=== PATIENT | male | born 1960 | race Caucasian/White ===

== ENCOUNTER 2020-12-16 13:11 | Inpatient (IN) | payer OTHER, SELFPAY ==
[2020-12-16] VITALS (10 sets, daily range): BP systolic 138–161; BP diastolic 87–128; PULSE 56–113; RESP 11–20; TEMP 36.6–36.8; O2SAT 95–100; BMI 17.9
--- NOTE | 2020-12-16 13:29 | ECG_ITS ---
APPROVED REPORT Exam: Resting ECG HR:95 bpm ECG Measurements Heart Rate 95 AXES QRSd 76 QRS 48 QT 448 T 37 QTc 562 Conclusion Undetermined rhythm Voltage criteria for left ventricular hypertrophy Nonspecific T wave abnormality Prolonged QT Abnormal ECG Electronically signed by : Oc Crockett MD 12/17/2020 21:21:32
--- NOTE | 2020-12-16 13:34 | XR_ITS ---
PROCEDURE INFORMATION: Exam: XR Chest Exam date and time: 12/16/2020 1:34 PM Age: 60 years old Clinical indication: Cough TECHNIQUE: Imaging protocol: XR of the chest. Views: 1 view. COMPARISON: No relevant prior studies available. FINDINGS: Lungs: Unremarkable. No consolidation. Pleural spaces: Unremarkable. No pleural effusion. No pneumothorax. Heart/Mediastinum: Unremarkable. No cardiomegaly. Bones/joints: Unremarkable. IMPRESSION: No acute findings.
--- NOTE | 2020-12-16 13:44 | HMH.EDGENADL ---
ED Disposition Clinical Impression: Peripheral edema, Paroxysmal A-fib Congestive heart failure Qualifiers: Heart failure type: systolic Heart failure chronicity: acute Qualified Code(s): I50.21 - Acute systolic (congestive) heart failure Disposition: Admitted as Observation Condition on Discharge: Fair Referrals: Jose Ramon Anaya [Primary Care Provider] - - Critical Care Critical Care Time: No Attestation: On 12/16/20, the high probability of a clinically significant, sudden or life threatening deterioration of the following system(s) required my full and direct attention, intervention and personal management. The time I documented below is in addition to time spent performing reported procedures but includes the following listed in this critical care notation. Medical Decision Making - Medical Records Medical records reviewed: Yes: I reviewed the patient's medical records. - Art Inquiry Pt receiving controlled substance: No Vital Signs: 12/16/20 13:34 12/16/20 13:42 12/16/20 14:41 Temperature 98.3 F Temperature Source Oral Pulse Rate 113 H 82 Pulse Rate [Left Radial] 113 H Respiratory Rate 20 20 16 Blood Pressure 161/106 H 161/106 H Blood Pressure [Right Arm] 160/87 H Blood Pressure Mean 117 Blood Pressure Mean [Right Arm] 111 Blood Pressure Source [Right Arm] Automatic Cuff Blood Pressure Position [Right Arm] Sitting 02 Sat by Pulse Oximetry 99 99 99 Oxygen Delivery Method Room Air Room Air - Lab Data Lab Results 12/16/20 13:56: WBC 6.3, RBC 4.03 L, Hgb 10.9 L, Hct 36.1 L, MCV 89.7, MCH 27.0, MCHC 30.2 L, RDW 17.2, Plt Count 361, MPV 8.8, Neut % (Auto) 54.4, Lymph % (Auto) 34.3, [place] % (Auto) 5.4, Eos % (Auto) 4.8, Baso % (Auto) 1.1, Neut # (Auto) 3.4, Lymph # (Auto) 2.2, [place] # (Auto) 0.3, Eos # (Auto) 0.3, Baso # (Auto) 0.1 12/16/20 13:56: Sodium 139, Potassium 3.6, Chloride 104, Carbon Dioxide 27, Anion Gap 11.6, BUN 6 L, Creatinine 0.50 L, Estimated Creat Clear 153, Estimated GFR 171, Est GFR ( Amer) 207, Glucose 145 H, Calcium 8.4, Total Bilirubin < 0.1 L, AST 57, ALT 55, Alkaline Phosphatase 164 H, Troponin I < 0.01, NT-Pro-B Natriuret Pep 3770 H, Total Protein 6.0 L, Albumin 3.4 L, Globulin 2.6, Albumin/Globulin Ratio 1.3, TSH 2.67 12/16/20 14:05: SARS-CoV-2 (PCR) Not detected, Influenza A Untype (PCR) Not detected, Influenza Type B (PCR) Not detected Result diagrams: 12/16/20 13:56 12/16/20 13:56 Orders (Tests/Meds): ED MEDICATIONS Generic Name Dose Route Start Last Admin Trade Name Freq PRN Reason Stop Dose Admin Metoprolol Succinate 25 mg 12/17/20 09:00 Metoprolol Succinate Xl 25mg Tablet PO 01/16/21 08:59 DAILY MU Discontinued Medications Generic Name Dose Route Start Last Admin Trade Name Freq PRN Reason Stop Dose Admin Furosemide 40 mg 12/16/20 16:36 Furosemide 40mg/4ml Vial IV 12/16/20 16:37 ONCE ONE Iopamidol 70 ml 12/16/20 15:31 12/16/20 15:32 Iopamidol-370 (76%);100ml Bottle IV 12/16/20 15:32 70 ml ONCE ONE Administration Sodium Chloride 50 ml 12/16/20 15:31 12/16/20 15:32 0.9 % Sodium Chloride 50 Ml Vial IV 12/16/20 15:32 50 ml ONCE ONE Administration Sodium Chloride 10 ml 12/16/20 15:31 12/16/20 15:32 Sodium Chloride 0.9% 10ml Syr (Rad Only) IV 12/16/20 15:32 10 ml ONCE ONE Administration ORDERS Category Date Time Status Troponin I Q3H Lab 12/16/20 16:45 Ordered Troponin I Q3H Lab 12/16/20 19:45 Ordered - ECG Data Tracing #1 I reviewed this ECG and interpreted as documented below: Normal ventricular rate of 95 bpm, prolonged QT. Occasional PVCs with left ventricular hypertrophy. ECG initial impression date: 12/16/20 ECG initial impression time: 13:29 - Reevaluation(s) Time: 16:38 Reevaluation #1: Patient has been kept on continuous telemetry monitoring appears to be having some dysrhythmia. Initially he was just having random PVCs, however the bozena
[2020-12-16 14:12] LABS: Coronavirus 19, PCR Not Detected (NotDetected); Influenza A, PCR Not Detected (NotDetected); Influenza B, PCR Not Detected (NotDetected)
[2020-12-16 14:22] LABS: Basophils # 0.1 K/mm3 (0-0.2); Basophils % 1.1 % (0.1-2.0); Eosinophils # 0.3 K/mm3 (0.0-0.4); Eosinophils % 4.8 % (0.1-12.0); Hematocrit 36.1 % (42.0-52.0); Hemoglobin 10.9 g/dL (14.1-18.0); Lymphocytes # 2.2 K/mm3 (0.7-4.5); Lymphocytes % 34.3 % (10-50); Mean Corpuscular HGB Conc 30.2 g/dL (31.8-35.4); Mean Corpuscular Volume 89.7 fl (80-94); Mean Platelet Volume 8.8 fl (7.4-10.4); Monocytes # 0.3 K/mm3 (0.1-1.0); Monocytes % 5.4 % (1.7-9.3); Neutrophils # 3.4 K/mm3 (1.8-7.8); Neutrophils % 54.4 % (37.0-80.0); Platelet Count 361 K/mm3 (142-424); Red Blood Count 4.03 M/mm3 (4.60-6.20); Red Cell Distribution Width 17.2 % (11.5-17.5); White Blood Count 6.3 K/mm3 (4.8-10.8)
[2020-12-16 14:24] LABS: Chloride 104 mmol/L (98-107)
[2020-12-16 14:25] LABS: Potassium 3.6 mmoL/L (3.5-5.1); Sodium 139 mmol/L (136-145)
[2020-12-16 14:27] LABS: Alanine Aminotransferase 55 U/L (12-78); Alkaline Phosphatase 164 U/L (38-126); Aspartate Amino Transferase 57 U/L (17-59); Blood Urea Nitrogen 6 mg/dl (9-20); Creatinine Clearance Estimated 153 mL/min (50-200); Estimated Glomerular Filt Rate 171 ml/min (>60); GFR (African American) 207 ML/MIN (>60)
[2020-12-16 14:28] LABS: Albumin Level 3.4 g/dl (3.5-5.0); Albumin/Globulin Ratio 1.3 (1.1-1.8); Anion Gap 11.6 mEq/L (5-15); Calcium 8.4 mg/dl (8.4-10.2); Carbon Dioxide 27 mmol/L (22.0-30.0); Globulin 2.6 g/dL (1.3-3.2); Glucose 145 mg/dl (74-100)
[2020-12-16 14:32] LABS: Bilirubin,Total < 0.1 mg/dl (0.2-1.3)
[2020-12-16 14:37] LABS: NT Pro Brain Natriuretic Pep. 3770 pg/mL (0-125)
[2020-12-16 14:42] LABS: Troponin I < 0.01 ng/ml (0.00-0.034)
--- NOTE | 2020-12-16 14:52 | CT_ITS ---
PROCEDURE INFORMATION: Exam: CTA Chest With Contrast Exam date and time: 12/16/2020 2:52 PM Age: 60 years old Clinical indication: Patient HX: Dyspnea, leg swelling; Additional info: Dyspnea, swelling TECHNIQUE: Imaging protocol: Computed tomographic angiography of the chest with contrast. 3D rendering (Not supervised by radiologist): MIP and/or 3D reconstructed images were created by the technologist. Radiation optimization: All CT scans at this facility use at least one of these dose optimization techniques: automated exposure control; mA and/or kV adjustment per patient size (includes targeted exams where dose is matched to clinical indication); or iterative reconstruction. Contrast material: ISO 370; Contrast volume: 70 ml; Contrast route: INTRAVENOUS (IV); COMPARISON: CR XR CHEST PORTABLE 12/16/2020 1:48 PM FINDINGS: Pulmonary arteries: Normal. No pulmonary emboli. Aorta: Calcification of the aorta. Lungs: Severe emphysema both centrilobular and paraseptal. No focal consolidation. Nodular density right upper lobe of approximately 6 mm. Pleural spaces: Unremarkable. No pneumothorax. No pleural effusion. Heart: Unremarkable. No cardiomegaly. No pericardial effusion. Lymph nodes: Calcified lymph nodes right hilum Stomach and bowel: Particulate filled stomach Bones/joints: Unremarkable. No acute fracture. Soft tissues: Unremarkable. Other findings: No dissection. No visualized embolism as characterized to the segmental level. IMPRESSION: 1. No dissection. No visualized embolism as characterized to the segmental level. 2. Severe emphysema both centrilobular and paraseptal. No focal consolidation. Apical fibrosis right greater than left. 3. Nodular density right upper lobe of approximately 6 mm.
[2020-12-16 14:59] LABS: Thyroid Stimulating Hormone 2.67 uIU/mL (0.465-4.68)
--- NOTE | 2020-12-16 17:00 | PC.NURSE ---
PT UP TO BATHROOM AMBULATORY
[2020-12-16 17:42] LABS: Troponin I 0.01 ng/ml (0.00-0.034)
--- NOTE | 2020-12-16 18:00 | PC.NURSE ---
REPORT CALLED TO FLOOR
--- NOTE | 2020-12-16 18:50 | PC.NURSE ---
PT ARRIVED TO THE FLOOR AT THIS TIME
[2020-12-16 20:55] LABS: Troponin I 0.01 ng/ml (0.00-0.034)
--- NOTE | 2020-12-16 23:24 | PC.NURSE ---
Pt was tachycardic on exertion heart rate went to 168 and quickly recovered. This nurse went in and pt reported that he had just went to the restroom. He is on Telemetry and was placed on continuous 02 monitor. Gave pt a urinal and instructed to use. Call dyer within reach will continue to monitor.
[2020-12-17] VITALS (23 sets, daily range): BP systolic 126–160; BP diastolic 67–107; PULSE 55–162; RESP 16–24; TEMP 36.4–36.9; O2SAT 91–100; BMI 17.0
--- NOTE | 2020-12-17 | CA_ITS ---
APPROVED REPORT EXAM: Comprehensive 2D, Doppler, and color-flow Echocardiogram Astronomy Instructor: Mackenzie Layne CRT Ht: 6 ft 0 in Wt: 132lbs BSA: 1.79 BP: 161/106 mmHg Indications: COPD, Atrial Fibrillation, Peripheral Edema, smoker 2D Dimensions LVOT 2.13 cm (M/F) 1.5-2.5 LA Volume 56.00 mL LA Volume Index 31.30 mL/m2 (M/F) 16-34 M-Mode Dimensions RVDd 2.13 cm (0.9-2.6) LA Diam 2.94 cm (1.9-4.0) LVDd 5.42 cm (3.5-5.7) Ao Diam 3.55 cm (2.0-3.7) LVDs 4.57 cm (3.5-5.7) IVSd 1.96 cm (0.6-1.1) PWd 0.99 cm (0.6-1.1) EF (Teich) 32.70% FS 15.70% EDV (Teich) 142.50 mL ESV (Teich) 95.90 mL LV Diastology E Decel Time 197.00 (160-240 msec) E/A Ratio 3.73 Aortic Valve AI PHT 482.00 ms AO Peak GR. 8.00 mmHg Mitral Valve MV E Max Pete. 96.00 (40-130 cm/s) MV A Velocity 26.00 (40-130 cm/s) E/A Ratio 3.73 MV Decel. Time 197.00 (160-240 ms) MV PHT 58.00 ms Pulmonary Valve PV Peak Velocity 82.00 (50-150 cm/s) Tricuspid Valve TR P. Velocity 212.00 cm/s RAP Estimate 10.00 mmHg RVSP 28.10 mmHg Left Ventricle Left atrium is mildly enlarged, left ventricle is mildly dilated, there is severe reduced left ventricular systolic function, visually estimated ejection fraction 30%, left ventricle is globally hypokinetic, diastolic parameters are inconclusive, possibility of left ventricular thrombus cannot be excluded, repeat study with Definity contrast is recommended. Right Ventricle Right atrium and right ventricle are normal size and contractility. Aortic Valve Aortic valve is minimally thickened and fibrosed, there is no aortic stenosis, there is trace aortic insufficiency. Mitral Valve Mitral valve grossly normal, there is mild mitral regurgitation. Tricuspid Valve Tricuspid valve grossly normal, there is mild tricuspid regurgitation, tricuspid regurgitation jet velocity is inadequate for calculation of the right ventricular systolic pressure. Pulmonic Valve Pulmonic valve is poorly visualized. Great Vessels Aortic root is normal size. Pericardium No significant pericardial effusion noted. Conclusion 1. Mildly enlarged left atrium, mildly dilated left ventricle, severe reduced left ventricular systolic function, visually estimated ejection fraction approximately 30%, left ventricle is globally hypokinetic, possibility of the left ventricular thrombus cannot be excluded, a repeat study with Definity contrast is recommended. 2. Trace aortic, mild mitral and tricuspid regurgitation. 3. No significant pericardial effusion noted. 4. Inferior vena cava is mildly dilated without significant inspiratory collapse. Electronically signed by : Wesley Hurt MD 12/17/2020 11:02:39
--- NOTE | 2020-12-17 | IR_ITS ---
APPROVED REPORT Patient Location: Inpatient [facility]: YUE Rodrigez RT (R) PROCEDURES Selective coronary angiogram Drug-eluting stent deployment the proximal ID Drug-eluting stent deployment in the first diagonal artery INDICATION Ischemic cardiomyopathy, Coronary artery disease, Thrombus in the left ventricle Informed consent was obtained prior to the procedure. COMPLICATIONS NONE Estimated Blood Loss: LESS THAN 10 ML TECHNIQUE One percent lidocaine used to anesthetize the right anterior aspect of the wrist. The right radial artery was accessed via the Seldinger technique. A 6 Serbian sheath was placed in the right radial artery. 2.5 mg of verapamil, 800 mcg of nitroglycerin, 1mg Lidocaine and 5000 U Heparin were given through the arterial sheath. A Poppa catheter was used to perform selective coronary angiogram. At the end the diagnostic angiogram additional therapeutic heparin was administered giving a therapeutic ACT and the Poppa catheter was placed in the left main artery. 2 wires were placed one in the first diagonal artery the other 1 in the LAD. A 2.5 x 12 mm resolute [place] stent was initially deployed at 18 latisha reducing the ostial stenosis to 10 to 20%. A 3.5 x 18 mm resolute [place] stent was then placed in the proximal to mid LAD overlapping the first diagonal artery. This was deployed at 20 latisha. An additional 2.75 x 8 mm balloon was then deployed at 22 latisha in the ostium of the diagonal artery. This further postdilated the ostial diagonal struts. Following this a 3.75 x 8 mm noncompliant balloon was deployed at 20 latisha adjacent to the diagonal artery in the LAD and then pulled back to the ostial portion of the stent deployed at 20 latisha. MARCO-3 flow was present before and after the procedure. At the end of the procedure the apparatus was removed the sheath was removed good hemostasis was achieved using TR banding patient was transferred to the postop already in stable condition ANGIOGRAPHIC RESULTS The left main artery Normal The left anterior descending artery Has a proximal eccentric 30% stenosis with mild 10% mid vessel luminal irregularities. A large first diagonal artery has a 90% ostial stenosis The circumflex artery Is nondominant and has proximal and mid vessel 10 to 20% stenoses The right coronary artery Is a dominant vessel and has proximal 30% stenosis with mid vessel distal 40% stenoses The TAPIA ventriculogram reveals Not performed due to the presence of an echocardiogram diagnosed LV thrombus The left ventricular end-diastolic pressure Not measured IMPRESSION Severe disease in the LAD diagonal artery system as described above Successful bifurcating stenting of a complex and severely diseased LAD diagonal artery system 1 stent in the LAD 1 stent in a large diagonal artery in a bifurcating manner Moderate disease in the right coronary artery PLAN 1. Brilinta 90 twice daily plus aspirin 81 mg daily 2. LDL less than 55 3. Cardiac rehabilitation 4. Avoidance of tobacco products 5. Risk factor modification 6. If the official echocardiogram does indicate the ejection fraction is between 30 and 35% patient should be discharged home with a LifeVest 7. In 6 weeks and recommend stress testing to determine if the right coronary artery lesion has hemodynamic significance Electronically signed by : Missael Perez MD 12/17/2020 13:03:25
--- NOTE | 2020-12-17 01:16 | PC.NURSE ---
Addendum entered by Katty Jean Baptiste RN 12/17/20 05:39: Dr Valencia notified and changed order to Verapamil 80mg PO q6h. Pt continues to be tachycardic with c/o of SOA 02 Sats remained above 95% on RA. At 0500 pt rang out and told this RN that he was having pain in his calf and down his left side. Upon assessment pt was diaphoretic and tachycardic at 162bpm, 02 at 98%. EKG performed and taken to Dr. Carrasco to be read, he reports no acute changes at this time. Call light in reach and will continue to monitor. Original Note: Pt continues to be tachycardic Dr Valencia was paged at 0020. Was ordered to give 60mg PO of verapamil Now and Q6H per Dr Valencia. Pt c/o pain in lower calf. Was given PRN medication per MAY. Will continue to monitor.
--- NOTE | 2020-12-17 05:09 | ECG_ITS ---
APPROVED REPORT Exam: Resting ECG HR:94 bpm ECG Measurements Heart Rate 94 AXES OH 148 P 79 QRSd 92 QRS 66 QT 374 T 72 QTc 467 Conclusion Sinus tachycardia with blocked premature atrial complexes Left ventricular hypertrophy with repolarization abnormality Abnormal ECG Electronically signed by : Oc Crockett MD 12/17/2020 21:20:09
[2020-12-17 06:14] LABS: Basophils # 0.1 K/mm3 (0-0.2); Basophils % 1.1 % (0.1-2.0); Eosinophils # 0.3 K/mm3 (0.0-0.4); Eosinophils % 2.3 % (0.1-12.0); Hematocrit 42.8 % (42.0-52.0); Lymphocytes # 2.4 K/mm3 (0.7-4.5); Mean Corpuscular HGB Conc 30.4 g/dL (31.8-35.4); Mean Corpuscular Hemoglobin 27.1 pg (27.0-31.2); Mean Corpuscular Volume 89.3 fl (80-94); Monocytes # 0.9 K/mm3 (0.1-1.0); Monocytes % 8.2 % (1.7-9.3); Neutrophils # 7.4 K/mm3 (1.8-7.8); Neutrophils % 66.5 % (37.0-80.0); Platelet Count 381 K/mm3 (142-424); Red Blood Count 4.79 M/mm3 (4.60-6.20); Red Cell Distribution Width 17.1 % (11.5-17.5); White Blood Count 11.1 K/mm3 (4.8-10.8)
--- NOTE | 2020-12-17 07:01 | HMH.PHAVTE ---
[facility] Pharmacy VTE Monitoring - Patient Demographics Admission date: 12/16/20 Report Date: 12/17/20 Time: 07:01 Allergies/Adverse Reactions: Patient Allergies No Known Allergies Allergy (Verified 12/16/20 13:42) Height: 1.83 m Weight: 57.153 kg Patient Problems: Current Active Problems Congestive heart failure (Acute) Peripheral edema (Acute) Paroxysmal A-fib (Acute) - VTE Risk Labs: VTE Related Lab Results Hgb 10.9 g/dL (14.1-18.0) L 12/16/20 13:56 Hct 42.8 % (42.0-52.0) 12/17/20 05:36 Plt Count 381 K/mm3 (142-424) 12/17/20 05:36 BUN 6 mg/dl (9-20) L 12/16/20 13:56 Creatinine 0.50 mg/dl (0.66-1.25) L 12/16/20 13:56 Estimated Creat Clear 153 mL/min (50-200) 12/16/20 13:56 VTE Score: 3 VTE Risk Level: Low Risk - Prophylaxis VTE Prophylaxis Ordered?: Yes Types of VTE Prophylaxis: TEDS Knee High, Pharmacological Location of Applied Device: Bilateral Lower Extremeties Pharmacologic Type: Enoxaparin
[2020-12-17 07:09] LABS: Bilirubin,Total 0.3 mg/dl (0.2-1.3); Glucose 121 mg/dl (74-100)
--- NOTE | 2020-12-17 07:21 | HMH.HP ---
*Admission Date: 12/16/20 *Chief complaint: Shortness of breath/leg swelling *History of present illness: 60-year-old male presented to the emergency department yesterday with a 2-week history of dyspnea, worse with exertion, and bilateral lower extremity swelling. Patient also reports sensation of racing heart. Coworkers had told him he was having a heart problem. He has a family history of congestive heart failure in his father. Patient has hypertension but does not take medication. He is a 1-1/2 pack/day smoker. He finally decided to seek treatment when symptoms were not improving. In the emergency department patient had an elevated BNP, significant bilateral lower extremity swelling, and telemetry revealed episodes of atrial fibrillation. Patient was admitted for further monitoring. Since admission patient has remained in atrial fibrillation with rate from the low 110s to 170. Overnight he was given oral verapamil. Early this morning patient notes improvement in his dyspnea and swelling but admits to still not feeling well. Preliminary echocardiogram reading suggests left ventricular systolic dysfunction. [facility] History I have reviewed the patient's past medical history: Yes Medical History: Reports:: Hypertension Denies:: Cancer, Diabetes Mellitus Type 1, Diabetes Mellitus Type 2, Internal Pacemaker, MRSA *Have you ever received a pneumonia vaccine?: No *Have you received a flu vaccine this season?: No Other Surgeries: No: Pacemaker Amputation: No Fractures: No - *Social History Last grade of school completed: High school graduate Smoking Status: Current every day smoker Tobacco Type: cigarettes # Packs/Day (cigarettes): 1 Alcohol Intake: never *Occupational Status:: employed *Travel in the last 8 weeks: None Family Hx:: Other Review of Systems - Constitutional Reports lack of energy - Eyes Denies blurry vision - ENT Denies abnormal hearing - *Cardiovascular Reports shortness of breath with activity, Reports generalized swelling, Reports irregular heart rhythm, Denies chest pain - *Respiratory Reports cough, Reports shortness of breath, Denies change in phlegm color, Denies chest congestion - *Gastrointestinal Denies heartburn - *Genitourinary Denies difficulty urinating - *Musculoskeletal Denies joint pain - Integumentary/Breasts Denies hair loss - *Neurologic Denies headache(s) Meds Home Medications Medication Instructions Recorded Confirmed Type No Known Home Medications 12/16/20 12/16/20 History Allergies Allergy/AdvReac Type Severity Reaction Status Date / Time No Known Allergies Allergy Verified 12/16/20 13:42 Exam Vital signs and Labs for Last 24 Hours: Temp Pulse Resp BP Pulse Ox 98.2 F 162 H 20 160/90 H 98 12/17/20 04:46 12/17/20 05:54 12/17/20 05:54 12/17/20 04:46 12/17/20 05:54 Laboratory Results - last 24 hr 12/16/20 13:56: WBC 6.3, RBC 4.03 L, Hgb 10.9 L, Hct 36.1 L, MCV 89.7, MCH 27.0, MCHC 30.2 L, RDW 17.2, Plt Count 361, MPV 8.8, Neut % (Auto) 54.4, Lymph % (Auto) 34.3, [place] % (Auto) 5.4, Eos % (Auto) 4.8, Baso % (Auto) 1.1, Neut # (Auto) 3.4, Lymph # (Auto) 2.2, [place] # (Auto) 0.3, Eos # (Auto) 0.3, Baso # (Auto) 0.1 12/16/20 13:56: Sodium 139, Potassium 3.6, Chloride 104, Carbon Dioxide 27, Anion Gap 11.6, BUN 6 L, Creatinine 0.50 L, Estimated Creat Clear 153, Estimated GFR 171, Est GFR ( Amer) 207, Glucose 145 H, Calcium 8.4, Total Bilirubin < 0.1 L, AST 57, ALT 55, Alkaline Phosphatase 164 H, Troponin I < 0.01, NT-Pro-B Natriuret Pep 3770 H, Total Protein 6.0 L, Albumin 3.4 L, Globulin 2.6, Albumin/Globulin Ratio 1.3, TSH 2.67 12/16/20 14:05: SARS-CoV-2 (PCR) Not detected, Influenza A Untype (PCR) Not detected, Influenza Type B (PCR) Not detected 12/16/20 16:50: Troponin I 0.01 12/16/20 20:10: Troponin I 0.01 12/17/20 05:36: WBC 11.1 H D, RBC 4.79, Hct 42.8, MCV 89.3, MCH 27.1, MCHC 30.4 L, RDW 17.1, Plt Count 381, MPV 9.0, Neut % (Auto)
[2020-12-17 07:46] LABS: Alanine Aminotransferase 54 U/L (12-78); Albumin Level 3.7 g/dl (3.5-5.0); Albumin/Globulin Ratio 1.2 (1.1-1.8); Alkaline Phosphatase 220 U/L (38-126); Anion Gap 13.6 mEq/L (5-15); Aspartate Amino Transferase 49 U/L (17-59); Calcium 8.8 mg/dl (8.4-10.2); Carbon Dioxide 26 mmol/L (22.0-30.0); Chloride 102 mmol/L (98-107); Creatinine Clearance Estimated 130 mL/min (50-200); Globulin 3.1 g/dL (1.3-3.2); Potassium 3.6 mmoL/L (3.5-5.1); Sodium 138 mmol/L (136-145); Total Protein,Serum 6.8 g/dl (6.3-8.2)
--- NOTE | 2020-12-17 09:15 | HMH.CNCARD ---
History of Present Illness Consult date: 12/17/20 Requesting physician: Oc Valencia Consult reason: chest pain, atrial fibrillation, shortness of breath Chief complaint: SOA, chest pain History of present illness: This is a 60-year-old white gentleman who was admitted to the hospital with shortness of breath and bilateral lower extremity edema. The patient states approximately 2 weeks ago he had new onset shortness of breath. He states that this is worse with exertion and improves with rest. He states that he was also getting the shortness of breath at rest. He states that this progressively worsened over the last 2 weeks. Within the last few days he started having bilateral lower extremity edema that also significantly worsened. The patient states that he has been having chest pressure. This is in the epigastric region of his chest. He states that it radiates to the bilateral arms and to his head and causes numbness. The patient states that it is associated with shortness of breath. He states that this is with exertion and improves with rest. He was unable to rate the pain. The patient states that his symptoms have improved since being in the hospital but he is still pretty short of breath even at rest. He states that he is just not felt well. He has been extremely fatigued and tired. The patient's preliminary echocardiogram shows new onset cardiomyopathy with an ejection fraction of 30 to 35%. He is a current every day smoker and has hypertension. The patient also reports using Suboxone intermittently and also using methamphetamine approximately last week per his report. He denies any recent viral illness and he denies any alcohol consumption. He denies any fever, chills, nausea, vomiting, diarrhea. He states his shortness of breath is associated with orthopnea. On admission the patient was found to be in atrial fibrillation. He has remained in atrial fibrillation since that time. This morning the patient is going back and forth between sinus rhythm and atrial fibrillation. The patient has had palpitations/racing of the heart intermittently as well. [facility] History I have reviewed the patient's past medical history: Yes Medical History: Reports:: Hypertension Denies:: Cancer, Diabetes Mellitus Type 1, Diabetes Mellitus Type 2, Internal Pacemaker, MRSA *Have you ever received a pneumonia vaccine?: No *Have you received a flu vaccine this season?: No Other Surgeries: No: Pacemaker Amputation: No Fractures: No - *Social History Last grade of school completed: High school graduate Smoking Status: Current every day smoker Tobacco Type: cigarettes # Packs/Day (cigarettes): 1 Alcohol Intake: never Substance Use Type: marijuana, opiates, methamphetamine *Occupational Status:: employed *Travel in the last 8 weeks: None Family Hx:: Other Meds Home Medications Medication Instructions Recorded Confirmed Type No Known Home Medications 12/16/20 12/16/20 History Allergies Allergy/AdvReac Type Severity Reaction Status Date / Time No Known Allergies Allergy Verified 12/16/20 13:42 Exam Vital signs and Labs for Last 24 Hours: Temp Pulse Resp BP Pulse Ox 97.6 F 55 L 16 128/67 99 12/17/20 08:00 12/17/20 08:00 12/17/20 08:00 12/17/20 08:00 12/17/20 08:00 Laboratory Results - last 24 hr 12/16/20 13:56: WBC 6.3, RBC 4.03 L, Hgb 10.9 L, Hct 36.1 L, MCV 89.7, MCH 27.0, MCHC 30.2 L, RDW 17.2, Plt Count 361, MPV 8.8, Neut % (Auto) 54.4, Lymph % (Auto) 34.3, [place] % (Auto) 5.4, Eos % (Auto) 4.8, Baso % (Auto) 1.1, Neut # (Auto) 3.4, Lymph # (Auto) 2.2, [place] # (Auto) 0.3, Eos # (Auto) 0.3, Baso # (Auto) 0.1 12/16/20 13:56: Sodium 139, Potassium 3.6, Chloride 104, Carbon Dioxide 27, Anion Gap 11.6, BUN 6 L, Creatinine 0.50 L, Estimated Creat Clear 153, Estimated GFR 171, Est GFR ( Amer) 207, Glucose 145 H, Calcium 8.4, Total Bilirubin < 0.1 L, AST 57, ALT 55, Alkaline Phosphatase 164 H, Troponin I < 0.01, NT-Pro-
--- NOTE | 2020-12-17 11:07 | CA_ITS ---
APPROVED REPORT EXAM: Comprehensive 2D, Doppler, and color-flow Echocardiogram Cleat Layer: Lola Izaguirre RDCS Ht: 6 ft 0 in Wt: 132lbs BSA: 1.79 BP: 160/80 mmHg Indications: DEFINITY TO R/O THROMBUS Conclusion 1. Limited study with Definity contrast was performed. 2. The left ventricle is mildly dilated, severely reduced left ventricular systolic function, visually estimated ejection fraction 25%, left ventricle is globally hypokinetic, there is no left ventricular thrombus seen. Electronically signed by : Wesley Hurt MD 12/17/2020 21:36:23
[2020-12-17 11:41] LABS: Blood Urea Nitrogen 4 mg/dl (9-20)
[2020-12-17 14:29] LABS: CATHL Activated Clotting Time 223 SEC (74-125)
--- NOTE | 2020-12-17 18:23 | PC.NURSE ---
PT IS RESTING IN BED. ALERT AND ORIENTED X4. PT HAS BEEN VERY RESTLESS/ANXIOUS SINCE ARRIVING BACK TO THE FLOOR FROM [facility]. PT STATES HIS BREATHING IS NOT ANY BETTER. O2 SATURATION HAS MAINTAINED 98-100% ON ROOM AIR. PT DID ADMIT TO EVERY OTHER DAY SUBOXONE USE HOWEVER FAMILY AT BEDSIDE STATED PT USED SUBOXONE EVERYDAY. PT WAS REALLY AGGRAVATED ABOUT BEING CONNECTED TO THE HEART MONITOR/BLOOD PRESSURE CUFF/CONTINUOUS PULSE OX AND WAS VERY QUICK TO TELL FAMILY HE DID NOT WANT THE TABLE OVER HIM DURING MEAL TIME. PT AND FAMILY DID NOT KNOW THE DOSAGE HE TAKES OF SUBOXONE. PT ALSO ADMITTED TO USING METH 1 WEEK AGO. TALKED TO FACE TO FACE AND HE ORDERED FOR PT TO HAVE LORAZEPAM 1 MG PO. PT HAS BEEN SLEEPING OFF AND ON SINCE DOSE OF LORAZEPAM BUT HAS AWAKEN A FEW TIMES IN A PANIC STATING I CANNOT CATCH MY BREATH O2 SATURATION 99%. RESPIRATIONS 24. PT HAS BEEN NSR ON THE MONITOR SINCE ARRIVING BACK TO THE FLOOR FROM CATH. LUNG SOUNDS DIMINISHED. ABDOMEN SOFT/NON TENDER WITH ACTIVE BOWEL SOUNDS. WILL CONTINUE TO MONITOR.
[2020-12-17 22:44] LABS: Estimated Glomerular Filt Rate 171 ml/min (>60); GFR (African American) 207 ML/MIN (>60)
[2020-12-18] VITALS (7 sets, daily range): BP systolic 109–138; BP diastolic 58–91; PULSE 50–100; RESP 17–24; TEMP 36.4–37.4; O2SAT 94–100; BMI 16.9
[2020-12-18 06:25] LABS: Basophils # 0.1 K/mm3 (0-0.2); Eosinophils # 0.2 K/mm3 (0.0-0.4); Eosinophils % 1.6 % (0.1-12.0); Hematocrit 42.8 % (42.0-52.0); Hemoglobin 13.2 g/dL (14.1-18.0); Lymphocytes # 3.8 K/mm3 (0.7-4.5); Lymphocytes % 29.6 % (10-50); Mean Corpuscular HGB Conc 30.8 g/dL (31.8-35.4); Mean Corpuscular Hemoglobin 26.8 pg (27.0-31.2); Mean Corpuscular Volume 87.3 fl (80-94); Mean Platelet Volume 9.4 fl (7.4-10.4); Monocytes % 7.8 % (1.7-9.3); Neutrophils # 7.8 K/mm3 (1.8-7.8); Platelet Count 435 K/mm3 (142-424); Red Cell Distribution Width 17.3 % (11.5-17.5); White Blood Count 12.9 K/mm3 (4.8-10.8)
[2020-12-18 06:29] LABS: Alanine Aminotransferase 40 U/L (12-78); Albumin Level 3.4 g/dl (3.5-5.0); Alkaline Phosphatase 183 U/L (38-126); Anion Gap 11.3 mEq/L (5-15); Aspartate Amino Transferase 43 U/L (17-59); Bilirubin,Direct 0.3 mg/dl (0.0-0.4); Bilirubin,Total 0.3 mg/dl (0.2-1.3); Blood Urea Nitrogen 9 mg/dl (9-20); Calcium 8.9 mg/dl (8.4-10.2); Carbon Dioxide 19 mmol/L (22.0-30.0); Chloride 104 mmol/L (98-107); Cholesterol 175 mg/dl (140-200); Creatinine Clearance Estimated 130 mL/min (50-200); Estimated Glomerular Filt Rate 171 ml/min (>60); GFR (African American) 207 ML/MIN (>60); Glucose 105 mg/dl (74-100); HDL Cholesterol 25 mg/dl (40-60); Potassium 4.3 mmoL/L (3.5-5.1); Sodium 130 mmol/L (136-145); Total Protein,Serum 6.4 g/dl (6.3-8.2); Triglycerides 150 mg/dl (30-150); VLDL Cholesterol 30 mg/dL (0-40)
[2020-12-18 06:40] LABS: Direct LDL Cholesterol 121.79 mg/dL (100-129)
--- NOTE | 2020-12-18 07:13 | XR_ITS ---
PROCEDURE: XR CHEST 2V CLINICAL HISTORY: dyspnea COMPARISON: CT CT ANGIO CHEST PE PROTOCOL from 12/16/2020 CR XR CHEST PORTABLE from 12/16/2020 FINDINGS: The cardiomediastinal silhouette and pulmonary vascularity are within normal limits. Coronary artery calcification and/or stents noted COPD changes. Lungs are clear of acute infiltrate. There is hyperinflation. No acute bony findings. IMPRESSION: COPD, no acute finding Dictated by: Wyatt Mijares MD 12/18/2020 17:00 Wyatt Mijares MD in [place] 12/18/2020 17:00
--- NOTE | 2020-12-18 07:22 | HMH.ACPN2 ---
Internal Medicine - PN: Subj *Date: 12/18/20 *Time: 07:22 Interval history: Patient developed some anxiety yesterday evening along with complaint of shortness of breath. He did reveal that he uses Suboxone that he buys off the street. He is also occasionally use methamphetamine. Last Suboxone use was the day before admission. Last methamphetamine use was a week ago. Exam Vital signs and Labs for Last 24 Hours: Temp Pulse Resp BP Pulse Ox 99.4 F 82 24 114/58 L 94 L 12/18/20 04:00 12/18/20 05:53 12/18/20 04:00 12/18/20 04:00 12/18/20 04:00 Laboratory Results - last 24 hr 12/17/20 05:36: Hgb 13.0 L D 12/17/20 05:36: Sodium 138, Potassium 3.6, Chloride 102, Carbon Dioxide 26, Anion Gap 13.6, BUN 4 L D, Creatinine 0.50 L, Estimated Creat Clear 130, Estimated GFR 171, Est GFR ( Amer) 207, Glucose 121 H, Calcium 8.8, Total Bilirubin 0.3, AST 49, ALT 54, Alkaline Phosphatase 220 H, Total Protein 6.8, Albumin 3.7, Globulin 3.1, Albumin/Globulin Ratio 1.2 12/17/20 12:51: Activated Clotting Time 223 H* 12/18/20 05:54: WBC 12.9 H, RBC 4.90, Hgb 13.2 L, Hct 42.8, MCV 87.3, MCH 26.8 L, MCHC 30.8 L, RDW 17.3, Plt Count 435 H, MPV 9.4, Neut % (Auto) 60.0, Lymph % (Auto) 29.6, [place] % (Auto) 7.8, Eos % (Auto) 1.6, Baso % (Auto) 1.0, Neut # (Auto) 7.8, Lymph # (Auto) 3.8, [place] # (Auto) 1.0, Eos # (Auto) 0.2, Baso # (Auto) 0.1 12/18/20 05:54: Sodium 130 L, Potassium 4.3, Chloride 104, Carbon Dioxide 19 L, Anion Gap 11.3, BUN 9 D, Creatinine 0.50 L, Estimated Creat Clear 130, Estimated GFR 171, Est GFR ( Amer) 207, Glucose 105 H, Calcium 8.9, Total Bilirubin 0.3, Direct Bilirubin 0.3, Conjugated Bilirubin 0.0, Indirect Bilirubin 0.0, Unconjugated Bilirubin 0.0, AST 43, ALT 40 D, Alkaline Phosphatase 183 H, Total Protein 6.4, Albumin 3.4 L, Triglycerides 150, Cholesterol 175, LDL Cholesterol Direct 121.79, VLDL Cholesterol 30, HDL Cholesterol 25 L, Cholesterol/HDL Ratio 7.0 H I & O for Last 24 hours: Intake & Output 12/15/20 12/16/20 12/17/20 12/18/20 11:59 11:59 11:59 11:59 Intake Total 840 / 840 960 / 960 Output Total 550 / 550 900 / 900 Balance 290 / 290 60 / 60 Weight 126 lb 125 lb 8 oz Narrative: Patient is awake and alert. And he answers questions appropriately. He does not appear short of breath and when I entered the room is laying with his head at the foot of the bed. Lungs are clear although distant breath sounds at the right base. Heart rate is irregular. Rhythm strips overnight show sinus tachycardia and sinus arrhythmia Assessment and Plan (1) Angina pectoris Status: Acute Category: Medical Code(s): I20.9 - Angina pectoris, unspecified (2) Shortness of breath Status: Acute Category: Medical Code(s): R06.02 - Shortness of breath (3) Cardiomyopathy Status: Acute Category: Medical Code(s): I42.9 - Cardiomyopathy, unspecified (4) Acute systolic (congestive) heart failure Status: Acute Category: Medical Code(s): I50.21 - Acute systolic (congestive) heart failure (5) Atrial fibrillation with rapid ventricular response Status: Acute Category: Medical Code(s): I48.91 - Unspecified atrial fibrillation (6) Essential hypertension Status: Chronic Category: Medical Code(s): I10 - Essential (primary) hypertension (7) Cigarette smoker Status: Chronic Category: Social Hx Code(s): F17.210 - Nicotine dependence, cigarettes, uncomplicated (8) Family history of congestive heart failure Status: Chronic Category: Medical Code(s): Z82.49 - Family history of ischemic heart disease and other diseases of the circulatory system (9) Habitual drug user Status: Chronic Category: Medical Code(s): F19.20 - Other psychoactive substance dependence, uncomplicated (10) Left ventricular systolic dysfunction Status: Acute Category: Medical Code(s): I51.9 - Heart disease, unspecified - Assessment and plan all Dx Assessment and Plan for all
--- NOTE | 2020-12-18 09:46 | HMH.PNCARD ---
Subjective Date: 12/18/20 Time: 09:35 Principal diagnosis: systolic chf, ischemic CM, CAD Interval history: This is a 60-year-old white gentleman who was admitted to the hospital with shortness of breath and bilateral lower extremity edema. The patient was treated with IV Lasix and his shortness of breath and lower extremity edema improved. He had an echocardiogram that showed an ejection fraction of 30 to 35% and he was also having angina. The patient underwent left cardiac catheterization yesterday which showed severe disease in the LAD diagonal system. The patient underwent successful bifurcating stenting of a complex and severely diseased LAD and diagonal system with 1 stent in the LAD and 1 stent in the large diagonal artery. The patient had moderate persistent disease to the right coronary artery. He is on Brilinta and aspirin for dual antiplatelet therapy. The patient was also in atrial fibrillation on admission. He has converted to sinus rhythm. This morning he denies any chest pain or pressure. He states that he is still having shortness of breath. He states that this worsened this morning. He states that this is with rest and exertion. It does improve with rest. He denies any fever, chills, nausea, vomiting, diarrhea, PND or orthopnea. He is lying flat when I walk in the room. Exam Vital signs and Labs for Last 24 Hours: Temp Pulse Resp BP Pulse Ox 98.2 F 76 18 125/91 H 96 12/18/20 07:34 12/18/20 07:34 12/18/20 07:34 12/18/20 07:34 12/18/20 07:34 Laboratory Results - last 24 hr 12/17/20 05:36: Hgb 13.0 L D 12/17/20 05:36: BUN 4 L D, Creatinine 0.50 L, Estimated GFR 171, Est GFR ( Amer) 207 12/17/20 12:51: Activated Clotting Time 223 H* 12/18/20 05:54: WBC 12.9 H, RBC 4.90, Hgb 13.2 L, Hct 42.8, MCV 87.3, MCH 26.8 L, MCHC 30.8 L, RDW 17.3, Plt Count 435 H, MPV 9.4, Neut % (Auto) 60.0, Lymph % (Auto) 29.6, [place] % (Auto) 7.8, Eos % (Auto) 1.6, Baso % (Auto) 1.0, Neut # (Auto) 7.8, Lymph # (Auto) 3.8, [place] # (Auto) 1.0, Eos # (Auto) 0.2, Baso # (Auto) 0.1 12/18/20 05:54: Sodium 130 L, Potassium 4.3, Chloride 104, Carbon Dioxide 19 L, Anion Gap 11.3, BUN 9 D, Creatinine 0.50 L, Estimated Creat Clear 130, Estimated GFR 171, Est GFR ( Amer) 207, Glucose 105 H, Calcium 8.9, Total Bilirubin 0.3, Direct Bilirubin 0.3, Conjugated Bilirubin 0.0, Indirect Bilirubin 0.0, Unconjugated Bilirubin 0.0, AST 43, ALT 40 D, Alkaline Phosphatase 183 H, Total Protein 6.4, Albumin 3.4 L, Triglycerides 150, Cholesterol 175, LDL Cholesterol Direct 121.79, VLDL Cholesterol 30, HDL Cholesterol 25 L, Cholesterol/HDL Ratio 7.0 H I & O for Last 24 hours: Intake & Output 12/15/20 12/16/20 12/17/20 12/18/20 23:59 23:59 23:59 23:59 Intake Total 240 / 240 1320 / 1560 240 / 240 Output Total 1150 / 1450 300 / 300 Balance 240 / -10 170 / 110 -60 / -60 Weight 132 lb 9 oz 125 lb 10.616 oz 125 lb 8 oz Narrative: [facility] shows: The left main artery Normal The left anterior descending artery Has a proximal eccentric 30% stenosis with mild 10% mid vessel luminal irregularities. A large first diagonal artery has a 90% ostial stenosis The circumflex artery Is nondominant and has proximal and mid vessel 10 to 20% stenoses The right coronary artery Is a dominant vessel and has proximal 30% stenosis with mid vessel distal 40% stenoses The TAPIA ventriculogram reveals Not performed due to the presence of an echocardiogram diagnosed LV thrombus The left ventricular end-diastolic pressure Not measured IMPRESSION Severe disease in the LAD diagonal artery system as described above Successful bifurcating stenting of a complex and severely diseased LAD diagonal artery system 1 stent in the LAD 1 stent in a large diagonal artery in a bifurcating manner Moderate disease in the right coronary artery PLAN 1. Brilinta 90 twice daily plus aspirin 81 mg daily 2. LDL less than 55 3. Cardiac rehabilitation 4. Avoidance of tobacco products
--- NOTE | 2020-12-18 19:10 | PC.NURSE ---
Patient continues to exhibit signs of withdraws, ATIVAN PRN given once throughout shift and only when RN could not redirect patient. Patient complained of one instance of vomiting that was unwitnessed, PRN zofran administered. Patient continues to remain on room air and ambulate within room. Life vest paperwork given and discussed with family.
[2020-12-19] VITALS: PULSE 70
[2020-12-19 04:00] VITALS: BP 113/71; PULSE 70; PULSE 88; RESP 19; TEMP 36.7; O2SAT 95
[2020-12-19 05:00] VITALS: BMI 16.9
--- NOTE | 2020-12-19 06:42 | PC.NURSE ---
No acute changes t/o night. Pt remained on room air with no c/o of SOA. He verbalized no c/o pain or N/V/D. Dressing removed from right radial site no bleeding noted. Call dyer within reach will continue to monitor.
--- NOTE | 2020-12-19 07:42 | HMH.ACPN2 ---
Internal Medicine - PN: Subj *Date: 12/19/20 *Time: 07:42 Interval history: Patient reports continued sensation of shortness of breath. Chest x-ray yesterday showed changes consistent with COPD. Patient is in process of obtaining a LifeVest Exam Vital signs and Labs for Last 24 Hours: Temp Pulse Resp BP Pulse Ox 98.1 F 88 19 113/71 95 12/19/20 04:00 12/19/20 04:00 12/19/20 04:00 12/19/20 04:00 12/19/20 04:00 I & O for Last 24 hours: Intake & Output 12/16/20 12/17/20 12/18/20 12/19/20 11:59 11:59 11:59 11:59 Intake Total 840 / 840 1200 / 1200 720 / 720 Output Total 550 / 550 900 / 900 400 / 400 Balance 290 / 290 300 / 300 320 / 320 Weight 126 lb 125 lb 8 oz 125 lb 9 oz - Constitutional no acute distress - *Routine Respiratory Exam Present: CTA bilaterally - *Routine Cardiovascular Exam Present: RRR Assessment and Plan (1) Angina pectoris Status: Resolved Category: Medical Code(s): I20.9 - Angina pectoris, unspecified (2) Cardiomyopathy Status: Acute Category: Medical Code(s): I42.9 - Cardiomyopathy, unspecified (3) Acute systolic (congestive) heart failure Status: Acute Category: Medical Code(s): I50.21 - Acute systolic (congestive) heart failure (4) Atrial fibrillation with rapid ventricular response Status: Acute Category: Medical Code(s): I48.91 - Unspecified atrial fibrillation (5) Essential hypertension Status: Chronic Category: Medical Code(s): I10 - Essential (primary) hypertension (6) Cigarette smoker Status: Chronic Category: Social Hx Code(s): F17.210 - Nicotine dependence, cigarettes, uncomplicated (7) Family history of congestive heart failure Status: Chronic Category: Medical Code(s): Z82.49 - Family history of ischemic heart disease and other diseases of the circulatory system (8) Habitual drug user Status: Chronic Category: Medical Code(s): F19.20 - Other psychoactive substance dependence, uncomplicated (9) Left ventricular systolic dysfunction Status: Acute Category: Medical Code(s): I51.9 - Heart disease, unspecified (10) CAD (coronary artery disease) Status: Chronic Category: Medical Code(s): I25.10 - Atherosclerotic heart disease of [place] coronary artery without angina pectoris (11) Paroxysmal A-fib Status: Chronic Category: Medical Code(s): I48.0 - Paroxysmal atrial fibrillation (12) Shortness of breath Status: Acute Category: Medical Code(s): R06.02 - Shortness of breath - Assessment and plan all Dx Assessment and Plan for all problems:: 1. Patient is stable and can be discharged today. We will try to straighten out the patient's need for LifeVest. Patient entered the hospital without insurance and is in process of applying and receiving approval for the LifeVest.
[2020-12-19 08:00] VITALS: BP 108/70; PULSE 52; PULSE 60; RESP 12; TEMP 36.4; O2SAT 100
--- NOTE | 2020-12-19 08:57 | HMH.PNCARD ---
Subjective Date: 12/19/20 Time: 09:53 Principal diagnosis: systolic chf, ischemic CM, CAD Interval history: This is a 60-year-old white gentleman who was admitted to the hospital with an acute CHF exacerbation. The patient was found to have a new cardiomyopathy with an ejection fraction of 30 to 35% and having angina. He underwent left cardiac catheterization and was found to have severe LAD and diagonal disease. The patient underwent successful bifurcating stenting of a complex and severely diseased LAD and diagonal system with 1 stent to the LAD and 1 stent in the large diagonal artery. The patient did have moderate right coronary artery disease. He has been on Brilinta and aspirin for dual antiplatelet therapy. But he is having worsening shortness of breath since starting this medication. The patient did also go into atrial fibrillation on admission. He has converted to sinus rhythm. He denies any chest pain or pressure this morning. He states that he is still having shortness of breath and notices it more in the mornings and the evenings. He states that this is worse with exertion and does improve with rest. Overall it is better than when he came into the hospital but it got much better but now is starting to come back after starting the new medications. He denies any fever, chills, nausea, vomiting, diarrhea, PND or orthopnea. Exam Vital signs and Labs for Last 24 Hours: Temp Pulse Resp BP Pulse Ox 97.5 F L 52 L 12 108/70 L 100 12/19/20 08:00 12/19/20 08:00 12/19/20 08:00 12/19/20 08:00 12/19/20 08:00 I & O for Last 24 hours: Intake & Output 12/16/20 12/17/20 12/18/20 12/19/20 23:59 23:59 23:59 23:59 Intake Total 240 / 240 1320 / 1560 1200 / 1200 240 / 240 Output Total 1150 / 1450 700 / 700 Balance 240 / -10 170 / 110 500 / 500 240 / 240 Weight 132 lb 9 oz 125 lb 10.616 oz 125 lb 8 oz 125 lb 9 oz Narrative: Telemetry strip is sinus rhythm with a rate of 67. - Constitutional no acute distress, thin - *Routine HEENT Exam Head: Present: normocephalic, atraumatic Eye: Present: EOMI, PERRL ENT: Present: mucous membranes moist - *Routine Neck Exam Present: supple, full ROM, normal carotid upstroke. Absent: JVD, carotid bruit, lymphadenopathy - *Routine Respiratory Exam Present: CTA bilaterally - *Routine Cardiovascular Exam Present: RRR, Normal S1, Normal S2. Absent: murmur - *Routine Abdominal Exam Present: soft, normoactive bowel sounds. Absent: tenderness, distended - *Routine Extremities Exam Present: full ROM, pulses intact, normal capillary refill. Absent: cyanosis, clubbing, edema - *Routine Skin Exam Present: intact, warm. Absent: erythema, rash - *Routine Neurological Exam Present: alert, oriented X3, CN II-XII intact. Absent: sensory deficit, motor deficit Progress Note: A&P (1) Angina pectoris Status: Resolved (2) Cardiomyopathy Status: Acute (3) Acute systolic (congestive) heart failure Status: Acute (4) Atrial fibrillation with rapid ventricular response Status: Acute (5) Essential hypertension Status: Chronic (6) Cigarette smoker Status: Chronic (7) Family history of congestive heart failure Status: Chronic (8) Habitual drug user Status: Chronic (9) Left ventricular systolic dysfunction Status: Acute (10) CAD (coronary artery disease) Status: Chronic (11) Paroxysmal A-fib Status: Chronic (12) Shortness of breath Status: Acute Assessment and Plan for All Diagnoses:: Plan: 1. The patient was admitted to the hospital with new onset CHF. He was treated with Lasix and did have improvement in his shortness of breath. His ejection fraction was 30 to 35% on his initial echocardiogram with a BNP over 3000. The patient has been diuresed with IV Lasix. And his shortness of breath has improved. 2. The patient had new onset cardiomyopathy with angina. He underwent left cardiac catheterization and had bif
[2020-12-19 10:39] LABS: Anion Gap 13.8 mEq/L (5-15); Blood Urea Nitrogen 30 mg/dl (9-20); Calcium 8.8 mg/dl (8.4-10.2); Carbon Dioxide 24 mmol/L (22.0-30.0); Chloride 101 mmol/L (98-107); Creatinine Clearance Estimated 36 mL/min (50-200); Estimated Glomerular Filt Rate 39 ml/min (>60); GFR (African American) 47 ML/MIN (>60); Glucose 185 mg/dl (74-100); Potassium 4.8 mmoL/L (3.5-5.1); Sodium 134 mmol/L (136-145)
--- NOTE | 2020-12-19 11:11 | DIET.NUTRFU ---
PO intakes 50-75%, pt states he has had decreased appetite since admission but denies low intakes or recent weight changes at home. He states he follows a low sodium diet. Diet edu provided. Weight stable.
[2020-12-19 11:32] VITALS: BP 114/88; PULSE 69; RESP 17; TEMP 35.7; O2SAT 100
--- NOTE | 2020-12-19 15:41 | HMH.PHACLD ---
Shayan Cooley has received discharge medication counseling on the following medications: - Aspirin - Brilinta - Entresto - Atorvastatin - Metoprolol - Xarelto
[2020-12-19 16:00] VITALS: TEMP 36.4
--- NOTE | 2020-12-19 17:28 | PC.NURSE ---
Called and spoke with keon barney'moises, they are going to transfer meds from [facility]. Made keon munoz aware that pt is due to take entresto again this evening. Have updated Giselle.
--- NOTE | 2020-12-22 09:21 | HMH.DCSUM ---
General - General Admission date:: 12/16/20 Discharge date: 12/22/20 HPI HPI: 60-year-old male presented to the emergency department yesterday with a 2-week history of dyspnea, worse with exertion, and bilateral lower extremity swelling. Patient also reports sensation of racing heart. Coworkers had told him he was having a heart problem. He has a family history of congestive heart failure in his father. Patient has hypertension but does not take medication. He is a 1-1/2 pack/day smoker. He finally decided to seek treatment when symptoms were not improving. In the emergency department patient had an elevated BNP, significant bilateral lower extremity swelling, and telemetry revealed episodes of atrial fibrillation. Patient was admitted for further monitoring. Since admission patient has remained in atrial fibrillation with rate from the low 110s to 170. Overnight he was given oral verapamil. Early this morning patient notes improvement in his dyspnea and swelling but admits to still not feeling well. Preliminary echocardiogram reading suggests left ventricular systolic dysfunction. Hospital Course Hospital Course: Patient was admitted with findings of congestive heart failure. Echocardiogram confirmed acute left ventricular systolic dysfunction with EF of 30%. Patient was taken to the [facility] with findings as follows: ANGIOGRAPHIC RESULTS The left main artery Normal The left anterior descending artery Has a proximal eccentric 30% stenosis with mild 10% mid vessel luminal irregularities. A large first diagonal artery has a 90% ostial stenosis The circumflex artery Is nondominant and has proximal and mid vessel 10 to 20% stenoses The right coronary artery Is a dominant vessel and has proximal 30% stenosis with mid vessel distal 40% stenoses The TAPIA ventriculogram reveals Not performed due to the presence of an echocardiogram diagnosed LV thrombus The left ventricular end-diastolic pressure Not measured IMPRESSION Severe disease in the LAD diagonal artery system as described above Successful bifurcating stenting of a complex and severely diseased LAD diagonal artery system 1 stent in the LAD 1 stent in a large diagonal artery in a bifurcating manner Moderate disease in the right coronary artery PLAN 1. Brilinta 90 twice daily plus aspirin 81 mg daily 2. LDL less than 55 3. Cardiac rehabilitation 4. Avoidance of tobacco products 5. Risk factor modification 6. If the official echocardiogram does indicate the ejection fraction is between 30 and 35% patient should be discharged home with a LifeVest 7. In 6 weeks and recommend stress testing to determine if the right coronary artery lesion has hemodynamic significance Patient was fitted with a LifeVest. Prior to discharge patient's Brilinta was changed to Plavix due to persistent complaint of shortness of breath. There is likely an underlying COPD component to his dyspnea as well. Patient did admit to use of both methamphetamine and Suboxone. While patient's claim with these medications is it had been a week since their last use patient developed significant anxiety and concern for withdrawal. Patient was given oral Ativan as needed. Objective Vital signs: Temp Pulse Resp BP Pulse Ox 97.5 F L 69 17 114/88 100 12/19/20 16:00 12/19/20 11:32 12/19/20 11:32 12/19/20 11:32 12/19/20 11:32 DS: Diagnosis - Discharge Diagnosis (1) Cardiomyopathy Status: Acute (2) Angina pectoris Status: Resolved (3) Acute systolic (congestive) heart failure Status: Acute (4) Atrial fibrillation with rapid ventricular response Status: Acute (5) Essential hypertension Status: Chronic (6) Cigarette smoker Status: Chronic (7) Family history of congestive heart failure Status: Chronic (8) Habitual drug user Status: Chronic (9) Left ventricular systolic dysfunction Status: Acute (10) CAD (coronary artery
== END 2020-12-19 17:00 | disposition home or self-care (01) | DRG 246 ==
LOC: ER 16:39 → 2ND 16:59
PROVIDERS: Internal Medicine; Nurse Practitioner Family; Admitting Provider Family Medicine; Emergency Provider Emergency Medicine; PCP Family Medicine; Visit Provider Family Medicine
PROC: 0270356 Dilation of Coronary Artery, One Artery, Bifurcation, with Two Drug-eluting Intraluminal Devices, Percutaneous Approach (ICD-10-PCS; principal; 2020-12-17 11:00)
DX: I11.0 Hypertensive heart disease with heart failure (principal); I50.21 Acute systolic (congestive) heart failure; I21.9 Acute myocardial infarction, unspecified; I25.5 Ischemic cardiomyopathy; F17.210 Nicotine dependence, cigarettes, uncomplicated; Z82.49 Family history of ischemic heart disease and other diseases of the circulatory system; J44.9 Chronic obstructive pulmonary disease, unspecified; I48.0 Paroxysmal atrial fibrillation; I25.119 Atherosclerotic heart disease of native coronary artery with unspecified angina pectoris; R06.02 Shortness of breath; T50.995A Adverse effect of other drugs, medicaments and biological substances, initial encounter
CPT/HCPCS: 36415; 71045; 71046; 71275; 80048; 80053; 80061; 80076; 83880; 84443; 84484; 85025; 85347; 92928; 92929; 93005; 93306; 93308; 93458; 96374; 96375; 96376; 99152; 99153; 99284; C1725; C1769; C1876; C9600; C9601; C9803; J1644; Q9957; Q9967; U0003; U0005

== ENCOUNTER 2020-12-20 07:52 | Observation (INO) | payer OTHER, SELFPAY ==
[2020-12-20] VITALS (20 sets, daily range): BP systolic 92–142; BP diastolic 62–85; PULSE 51–144; RESP 14–20; TEMP 36.5–36.9; O2SAT 94–100; BMI 19.6; BMI 17.5
--- NOTE | 2020-12-20 07:50 | ECG_ITS ---
APPROVED REPORT Exam: Resting ECG HR:72 bpm ECG Measurements Heart Rate 72 AXES WA 152 P QRSd 72 QRS 24 QT 368 T -67 QTc 402 Conclusion Sinus rhythm with premature atrial complexes with aberrant conduction Nonspecific ST and T wave abnormality Abnormal ECG Electronically signed by : Oc Crockett MD 12/22/2020 09:00:37
--- NOTE | 2020-12-20 07:55 | PC.NURSE ---
pt placed on zoll
--- NOTE | 2020-12-20 08:01 | PC.NURSE ---
Called and spoke with Cali and he advised that Marie would be over to see patient.
--- NOTE | 2020-12-20 08:06 | HMH.EDGENADL ---
ED Disposition Clinical Impression: Ischemic cardiomyopathy, PAF (paroxysmal atrial fibrillation) Disposition: Admitted as Observation Condition on Discharge: Fair Referrals: Provider,Referral, [Referring] - - Critical Care Critical Care Time: No Attestation: On 12/20/20, the high probability of a clinically significant, sudden or life threatening deterioration of the following system(s) required my full and direct attention, intervention and personal management. The time I documented below is in addition to time spent performing reported procedures but includes the following listed in this critical care notation. Medical Decision Making - Art Inquiry Pt receiving controlled substance: No Vital Signs: 12/20/20 07:52 12/20/20 08:00 12/20/20 08:04 Temperature 97.8 F Temperature Source Oral Pulse Rate 144 H 135 H Pulse Rate [Radial] 88 Respiratory Rate 20 20 18 Blood Pressure 92/66 L 101/76 L Blood Pressure [Right Arm] 122/72 Blood Pressure Mean 72 80 Blood Pressure Mean [Right Arm] 88 Blood Pressure Position [Right Arm] Sitting 02 Sat by Pulse Oximetry 100 Oxygen Delivery Method Nasal Cannula Oxygen Flow Rate (LPM) 3 12/20/20 08:15 Temperature Temperature Source Pulse Rate 69 Pulse Rate [Radial] Respiratory Rate 18 Blood Pressure Blood Pressure [Right Arm] Blood Pressure Mean Blood Pressure Mean [Right Arm] Blood Pressure Position [Right Arm] 02 Sat by Pulse Oximetry 100 Oxygen Delivery Method Oxygen Flow Rate (LPM) - Lab Data Lab Results 12/20/20 08:06: WBC 10.2, RBC 4.84, Hgb 13.2 L, Hct 43.6, MCV 90.1, MCH 27.3, MCHC 30.3 L, RDW 17.3, Plt Count 424, MPV 8.6, Neut % (Auto) 58.1, Lymph % (Auto) 29.8, [place] % (Auto) 8.0, Eos % (Auto) 3.1, Baso % (Auto) 1.0, Neut # (Auto) 5.9, Lymph # (Auto) 3.0, [place] # (Auto) 0.8, Eos # (Auto) 0.3, Baso # (Auto) 0.1 12/20/20 08:06: Sodium 135 L, Potassium 4.0, Chloride 103, Carbon Dioxide 23, Anion Gap 13.0, BUN 29 H, Creatinine 1.10 D, Estimated Creat Clear 68, Estimated GFR 69, Est GFR ( Amer) 83 D, Glucose 107 H D, Calcium 8.4, Troponin I 0.08 H Result diagrams: 12/20/20 08:06 12/20/20 08:06 Orders (Tests/Meds): ED MEDICATIONS Generic Name Dose Route Start Last Admin Trade Name Freq PRN Reason Stop Dose Admin Amiodarone HCl 900 mg/ 518 mls @ 33.3 mls/hr 12/20/20 09:45 12/20/20 10:18 Dextrose IV 01/19/21 09:44 33.3 mls/hr .[id number] MU Administration Discontinued Medications Generic Name Dose Route Start Last Admin Trade Name Freq PRN Reason Stop Dose Admin Amiodarone HCl 400 mg 12/20/20 08:26 12/20/20 08:39 Amiodarone 200mg Tablet PO 12/20/20 08:27 400 mg ONCE ONE Administration Aspirin 81 mg 12/20/20 08:27 12/20/20 08:33 Aspirin 81mg Chewable Tablet PO 12/20/20 08:28 81 mg ONCE ONE Administration Clopidogrel Bisulfate 75 mg 12/20/20 08:28 12/20/20 08:33 Clopidogrel 75mg Tab PO 12/20/20 08:29 75 mg ONCE ONE Administration Amiodarone HCl 150 mg/ 103 mls @ 600 mls/hr 12/20/20 09:45 12/20/20 10:07 Dextrose IV 12/20/20 09:55 600 mls/hr ONCE ONE Administration ORDERS Category Date Time Status Drug Screen,Urine Stat Lab 12/20/20 08:31 Ordered Rapid PCR Covid and Flu A/B Stat Lab 12/20/20 10:15 Received Troponin I Q3H Lab 12/20/20 11:15 Ordered Troponin I Q3H Lab 12/20/20 14:15 Ordered - Radiology Data #1 Image(s): Chest Image Reviewed: Yes I have reviewed radiologist's interpretation PROCEDURE: XR CHEST PORTABLE CLINICAL HISTORY: weakness COMPARISON: CT CT ANGIO CHEST PE PROTOCOL from 12/16/2020 CR XR CHEST PORTABLE from 12/16/2020 CR XR CHEST 2V from 12/18/2020 FINDINGS: The cardiomediastinal silhouette and pulmonary vascularity are within normal limits. Artifact is present from overlying monitor in defibrillator device. The lungs are clear. No evidence of pneumothorax No acute bony abnormal
--- NOTE | 2020-12-20 08:09 | PC.NURSE ---
Marie Smith in with
--- NOTE | 2020-12-20 08:11 | XR_ITS ---
PROCEDURE: XR CHEST PORTABLE CLINICAL HISTORY: weakness COMPARISON: CT CT ANGIO CHEST PE PROTOCOL from 12/16/2020 CR XR CHEST PORTABLE from 12/16/2020 CR XR CHEST 2V from 12/18/2020 FINDINGS: The cardiomediastinal silhouette and pulmonary vascularity are within normal limits. Artifact is present from overlying monitor in defibrillator device. The lungs are clear. No evidence of pneumothorax No acute bony abnormalities. IMPRESSION: No acute findings. Dictated by: Wyatt Mijares MD 12/20/2020 08:34 Wyatt Mijares MD in [place] 12/20/2020 08:34
[2020-12-20 08:14] LABS: Basophils # 0.1 K/mm3 (0-0.2); Eosinophils # 0.3 K/mm3 (0.0-0.4); Eosinophils % 3.1 % (0.1-12.0); Hematocrit 43.6 % (42.0-52.0); Hemoglobin 13.2 g/dL (14.1-18.0); Lymphocytes % 29.8 % (10-50); Mean Corpuscular HGB Conc 30.3 g/dL (31.8-35.4); Mean Corpuscular Hemoglobin 27.3 pg (27.0-31.2); Mean Corpuscular Volume 90.1 fl (80-94); Mean Platelet Volume 8.6 fl (7.4-10.4); Monocytes # 0.8 K/mm3 (0.1-1.0); Neutrophils # 5.9 K/mm3 (1.8-7.8); Neutrophils % 58.1 % (37.0-80.0); Platelet Count 424 K/mm3 (142-424); Red Blood Count 4.84 M/mm3 (4.60-6.20); Red Cell Distribution Width 17.3 % (11.5-17.5); White Blood Count 10.2 K/mm3 (4.8-10.8)
[2020-12-20 08:19] LABS: Chloride 103 mmol/L (98-107); Sodium 135 mmol/L (136-145)
[2020-12-20 08:22] LABS: Blood Urea Nitrogen 29 mg/dl (9-20); Carbon Dioxide 23 mmol/L (22.0-30.0); Creatinine Clearance Estimated 68 mL/min (50-200); Estimated Glomerular Filt Rate 69 ml/min (>60); GFR (African American) 83 ML/MIN (>60)
[2020-12-20 08:23] LABS: Calcium 8.4 mg/dl (8.4-10.2); Glucose 107 mg/dl (74-100)
[2020-12-20 08:35] LABS: Troponin I 0.08 ng/ml (0.00-0.034)
[2020-12-20 10:21] LABS: Coronavirus 19, PCR Not Detected (NotDetected); Influenza A, PCR Not Detected (NotDetected); Influenza B, PCR Not Detected (NotDetected)
--- NOTE | 2020-12-20 10:23 | HMH.CNCARD ---
History of Present Illness Consult date: 12/20/20 Requesting physician: Shahriar Ryan Consult reason: shortness of breath Chief complaint: arm numbness, SOB History of present illness: This is a 60-year-old white gentleman who was just discharged from the hospital yesterday with a LifeVest in place for ischemic cardiomyopathy, paroxysmal atrial fibrillation and coronary artery disease. The patient states that he did well overnight and then woke up around 430 this morning. He states he did not feel well and then just prior to coming into the hospital he started to feel really bad. He states that he was having bilateral arm numbness and shortness of breath. He states that he occasionally had some palpitations and racing of the heart. He states that his arms were numb and tingling and he just did not feel right. He denied any chest pain or pressure. He denied any lower extremity edema. He denied any fever, chills, nausea, vomiting, diarrhea, PND or orthopnea. The patient states that his LifeVest started alarming and told him that he needed a new belt. He states that when he started getting this alarming and the funny sensations he decided to come into the emergency department. The patient denies any syncope or losing consciousness. Upon arrival to the emergency department the patient was in a narrow complex tachycardia with a heart rate in the 130-150s initially. The patient then went into sinus rhythm with a heart rate in the 70s. The LifeVest was removed from the patient and gel had been released from the vest which was concerning for a shock. When we came back to interrogate the patient's hotspot that goes with his LifeVest he had sudden onset of arm numbness and shortness of breath again. The patient was in a narrow complex tachycardia with a rate of 167 which appeared to possibly be a one-to-one atrial flutter. The patient then spontaneously converted back to sinus rhythm with a heart rate in the sixties and multiple PACs. Interrogation of the hotspot/LifeVest showed that the patient did have a narrow complex tachycardia this morning that the LifeVest attempted to shock but this shock was terminated by the patient. He terminated the Yanira just seconds prior to the shock being delivered so gel was released from the vest but no shock was delivered. This was a narrow complex tachycardia. This was not a shockable rhythm but the heart rate was in the V. tach zone and that is why the like this attempted to shock the patient for an inappropriate rhythm. [facility] History I have reviewed the patient's past medical history: Yes Medical History: Reports:: Atherosclerotic Heart Disease, Atrial Fibrillation, Congestive Heart Failure, Coronary Artery Disease, Hyperlipidemia, Hypertension, Palpitations Denies:: Cancer, Diabetes Mellitus Type 1, Diabetes Mellitus Type 2, Internal Pacemaker, MRSA *Have you ever received a pneumonia vaccine?: No *Have you received a flu vaccine this season?: No Other Surgeries: Yes: Cardiac Catheterization, Coronary Stent. No: Pacemaker Amputation: No Fractures: No - *Social History Smoking Status: Current every day smoker Tobacco Type: cigarettes # Packs/Day (cigarettes): 1 Alcohol Intake: never Substance Use Type: marijuana, opiates, methamphetamine *Occupational Status:: employed *Travel in the last 8 weeks: None Family Hx:: Other Meds Home Medications Medication Instructions Recorded Confirmed Type Aspirin [Aspirin 81mg EC Tab] 81 mg PO DAILY 12/20/20 12/20/20 History Atorvastatin Calcium [Lipitor 40mg 40 mg PO HS 12/20/20 12/20/20 History Tablet*] Clopidogrel Bisulfate [Plavix 75mg 75 mg PO DAILY 12/20/20 12/20/20 History Tab] Metoprolol Succinate [Toprol XL 100 mg PO DAILY 12/20/20 12/20/20 History 100mg tablet] Rivaroxaban [Xarelto 20mg Tablet*] 20 mg PO DAILY 12/20/20 12/20/20 History Sacubitril/Valsartan [Entresto 1 each PO BID 12/20/20 12/20/20 History 24/26mg Tablet] Allergies Allergy/AdvR
--- NOTE | 2020-12-20 10:32 | PC.NURSE ---
1030 bed assignment requested, room 217SD, all staff notified
--- NOTE | 2020-12-20 10:49 | HMH.PHAINT ---
MEDICATION RECONCILIATION COMPLETE USING SURESCRIPTS AND LIST FROM DISCHARGE 12/19
--- NOTE | 2020-12-20 10:54 | PC.NURSE ---
report called to floor
--- NOTE | 2020-12-20 11:38 | HMH.PHAVTE ---
[facility] [place] Pharmacy VTE Monitoring - Patient Demographics Admission date: 12/20/20 Report Date: 12/20/20 Time: 11:38 Allergies/Adverse Reactions: Patient Allergies No Known Allergies Allergy (Verified 12/16/20 13:42) Height: 1.83 m Weight: 65.771 kg Patient Problems: Current Active Problems Congestive heart failure (Acute) Paroxysmal A-fib (Chronic) Essential hypertension (Chronic) Shortness of breath (Acute) Cardiomyopathy (Acute) Habitual drug user (Chronic) Left ventricular systolic dysfunction (Acute) CAD (coronary artery disease) (Chronic) Ischemic cardiomyopathy (Acute) Narrow complex tachycardia (Acute) Atrial flutter (Acute) Arm numbness (Acute) - VTE Risk Labs: VTE Related Lab Results Hgb 13.2 g/dL (14.1-18.0) L 12/20/20 08:06 Hct 43.6 % (42.0-52.0) 12/20/20 08:06 Plt Count 424 K/mm3 (142-424) 12/20/20 08:06 BUN 29 mg/dl (9-20) H 12/20/20 08:06 Creatinine 1.10 mg/dl (0.66-1.25) D 12/20/20 08:06 Estimated Creat Clear 68 mL/min (50-200) 12/20/20 08:06 - Prophylaxis VTE Prophylaxis Ordered?: Yes Types of VTE Prophylaxis: TEDS Knee High, Pharmacological Location of Applied Device: Bilateral Lower Extremeties Pharmacologic Type: Other (XARELTO ORDERED)
[2020-12-20 13:29] LABS: Troponin I 0.06 ng/ml (0.00-0.034)
[2020-12-20 15:05] LABS: Troponin I 0.06 ng/ml (0.00-0.034)
[2020-12-20 15:34] LABS: Barbiturates Screen,Urine Negative ng/ml (<200); Benzodiazepines Screen,Urine Positive ng/ml (<200)
[2020-12-20 15:35] LABS: Opiate Screen,Urine Negative ng/ml (<300)
[2020-12-20 15:36] LABS: Phencyclidine Screen,Urine Negative ng/ml (<25)
[2020-12-20 15:37] LABS: Cannabinoid Screen,Urine Positive ng/ml (<50); Cocaine Screen,Urine Negative ng/ml (<300)
[2020-12-20 15:38] LABS: Methadone Screen,Urine Negative ng/ml (<300)
--- NOTE | 2020-12-20 16:50 | PC.NURSE ---
Amio gtt decreased to 16.7 mls/hr @ 1620 per protocol
[2020-12-21] VITALS (8 sets, daily range): BP systolic 125–162; BP diastolic 68–83; PULSE 56–80; RESP 10–20; TEMP 36.7–37; O2SAT 100
--- NOTE | 2020-12-21 05:11 | PC.NURSE ---
pt rested well overnight, no palpitations or numbness reported, pt's VSS, no acute events noted, will continue to monitor
--- NOTE | 2020-12-21 07:40 | HMH.HP ---
*Admission Date: 12/20/20 *Chief complaint: Tingling in arms *History of present illness: This is a 60-year-old white gentleman who was just discharged from the hospital yesterday with a LifeVest in place for ischemic cardiomyopathy, paroxysmal atrial fibrillation and coronary artery disease. The patient states that he did well overnight and then woke up around 430 this morning. He states he did not feel well and then just prior to coming into the hospital he started to feel really bad. He states that he was having bilateral arm numbness and shortness of breath. He states that he occasionally had some palpitations and racing of the heart. He states that his arms were numb and tingling and he just did not feel right. He denied any chest pain or pressure. He denied any lower extremity edema. He denied any fever, chills, nausea, vomiting, diarrhea, PND or orthopnea. The patient states that his LifeVest started alarming and told him that he needed a new belt. He states that when he started getting this alarming and the funny sensations he decided to come into the emergency department. The patient denies any syncope or losing consciousness. Upon arrival to the emergency department the patient was in a narrow complex tachycardia with a heart rate in the 130-150s initially. The patient then went into sinus rhythm with a heart rate in the 70s. The LifeVest was removed from the patient and gel had been released from the vest which was concerning for a shock. When we came back to interrogate the patient's hotspot that goes with his LifeVest he had sudden onset of arm numbness and shortness of breath again. The patient was in a narrow complex tachycardia with a rate of 167 which appeared to possibly be a one-to-one atrial flutter. The patient then spontaneously converted back to sinus rhythm with a heart rate in the sixties and multiple PACs. Interrogation of the hotspot/LifeVest showed that the patient did have a narrow complex tachycardia this morning that the LifeVest attempted to shock but this shock was terminated by the patient. He terminated the Yanira just seconds prior to the shock being delivered so gel was released from the vest but no shock was delivered. This was a narrow complex tachycardia. This was not a shockable rhythm but the heart rate was in the V. tach zone and that is why the like this attempted to shock the patient for an inappropriate rhythm. [facility] History I have reviewed the patient's past medical history: Yes Medical History: Reports:: Atherosclerotic Heart Disease, Atrial Fibrillation, Cardiomyopathy, Congestive Heart Failure, Coronary Artery Disease, Hyperlipidemia, Hypertension, Palpitations Denies:: Cancer, Diabetes Mellitus Type 1, Diabetes Mellitus Type 2, Internal Pacemaker, MRSA *Have you ever received a pneumonia vaccine?: No *Have you received a flu vaccine this season?: No Laterality Cases: Bilateral: Arthroscopy Knee Other Surgeries: Yes: Cardiac Catheterization, Coronary Stent. No: Pacemaker Amputation: No Fractures: Yes - *Social History Last grade of school completed: High school graduate Smoking Status: Current every day smoker Tobacco Type: cigarettes # Packs/Day (cigarettes): 1 Alcohol Intake: never Substance Use Type: methamphetamine *Occupational Status:: employed *Travel in the last 8 weeks: None Family Hx:: Other Review of Systems - Review of Systems Review of systems:: pertinent systems reviewed and negative unless documented below - *Neurologic Reports numbness (Bilateral arms) Meds Home Medications Medication Instructions Recorded Confirmed Type Aspirin [Aspirin 81mg EC Tab] 81 mg PO DAILY 12/20/20 12/20/20 History Atorvastatin Calcium [Lipitor 40mg 40 mg PO HS 12/20/20 12/20/20 History Tablet*] Clopidogrel Bisulfate [Plavix 75mg 75 mg PO DAILY 12/20/20 12/20/20 History Tab] Metoprolol Succinate [Toprol XL 100 mg PO DAILY 12/20/20 12/20/20 History 100mg tablet] Rivaroxaban [Xare
--- NOTE | 2020-12-21 09:06 | HMH.PNCARD ---
Subjective Date: 12/21/20 Time: 08:45 Principal diagnosis: narrow complex tachycardia Interval history: This is a 60-year-old white gentleman who was readmitted to the hospital with a narrow complex tachycardia. Dr. Perez felt like this was 1-1 atrial flutter with a rate over 160. The patient did have a LifeVest in place and it attempted to shock him because of the ventricular rate being so high although this was not a shockable rhythm. The patient does have ischemic cardiomyopathy, paroxysmal atrial fibrillation and coronary artery disease with stenting this week. The patient had his LifeVest on when this episode occurred and it did release gel but the patient stopped the shock prior to it being delivered. The patient was started on amiodarone drip yesterday and has had no recurrence of the tachycardia. He denies any chest pain or pressure this morning. He denies any shortness of breath or edema. He denies any fever, chills, nausea, vomiting, diarrhea, PND or orthopnea. The patient does complain of right foot pain from a previous fracture. Exam Vital signs and Labs for Last 24 Hours: Temp Pulse Resp BP Pulse Ox 98.4 F 68 17 125/68 100 12/21/20 04:00 12/21/20 06:44 12/21/20 06:00 12/21/20 06:44 12/21/20 06:44 Laboratory Results - last 24 hr 12/20/20 10:15: SARS-CoV-2 (PCR) Not detected, Influenza A Untype (PCR) Not detected, Influenza Type B (PCR) Not detected 12/20/20 12:03: Troponin I 0.06 H 12/20/20 14:30: Troponin I 0.06 H 12/20/20 15:00: Urine Opiates Screen Negative, Urine Methadone Screen Negative, Ur Barbituates Screen Negative, Ur Phencyclidine Scrn Negative, Ur Amphetamines Screen Day Care Director, U Benzodiazepines Scrn Positive H, Urine Cocaine Screen Negative, U Marijuana (THC) Screen Positive H I & O for Last 24 hours: Intake & Output 12/18/20 12/19/20 12/20/20 12/21/20 23:59 23:59 23:59 23:59 Intake Total 1280 / 1280 120 / 120 Output Total 500 / 500 550 / 550 Balance 780 / 780 -430 / -430 Weight 129 lb 7 oz Narrative: Telemetry strip shows sinus rhythm with a rate of 77. - Constitutional no acute distress, thin - *Routine HEENT Exam Head: Present: normocephalic, atraumatic Eye: Present: EOMI, PERRL ENT: Present: mucous membranes moist - *Routine Neck Exam Present: supple, full ROM, normal carotid upstroke. Absent: JVD, carotid bruit, lymphadenopathy - *Routine Respiratory Exam Present: CTA bilaterally - *Routine Cardiovascular Exam Present: RRR, Normal S1, Normal S2. Absent: murmur - *Routine Abdominal Exam Present: soft, normoactive bowel sounds. Absent: tenderness, distended - *Routine Extremities Exam Present: full ROM, pulses intact, normal capillary refill. Absent: cyanosis, clubbing, edema - *Routine Skin Exam Present: intact, warm. Absent: erythema, rash - *Routine Neurological Exam Present: alert, oriented X3, CN II-XII intact. Absent: sensory deficit, motor deficit - Routine Psychiatric Exam Present: normal affect, normal thought process Progress Note: A&P (1) Narrow complex tachycardia Status: Acute (2) Atrial flutter Status: Acute (3) Congestive heart failure Status: Acute (4) Paroxysmal A-fib Status: Chronic (5) Essential hypertension Status: Chronic (6) Cardiomyopathy Status: Acute (7) Habitual drug user Status: Chronic (8) Left ventricular systolic dysfunction Status: Acute (9) CAD (coronary artery disease) Status: Chronic (10) Ischemic cardiomyopathy Status: Acute (11) Arm numbness Status: Resolved Assessment and Plan for All Diagnoses:: Plan: 1. The patient was admitted to the hospital for narrow complex tachycardia. He did have his LifeVest in place and it attempted to deliver shock because he was at a shockable rate but this was not a shockable rhythm as it was narrow complex. The shock was terminated by the patient. Some of the strips of the narrow complex tachycardia appear
--- NOTE | 2020-12-21 11:57 | XR_ITS ---
PROCEDURE: XR FOOT RT MIN 3V CLINICAL INDICATION: foot pain, previous surgery COMPARISON: No exams were available for comparison FINDINGS: No fracture or dislocation. No lytic or blastic change. There is normal mineralization. The joint spaces are well-preserved. No significant degenerative/arthritic changes. No erosive changes evident. Other findings:Prior ORIF of a 4th metatarsal fracture with dorsal bone plate with good alignment and sclerosis at the fracture site IMPRESSION: Postsurgical change otherwise negative Dictated by: Wyatt Mijares MD 12/21/2020 12:27 Wyatt Mijares MD in [place] 12/21/2020 12:27
[2020-12-26 04:37] LABS: Amphetamine Positive (.); Amphetamine (GC/MS) >3000 ng/mL (Cutoff=500); Amphetamines Positive (.); Methamphetamine Positive (.); Methamphetamine (GC/MS) >3000 ng/mL (Cutoff=500)
== END 2020-12-21 12:55 | disposition home or self-care (01) ==
LOC: ER 09:57 → 2ND 10:38
PROVIDERS: Nurse Practitioner Family; Admitting Provider Family Medicine; Emergency Provider Emergency Medicine; PCP Family Medicine; Visit Provider Family Medicine
DX: I48.0 Paroxysmal atrial fibrillation; Z79.01 Long term (current) use of anticoagulants; Z20.822 Contact with and (suspected) exposure to COVID-19; I47.1 Supraventricular tachycardia; I50.21 Acute systolic (congestive) heart failure; I11.0 Hypertensive heart disease with heart failure; I25.5 Ischemic cardiomyopathy; Z95.5 Presence of coronary angioplasty implant and graft; F19.20 Other psychoactive substance dependence, uncomplicated; I25.10 Atherosclerotic heart disease of native coronary artery without angina pectoris
CPT/HCPCS: 36415; 71045; 73630; 80048; 80305; 80324; 84484; 85025; 93005; 96365; 96367; 96375; 99285; C9803; G0378; J0282; J7060; U0003; U0005

== ENCOUNTER → 2021-01-21 12:47 | Outpatient (CLI) | payer OTHER, SELFPAY ==
[2021-01-21 15:03] LABS: Anion Gap 8.6 mEq/L (5-15); Blood Urea Nitrogen 6 mg/dl (9-20); Calcium 8.3 mg/dl (8.4-10.2); Carbon Dioxide 34 mmol/L (22.0-30.0); Chloride 101 mmol/L (98-107); Estimated Glomerular Filt Rate 138 ml/min (>60); GFR (African American) 167 ML/MIN (>60); Glucose 88 mg/dl (74-100); Potassium 3.6 mmoL/L (3.5-5.1); Sodium 140 mmol/L (136-145)
== END ==
PROVIDERS: Visit Provider Nurse Practitioner Family
DX: I25.10 Atherosclerotic heart disease of native coronary artery without angina pectoris (principal); I25.5 Ischemic cardiomyopathy; I47.1 Supraventricular tachycardia; I48.0 Paroxysmal atrial fibrillation; I50.9 Heart failure, unspecified; E78.5 Hyperlipidemia, unspecified; F19.20 Other psychoactive substance dependence, uncomplicated
CPT/HCPCS: 36415; 80048

== ENCOUNTER → 2021-01-23 07:49 | Outpatient (CLI) | payer OTHER, SELFPAY ==
--- NOTE | 2021-01-23 | CA_ITS ---
APPROVED REPORT Exam: Pharmacologic Technologist: Xiomara Ramsey, Ht: 6 ft 0 in Wt: 158 lbs BSA: 1.93 m2 HR: 56 bpm BP: 146/69 mmHg Rhythm: APC's Medical History Medical History: HTN, Hyperlipidemia Medications: Amiodarone,,,,, Aspirin,,,,, Metoprolol,,,,, Atorvastatin,,,,, Lasix,,,,, CloPIdogrel,,,,, Valsartan,,,,, Aldactone,,,,, RIvaROXABAN,,,,, Sacubitril,,,,, Allergies: No known drug allergies Cardiac Risk Factors: HTN, Hyperlipidemia, Smoking, FHX of CAD Stress Test Details Test: LEXISCAN HR Resting HR: 55 bpm Max Heart Rate (APMHR): 162.788520 bpm Max HR Achieved: 79 bpm Target HR (85% APMHR): 137.660368 bpm % of APMHR: 48.77 Recovery HR: 62 bpm BP Resting BP: 146/69 mmHg Max BP: 169/71 mmHg Recovery BP: 164.0/67.0 mmHg ECG Resting ECG: SINUS MAYRA, LVH Clinical Exercise duration: 04:05 min Highest Stage Achieved: Stress ECG Conclusion PT HAD SOA, MILD LIGHT HEADED, NO CP. RARE PVC. RARE PAC. NST WAVE CHANGES. MOST NOTABLE IN ANTERIOR LEADS. NON DIAGNOSITC LEXISCAN STRESS. MYOVIEW IMAGES REPORTED SEPERATELY. Electronically signed by : Wesley Hurt MD 01/24/2021 04:50:31
--- NOTE | 2021-01-23 07:49 | NM_ITS ---
APPROVED REPORT Exam: Nuclear Stress Test Indication: Chest pain, SOB, CAD, HTN, Tobacco use, Family history Patient Location: Outpatient Stress Tech: Xiomara Ramsey [place] Tech:Osiris Brown, ARRT, RT (R)(N) Ht: 6 ft 0 in Wt: 148 lbs HR: 56 bpm BP: 146/69 mmHg BSA: 1.87 m2 History: Chest pain, SOB, CAD, HTN, Tobacco use, Family history Procedure: Patient received a 0.4 mg of intravenous Lexiscan, resting heart rate 56 bpm, resting blood pressure 146/69 mmHg, with Lexiscan maximum heart rate achived was 72 bpm which is Less than 85 % of the maximum predicted heart rate and blood pressure was 150/69 mmHg. With Lexiscan, patient denied any complaint of chest pain. Electrocardiogram Resting electrocardiogram shows sinus rhythm, with Lexiscan there is less than 1.[address] segment depression noted from the baseline EKG. The EKG portion of the Lexiscan is nondiagnostic. Cardiac Stress and Resting SPECT Images: Cardiac Stress and Resting SPECT images were obtained using technetium 99m Myoview 31.0 mCi stress and 10.66 mCi at rest. Gated SPECT for analysis of segmental wall motion and calculation of the ejection fraction also done. Prone images were also obtained. Cardiac stress and rest SPECT images show uniform myocardial activity without segmental perfusion abnormality, computer derived ejection fraction is 46% with no regional wall motion abnormality, right ventricle is normal size and contractility. Conclusion: 1. The EKG portion of the Lexiscan is nondiagnostic. 2. No scintigraphic evidence of reversible ischemia seen, computer derived ejection fraction is 46% with no regional wall motion abnormality, right ventricle is normal size and contractility. 3. Normal Lexiscan Myoview study. Electronically signed by : Wesley Hurt MD 01/24/2021 05:20:19
--- NOTE | 2021-01-23 09:39 | HMH.ITSHM ---
Current Home Medications as stated by this patient Shayan Cooley or phone representative. []SPIRONOLACTONE FUROSEMIDE AMIODARONE ENTRESTO RIVAROXABAN METOPROLOL CLOPIDOGREL ATORVASTATIN
== END ==
PROVIDERS: PCP Family Medicine; Visit Provider Nurse Practitioner Family
DX: R06.02 Shortness of breath (principal); I25.5 Ischemic cardiomyopathy; I50.21 Acute systolic (congestive) heart failure; I25.10 Atherosclerotic heart disease of native coronary artery without angina pectoris; I10 Essential (primary) hypertension; I42.9 Cardiomyopathy, unspecified; I48.0 Paroxysmal atrial fibrillation; E78.5 Hyperlipidemia, unspecified; F17.210 Nicotine dependence, cigarettes, uncomplicated
CPT/HCPCS: 78452; 93017; A9502; J2785

== ENCOUNTER → 2021-02-04 12:58 | Outpatient (CLI) | payer OTHER, SELFPAY ==
[2021-02-04 13:18] LABS: Chloride 98 mmol/L (98-107)
[2021-02-04 13:19] LABS: Potassium 3.8 mmoL/L (3.5-5.1); Sodium 137 mmol/L (136-145)
[2021-02-04 13:22] LABS: Anion Gap 12.8 mEq/L (5-15); Blood Urea Nitrogen 13 mg/dl (9-20); Calcium 9.4 mg/dl (8.4-10.2); Carbon Dioxide 30 mmol/L (22.0-30.0); Estimated Glomerular Filt Rate 116 ml/min (>60); GFR (African American) 140 ML/MIN (>60); Glucose 140 mg/dl (74-100)
--- NOTE | 2021-02-04 14:12 | CA_ITS ---
APPROVED REPORT Right Lower Extremity Venous Study for DVT. Electrical Research Engineer: PO Indications Lower Extremity Pain: Right Current Smoker Right leg pain. Patient denies trauma. States he was in the hospital 3-4 weeks ago and upon discharge developed edema in bilateral legs with right greater than left. Risk Factors Current Smoker HTN, HLD Medications Plavix Plavix and Lipitor daily. Vein Imaging CFV (R): compressive, spontaneous, phasic, augmentation FEM (R): compressive, spontaneous, phasic, augmentation POP (R): compressive, spontaneous, phasic, augmentation PTV (R): Compressible GSV (R): Compressible Peroneals (R):Compressible GAS (R): Compressible Findings No evidence of DVT or superficial thrombophlebitis in the veins scanned of the right lower extremity. B-Mode imaging of the right groin suggests prominent lymph nodes measuring approximately 4.00 cm x 0.86 cm. Interstitial edema noted in RLE. Conclusion No evidence of DVT or superficial thrombophlebitis in the veins scanned of the right lower extremity. B-Mode imaging of the right groin suggests prominent lymph nodes measuring approximately 4.00 cm x 0.86 cm. Interstitial edema noted in RLE. Electronically signed by : Wyatt Mijares MD 02/04/2021 16:21:25
== END ==
PROVIDERS: Visit Provider Nurse Practitioner Family
DX: R06.02 Shortness of breath (principal); I42.9 Cardiomyopathy, unspecified; I25.118 Atherosclerotic heart disease of native coronary artery with other forms of angina pectoris; I25.5 Ischemic cardiomyopathy; I47.1 Supraventricular tachycardia; I48.0 Paroxysmal atrial fibrillation; I50.21 Acute systolic (congestive) heart failure; I50.22 Chronic systolic (congestive) heart failure; I51.9 Heart disease, unspecified; M79.606 Pain in leg, unspecified
CPT/HCPCS: 36415; 80048; 93971

== ENCOUNTER → 2021-02-07 13:01 | Outpatient (CLI) | payer OTHER, SELFPAY ==
--- NOTE | 2021-02-07 13:03 | CA_ITS ---
APPROVED REPORT EXAM: Limited 2D Echocardiogram Cigar Packer And Shader: Indira Hall RVT Ht: 6 ft 0 in Wt: 150lbs BSA: 1.88 BP: 148/67 mmHg Indications: CM,A-FIB,PT IN LOFEVEST, 30% EF ON 12/17/20,EDEMA Echo Enhancing Agent Indication: Endocardial border delineation Agent(s) / Amount(s) Used: Definity 2 cc 2D Dimensions LVOT 2.27 cm (M/F) 1.5-2.5 M-Mode Dimensions RVDd 3.08 cm (0.9-2.6) LA Diam 3.30 cm (1.9-4.0) LVDd 4.76 cm (3.5-5.7) Ao Diam 3.91 cm (2.0-3.7) LVDs 3.47 cm (3.5-5.7) IVSd 1.36 cm (0.6-1.1) PWd 0.82 cm (0.6-1.1) EF (Teich) 52.80% FS 27.10% EDV (Teich) 105.40 mL ESV (Teich) 49.80 mL Conclusion 1. Limited echocardiogram with Definity contrast was performed. Left ventricle is normal size, visually estimated ejection fraction 50% with no obvious regional wall motion abnormality, there is no left ventricular thrombus seen. 2. No significant pericardial effusion noted. Electronically signed by : Wesley Hurt MD 02/08/2021 16:17:58
== END ==
PROVIDERS: PCP Family Medicine; Visit Provider Nurse Practitioner Family
DX: I25.118 Atherosclerotic heart disease of native coronary artery with other forms of angina pectoris (principal); I25.5 Ischemic cardiomyopathy; I47.1 Supraventricular tachycardia; I48.0 Paroxysmal atrial fibrillation; I50.21 Acute systolic (congestive) heart failure; I50.22 Chronic systolic (congestive) heart failure; I51.9 Heart disease, unspecified; M79.606 Pain in leg, unspecified
CPT/HCPCS: 93308; Q9957

== ENCOUNTER 2021-05-30 15:06 | Inpatient (IN) | payer OTHER, SELFPAY ==
[2021-05-30] VITALS (11 sets, daily range): BP systolic 142–167; BP diastolic 70–93; PULSE 55–130; RESP 9–24; TEMP 36.6–36.9; O2SAT 96–100; BMI 19.6; BMI 18.2
--- NOTE | 2021-05-30 15:07 | ECG_ITS ---
APPROVED REPORT Exam: Resting ECG HR:115 bpm ECG Measurements Heart Rate 115 AXES QRSd 89 QRS 57 QT 368 T 89 QTc 436 Conclusion Atrial bigeminy with period of ATRIAL FIBRILLATION WITH RAPID VENTRICULAR RESPONSE WITH ABERRANT CONDUCTION OR VENTRICULAR PREMATURE COMPLEXES VOLTAGE CRITERIA FOR LVH [MEETS CRITERIA IN ONE OF: R(aVL), S(V1), R(V5), R(V5/V6)+S(V1)] NONSPECIFIC ST & T-WAVE ABNORMALITY ABNORMAL ECG UNCONFIRMED REPORT Electronically signed by : Oc Crockett MD 05/31/2021 19:40:34
--- NOTE | 2021-05-30 15:15 | XR_ITS ---
FINAL REPORT CLINICAL HISTORY: CHEST PAIN COMPARISON: December 20, 2020 FINDINGS: The heart size is normal. The mediastinum is normal. There is coarse linear density in both lungs that may be due to pulmonary scarring. There are no pleural effusions. There is no pneumothorax. There is no osseous abnormality. IMPRESSION: No acute cardiopulmonary process Reviewed, Interpreted and Dictated by Fredrick Cuello MD Transcribed by Matteo Colvin Authenticated by Fredrick Cuello MD on 05/30/2021 03:58:35 PM [facility]
--- NOTE | 2021-05-30 15:30 | HMH.EDGENADL ---
ED Disposition Clinical Impression: Atrial fibrillation with rapid ventricular response Anemia Qualifiers: Anemia type: unspecified type Qualified Code(s): D64.9 - Anemia, unspecified Disposition: Admitted As Inpatient Condition on Discharge: Good Referrals: Provider,Referral, [Referring] - - Critical Care Critical Care Time: Yes Attestation: On 05/30/21, the high probability of a clinically significant, sudden or life threatening deterioration of the following system(s) required my full and direct attention, intervention and personal management. The time I documented below is in addition to time spent performing reported procedures but includes the following listed in this critical care notation. Vital system(s) involved:: Circulatory Failure My critical care processes included: Assessment & monitoring of V/S, Initial and Re-exams, Data Review/Interpretation, Coordinating Care, Medication Orders and management, Documentation Medical Decision Making - Medical Records Medical records reviewed: Yes: I reviewed the patient's medical records. - Art Inquiry Pt receiving controlled substance: No Vital Signs: 05/30/21 15:06 05/30/21 15:31 05/30/21 15:41 Temperature 98 F Temperature Source Oral Pulse Rate 56 L 113 H Pulse Rate [Radial] 130 H Respiratory Rate 24 15 Blood Pressure 163/90 H 163/90 H Blood Pressure [Right Arm] 153/86 H Blood Pressure Mean [Right Arm] 108 Blood Pressure Position [Right Arm] Sitting 02 Sat by Pulse Oximetry 98 96 Oxygen Delivery Method Room Air 05/30/21 16:01 05/30/21 16:31 05/30/21 17:01 Temperature Temperature Source Pulse Rate 58 L 63 57 L Pulse Rate [Radial] Respiratory Rate 9 L 11 L 10 L Blood Pressure 160/93 H 142/79 H 142/70 H Blood Pressure [Right Arm] Blood Pressure Mean [Right Arm] Blood Pressure Position [Right Arm] 02 Sat by Pulse Oximetry 99 97 100 Oxygen Delivery Method 05/30/21 17:31 Temperature Temperature Source Pulse Rate 55 L Pulse Rate [Radial] Respiratory Rate 12 Blood Pressure 157/86 H Blood Pressure [Right Arm] Blood Pressure Mean [Right Arm] Blood Pressure Position [Right Arm] 02 Sat by Pulse Oximetry 100 Oxygen Delivery Method - Lab Data Lab Results 05/30/21 15:11: WBC 7.6, RBC 4.00 L, Hgb 8.0 L, Hct 28.4 L, MCV 71.0 L, MCH 20.1 L, MCHC 28.3 L, RDW 19.7 H, Plt Count 380, MPV 9.4, Neut % (Auto) 61.4, Lymph % (Auto) 25.4, [place] % (Auto) 8.3, Eos % (Auto) 3.2, Baso % (Auto) 1.7, Neut # (Auto) 4.7, Lymph # (Auto) 1.9, [place] # (Auto) 0.6, Eos # (Auto) 0.3, Baso # (Auto) 0.1 05/30/21 15:11: Sodium 138, Potassium 3.0 L, Chloride 106, Carbon Dioxide 26, Anion Gap 9.0, BUN 6 L, Creatinine 0.40 L, Estimated Creat Clear 187, Estimated GFR 221, Est GFR ( Amer) 267, Glucose 83, Calcium 7.1 L, Troponin I < 0.01 05/30/21 15:11: NT-Pro-B Natriuret Pep 7080 H 05/30/21 16:30: SARS-CoV-2 (PCR) Not detected, Influenza A Untype (PCR) Not detected, Influenza Type B (PCR) Not detected 05/30/21 16:30: Hgb 7.3 L, Hct 27.0 L 05/30/21 16:30: Potassium 3.3 L 05/30/21 16:30: Blood Type O Positive, Antibody Screen Negative Result diagrams: 05/30/21 16:30 05/30/21 16:30 Orders (Tests/Meds): ED MEDICATIONS Generic Name Dose Route Start Last Admin Trade Name Freq PRN Reason Stop Dose Admin Metoprolol Tartrate 5 mg 05/30/21 15:21 05/30/21 15:42 Metoprolol Tartrate 5mg/5ml Vial IV 5 mg Q5MINP PRN Administration Tachyarrhythmias Discontinued Medications Generic Name Dose Route Start Last Admin Trade Name Freq PRN Reason Stop Dose Admin Nitroglycerin 1 gm 05/30/21 15:22 05/30/21 15:23 Nitroglycerin 1 Gm Ointment TD 05/30/21 15:23 1 gm ONCE ONE Administration Potassium Chloride 40 meq 05/30/21 16:23 05/30/21 18:01 Potassium Chloride 20meq Tab PO 05/30/21 16:24 40 meq ONCE ONE Administration ORDERS Category Date Time Status Troponin I Q3H Lab 05/30/21 1
[2021-05-30 15:31] LABS: Basophils # 0.1 K/mm3 (0-0.2); Basophils % 1.7 % (0.1-2.0); Eosinophils # 0.3 K/mm3 (0.0-0.4); Eosinophils % 3.2 % (0.1-12.0); Hematocrit 28.4 % (42.0-52.0); Lymphocytes # 1.9 K/mm3 (0.7-4.5); Lymphocytes % 25.4 % (10-50); Mean Corpuscular HGB Conc 28.3 g/dL (31.8-35.4); Mean Corpuscular Hemoglobin 20.1 pg (27.0-31.2); Mean Platelet Volume 9.4 fl (7.4-10.4); Monocytes # 0.6 K/mm3 (0.1-1.0); Monocytes % 8.3 % (1.7-9.3); Neutrophils # 4.7 K/mm3 (1.8-7.8); Neutrophils % 61.4 % (37.0-80.0); Platelet Count 380 K/mm3 (142-424); Red Cell Distribution Width 19.7 % (11.5-17.5); White Blood Count 7.6 K/mm3 (4.8-10.8)
[2021-05-30 15:33] LABS: Chloride 106 mmol/L (98-107); Sodium 138 mmol/L (136-145)
[2021-05-30 15:36] LABS: Blood Urea Nitrogen 6 mg/dl (9-20); Calcium 7.1 mg/dl (8.4-10.2); Carbon Dioxide 26 mmol/L (22.0-30.0); Creatinine Clearance Estimated 187 mL/min (50-200); Estimated Glomerular Filt Rate 221 ml/min (>60); GFR (African American) 267 ML/MIN (>60); Glucose 83 mg/dl (74-100)
[2021-05-30 15:49] LABS: Troponin I < 0.01 ng/ml (0.00-0.034)
--- NOTE | 2021-05-30 16:00 | PC.NURSE ---
SUSAN LANG speaking with stefanie somers
--- NOTE | 2021-05-30 16:01 | PC.NURSE ---
JEANNIE LANG on phone with YANG Webber
--- NOTE | 2021-05-30 16:05 | ECG_ITS ---
APPROVED REPORT Exam: Resting ECG HR:80 bpm ECG Measurements Heart Rate 80 AXES QRSd 94 QRS 67 QT 445 T 82 QTc 481 Conclusion ATRIAL FIBRILLATION WITH ABERRANT CONDUCTION OR VENTRICULAR PREMATURE COMPLEXES POSSIBLE LEFT VENTRICULAR HYPERTROPHY [VOLTAGE CRITERIA PLUS LAE OR QRS WIDENING] MODERATE ST DEPRESSION [0.05+ mV ST DEPRESSION] PROLONGED QT INTERVAL ABNORMAL ECG UNCONFIRMED REPORT Electronically signed by : Oc Crockett MD 05/31/2021 19:39:33
--- NOTE | 2021-05-30 16:37 | PC.NURSE ---
significant other called and left her number for updates [phone]
[2021-05-30 16:38] LABS: Coronavirus 19, PCR Not Detected (NotDetected); Influenza A, PCR Not Detected (NotDetected); Influenza B, PCR Not Detected (NotDetected)
[2021-05-30 16:45] LABS: Hemoglobin 7.3 g/dL (14.1-18.0)
[2021-05-30 17:02] LABS: Potassium 3.3 mmoL/L (3.5-5.1)
[2021-05-30 17:02] LABS: NT Pro Brain Natriuretic Pep. 7080 pg/mL (0-125)
--- NOTE | 2021-05-30 17:48 | PC.NURSE ---
Dr. Hudson grissom for ED MD
--- NOTE | 2021-05-30 17:49 | PC.NURSE ---
JEANNIE LANG on phone with Dr. Treviño
--- NOTE | 2021-05-30 17:55 | PC.NURSE ---
Shelley RN with [facility] has been made aware of admission
--- NOTE | 2021-05-30 18:04 | PC.NURSE ---
PT REPORTS HE HAS NOT TAKEN ANY OF HIS HOME MEDS SINCE FEB 2021
--- NOTE | 2021-05-30 18:28 | PC.NURSE ---
PT AND FAMILY UPDATED ON PLAN OF CARE
--- NOTE | 2021-05-30 19:14 | PC.NURSE ---
REPORT CALLED TO FLOOR
--- NOTE | 2021-05-30 19:15 | PC.NURSE ---
Report received from [facility] at this time. Awaiting admission orders until pt is transferred to Med/Surg.
--- NOTE | 2021-05-30 19:46 | PC.NURSE ---
Pt up to bathroom. Back in bed. Warm blanket given.
--- NOTE | 2021-05-30 20:15 | PC.NURSE ---
patient up to floor via stretcher @ this time.
--- NOTE | 2021-05-30 20:54 | HMH.HP ---
*Admission Date: 05/30/21 *Chief complaint: afib with rvr *History of present illness: Patient is a 60-year-old white male, followed by the cardiology service, history of atrial fibrillation and coronary disease. Earlier today he noted some chest pain, shortness of breath, heart rate. In the emergency room he was in A. fib with an RVR, initially in the 130s 140s. Patient was noted to be anemic, hemoglobin of 7.5 a most previous measurement of 13. Patient initially relayed no overt GI source of bleeding, but relayed to me that he has episodic but with bowel movements. Patient had previously been on a regimen which included metoprolol and Xarelto for his atrial fibrillation. Due to insurance issues the patient has been off of these medications. She gives history of normal colonoscopy several years ago. Patient is a 2 pack/day smoker since the age of 17. Initial troponin was negative. He did receive nitro while in route with EMS services. Is not having active chest pain at the time of my examination. [facility] History Medical History: Reports:: Atherosclerotic Heart Disease, Atrial Fibrillation, Cardiomyopathy, Congestive Heart Failure, Coronary Artery Disease, Hyperlipidemia, Hypertension, Myocardial Infarction, Palpitations Denies:: Cancer, Diabetes Mellitus Type 1, Diabetes Mellitus Type 2, Internal Pacemaker, MRSA *Have you ever received a pneumonia vaccine?: No *Have you received a flu vaccine this season?: No Laterality Cases: Bilateral: Arthroscopy Knee Other Surgeries: Yes: Cardiac Catheterization, Coronary Stent. No: Pacemaker Amputation: No Fractures: Yes - *Social History Last grade of school completed: High school graduate Smoking Status: Current every day smoker Tobacco Type: cigarettes # Packs/Day (cigarettes): 1 Alcohol Intake: never Substance Use Type: former substance user *Occupational Status:: employed Housing: house Household Members: significant other *Travel in the last 8 weeks: None Family Hx:: Cancer, Heart Attack Review of Systems - Constitutional Reports weakness - Eyes Denies change in vision - ENT Denies abnormal hearing - *Cardiovascular Reports chest pain, Reports chest pain with activity, Reports leg pain with activity, Reports shortness of breath with activity, Reports rapid, pounding, or irregular heartbeat, Denies fainting - *Respiratory Reports shortness of breath, Denies wheezing - *Gastrointestinal Denies abdominal pain, Denies vomiting blood - *Genitourinary Denies difficulty urinating - *Musculoskeletal Reports muscle weakness - Integumentary/Breasts Denies yellowing of the skin - *Neurologic Denies abnormal speech, Denies confusion, Denies seizure-like activity - Psychiatric Denies behavioral changes - Endocrine Reports rapid, pounding, or irregular heartbeat - Hematologic/Lymphatic Reports easy bleeding - Allergic/Immunologic Denies hives Meds Home Medications Medication Instructions Recorded Confirmed Type Atorvastatin Calcium [Lipitor 40mg 40 mg PO HS 12/20/20 05/30/21 History Tablet*] Clopidogrel Bisulfate [Plavix 75mg 75 mg PO DAILY 12/20/20 05/30/21 History Tab] Metoprolol Succinate [Toprol XL 100 mg PO DAILY 12/20/20 05/30/21 History 100mg tablet] Rivaroxaban [Xarelto 20mg Tablet*] 20 mg PO DAILY 12/20/20 05/30/21 History Sacubitril/Valsartan [Entresto 1 each PO BID 12/20/20 05/30/21 History 24/26mg Tablet] amiodarone 200 mg tablet 200 mg PO DAILY tab 01/14/21 05/30/21 History Furosemide [Furosemide 40MG tAB*] 40 mg PO BID 05/30/21 05/30/21 History Spironolactone [Spironolactone 25 mg PO BID 05/30/21 05/30/21 History 25mg Tablet] Allergies Allergy/AdvReac Type Severity Reaction Status Date / Time No Known Allergies Allergy Verified 02/04/21 13:34 Exam Vital signs and Labs for Last 24 Hours: Temp Pulse Resp BP Pulse Ox 98 F 55 L 12 157/86 H 100 05/30/21 15:06 05/30/21 17:31
[2021-05-30 21:05] LABS: Troponin I < 0.01 ng/ml (0.00-0.034)
[2021-05-31] VITALS (31 sets, daily range): BP systolic 114–181; BP diastolic 75–97; PULSE 52–140; RESP 14–18; TEMP 36.4–37; O2SAT 91–100; BMI 18.2
[2021-05-31 06:53] LABS: Basophils # 0.1 K/mm3 (0-0.2); Mean Corpuscular HGB Conc 29.7 g/dL (31.8-35.4); Mean Corpuscular Hemoglobin 21.6 pg (27.0-31.2); Monocytes # 0.6 K/mm3 (0.1-1.0); Neutrophils # 4.7 K/mm3 (1.8-7.8)
[2021-05-31 07:00] LABS: Basophils % 1.5 % (0.1-2.0); Eosinophils # 0.2 K/mm3 (0.0-0.4); Eosinophils % 3.1 % (0.1-12.0); Hematocrit 35.7 % (42.0-52.0); Lymphocytes # 1.8 K/mm3 (0.7-4.5); Lymphocytes % 24.1 % (10-50); Mean Corpuscular Volume 72.8 fl (80-94); Mean Platelet Volume 9.1 fl (7.4-10.4); Monocytes % 7.5 % (1.7-9.3); Neutrophils % 63.8 % (37.0-80.0); Platelet Count 345 K/mm3 (142-424); Red Cell Distribution Width 20.4 % (11.5-17.5); White Blood Count 7.4 K/mm3 (4.8-10.8)
[2021-05-31 07:01] LABS: Hemoglobin 10.6 g/dL (14.1-18.0)
--- NOTE | 2021-05-31 07:06 | P.CONPHA_ITS ---
[facility] Pharmacy VTE Monitoring - Patient Demographics Admission date: 05/31/21 Report Date: 05/31/21 Time: 07:07 Allergies/Adverse Reactions: Patient Allergies No Known Allergies Allergy (Verified 02/04/21 13:34) Height: 1.83 m Weight: 61.19 kg Patient Problems: Current Active Problems Anemia (Acute) Congestive heart failure (Acute) Atrial fibrillation with rapid ventricular response (Acute) Essential hypertension (Chronic) Cigarette smoker (Chronic) Family history of congestive heart failure (Chronic) Shortness of breath (Acute) Cardiomyopathy (Acute) Left ventricular systolic dysfunction (Acute) CAD (coronary artery disease) (Chronic) Ischemic cardiomyopathy (Acute) - VTE Risk Labs: VTE Related Lab Results Hgb 10.6 g/dL (14.1-18.0) L D 05/31/21 06:40 Hct 35.7 % (42.0-52.0) L 05/31/21 06:40 Plt Count 345 K/mm3 (142-424) 05/31/21 06:40 BUN 6 mg/dl (9-20) L 05/30/21 15:11 Creatinine 0.40 mg/dl (0.66-1.25) L 05/30/21 15:11 Estimated Creat Clear 187 mL/min (50-200) 05/30/21 15:11 Was VTE Risk Assessment Performed: Yes VTE Score: 4 VTE Risk Level: Low Risk Clinical Trial Participant: No - Prophylaxis VTE Prophylaxis Ordered?: Yes Types of VTE Prophylaxis: TEDS Knee High
--- NOTE | 2021-05-31 07:11 | HMH.PHAINT ---
clarified home medication list using lists from outpatient pharmacy and cardiology office
[2021-05-31 07:23] LABS: Anion Gap 8.1 mEq/L (5-15); Blood Urea Nitrogen 6 mg/dl (9-20); Calcium 8.3 mg/dl (8.4-10.2); Carbon Dioxide 29 mmol/L (22.0-30.0); Chloride 103 mmol/L (98-107); Creatinine Clearance Estimated 174 mL/min (50-200); Estimated Glomerular Filt Rate 221 ml/min (>60); GFR (African American) 267 ML/MIN (>60); Glucose 96 mg/dl (74-100); Potassium 4.1 mmoL/L (3.5-5.1); Sodium 136 mmol/L (136-145)
--- NOTE | 2021-05-31 08:11 | HMH.CNCARD ---
History of Present Illness Consult date: 05/31/21 Requesting physician: Bam Treviño Consult reason: chest pain, atrial fibrillation, shortness of breath Chief complaint: SOA, CP, dark BM's Additional Medical History:: 1. Ischemic cardiomyopathy A. [facility], 12/2020, ANGIOGRAPHIC RESULTS The left main artery Normal The left anterior descending artery Has a proximal eccentric 30% stenosis with mild 10% mid vessel luminal irregularities. A large first diagonal artery has a 90% ostial stenosis The circumflex artery Is nondominant and has proximal and mid vessel 10 to 20% stenoses The right coronary artery Is a dominant vessel and has proximal 30% stenosis with mid vessel distal 40% stenoses The TAPIA ventriculogram reveals Not performed due to the presence of an echocardiogram diagnosed LV thrombus The left ventricular end-diastolic pressure Not measured IMPRESSION Severe disease in the LAD diagonal artery system as described above Successful bifurcating stenting of a complex and severely diseased LAD diagonal artery system 1 stent in the LAD 1 stent in a large diagonal artery in a bifurcating manner Moderate disease in the right coronary artery PLAN 1. Brilinta 90 twice daily plus aspirin 81 mg daily 2. LDL less than 55 3. Cardiac rehabilitation 4. Avoidance of tobacco products 5. Risk factor modification 6. If the official echocardiogram does indicate the ejection fraction is between 30 and 35% patient should be discharged home with a LifeVest 7. In 6 weeks and recommend stress testing to determine if the right coronary artery lesion has hemodynamic significance Electronically signed by : Missael Perez MD 12/17/2020 13:03:25 B. Transient LifeVest used with improvement in ejection fraction on medical therapy C. Lexiscan Myoview 01/2021, no ischemia, EF 46% D. Limited echo, 02/2021, EF 50% with no wall motion abnormalities. 2. Systolic congestive heart failure 3. History of drug use 4. Tobacco use, continued A. Chest CTA, 12/16/2020, 1. No dissection. No visualized embolism as characterized to the segmental level. 2. Severe emphysema both centrilobular and paraseptal. No focal consolidation. Apical fibrosis right greater than left. 3. Nodular density right upper lobe of approximately 6 mm. 5. Medication noncompliance due to financial situation 6. History of heart disease in his father and grandfather 7. History of cancer in his mother (presumed GI due to abdominal surgery) 8. History of SVT and paroxysmal atrial fibrillation with prior amiodarone and anticoagulation use, discontinued due to financial issues 9. History of hypertension 10. Hyperlipidemia History of present illness: 60-year-old male with past medical history of atrial fibrillation on Xarelto, COPD who is resenting to the ED with shortness of breath, chest pain. Patient states that he has been out of his medications over the past 3 months due to insurance problems. States that his symptoms are worse with exertion. He denies any recent fevers, no infectious symptoms, no worsening cough. No history of DVT or PE. He was previously on Xarelto for his atrial fibrillation, is not currently taking this or any rate controlling medications. Upon arrival to the ED he is in A. fib with RVR. He was given nitroglycerin prior to arrival with EMS and states that his chest pain had improved. He does have a prior history of CAD with stent placement. He has no other concerns, vital signs are stable. 60-year-old male with past medical history of atrial fibrillation, CAD, COPD who is presenting to the ED with chest pain, shortness of air. Differential diagnoses include A. fib with RVR, ACS, COPD exacerbation, CHF, pneumonia, pulmonary medicine. Given this work-up will include chest x-ray, EKG, troponins, BNP, CBC, CMP. Patient was given 5 mg IV metoprolol, nitroglycerin paste. After receiving 5 mg IV metoprolol patient is now rate controlled. His
[2021-05-31 08:39] LABS: Hematocrit 36.3 % (42.0-52.0); Hemoglobin 10.6 g/dL (14.1-18.0)
--- NOTE | 2021-05-31 09:08 | HMH.ACPN2 ---
Internal Medicine - PN: Subj *Date: 05/31/21 *Time: 08:40 Interval history: pt laying in bed Exam Vital signs and Labs for Last 24 Hours: Temp Pulse Resp BP Pulse Ox 98.5 F 62 18 167/82 H 95 05/31/21 07:41 05/31/21 07:41 05/31/21 07:41 05/31/21 07:41 05/31/21 07:41 Laboratory Results - last 24 hr 05/30/21 15:11: WBC 7.6, RBC 4.00 L, Hgb 8.0 L, Hct 28.4 L, MCV 71.0 L, MCH 20.1 L, MCHC 28.3 L, RDW 19.7 H, Plt Count 380, MPV 9.4, Neut % (Auto) 61.4, Lymph % (Auto) 25.4, [place] % (Auto) 8.3, Eos % (Auto) 3.2, Baso % (Auto) 1.7, Neut # (Auto) 4.7, Lymph # (Auto) 1.9, [place] # (Auto) 0.6, Eos # (Auto) 0.3, Baso # (Auto) 0.1 05/30/21 15:11: Sodium 138, Potassium 3.0 L, Chloride 106, Carbon Dioxide 26, Anion Gap 9.0, BUN 6 L, Creatinine 0.40 L, Estimated Creat Clear 187, Estimated GFR 221, Est GFR ( Amer) 267, Glucose 83, Calcium 7.1 L, Troponin I < 0.01 05/30/21 15:11: NT-Pro-B Natriuret Pep 7080 H 05/30/21 16:30: SARS-CoV-2 (PCR) Not detected, Influenza A Untype (PCR) Not detected, Influenza Type B (PCR) Not detected 05/30/21 16:30: Hgb 7.3 L, Hct 27.0 L 05/30/21 16:30: Potassium 3.3 L 05/30/21 16:30: Blood Type O Positive, Antibody Screen Negative, Crossmatch (AHG) See Detail 05/30/21 18:26: Troponin I < 0.01 05/30/21 22:29: Blood Type Confirm O Positive 05/31/21 06:40: WBC 7.4, RBC 4.90, Hgb 10.6 L D, Hct 35.7 L, MCV 72.8 L, MCH 21.6 L, MCHC 29.7 L, RDW 20.4 H, Plt Count 345, MPV 9.1, Neut % (Auto) 63.8, Lymph % (Auto) 24.1, [place] % (Auto) 7.5, Eos % (Auto) 3.1, Baso % (Auto) 1.5, Neut # (Auto) 4.7, Lymph # (Auto) 1.8, [place] # (Auto) 0.6, Eos # (Auto) 0.2, Baso # (Auto) 0.1 05/31/21 06:40: Sodium 136, Potassium 4.1 D, Chloride 103, Carbon Dioxide 29, Anion Gap 8.1, BUN 6 L, Creatinine 0.40 L, Estimated Creat Clear 174, Estimated GFR 221, Est GFR ( Amer) 267, Glucose 96, Calcium 8.3 L 05/31/21 08:25: Hgb 10.6 L, Hct 36.3 L I & O for Last 24 hours: Intake & Output 05/28/21 05/29/21 05/30/21 05/31/21 11:59 11:59 11:59 11:59 Intake Total 680 / 680 Output Total 1575 / 1575 Balance -895 / -895 Weight 134 lb 14.4 oz - Constitutional no acute distress, thin, chronically ill appearing - *Routine HEENT Exam Head: Present: normocephalic Eye: Present: PERRL ENT: Present: mucous membranes moist - *Routine Neck Exam Present: supple. Absent: lymphadenopathy - *Routine Respiratory Exam Present: CTA bilaterally - *Routine Cardiovascular Exam Present: irregular rhythm - *Routine Abdominal Exam Present: soft, normoactive bowel sounds. Absent: tenderness - *Routine Extremities Exam Absent: cyanosis, clubbing, edema - *Routine Skin Exam Present: warm. Absent: rash - *Routine Neurological Exam Present: alert, oriented X3 Assessment and Plan (1) Anemia Status: Acute Qualifiers: Anemia type: unspecified type Qualified Code(s): D64.9 - Anemia, unspecified Category: Medical Code(s): D64.9 - Anemia, unspecified (2) Atrial fibrillation with rapid ventricular response Status: Acute Category: Medical Code(s): I48.91 - Unspecified atrial fibrillation (3) Cardiomyopathy Status: Acute Qualifiers: Cardiomyopathy type: ischemic Qualified Code(s): I25.5 - Ischemic cardiomyopathy Category: Medical Code(s): I42.9 - Cardiomyopathy, unspecified (4) Congestive heart failure Status: Acute Qualifiers: Heart failure type: systolic Heart failure chronicity: chronic Qualified Code(s): I50.22 - Chronic systolic (congestive) heart failure Category: Medical Code(s): I50.9 - Heart failure, unspecified (5) Ischemic cardiomyopathy Status: Acute Category: Medical Code(s): I25.5 - Ischemic cardiomyopathy (6) Left ventricular systolic dysfunction Status: Acute Category: Medical Code(s): I51.9 - Heart disease, unspecified (7) Shortness of breath Status: Acute Category: Medical Code(s): R06.02 - Shortness of breath (8) CAD
--- NOTE | 2021-05-31 09:26 | PC.NURSE ---
Notified Darell Miller of consult on pt.
--- NOTE | 2021-05-31 11:07 | HMH.GSCON ---
*Admission Date: 05/31/21 *Reason for consult:: Anemia/blood per rectum *History of present illness: This is a 60-year-old gentleman seen in consultation from his primary service for evaluation regarding possible gastrointestinal hemorrhage. He presented to emergency department yesterday with increasing chest pain/shortness of air. He was found to be anemic with a hemoglobin of 8.0. Follow-up hemoglobin 7.3. He did receive 2 units of packed red blood cells. Hemoglobin currently 10.6. He reports vague abdominal pain. He does complain of acid stomach and reflux sometimes . No definitive history of melena; however, he occasionally experiences some red blood with bowel movements . This reportedly comes and goes . His most recent bowel movement was yesterday. He describes it as kind of runny and brown . No hematemesis. Forwarded from emergency department evaluation: General Adult HPI - General Chief complaint: Chest Pain Stated complaint: CP Time Seen by Provider: 05/30/21 15:30 Mode of Arrival: EMS Source of Information: Patient Limitations: No Limitations Description of Symptoms (Recalled from ER Triage Doc. by RN): TO ED PER SQUAD WITH C/O CHEST PAIN, SOB STARTING TODAY. PT STATES HE HAS NOT BEEN TAKING HIS HOME MEDICATIONS DUE TO FINANCIAL REASONS. PT WAS GIVEN NITRO ENROUTE WHICH RELIEVED CHEST PAIN, GIVEN ASA 324MG CAN RECONDITIONER. - History of Present Illness HPI narrative: 60-year-old male with past medical history of atrial fibrillation on Xarelto, COPD who is resenting to the ED with shortness of breath, chest pain. Patient states that he has been out of his medications over the past 3 months due to insurance problems. States that his symptoms are worse with exertion. He denies any recent fevers, no infectious symptoms, no worsening cough. No history of DVT or PE. He was previously on Xarelto for his atrial fibrillation, is not currently taking this or any rate controlling medications. Upon arrival to the ED he is in A. fib with RVR. He was given nitroglycerin prior to arrival with EMS and states that his chest pain had improved. He does have a prior history of CAD with stent placement. He has no other concerns, vital signs are stable. Forwarded from history and physical: *History of present illness: Patient is a 60-year-old white male, followed by the cardiology service, history of atrial fibrillation and coronary disease. Earlier today he noted some chest pain, shortness of breath, heart rate. In the emergency room he was in A. fib with an RVR, initially in the 130s 140s. Patient was noted to be anemic, hemoglobin of 7.5 a most previous measurement of 13. Patient initially relayed no overt GI source of bleeding, but relayed to me that he has episodic but with bowel movements. Patient had previously been on a regimen which included metoprolol and Xarelto for his atrial fibrillation. Due to insurance issues the patient has been off of these medications. She gives history of normal colonoscopy several years ago. Patient is a 2 pack/day smoker since the age of 17. Initial troponin was negative. He did receive nitro while in route with EMS services. Is not having active chest pain at the time of my examination. Review of Systems - Constitutional Reports body ache(s) - ENT Denies bleeding gums - *Cardiovascular Denies fast heart rate - *Respiratory Denies cough - *Gastrointestinal Reports heartburn, Reports bright, red blood in stools, Reports loose stools, Denies coffee ground vomit, Denies black, tarry stools, Denies nausea, Denies vomiting
--- NOTE | 2021-05-31 12:52 | ECG_ITS ---
APPROVED REPORT Exam: Resting ECG HR:122 bpm ECG Measurements Heart Rate 122 AXES QRSd 83 QRS 21 QT 348 T 77 QTc 420 Conclusion Wandering atrial pacemaker with ABERRANT CONDUCTION OR VENTRICULAR PREMATURE COMPLEXES VOLTAGE CRITERIA FOR LVH [MEETS CRITERIA IN ONE OF: R(aVL), S(V1), R(V5), R(V5/V6)+S(V1)] NONSPECIFIC ST & T-WAVE ABNORMALITY ABNORMAL ECG UNCONFIRMED REPORT Electronically signed by : Oc Crockett MD 05/31/2021 19:34:33
--- NOTE | 2021-05-31 12:54 | ECG_ITS ---
APPROVED REPORT Exam: Resting ECG HR:81 bpm ECG Measurements Heart Rate 81 AXES QRSd 86 QRS 26 QT 382 T 54 QTc 419 Conclusion NSR wtih frequent PACs VOLTAGE CRITERIA FOR LVH [MEETS CRITERIA IN ONE OF: R(aVL), S(V1), R(V5), R(V5/V6)+S(V1)] NONSPECIFIC T-WAVE ABNORMALITY ABNORMAL ECG UNCONFIRMED REPORT Electronically signed by : Oc Crockett MD 05/31/2021 19:33:29
--- NOTE | 2021-05-31 12:56 | PC.NURSE ---
noted patient heart rate to be about 15-180. had started to maintain 160s 170s. gave the po dose of metoprolol that was ordered and called samuel watts who stated to give 5mg iv metoprolol once. went ahead and obtained and ekg before and after dose. heart rate came down after to lower 100s. remains in afib. patient was symptomatic complaining of chest pressure and dizziness along with weakness. this has improved some with decrease in heart rate
[2021-05-31 14:22] LABS: Hematocrit 42.9 % (42.0-52.0)
--- NOTE | 2021-05-31 15:52 | PC.NURSE ---
patient heart rate has been elevated. samuel watts and waylon did come and assess patient. he did get an iv dose of digioxin on top of the iv metoprolol and the metoprolol tartrate and succinate po. patient has been agitated in room. thrashing around medicated per may. assisted up to chair to sit. one bm earlier this shift that patient flushed. has been using urinal. bp and heart rate has tolerated well since meds given. egd canceled per md due to heart rate. updated brandon irene. also fed patient since egd was canceled. continues to complain of shortness of breath
[2021-05-31 18:56] LABS: NT Pro Brain Natriuretic Pep. 10600 pg/mL (0-125)
--- NOTE | 2021-05-31 21:11 | CA_ITS ---
APPROVED REPORT EXAM: Comprehensive 2D, Doppler, and color-flow Echocardiogram Physics Technician: Mackenzie Layne CRT Ht: 6 ft 0 in Wt: 134lbs BSA: 1.80 BP: 169/82 mmHg Indications: CM, CHF, CAD, OLD MS, STENT, AFIB, PT STOPPED MEDS 02/26. 2D Dimensions LVOT 2.07 cm (M/F) 1.5-2.5 LA Volume 51.10 mL LA Volume Index 28.40 mL/m2 (M/F) 16-34 M-Mode Dimensions RVDd 3.54 cm (0.9-2.6) LA Diam 2.70 cm (1.9-4.0) LVDd 5.23 cm (3.5-5.7) Ao Diam 4.15 cm (2.0-3.7) LVDs 4.42 cm (3.5-5.7) IVSd 1.19 cm (0.6-1.1) PWd 0.90 cm (0.6-1.1) EF (Teich) 32.50% FS 15.50% EDV (Teich) 131.20 mL TAPSE 2.11 (<1.7) ESV (Teich) 88.60 mL LV Diastology E Decel Time 150.00 (160-240 msec) E/A Ratio 0.47 MED E' 2.50 (< 7 cm/sec) MED A' 5.90 cm/s E'/MED E' Ratio 16.56 (>14) LAT E' 4.10 (<10 cm/sec) LAT A' 8.40 cm/s E/LAT E' Ratio 10.10 (>14) Aortic Valve AI PHT 302.00 ms AO Peak GR. 6.30 mmHg Mitral Valve MV E Max Pete. 41.00 (40-130 cm/s) MV A Velocity 88.00 (40-130 cm/s) E/A Ratio 0.47 MV Decel. Time 150.00 (160-240 ms) MV PHT 44.00 ms Tricuspid Valve TR P. Velocity 306.00 cm/s RAP Estimate 10.00 mmHg RVSP 47.50 mmHg Left Ventricle Left atrium is moderately enlarged, left ventricle is mildly dilated, mild concentric left ventricular hypertrophy, visually estimated ejection fraction 30 to 35%, left ventricle is globally hypokinetic. Grade 1 diastolic dysfunction seen without tissue Doppler evidence of raise left atrial pressure. Right Ventricle Right atrium and right ventricle are normal size and contractility. Aortic Valve Aortic valve is minimally thickened and fibrosed there is no aortic stenosis, there is trace aortic insufficiency. Mitral Valve Mitral valve grossly normal, there is mild mitral regurgitation. Tricuspid Valve Tricuspid grossly normal, there is mild tricuspid regurgitation, tricuspid regurgitation jet velocity is inadequate for calculation of the right ventricular systolic pressure. Pulmonic Valve Pulmonic valve is poorly visualized. Great Vessels Aortic root is normal size. Inferior vena cava is poorly visualized. Pericardium Trivial pericardial effusion noted. Conclusion 1. Moderately enlarged left atrium, mildly dilated left ventricle, mild concentric left ventricular hypertrophy, visually estimated ejection fraction 30 to 35% left ventricle is globally hypokinetic, grade 1 diastolic dysfunction seen without tissue Doppler evidence of raise left atrial pressure. 2. Mild mitral and tricuspid regurgitation and trace aortic insufficiency. 3. Trivial pericardial effusion noted 4. Inferior vena cava is poorly visualized. Electronically signed by : Wesley Hurt MD 05/31/2021 13:03:01
[2021-06-01] VITALS: BP 117/79; PULSE 54; PULSE 90; RESP 17; TEMP 36.6; O2SAT 99
--- NOTE | 2021-06-01 02:25 | ECG_ITS ---
APPROVED REPORT Exam: Resting ECG HR:106 bpm ECG Measurements Heart Rate 106 AXES QRSd 81 QRS 38 QT 389 T 59 QTc 451 Conclusion Multifocal atrial tachycardia MINIMAL VOLTAGE CRITERIA FOR LVH, CONSIDER NORMAL VARIANT [MEETS CRITERIA IN ONE OF: R(aVL), S(V1), R(V5), R(V5/V6)+S(V1)] NONSPECIFIC ST & T-WAVE ABNORMALITY ABNORMAL RHYTHM ECG UNCONFIRMED REPORT Electronically signed by : Oc Crockett MD 06/03/2021 19:48:12
[2021-06-01 04:00] VITALS: BP 103/82; PULSE 100; PULSE 64; RESP 15; TEMP 36.5; O2SAT 97
--- NOTE | 2021-06-01 05:51 | PC.NURSE ---
EKG performed this shift due to patients heart rate in the 140's. Dr Carrasco read EKG and states no new orders at this time.
[2021-06-01 05:59] VITALS: BMI 17.7
[2021-06-01 08:00] VITALS: BP 144/94; PULSE 114; PULSE 85; RESP 18; TEMP 36.4; O2SAT 100; O2SAT 96
[2021-06-01 08:32] LABS: Basophils # 0.2 K/mm3 (0-0.2); Basophils % 1.2 % (0.1-2.0); Eosinophils # 0.2 K/mm3 (0.0-0.4); Eosinophils % 1.3 % (0.1-12.0); Hematocrit 43.8 % (42.0-52.0); Hemoglobin 12.6 g/dL (14.1-18.0); Lymphocytes # 2.7 K/mm3 (0.7-4.5); Lymphocytes % 21.7 % (10-50); Mean Corpuscular HGB Conc 28.8 g/dL (31.8-35.4); Mean Corpuscular Volume 72.9 fl (80-94); Mean Platelet Volume 8.2 fl (7.4-10.4); Monocytes # 1.1 K/mm3 (0.1-1.0); Monocytes % 8.6 % (1.7-9.3); Neutrophils # 8.4 K/mm3 (1.8-7.8); Neutrophils % 67.3 % (37.0-80.0); Platelet Count 377 K/mm3 (142-424); Red Cell Distribution Width 20.3 % (11.5-17.5); White Blood Count 12.4 K/mm3 (4.8-10.8)
--- NOTE | 2021-06-01 08:33 | HMH.DCSUM ---
General - General Admission date:: 05/30/21 Discharge date: 06/01/21 [facility] HPI: Patient is a 60-year-old white male, followed by the cardiology service, history of atrial fibrillation and coronary disease. Earlier today he noted some chest pain, shortness of breath, heart rate. In the emergency room he was in A. fib with an RVR, initially in the 130s 140s. Patient was noted to be anemic, hemoglobin of 7.5 a most previous measurement of 13. Patient initially relayed no overt GI source of bleeding, but relayed to me that he has episodic but with bowel movements. Patient had previously been on a regimen which included metoprolol and Xarelto for his atrial fibrillation. Due to insurance issues the patient has been off of these medications. She gives history of normal colonoscopy several years ago. Patient is a 2 pack/day smoker since the age of 17. Initial troponin was negative. He did receive nitro while in route with EMS services. Is not having active chest pain at the time of my examination. Hospital Course Hospital Course: The patient was admitted through the urgency room with features related in the HPI. Patient was transfused 2 units of packed red cells and followed in consultation with general surgery and cardiology. EGD was postponed due to evaded heart rate. Patient remained in A. fib with RVR, had episodic heart rate into the 140s but generally confined to the 90s to low 100s. Patient's troponin was negative. Patient's echo showed EF in the 25 to 30% range. She had previously been noncompliant with his medication regimen for financial reasons. Compliance at follow-up strongly encouraged. Patient was vague about denies symptoms. Mostly relayed that he had not noticed any being per rectum. He had no notes of GI bleed while in house. A decline in hemoglobin was noted, especially in sequential comparison with previous labs. Occult loss through the GI tract is a possible mechanism. Patient has a history of substance use, relays use of Suboxone and THC. He did become anxious at least 1 occasion, lorazepam was used as needed. He also had subjective complaints of restless legs, was given Requip. Per cardiology recommendations we will focus on rate control, hold anticoagulation for now. Will move in the direction of outpatient EGD with short interval follow-up cardiology and his primary care physician. Objective Vital signs: Temp Pulse Resp BP Pulse Ox 97.6 F 114 H 18 144/94 H 100 06/01/21 08:00 06/01/21 08:00 06/01/21 08:00 06/01/21 08:00 06/01/21 08:00 no acute distress, cooperative - *Routine HEENT Exam Head: Present: normocephalic Eye: Present: EOMI, PERRL ENT: Present: mucous membranes moist - *Routine Neck Exam Present: supple - *Routine Respiratory Exam Present: CTA bilaterally - *Routine Cardiovascular Exam Present: irregular rhythm - *Routine Abdominal Exam Present: soft, normoactive bowel sounds. Absent: tenderness - *Routine Extremities Exam Absent: cyanosis, clubbing, edema - *Routine Skin Exam Present: warm. Absent: rash Results Labs on day of discharge: Labs from last 24 hours 05/31/21 05/31/21 05/31/21 17:11 14:04 08:25 Hgb 13.0 L D 10.6 L Hct 42.9 36.3 L NT-Pro-B Natriuret Pep 28183 H DS: Diagnosis - Discharge Diagnosis (1) Anemia Status: Acute (2) Atrial fibrillation with rapid ventricular response Status: Acute (3) Cardiomyopathy Status: Acute (4) Congestive heart failure Status: Acute (5) Ischemic cardiomyopathy Status: Acute (6) Left ventricular systolic dysfunction Status: Acute (7) Shortness of breath Status: Acute (8) CAD (coronary artery disease) Status: Chronic (9) Cigarette smoker Status: Chronic (10) Essential hypertension Status: Chronic (11) Family history of congestive heart failure Status: Chronic Discharge Plan - Patient Dis
[2021-06-01 08:39] VITALS: PULSE 114
[2021-06-01 08:41] LABS: Anion Gap 10.8 mEq/L (5-15); Blood Urea Nitrogen 21 mg/dl (9-20); Calcium 8.5 mg/dl (8.4-10.2); Carbon Dioxide 26 mmol/L (22.0-30.0); Chloride 101 mmol/L (98-107); Creatinine Clearance Estimated 113 mL/min (50-200); Estimated Glomerular Filt Rate 138 ml/min (>60); GFR (African American) 167 ML/MIN (>60); Glucose 107 mg/dl (74-100); Potassium 3.8 mmoL/L (3.5-5.1); Sodium 134 mmol/L (136-145)
--- NOTE | 2021-06-01 09:48 | HMH.GSPN ---
Subjective Narrative: The patient states that he feels okay . No definitive sign of ongoing GI blood loss noted per patient or nursing. Progress Note: A&P (1) Anemia Status: Acute (2) Atrial fibrillation with rapid ventricular response Status: Acute (3) Cardiomyopathy Status: Acute (4) Congestive heart failure Status: Acute (5) Ischemic cardiomyopathy Status: Acute (6) Left ventricular systolic dysfunction Status: Acute (7) Shortness of breath Status: Acute (8) CAD (coronary artery disease) Status: Chronic (9) Cigarette smoker Status: Chronic (10) Essential hypertension Status: Chronic (11) Family history of congestive heart failure Status: Chronic Assessment and Plan for All Diagnoses:: The patient has a possible gastrointestinal source for his anemia. Esophagogastroduodenoscopy planned for yesterday was postponed secondary to atrial fibrillation with rapid ventricular response and associated symptomatology. He has profound chronic comorbid conditions that would increase the risk of sedation. However, he is seemingly back to baseline and is in the process of being discharged. Close outpatient follow-up has been ordered. He has no sign of definitive/ongoing/significant gastrointestinal hemorrhage; however, if and when he is cleared to undergo endoscopic evaluation both an EGD and colonoscopy are warranted. Unless needed emergently for therapeutic intervention, this can be performed as an outpatient. In the interim, treatment for possible peptic ulcer disease (proton pump inhibition with the possible addition of Carafate) is recommended. Exam Vital signs and Labs for Last 24 Hours: Temp Pulse Resp BP Pulse Ox 97.6 F 114 H 18 144/94 H 96 06/01/21 08:00 06/01/21 08:39 06/01/21 08:00 06/01/21 08:00 06/01/21 08:00 Laboratory Results - last 24 hr 05/31/21 14:04: Hgb 13.0 L D, Hct 42.9 05/31/21 17:11: NT-Pro-B Natriuret Pep 29832 H 06/01/21 07:55: WBC 12.4 H D, RBC 6.00, Hgb 12.6 L, Hct 43.8, MCV 72.9 L, MCH 21.0 L, MCHC 28.8 L, RDW 20.3 H, Plt Count 377, MPV 8.2, Neut % (Auto) 67.3, Lymph % (Auto) 21.7, [place] % (Auto) 8.6, Eos % (Auto) 1.3, Baso % (Auto) 1.2, Neut # (Auto) 8.4 H, Lymph # (Auto) 2.7, [place] # (Auto) 1.1 H, Eos # (Auto) 0.2, Baso # (Auto) 0.2 06/01/21 07:55: Sodium 134 L, Potassium 3.8, Chloride 101, Carbon Dioxide 26, Anion Gap 10.8, BUN 21 H D, Creatinine 0.60 L D, Estimated Creat Clear 113, Estimated GFR 138, Est GFR ( Amer) 167 D, Glucose 107 H, Calcium 8.5 I & O for Last 24 hours: Intake & Output 05/29/21 05/30/21 05/31/21 06/01/21 11:59 11:59 11:59 11:59 Intake Total 680 / 680 600 / 600 Output Total 2325 / 2325 950 / 950 Balance -1645 / -1645 -350 / -350 Weight 134 lb 14.4 oz 131 lb 2 oz - Constitutional thin - *Routine Respiratory Exam Absent: respiratory distress - *Routine Abdominal Exam Absent: tenderness
--- NOTE | 2021-06-01 09:58 | HMH.PHAINT ---
DISCHARGE COUNSELING COMPLETED ON PATIENT. NEW PRESCRIPTIONS WERE SENT TO [facility] IN [place] WHICH IS CLOSED TODAY. ASKED PATIENT WHICH PHARMACY HE WOULD PREFER PRESCRIPTIONS SENT TO AND HE STATED [facility] IN [place]. PRESCRIPTIONS WERE SENT THERE. ANSWERED ALL QUESTIONS PATIENT HAD AND PATIENT VERBALIZED UNDERSTANDING. -GIO ARANA, KEVIND
[2021-06-01 11:40] VITALS: BP 117/65; PULSE 60; RESP 17; TEMP 36.8; O2SAT 98
== END 2021-06-01 12:08 | disposition home or self-care (01) | DRG 308 ==
LOC: ER 18:03 → 2ND 19:22
PROVIDERS: Nurse Practitioner Family; Surgery; Admitting Provider Family Medicine; Emergency Provider Emergency Medicine; PCP Family Medicine; Visit Provider Family Medicine
PROC: 0DJ08ZZ Inspection of Upper Intestinal Tract, Via Natural or Artificial Opening Endoscopic (ICD-10-PCS; CPT 43235; principal; 2021-05-31 15:00)
DX: I48.0 Paroxysmal atrial fibrillation (principal); I50.23 Acute on chronic systolic (congestive) heart failure; K62.5 Hemorrhage of anus and rectum; I11.0 Hypertensive heart disease with heart failure; I25.10 Atherosclerotic heart disease of native coronary artery without angina pectoris; F17.210 Nicotine dependence, cigarettes, uncomplicated; Z79.01 Long term (current) use of anticoagulants; Z79.02 Long term (current) use of antithrombotics/antiplatelets; I25.5 Ischemic cardiomyopathy; D64.9 Anemia, unspecified; Z82.49 Family history of ischemic heart disease and other diseases of the circulatory system; Z20.822 Contact with and (suspected) exposure to COVID-19; Z95.5 Presence of coronary angioplasty implant and graft; I25.2 Old myocardial infarction; Z91.14 Patient's other noncompliance with medication regimen; G25.81 Restless legs syndrome; R12 Heartburn; J43.2 Centrilobular emphysema; E78.5 Hyperlipidemia, unspecified
CPT/HCPCS: 36415; 71045; 80048; 83880; 84132; 84484; 85014; 85018; 85025; 86850; 93005; 93306; 94761; 96375; 99285; C9803; P9016; U0003; U0005

== ENCOUNTER 2021-09-21 21:37 | Inpatient (IN) | payer OTHER, SELFPAY ==
--- NOTE | 2021-09-21 | ECG_ITS ---
APPROVED REPORT Exam: Resting ECG HR:133 bpm ECG Measurements Heart Rate 133 AXES QRSd 99 QRS 16 QT 324 T 134 QTc 402 Conclusion ATRIAL FIBRILLATION WITH RAPID VENTRICULAR RESPONSE ST DEVIATION AND MODERATE T-WAVE ABNORMALITY, CONSIDER LATERAL ISCHEMIA [-0.1+ mV T-WAVE IN I/aVL/V5/V6] ABNORMAL ECG UNCONFIRMED REPORT Electronically signed by : Oc Crockett MD 09/22/2021 16:24:08
[2021-09-21 21:37] VITALS: BP 137/103; PULSE 135; RESP 16; TEMP 36.9; O2SAT 99; BMI 19.6
--- NOTE | 2021-09-21 21:44 | XR_ITS ---
PROCEDURE INFORMATION: Exam: XR Chest Exam date and time: 09/21/2021 10:13 PM Age: 60 years old Clinical indication: Chest pressure; Patient HX: Chest pain; Additional info: Cp TECHNIQUE: Imaging protocol: Radiologic exam of the chest. Views: 2 views. Total images: 3 COMPARISON: CR XR CHEST PORTABLE 05/30/2021 3:17 PM FINDINGS: Lungs: Increased bilateral mid and lower lung patchy airspace densities, favoring pneumonia, possibly atypical pneumonia. Centrilobular emphysematous lung disease is present. Pleural spaces: Unremarkable. No pleural effusion. No pneumothorax. Heart/Mediastinum: Unremarkable. No cardiomegaly. Bones/joints: Unremarkable. IMPRESSION: 1. Increased bilateral mid and lower lung patchy airspace densities, favoring pneumonia, possibly atypical pneumonia. Radiographic surveillance is recommended to document resolution. 2. Centrilobular emphysematous lung disease is present.
[2021-09-21 21:56] LABS: Basophils # 0.1 K/mm3 (0-0.2); Basophils % 1.2 % (0.1-2.0); Eosinophils # 0.2 K/mm3 (0.0-0.4); Eosinophils % 2.9 % (0.1-12.0); Hematocrit 27.9 % (42.0-52.0); Hemoglobin 8.2 g/dL (14.1-18.0); Lymphocytes # 2.1 K/mm3 (0.7-4.5); Lymphocytes % 29.7 % (10-50); Mean Corpuscular HGB Conc 29.4 g/dL (31.8-35.4); Mean Corpuscular Hemoglobin 24.1 pg (27.0-31.2); Mean Corpuscular Volume 82.1 fl (80-94); Mean Platelet Volume 10.9 fl (7.4-10.4); Monocytes # 0.5 K/mm3 (0.1-1.0); Monocytes % 7.5 % (1.7-9.3); Neutrophils # 4.1 K/mm3 (1.8-7.8); Neutrophils % 58.7 % (37.0-80.0); Platelet Count 300 K/mm3 (142-424); Red Cell Distribution Width 18.6 % (11.5-17.5)
[2021-09-21 22:01] VITALS: BP 125/82; PULSE 102; RESP 13; O2SAT 96
[2021-09-21 22:08] LABS: Anion Gap 9.1 mEq/L (5-15); Blood Urea Nitrogen 10 mg/dl (9-20); Calcium 7.9 mg/dl (8.4-10.2); Carbon Dioxide 30 mmol/L (22.0-30.0); Chloride 98 mmol/L (98-107); Creatinine Clearance Estimated 125 mL/min (50-200); Estimated Glomerular Filt Rate 138 ml/min (>60); GFR (African American) 167 ML/MIN (>60); Glucose 90 mg/dl (74-100); Potassium 3.1 mmoL/L (3.5-5.1); Sodium 134 mmol/L (136-145)
[2021-09-21 22:13] LABS: C-Reactive Protein 14.9 mg/L (0-4)
[2021-09-21 22:22] LABS: Troponin I 0.02 ng/ml (0.00-0.034)
[2021-09-21 22:26] LABS: Procalcitonin 0.049 ng/mL (0.0-2.0)
[2021-09-21 22:30] LABS: Erythrocyte Sedimentation Rate 21 mm/hr (0-20)
[2021-09-21 22:31] VITALS: BP 118/78; PULSE 101; RESP 11; O2SAT 97
[2021-09-21 23:01] VITALS: BP 132/78; PULSE 95; RESP 12; O2SAT 97
[2021-09-21 23:10] LABS: NT Pro Brain Natriuretic Pep. 4730 pg/mL (0-125)
[2021-09-21 23:16] LABS: Coronavirus 19, PCR Not Detected (NotDetected); Influenza A, PCR Not Detected (NotDetected); Influenza B, PCR Not Detected (NotDetected)
[2021-09-21 23:30] VITALS: BP 124/90; PULSE 101; RESP 14; O2SAT 98
--- NOTE | 2021-09-21 23:59 | PC.NURSE ---
at updating pt on POC
[2021-09-22] VITALS (37 sets, daily range): BP systolic 119–183; BP diastolic 73–127; PULSE 57–124; RESP 1–21; TEMP 36.5–36.7; O2SAT 90–99; BMI 19.8
--- NOTE | 2021-09-22 00:02 | HMH.EDCP ---
ED Disposition Clinical Impression: Unstable angina pectoris, Cigarette smoker, Atrial fibrillation with rapid ventricular response Anemia Qualifiers: Anemia type: unspecified type Qualified Code(s): D64.9 - Anemia, unspecified CAD (coronary artery disease) Qualifiers: Coronary Disease-Associated Artery/Lesion type: council artery [place] vs. transplanted heart: council heart Associated angina: with unstable angina Qualified Code(s): I25.110 - Atherosclerotic heart disease of council coronary artery with unstable angina pectoris COPD (chronic obstructive pulmonary disease) Qualifiers: COPD type: unspecified COPD Qualified Code(s): J44.9 - Chronic obstructive pulmonary disease, unspecified Disposition: Admitted As Inpatient Condition on Discharge: Fair Referrals: Jose Ramon Anaya [Primary Care Provider] - - Critical Care Critical Care Time: No Attestation: On 09/21/21, the high probability of a clinically significant, sudden or life threatening deterioration of the following system(s) required my full and direct attention, intervention and personal management. The time I documented below is in addition to time spent performing reported procedures but includes the following listed in this critical care notation. Medical Decision Making - Medical Records Medical records reviewed: Yes: I reviewed the patient's medical records. - Art Inquiry Pt receiving controlled substance: No Vital Signs: 09/21/21 21:37 09/21/21 22:01 09/21/21 22:31 Temperature 98.4 F Temperature Source Oral Pulse Rate 102 H 101 H Pulse Rate [Right] 135 H Respiratory Rate 16 13 11 L Blood Pressure 125/82 118/78 Blood Pressure [Right Arm] 137/103 H Blood Pressure Mean Blood Pressure Mean [Right Arm] 114 02 Sat by Pulse Oximetry 99 96 97 Oxygen Delivery Method Room Air Room Air 09/21/21 23:01 09/21/21 23:30 09/22/21 00:02 Temperature Temperature Source Pulse Rate 95 H 101 H 112 H Pulse Rate [Right] Respiratory Rate 12 14 14 Blood Pressure 132/78 124/90 149/122 H Blood Pressure [Right Arm] Blood Pressure Mean 84 97 130 Blood Pressure Mean [Right Arm] 02 Sat by Pulse Oximetry 97 98 98 Oxygen Delivery Method 09/22/21 00:08 09/22/21 00:30 09/22/21 01:53 Temperature Temperature Source Pulse Rate 97 H 124 H 89 Pulse Rate [Right] Respiratory Rate 1 L 14 21 Blood Pressure 143/95 H 135/89 128/87 Blood Pressure [Right Arm] Blood Pressure Mean 102 104 Blood Pressure Mean [Right Arm] 02 Sat by Pulse Oximetry 94 L 96 97 Oxygen Delivery Method Room Air 09/22/21 02:00 09/22/21 03:00 09/22/21 04:02 Temperature Temperature Source Pulse Rate 112 H 88 95 H Pulse Rate [Right] Respiratory Rate 17 12 15 Blood Pressure 119/80 141/94 H 154/93 H Blood Pressure [Right Arm] Blood Pressure Mean 91 108 Blood Pressure Mean [Right Arm] 02 Sat by Pulse Oximetry 99 94 L 98 Oxygen Delivery Method Room Air Room Air 09/22/21 04:30 Temperature Temperature Source Pulse Rate 86 Pulse Rate [Right] Respiratory Rate 14 Blood Pressure Blood Pressure [Right Arm] Blood Pressure Mean Blood Pressure Mean [Right Arm] 02 Sat by Pulse Oximetry 98 Oxygen Delivery Method Room Air - Lab Data Lab results reviewed: Yes: I reviewed the patient's lab results. Lab Results 09/21/21 21:45: WBC 7.0, RBC 3.40 L, Hgb 8.2 L, Hct 27.9 L, MCV 82.1, MCH 24.1 L, MCHC 29.4 L, RDW 18.6 H, Plt Count 300, MPV 10.9 H, Neut % (Auto) 58.7, Lymph % (Auto) 29.7, [place] % (Auto) 7.5, Eos % (Auto) 2.9, Baso % (Auto) 1.2, Neut # (Auto) 4.1, Lymph # (Auto) 2.1, [place] # (Auto) 0.5, Eos # (Auto) 0.2, Baso # (Auto) 0.1, ESR 21 H 09/21/21 21:45: Sodium 134 L, Potassium 3.1 L, Chloride 98, Carbon Dioxide 30, Anion Gap 9.1, BUN 10, Creatinine 0.60 L, Estimated Creat Clear 125, Estimated GFR 138, Est GFR ( Amer) 167, Glucose 90, Calcium 7.9 L, Troponin I 0.02, C-Reactive Protein 14.9 H, Procalcitonin 0.049 0
--- NOTE | 2021-09-22 00:43 | PC.NURSE ---
pt currently boarding in ER. pt moved to hospital bed. call light within reach. pt voiced no c/o
--- NOTE | 2021-09-22 01:05 | PC.NURSE ---
Pt resting well at this time.
[2021-09-22 01:12] LABS: T4 (Thyroxine) 8.4 ug/dl (5.53-11.0)
[2021-09-22 01:14] LABS: Troponin I 0.01 ng/ml (0.00-0.034)
[2021-09-22 01:25] LABS: Thyroid Stimulating Hormone 2.74 uIU/mL (0.465-4.68)
--- NOTE | 2021-09-22 02:05 | PC.NURSE ---
Pt continues to sleep well at this time. Call light within reach.
--- NOTE | 2021-09-22 03:37 | PC.NURSE ---
Warm blanket given. No complaints.
[2021-09-22 03:41] LABS: Troponin I < 0.01 ng/ml (0.00-0.034)
--- NOTE | 2021-09-22 05:03 | PC.NURSE ---
Pt given ice cream to eat per request. No other needs. Call light within reach.
--- NOTE | 2021-09-22 05:42 | PC.NURSE ---
pt's ex- calling for an update. pt has given permission for update on POC. Educated on pt boarding in ER at this time d/t step-down status. She requested to s/w pt. Transferred to call to cordless ER phone for their conversation and then collected phone back to ER dock at nurse's station.
[2021-09-22 06:00] LABS: Basophils # 0.1 K/mm3 (0-0.2); Basophils % 0.9 % (0.1-2.0); Eosinophils # 0.2 K/mm3 (0.0-0.4); Eosinophils % 3.3 % (0.1-12.0); Hemoglobin 8.1 g/dL (14.1-18.0); Lymphocytes # 1.4 K/mm3 (0.7-4.5); Lymphocytes % 24.8 % (10-50); Mean Corpuscular Hemoglobin 23.9 pg (27.0-31.2); Mean Corpuscular Volume 82.3 fl (80-94); Mean Platelet Volume 9.8 fl (7.4-10.4); Monocytes # 0.5 K/mm3 (0.1-1.0); Monocytes % 8.1 % (1.7-9.3); Neutrophils # 3.6 K/mm3 (1.8-7.8); Neutrophils % 62.9 % (37.0-80.0); Platelet Count 293 K/mm3 (142-424); Red Blood Count 3.39 M/mm3 (4.60-6.20); Red Cell Distribution Width 18.8 % (11.5-17.5); White Blood Count 5.7 K/mm3 (4.8-10.8)
[2021-09-22 06:01] LABS: Hematocrit 27.9 % (42.0-52.0)
[2021-09-22 06:09] LABS: Anion Gap 8.8 mEq/L (5-15); Blood Urea Nitrogen 8 mg/dl (9-20); Calcium 7.8 mg/dl (8.4-10.2); Carbon Dioxide 28 mmol/L (22.0-30.0); Chloride 103 mmol/L (98-107); Chol/HDL Ratio 5.8 (1-3.5); Cholesterol 98 mg/dl (140-200); Creatinine Clearance Estimated 150 mL/min (50-200); Estimated Glomerular Filt Rate 171 ml/min (>60); GFR (African American) 207 ML/MIN (>60); Glucose 110 mg/dl (74-100); HDL Cholesterol 17 mg/dl (40-60); Magnesium 1.8 mg/dl (1.6-2.3); Sodium 137 mmol/L (136-145); Triglycerides 74 mg/dl (30-150); VLDL Cholesterol 15 mg/dL (0-40)
--- NOTE | 2021-09-22 06:13 | PC.NURSE ---
RT at BS to administer breathing treatment
[2021-09-22 06:14] LABS: Potassium 2.8 mmoL/L (3.5-5.1)
[2021-09-22 06:20] LABS: Direct LDL Cholesterol 67.82 mg/dL (100-129)
--- NOTE | 2021-09-22 06:22 | PC.NURSE ---
Dr. Carrasco notified of critical potassium. NO for Potassium 40meq PO 1x.
--- NOTE | 2021-09-22 06:23 | PC.NURSE ---
MD AWARE OF ABNORMAL LABS.
--- NOTE | 2021-09-22 06:25 | PC.NURSE ---
Pt given cardiac diet breakfast tray
--- NOTE | 2021-09-22 07:57 | PC.NURSE ---
pt sleeping resp even and easy
--- NOTE | 2021-09-22 08:08 | HMH.HP ---
*Admission Date: 09/21/21 *Chief complaint: chest pain *History of present illness: this patient presented to the [facility] ed with progressive chest pain over the last week both with activity and at rest - pt with known hx of a fib in past and has known cad with stent in 2020 and known anemia - pt has been noncompliant with meds - pt was admitted for eval and treatment [facility] History I have reviewed the patient's past medical history: Yes Medical History: Reports:: Atherosclerotic Heart Disease, Atrial Fibrillation, Cardiomyopathy, Congestive Heart Failure, Coronary Artery Disease, Hyperlipidemia, Hypertension, Myocardial Infarction, Palpitations Denies:: Cancer, Diabetes Mellitus Type 1, Diabetes Mellitus Type 2, Internal Pacemaker, MRSA *Have you ever received a pneumonia vaccine?: No *Have you received a flu vaccine this season?: No Laterality Cases: Bilateral: Arthroscopy Knee Other Surgeries: Yes: Cardiac Catheterization, Coronary Stent. No: Pacemaker Amputation: No Fractures: Yes - *Social History Smoking Status: Current every day smoker Tobacco Type: cigarettes # Packs/Day (cigarettes): 1 Alcohol Intake: never Substance Use Type: former substance user *Occupational Status:: employed Housing: house Household Members: significant other *Travel in the last 8 weeks: None Family Hx:: Cancer, Heart Attack Review of Systems - Review of Systems Review of systems:: pertinent systems reviewed and negative unless documented below - Constitutional Denies fever(s) - Eyes Denies change in vision - ENT Denies sore throat - *Cardiovascular Reports chest pain at rest, Reports shortness of breath, Reports fast heart rate - *Respiratory Denies cough - *Gastrointestinal Denies abdominal pain - *Genitourinary Denies blood in urine - *Musculoskeletal Denies joint pain - Integumentary/Breasts Denies rash - *Neurologic Reports weakness, Denies headache(s), Denies seizure-like activity - Psychiatric Denies anxiety Meds Home Medications Medication Instructions Recorded Confirmed Type Amiodarone HCl 400 mg PO BID 09/22/21 09/22/21 History Atorvastatin Calcium [Lipitor 40mg 40 mg PO HS 09/22/21 09/22/21 History Tab] Clopidogrel Bisulfate [Clopidogrel 75 mg PO DAILY 09/22/21 09/22/21 History 75mg Tab] Furosemide [Furosemide 40MG tAB*] 40 mg PO DAILY 09/22/21 09/22/21 History Metoprolol Succinate [Metoprolol 100 mg PO DAILY 09/22/21 09/22/21 History Succinate 100mg Tablet*] Rivaroxaban [Xarelto 20mg Tablet*] 20 mg PO QPMWITHMEAL 09/22/21 09/22/21 History Sacubitril/Valsartan [Entresto 1 tab PO BID 09/22/21 09/22/21 History 24/26mg Tablet] Spironolactone [Aldactone 25mg 25 mg PO DAILY 09/22/21 09/22/21 History Tab] Allergies Allergy/AdvReac Type Severity Reaction Status Date / Time No Known Allergies Allergy Verified 02/04/21 13:34 Exam Vital signs and Labs for Last 24 Hours: Temp Pulse Resp BP Pulse Ox 98.4 F 89 13 161/104 H 98 09/21/21 21:37 09/22/21 06:19 09/22/21 05:00 09/22/21 05:00 09/22/21 05:00 Laboratory Results - last 24 hr 09/21/21 21:45: WBC 7.0, RBC 3.40 L, Hgb 8.2 L, Hct 27.9 L, MCV 82.1, MCH 24.1 L, MCHC 29.4 L, RDW 18.6 H, Plt Count 300, MPV 10.9 H, Neut % (Auto) 58.7, Lymph % (Auto) 29.7, [place] % (Auto) 7.5, Eos % (Auto) 2.9, Baso % (Auto) 1.2, Neut # (Auto) 4.1, Lymph # (Auto) 2.1, [place] # (Auto) 0.5, Eos # (Auto) 0.2, Baso # (Auto) 0.1, ESR 21 H 09/21/21 21:45: Sodium 134 L, Potassium 3.1 L, Chloride 98, Carbon Dioxide 30, Anion Gap 9.1, BUN 10, Creatinine 0.60 L, Estimated Creat Clear 125, Estimated GFR 138, Est GFR ( Amer) 167, Glucose 90, Calcium 7.9 L, Troponin I 0.02, C-Reactive Protein 14.9 H, Procalcitonin 0.049 09/21/21 21:45: NT-Pro-B Natriuret Pep 4730 H 09/21/21 23:08: SARS-CoV-2 (PCR) Not detected, Influenza A Untype (PCR) Not detected, Influenza Type B (PCR) Not detected 09/22/21 00:20: Troponin I 0.01 09/22/21 00:20: TSH 2
--- NOTE | 2021-09-22 10:05 | PC.NURSE ---
MYKEL CHECKED ON BED STATUS STILL NOT READY
--- NOTE | 2021-09-22 10:15 | PC.WOUNDNOTE ---
called med-surg floor regarding pt's room, states room is still unavailable family is still at bedside, home has not been called to [facility]at [facility]
--- NOTE | 2021-09-22 11:24 | PC.NURSE ---
report called to floor
--- NOTE | 2021-09-22 11:33 | PC.NURSE ---
pt given lunch tray
--- NOTE | 2021-09-22 11:43 | PC.NURSE ---
THEY ARE HERE TO TRANSPORT PT FOR IN-PATIENT
--- NOTE | 2021-09-22 11:48 | PC.NURSE ---
Pt arrived to the floor at this time
[2021-09-22 12:02] LABS: Microscopic, Urine URINE MICROSCOPIC (MICROSCOPIC)
--- NOTE | 2021-09-22 12:02 | PC.NURSE ---
pt arrived to room 219 @ 1150 via bed. 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 He refuses to change into a hospital gown. Also refuses to let staff lock up his wallet and keys. He reports that his belongings were thrown away his last admission and he doesn't want that to happen again. I did not see his wallet and keys, as they are in his pants pocket. He is having multiple PVCs on tele, at times is in bigeminy. Afib is controlled with rate 90s. HTN with most recent BP 152/111. Does not wear O2 at home. Is a smoker. Admits to smoking weed daily and takes a Suboxone tab every now and then that he buys off the street. Last Suboxone tab taken yesterday.
[2021-09-22 12:03] LABS: Appearance,Urine CLEAR (Clear); Bilirubin,Urine Negative (Negative); Blood, Urine TRACE-L (Negative); Color,Urine YELLOW (Yellow); Glucose,Urine (UA) Negative (Negative); Ketones,Urine Negative (Negative); Leukocyte Esterase,Urine Negative (Negative); Nitrate,Urine Negative (Negative); Protein,Urine Negative (Negative); Urobilinogen,Urine 0.2 EU/dl (0.2)
[2021-09-22 12:15] LABS: Bacteria,Urine Trace /lpf; RBC,Urine Occasional #/hpf (0-3); Squamous Epithelial Cell,Urine Occasional #/hpf (0-5)
--- NOTE | 2021-09-22 12:46 | HMH.PHAVTE ---
[facility] Pharmacy VTE Monitoring - Patient Demographics Admission date: 09/22/21 Report Date: 09/22/21 Time: 12:46 Allergies/Adverse Reactions: Patient Allergies No Known Allergies Allergy (Verified 02/04/21 13:34) Height: 1.83 m Weight: 66.366 kg Patient Problems: Current Active Problems Unstable angina pectoris (Acute) COPD (chronic obstructive pulmonary disease) (Acute) Anemia (Acute) Paroxysmal A-fib (Chronic) Atrial fibrillation with rapid ventricular response (Acute) Cigarette smoker (Chronic) CAD (coronary artery disease) (Chronic) - VTE Risk Labs: VTE Related Lab Results Hgb 8.1 g/dL (14.1-18.0) L 09/22/21 05:53 Hct 27.9 % (42.0-52.0) L 09/22/21 05:53 Plt Count 293 K/mm3 (142-424) 09/22/21 05:53 BUN 8 mg/dl (9-20) L 09/22/21 05:53 Creatinine 0.50 mg/dl (0.66-1.25) L 09/22/21 05:53 Estimated Creat Clear 150 mL/min (50-200) 09/22/21 05:53 Was VTE Risk Assessment Performed: Yes VTE Score: 4 VTE Risk Level: Low Risk Clinical Trial Participant: No - Prophylaxis VTE Prophylaxis Ordered?: Yes Types of VTE Prophylaxis: TEDS Knee High
[2021-09-22 12:53] LABS: Amphetamine/Metha Screen,Urine Negative ng/ml (<1000)
[2021-09-22 12:54] LABS: Barbiturates Screen,Urine Negative ng/ml (<200); Benzodiazepines Screen,Urine Negative ng/ml (<200)
[2021-09-22 12:55] LABS: Cannabinoid Screen,Urine Positive ng/ml (<50)
[2021-09-22 12:56] LABS: Cocaine Screen,Urine Negative ng/ml (<300); Methadone Screen,Urine Negative ng/ml (<300)
[2021-09-22 12:57] LABS: Opiate Screen,Urine Negative ng/ml (<300)
[2021-09-22 12:58] LABS: Phencyclidine Screen,Urine Negative ng/ml (<25)
--- NOTE | 2021-09-22 13:45 | PC.NURSE ---
Rounded on pt, pt new admit asleep in bed.
--- NOTE | 2021-09-22 14:29 | PC.NURSE ---
contacted Dr. Crockett regarding HTN.
--- NOTE | 2021-09-22 14:32 | PC.NURSE ---
Dr. Crockett ordered to increase Diltiazem gtt to 10mg/hr and to give Losartan 100mg po x 1 dose. Order for Losartan faxed to pharmacy
--- NOTE | 2021-09-22 17:35 | PC.NURSE ---
shift summary: GCS 15. Afib uncontrolled with multiple PVCs on tele. HTN requring Losartan and Labetalol. BP 138/73 @ 1730. Dyspnea requiring Xopenex neb x 1. O2 sat high 90s on RA. NS infusing @ 50mL/hr and Diltiazem gtt infusing @ 10mg/hr. Pt ambulated to bathroom without assistance or difficulty. BM x 1. Tolerates a cardiac diet. Will get echo tomorrow AM.
[2021-09-23] VITALS (16 sets, daily range): BP systolic 119–150; BP diastolic 69–93; PULSE 61–99; RESP 13–21; TEMP 36.6–37.1; O2SAT 90–100; BMI 18.3; BMI 17.6
[2021-09-23 06:50] LABS: Chol/HDL Ratio 6.9 (1-3.5); Cholesterol 118 mg/dl (140-200); HDL Cholesterol 17 mg/dl (40-60); Triglycerides 88 mg/dl (30-150); VLDL Cholesterol 18 mg/dL (0-40)
[2021-09-23 07:00] LABS: Direct LDL Cholesterol 83.18 mg/dL (100-129)
--- NOTE | 2021-09-23 08:00 | CA_ITS ---
APPROVED REPORT EXAM: Comprehensive 2D, Doppler, and color-flow Echocardiogram Hand Splitter: Mackenzie Layne CRT Ht: 6 ft 0 in Wt: 145lbs BSA: 1.86 BP: 154/93 mmHg Indications: Congestive Heart Failure, COPD, Atrial Fibrillation, CAD, smoker, non-compliant with meds, cm ef 30-35% on echio 05/30/21 2D Dimensions LVOT 2.06 cm (M/F) 1.5-2.5 LA Volume 95.90 mL LA Volume Index 51.60 mL/m2 (M/F) 16-34 M-Mode Dimensions RVDd 3.32 cm (0.9-2.6) LA Diam 3.62 cm (1.9-4.0) LVDd 5.85 cm (3.5-5.7) Ao Diam 4.30 cm (2.0-3.7) LVDs 4.57 cm (3.5-5.7) IVSd 1.52 cm (0.6-1.1) PWd 0.96 cm (0.6-1.1) EF (Teich) 43.60% FS 21.90% EDV (Teich) 169.90 mL ESV (Teich) 95.90 mL LV Diastology E Decel Time 197.00 (160-240 msec) E/A Ratio 1.08 Aortic Valve AI PHT 542.00 ms AO Peak GR. 12.00 mmHg Mitral Valve MV E Max Pete. 62.00 (40-130 cm/s) MV A Velocity 57.00 (40-130 cm/s) E/A Ratio 1.08 MV Decel. Time 197.00 (160-240 ms) MV PHT 58.00 ms Pulmonary Valve PV Peak Velocity 147.00 (50-150 cm/s) Tricuspid Valve TR P. Velocity 311.00 cm/s RAP Estimate 10.00 mmHg RVSP 48.70 mmHg Left Ventricle Left atrium is moderately enlarged, left ventricle is mildly dilated, mild concentric left ventricular hypertrophy, estimated ejection fraction 30% left ventricle is globally hypokinetic, diastolic parameters are inconclusive. Right Ventricle Right atrium and right ventricle are mildly enlarged with normal contractility. Aortic Valve Aortic valve is thickened and calcified without aortic stenosis, there is mild aortic insufficiency. Mitral Valve Mitral valve grossly normal, there is mild mitral regurgitation. Tricuspid Valve Tricuspid valve grossly normal, there is mild tricuspid regurgitation, calculated right ventricular systolic pressure 32 mmHg. Pulmonic Valve Pulmonic valve is poorly visualized. Great Vessels Aortic root is normal size. Inferior vena cava is mildly dilated without significant inspiratory collapse. Pericardium No significant pericardial effusion noted. Conclusion 1. Biatrial enlargement, normal left ventricular size, mild concentric left ventricular hypertrophy, estimated ejection fraction 30%, left ventricle is globally hypokinetic, diastolic parameters are inconclusive. 2. Mild aortic, mitral and tricuspid regurgitation. Calculated right ventricular systolic pressure 32 mmHg. 3. No significant pericardial effusion noted. 4. Inferior vena cava is mildly dilated without significant inspiratory collapse. Electronically signed by : Wesley Hurt MD 09/23/2021 13:53:25
--- NOTE | 2021-09-23 12:41 | PC.NURSE ---
spoke with Sharona in cardiology. pt is currently in afib, refuses keron boyd but does not have any anticoagulants noted. new orders 1227 start xarelto 20mg daily
--- NOTE | 2021-09-23 12:48 | HMH.CNCARD ---
History of Present Illness Consult date: 09/23/21 Requesting physician: Toribio Carrasco Consult reason: chest pain, atrial fibrillation Chief complaint: chest pain Additional Medical History:: Past Medical Hx: CAD PAF Ischemic cardiomyopathy with recovered EF HTN Chronic anemia Cath 12/2020 ANGIOGRAPHIC RESULTS The left main artery Normal The left anterior descending artery Has a proximal eccentric 30% stenosis with mild 10% mid vessel luminal irregularities. A large first diagonal artery has a 90% ostial stenosis The circumflex artery Is nondominant and has proximal and mid vessel 10 to 20% stenoses The right coronary artery Is a dominant vessel and has proximal 30% stenosis with mid vessel distal 40% stenoses The TAPIA ventriculogram reveals Not performed due to the presence of an echocardiogram diagnosed LV thrombus The left ventricular end-diastolic pressure Not measured IMPRESSION Severe disease in the LAD diagonal artery system as described above Successful bifurcating stenting of a complex and severely diseased LAD diagonal artery system 1 stent in the LAD 1 stent in a large diagonal artery in a bifurcating manner Moderate disease in the right coronary artery PLAN 1. Brilinta 90 twice daily plus aspirin 81 mg daily 2. LDL less than 55 3. Cardiac rehabilitation 4. Avoidance of tobacco products 5. Risk factor modification 6. If the official echocardiogram does indicate the ejection fraction is between 30 and 35% patient should be discharged home with a LifeVest 7. In 6 weeks and recommend stress testing to determine if the right coronary artery lesion has hemodynamic significance Echo 02/2021 Conclusion 1. Limited echocardiogram with Definity contrast was performed. Left ventricle is normal size, visually estimated ejection fraction 50% with no obvious regional wall motion abnormality, there is no left ventricular thrombus seen. 2. No significant pericardial effusion noted. Echo 05/2021- EF reduced again to 30-35 History of present illness: 60 year old male with past medical hx as above presented to ED with complaint of midsternal chest pain tachycardia. patient reports has been non compliant with all meds due to no insurance, unclear as to how long has been off meds. [facility] with stenting noted in december 2020, see above cath report. Upon presentation patient was started on cardizem drip. Trops negative. denies chest pain currently. [facility] History Medical History: Reports:: Arrhythmia, Atherosclerotic Heart Disease, Atrial Fibrillation, Cardiomyopathy, Congestive Heart Failure, Coronary Artery Disease, Hyperlipidemia, Hypertension, Myocardial Infarction, Palpitations Denies:: Cancer, Diabetes Mellitus Type 1, Diabetes Mellitus Type 2, Internal Pacemaker, MRSA *Have you ever received a pneumonia vaccine?: No *Have you received a flu vaccine this season?: No Other Medical History: Reports: Anemia Laterality Cases: Bilateral: Arthroscopy Knee Other Surgeries: Yes: Cardiac Catheterization, Coronary Stent. No: Pacemaker Amputation: No Fractures: Yes - *Social History Smoking Status: Current every day smoker Tobacco Type: cigarettes # Packs/Day (cigarettes): 1 Alcohol Intake: never Substance Use Type: marijuana, other Last Used Substance: days (ago) *Occupational Status:: employed Housing: house Household Members: significant other *Travel in the last 8 weeks: None Family Hx:: Cancer, Heart Attack Meds Home Medications Medication Instructions Recorded Confirmed Type Amiodarone HCl 400 mg PO BID 09/22/21 09/22/21 History Atorvastatin Calcium [Lipitor 40mg 40 mg PO HS 09/22/21 09/22/21 History Tab] Clopidogrel Bisulfate [Clopidogrel 75 mg PO DAILY 09/22/21 09/22/21 History 75mg Tab] Furosemide [Furosemide 40MG tAB*] 40 mg PO DAILY 09/22/21 09/22/21 History Metoprolol Succinate [Metoprolol 100 mg PO DAILY 09/22/21 09/22/21 History Succinate 100mg Tablet*] Rivaroxaban [Xarelto
--- NOTE | 2021-09-23 13:06 | HMH.ACPN2 ---
Internal Medicine - PN: Subj *Date: 09/24/21 *Time: 06:27 Interval history: pt reports not feeling well - card consult pending Exam Vital signs and Labs for Last 24 Hours: Temp Pulse Resp BP Pulse Ox 97.9 F 99 H 20 119/82 96 09/23/21 08:00 09/23/21 12:00 09/23/21 12:00 09/23/21 12:00 09/23/21 12:00 Laboratory Results - last 24 hr 09/23/21 05:45: Triglycerides 88, Cholesterol 118 L, LDL Cholesterol Direct 83.18 L, VLDL Cholesterol 18, HDL Cholesterol 17 L, Cholesterol/HDL Ratio 6.9 H I & O for Last 24 hours: Intake & Output 09/21/21 09/22/21 09/23/21 09/24/21 11:59 11:59 11:59 11:59 Intake Total 907 / 907 Output Total 400 / 400 3500 / 3500 Balance -400 / -400 -2593 / -2593 Weight 145 lb 135 lb 6 oz 135 lb 7.585 oz - Constitutional no acute distress - *Routine HEENT Exam Head: Present: normocephalic Eye: Present: EOMI, PERRL ENT: Present: mucous membranes dry - *Routine Neck Exam Absent: JVD - *Routine Respiratory Exam Present: decreased breath sounds - *Routine Cardiovascular Exam Present: RRR, murmur - *Routine Abdominal Exam Present: soft - *Routine Extremities Exam Absent: calf tenderness - *Routine Skin Exam Present: intact - *Routine Neurological Exam Present: alert, CN II-XII intact - Routine Psychiatric Exam Present: normal affect Assessment and Plan (1) Atrial fibrillation with rapid ventricular response Status: Acute Category: Medical Code(s): I48.91 - Unspecified atrial fibrillation (2) COPD (chronic obstructive pulmonary disease) Status: Acute Qualifiers: COPD type: unspecified COPD Qualified Code(s): J44.9 - Chronic obstructive pulmonary disease, unspecified Category: Medical Code(s): J44.9 - Chronic obstructive pulmonary disease, unspecified (3) Unstable angina pectoris Status: Acute Category: Medical Code(s): I20.0 - Unstable angina (4) CAD (coronary artery disease) Status: Chronic Qualifiers: Coronary Disease-Associated Artery/Lesion type: [place] artery [place] vs. transplanted heart: [place] heart Associated angina: with unstable angina Qualified Code(s): I25.110 - Atherosclerotic heart disease of [place] coronary artery with unstable angina pectoris Category: Medical Code(s): I25.10 - Atherosclerotic heart disease of [place] coronary artery without angina pectoris (5) Cigarette smoker Status: Chronic Category: Social Hx Code(s): F17.210 - Nicotine dependence, cigarettes, uncomplicated (6) Acute systolic (congestive) heart failure Status: Acute Category: Medical Code(s): I50.21 - Acute systolic (congestive) heart failure (7) Hypokalemia Status: Acute Category: Medical Code(s): E87.6 - Hypokalemia
--- NOTE | 2021-09-23 19:50 | PC.NURSE ---
diltiazem drip off at 1420 per Sharona r/t poor EF. home meds reordered.
--- NOTE | 2021-09-23 20:05 | PC.NURSE ---
pt got up to bathroom and cleaned up independently, SRNA walked pt to chair, pt sat up about 45 minutes and then wanted to get back in bed, RN got pt back to bed from chair
[2021-09-24] VITALS (15 sets, daily range): BP systolic 88–125; BP diastolic 54–99; PULSE 65–143; RESP 14–22; TEMP 36.6–37.8; O2SAT 93–100; BMI 17.5
--- NOTE | 2021-09-24 04:56 | PC.NURSE ---
pt has not rested this shift, pt states hope I get to go home today and sleep in my own bed, I just can't sleep here , HR was overall less than 100 until about 0200 then started going up into 120-130's frequently (especially if pt is moving or using urinal), rest VSS, pt's HR irregular in afib with intermittent pvc's throughout shift, pt has no pain or chest pain, pt has ambulated to the bathroom and had 2 bm's this shift, pt using urinal frequently with more than adequate UOP, MIVF running at 50mL/hr
[2021-09-24 07:36] LABS: Basophils # 0.1 K/mm3 (0-0.2); Basophils % 0.7 % (0.1-2.0); Eosinophils # 0.2 K/mm3 (0.0-0.4); Eosinophils % 1.8 % (0.1-12.0); Hematocrit 37.4 % (42.0-52.0); Lymphocytes # 2.1 K/mm3 (0.7-4.5); Lymphocytes % 23.2 % (10-50); Mean Corpuscular HGB Conc 29.4 g/dL (31.8-35.4); Mean Corpuscular Hemoglobin 23.7 pg (27.0-31.2); Mean Corpuscular Volume 80.4 fl (80-94); Mean Platelet Volume 8.1 fl (7.4-10.4); Monocytes # 0.7 K/mm3 (0.1-1.0); Monocytes % 8.2 % (1.7-9.3); Neutrophils # 5.9 K/mm3 (1.8-7.8); Neutrophils % 65.9 % (37.0-80.0); Platelet Count 354 K/mm3 (142-424); Red Blood Count 4.65 M/mm3 (4.60-6.20); Red Cell Distribution Width 17.4 % (11.5-17.5)
[2021-09-24 07:46] LABS: Anion Gap 5.6 mEq/L (5-15); Blood Urea Nitrogen 7 mg/dl (9-20); Calcium 8.2 mg/dl (8.4-10.2); Carbon Dioxide 30 mmol/L (22.0-30.0); Chloride 100 mmol/L (98-107); Creatinine Clearance Estimated 137 mL/min (50-200); Estimated Glomerular Filt Rate 170 ml/min (>60); GFR (African American) 206 ML/MIN (>60); Glucose 113 mg/dl (74-100); Potassium 3.6 mmoL/L (3.5-5.1); Sodium 132 mmol/L (136-145)
--- NOTE | 2021-09-24 11:06 | HMH.PNCARD ---
Subjective Date: 09/24/21 Time: 08:00 Principal diagnosis: afib rvr, anemia Interval history: Patient appears anxious, remains tachy with rhythm going between afib and NSR with pac/pvc/bigeminy and trigeminy. Patient denies cp or soa. Drug screen positive for marijuana. states does purchase and use suboxone off the street, last use was Thursday. Denies ETOH use. Rate improved drastically with Ativan 1mg IV. Hgb improving from 8.1 to 11 Potassium improved to 3.6 Creatinine 0.5 Exam Vital signs and Labs for Last 24 Hours: Temp Pulse Resp BP Pulse Ox 97.9 F 75 15 118/78 100 09/24/21 04:00 09/24/21 08:00 09/24/21 08:00 09/24/21 08:00 09/24/21 08:00 Laboratory Results - last 24 hr 09/24/21 07:20: WBC 9.0 D, RBC 4.65 D, Hgb 11.0 L, Hct 37.4 L, MCV 80.4, MCH 23.7 L, MCHC 29.4 L, RDW 17.4, Plt Count 354, MPV 8.1, Neut % (Auto) 65.9, Lymph % (Auto) 23.2, [place] % (Auto) 8.2, Eos % (Auto) 1.8, Baso % (Auto) 0.7, Neut # (Auto) 5.9, Lymph # (Auto) 2.1, [place] # (Auto) 0.7, Eos # (Auto) 0.2, Baso # (Auto) 0.1 09/24/21 07:20: Sodium 132 L, Potassium 3.6 D, Chloride 100, Carbon Dioxide 30, Anion Gap 5.6, BUN 7 L, Creatinine 0.50 L, Estimated Creat Clear 137, Estimated GFR 170, Est GFR ( Amer) 206, Glucose 113 H, Calcium 8.2 L I & O for Last 24 hours: Intake & Output 09/21/21 09/22/21 09/23/21 09/24/21 23:59 23:59 23:59 23:59 Intake Total 907 / 907 420 / 420 2411 / 2411 Output Total 1100 / 2300 4700 / 4700 2275 / 2275 Balance -193 / -1393 -4280 / -4280 136 / 136 Weight 145 lb 146 lb 5 oz 135 lb 7.585 oz 133 lb 14.4 oz - *Routine Respiratory Exam Present: CTA bilaterally - *Routine Cardiovascular Exam Present: RRR, tachycardia, irregular rhythm, irregularly irregular - *Routine Extremities Exam Absent: cyanosis, clubbing, edema - *Routine Neurological Exam Present: alert, oriented X3 Progress Note: A&P (1) Atrial fibrillation with rapid ventricular response Status: Acute (2) COPD (chronic obstructive pulmonary disease) Status: Acute (3) Unstable angina pectoris Status: Acute (4) CAD (coronary artery disease) Status: Chronic (5) Cigarette smoker Status: Chronic (6) Acute systolic (congestive) heart failure Status: Acute (7) Hypokalemia Status: Acute Assessment and Plan for All Diagnoses:: Afib rvr Chadsvasc score 3 -Afib rvr and NSR with frequent PAC/PVC, Bigeminy, trigeminy. - Continue amio and metoprolol -Ativan helped with symptoms. Concerned symptoms might be worsened due to acute withdrawal from suboxone as symptoms improved with ativan 1mg IV. Discussed with Dr. Perez, advised to give one time dose of percocet 10mg and evaluate for improvement. -Will add dig to try to achieve heart rate control. CAD ccs 2-3 -stenting December 2020 -Has been non compliant with meds. -Trops negative -Restart Plavix, aspirin, statin, and BB, rate control for afib. Monitor. If heart rate doesnt improve will consider LHC tomorrow. Ischemic cardiomyopathy -Echo 02/2021 EF 50. Echo 05/2021 EF reduced to 30. Echo today EF 30. -Restart home meds of entresto, metoprolol, aldactone. -Will be fitted for lifevest today prior to dc home. CV summary: Rate control remains difficult at this time, possibly further complicated by withdrawal. Recommend continue monitoring. Will add dig today. if remains high will consider LHC tomorrow.
--- NOTE | 2021-09-24 12:28 | P.PN_ITS ---
Internal Medicine - PN: Subj *Date: 09/25/21 *Time: 04:26 Interval history: still with inc hr and feeling sob possible withdrawl - last use opiate a few days ago Exam Vital signs and Labs for Last 24 Hours: Temp Pulse Resp BP Pulse Ox 98.5 F 135 H 19 124/81 98 09/24/21 11:55 09/24/21 11:55 09/24/21 11:55 09/24/21 11:55 09/24/21 11:55 Laboratory Results - last 24 hr 09/24/21 07:20: WBC 9.0 D, RBC 4.65 D, Hgb 11.0 L, Hct 37.4 L, MCV 80.4, MCH 23.7 L, MCHC 29.4 L, RDW 17.4, Plt Count 354, MPV 8.1, Neut % (Auto) 65.9, Lymph % (Auto) 23.2, [place] % (Auto) 8.2, Eos % (Auto) 1.8, Baso % (Auto) 0.7, Neut # (Auto) 5.9, Lymph # (Auto) 2.1, [place] # (Auto) 0.7, Eos # (Auto) 0.2, Baso # (Auto) 0.1 09/24/21 07:20: Sodium 132 L, Potassium 3.6 D, Chloride 100, Carbon Dioxide 30, Anion Gap 5.6, BUN 7 L, Creatinine 0.50 L, Estimated Creat Clear 137, Estimated GFR 170, Est GFR ( Amer) 206, Glucose 113 H, Calcium 8.2 L I & O for Last 24 hours: Intake & Output 09/22/21 09/23/21 09/24/21 09/25/21 11:59 11:59 11:59 11:59 Intake Total 907 / 907 2831 / 2831 Output Total 400 / 400 3500 / 3500 4175 / 4175 Balance -400 / -400 -2593 / -2593 -1344 / -1344 Weight 145 lb 135 lb 6 oz 133 lb 14.4 oz - Constitutional no acute distress, thin, agitated - *Routine HEENT Exam Head: Present: normocephalic Eye: Present: EOMI, PERRL ENT: Present: mucous membranes dry - *Routine Neck Exam Absent: JVD - *Routine Respiratory Exam Present: CTA bilaterally - *Routine Cardiovascular Exam Present: irregular rhythm - *Routine Abdominal Exam Present: soft - *Routine Extremities Exam Absent: edema - *Routine Skin Exam Present: intact - *Routine Neurological Exam Present: alert, CN II-XII intact - Routine Psychiatric Exam Present: normal affect Assessment and Plan (1) Atrial fibrillation with rapid ventricular response Status: Acute Category: Medical Code(s): I48.91 - Unspecified atrial fibrillation (2) COPD (chronic obstructive pulmonary disease) Status: Acute Qualifiers: COPD type: unspecified COPD Qualified Code(s): J44.9 - Chronic obstructive pulmonary disease, unspecified Category: Medical Code(s): J44.9 - Chronic obstructive pulmonary disease, unspecified (3) Unstable angina pectoris Status: Acute Category: Medical Code(s): I20.0 - Unstable angina (4) CAD (coronary artery disease) Status: Chronic Qualifiers: Coronary Disease-Associated Artery/Lesion type: [place] artery [place] vs. transplanted heart: [place] heart Associated angina: with unstable angina Qualified Code(s): I25.110 - Atherosclerotic heart disease of [place] coronary artery with unstable angina pectoris Category: Medical Code(s): I25.10 - Atherosclerotic heart disease of [place] coronary artery without angina pectoris (5) Cigarette smoker Status: Chronic Category: Social Hx Code(s): F17.210 - Nicotine dependence, cigarettes, uncomplicated (6) Acute systolic (congestive) heart failure Status: Acute Category: Medical Code(s): I50.21 - Acute systolic (congestive) heart failure (7) Hypokalemia Status: Acute Category: Medical Code(s): E87.6 - Hypokalemia
--- NOTE | 2021-09-24 12:42 | PC.NURSE ---
Addendum entered by Marianna Ro RN 09/24/21 13:25: pt now sitting in chair with chair alarm on. Also has call light within reach. Original Note: While primary RN was with another pt, this pt was found sitting on the floor in the [place] outside his room. EVS staff ([place]) and Paco Roberts RN report that he sat on the floor hard but did not fall. He urinated himself. Paco Roberts and Lisa Chapa assisted pt back to his bed. He denies pain and is able to ambulate. Reports that he is at [facility] and knows that today is his birthday. He is unable to explain why he got OOB without assistance.
[2021-09-24 13:27] LABS: Digoxin < 0.40 ng/ml (0.2-2.00)
[2021-09-25] VITALS: PULSE 120
[2021-09-25 04:00] VITALS: BP 123/65; PULSE 72; RESP 18; TEMP 37.1; O2SAT 100
[2021-09-25 05:00] VITALS: BMI 16.2
--- NOTE | 2021-09-25 05:58 | PC.NURSE ---
pt rested well this shift, pt VSS, pt's HR stayed below 100 this shift pt usually 60-70's overall, pt did not complain of any pain this shift, pt emv 15 and perrla at 2mm, pt flipping from nsr to afib throughout shift, lung sounds are clear to diminished, pt using urinal with adequate uop, pt getting up to shower with standby assist at this time
[2021-09-25 06:18] VITALS: PULSE 60
[2021-09-25 06:34] LABS: Basophils # 0.1 K/mm3 (0-0.2); Basophils % 0.9 % (0.1-2.0); Eosinophils # 0.1 K/mm3 (0.0-0.4); Eosinophils % 0.8 % (0.1-12.0); Hematocrit 38.2 % (42.0-52.0); Hemoglobin 11.1 g/dL (14.1-18.0); Lymphocytes # 2.3 K/mm3 (0.7-4.5); Lymphocytes % 21.3 % (10-50); Mean Corpuscular Hemoglobin 23.2 pg (27.0-31.2); Mean Corpuscular Volume 79.8 fl (80-94); Mean Platelet Volume 9.7 fl (7.4-10.4); Monocytes % 9.4 % (1.7-9.3); Neutrophils # 7.4 K/mm3 (1.8-7.8); Neutrophils % 67.6 % (37.0-80.0); Platelet Count 367 K/mm3 (142-424); Red Blood Count 4.78 M/mm3 (4.60-6.20); Red Cell Distribution Width 17.3 % (11.5-17.5); White Blood Count 10.9 K/mm3 (4.8-10.8)
[2021-09-25 06:41] LABS: Blood Urea Nitrogen 19 mg/dl (9-20); Carbon Dioxide 28 mmol/L (22.0-30.0); Chloride 99 mmol/L (98-107); Creatinine Clearance Estimated 90 mL/min (50-200); Estimated Glomerular Filt Rate 115 ml/min (>60); GFR (African American) 140 ML/MIN (>60); Glucose 99 mg/dl (74-100); Sodium 131 mmol/L (136-145)
[2021-09-25 07:45] VITALS: PULSE 52; O2SAT 99
[2021-09-25 08:00] VITALS: BP 140/77; PULSE 60; PULSE 67; RESP 16; TEMP 36.8; O2SAT 100
[2021-09-25 08:36] VITALS: PULSE 51
--- NOTE | 2021-09-25 08:50 | HMH.DCSUM ---
General - General Admission date:: 09/22/21 Discharge date: 09/25/21 HPI HPI: this patient presented to the [facility] with progressive chest pain over the last week both with activity and at rest - pt with known hx of a fib in past and has known cad with stent in 2020 and known anemia - pt has been noncompliant with meds - pt was admitted for eval and treatment Hospital Course Hospital Course: this patient presented to the [facility] with progressive chest pain over the last week both with activity and at rest - pt with known hx of a fib in past and has known cad with stent in 2020 and known anemia - pt has been noncompliant with meds - pt was admitted for eval and treatment 09/23/2021 ECHO: Conclusion 1. Biatrial enlargement, normal left ventricular size, mild concentric left ventricular hypertrophy, estimated ejection fraction 30%, left ventricle is globally hypokinetic, diastolic parameters are inconclusive. 2. Mild aortic, mitral and tricuspid regurgitation. Calculated right ventricular systolic pressure 32 mmHg. 3. No significant pericardial effusion noted. 4. Inferior vena cava is mildly dilated without significant inspiratory collapse. Electronically signed by : Wesley Hurt MD Cardiology has seen and recommends: Assessment and Plan for All Diagnoses:: Afib rvr Chadsvasc score 3 -rate control achieved. Still goes between afib and nsr. - Continue amio, metoprolol, and dig- PATIENT WILL NEED AMIO DOSE DECREASED in office. CAD ccs 2-3 -stenting December 2020 -Has been non compliant with meds. -Trops negative -Continue Plavix, aspirin, statin, and BB, -outpatient stress test. Ischemic cardiomyopathy -Echo 02/2021 EF 50. Echo 05/2021 EF reduced to 30. Echo today EF 30. -Continue meds- entresto, metoprolol, aldactone. -Will be fitted for lifevest today prior to dc home. Medical non compliance -Educated patient on importance of medication adherence and office follow ups. CV stable for dc home. Will need lifevest prior to dc. One week office follow up. Continue home meds. Needs to be maxed out on heart failure meds as can tolerate. Re-asses EF with limited echo outpatient, consider ICD if no improvement. DC meds as follow Amio 400mg BID-will be lowered at office follow ups Metoprolol 100mg QD Digoxin 0.125 QD Plavix 75mg QD Aspirin 81mg QD Crestor 40mg QD Entresto 24/ BID Aldactone 25mg QD. 61-year-old patient admitted for atrial fibrillation and unstable angina. Cardizem drip was started and was DC'd per cardiology for contraindications, amiodarone was started. Digoxin was also ordered to his medical regimen. Patient's heart rate did decrease and rhythm was between normal sinus and A. fib. During his stay there was some concern with Suboxone withdrawal and patient did admit to buying Suboxone off the street. It was noticed after Ativan 1 mg IV was administered and patient rate improved. One-time dose of Percocet 10 mg was ordered and heart rate did improve after administration. patient will be discharged after fitting for LifeVest Lengthy discussion with patient regarding lifestyle adjustments, attending all follow-up appointments, taking all medication per instruction, and names/numbers for his local Suboxone clinics were given to patient. Also discussed importance of smoking cessation, he reports he will discuss this during his next PCP appointment PLAN: 1. We will discharge home today 2. Follow-up with cardiology in 1 week 3. Follow-up with PCP in 1 week 4. Medications optimized with cardiology 5. Fitted for LifeVest Objective Vital signs: Temp Pulse Resp BP Pulse Ox 98.7 F 51 L 18 123/65 100 09/25/21 04:00 09/25/21 08:36 09/25/21 04:00 09/25/21 04:00 09/25/21 04:00 no acute distress - *Routine HEENT Exam Head: Present: normocephalic Eye: Present: EOMI ENT: Present: mucous membranes moist - *Routine Neck Exam Pr
--- NOTE | 2021-09-25 09:09 | HMH.PNCARD ---
Subjective Date: 09/25/21 Time: 09:00 Principal diagnosis: afib rvr, anemia Interval history: doing better today, good rate control, still goes between afib and nsr. Will be fitted for life vest today. Exam Vital signs and Labs for Last 24 Hours: Temp Pulse Resp BP Pulse Ox 98.7 F 51 L 18 123/65 100 09/25/21 04:00 09/25/21 08:36 09/25/21 04:00 09/25/21 04:00 09/25/21 04:00 Laboratory Results - last 24 hr 09/24/21 07:28: Digoxin < 0.40 09/25/21 05:57: WBC 10.9 H, RBC 4.78, Hgb 11.1 L, Hct 38.2 L, MCV 79.8 L, MCH 23.2 L, MCHC 29.0 L, RDW 17.3, Plt Count 367, MPV 9.7, Neut % (Auto) 67.6, Lymph % (Auto) 21.3, [place] % (Auto) 9.4 H, Eos % (Auto) 0.8, Baso % (Auto) 0.9, Neut # (Auto) 7.4, Lymph # (Auto) 2.3, [place] # (Auto) 1.0, Eos # (Auto) 0.1, Baso # (Auto) 0.1 09/25/21 05:57: Sodium 131 L, Potassium 4.0, Chloride 99, Carbon Dioxide 28, Anion Gap 8.0, BUN 19 D, Creatinine 0.70 D, Estimated Creat Clear 90, Estimated GFR 115, Est GFR ( Amer) 140 D, Glucose 99, Calcium 8.0 L I & O for Last 24 hours: Intake & Output 09/22/21 09/23/21 09/24/21 09/25/21 23:59 23:59 23:59 23:59 Intake Total 907 / 907 420 / 420 2651 / 2891 480 / 480 Output Total 1100 / 2300 4700 / 4700 2625 / 3075 1050 / 1050 Balance -193 / -1393 -4280 / -4280 26 / -184 -570 / -570 Weight 146 lb 5 oz 135 lb 7.585 oz 133 lb 14.4 oz 124 lb 1.6 oz - Constitutional no acute distress - *Routine Respiratory Exam Present: CTA bilaterally - *Routine Cardiovascular Exam Present: irregular rhythm - *Routine Extremities Exam Absent: cyanosis, clubbing, edema Progress Note: A&P (1) Atrial fibrillation with rapid ventricular response Status: Acute (2) COPD (chronic obstructive pulmonary disease) Status: Acute (3) Unstable angina pectoris Status: Acute (4) CAD (coronary artery disease) Status: Chronic (5) Cigarette smoker Status: Chronic (6) Acute systolic (congestive) heart failure Status: Acute (7) Hypokalemia Status: Acute Assessment and Plan for All Diagnoses:: Afib rvr Chadsvasc score 3 -rate control achieved. Still goes between afib and nsr. - Continue amio, metoprolol, and dig- PATIENT WILL NEED AMIO DOSE DECREASED in office. CAD ccs 2-3 -stenting December 2020 -Has been non compliant with meds. -Trops negative -Continue Plavix, aspirin, statin, and BB, -outpatient stress test. Ischemic cardiomyopathy -Echo 02/2021 EF 50. Echo 05/2021 EF reduced to 30. Echo today EF 30. -Continue meds- entresto, metoprolol, aldactone. -Will be fitted for lifevest today prior to dc home. Medical non compliance -Educated patient on importance of medication adherence and office follow ups. CV stable for dc home. Will need lifevest prior to dc. One week office follow up. Continue home meds. Needs to be maxed out on heart failure meds as can tolerate. Re-asses EF with limited echo outpatient, consider ICD if no improvement. DC meds as follow Amio 400mg BID-will be lowered at office follow ups Metoprolol 100mg QD Digoxin 0.125 QD Plavix 75mg QD Aspirin 81mg QD Crestor 40mg QD Entresto 24/ BID Aldactone 25mg QD.
--- NOTE | 2021-09-25 12:34 | PC.NURSE ---
Discharge delayed r/t pt needing to be fit for LifeVest and then waiting for pt ride.
--- NOTE | 2021-09-26 14:06 | CARE MANAGER ---
Spoke with patient related to hospital discharge. Patient states he picked up all his medications and is aware of his follow up appointments. Denies any questions or concerns at this time. AMY Mcdonough
== END 2021-09-25 13:05 | disposition home or self-care (01) | DRG 308 ==
LOC: ER 09-22 06:24 → 2ND 09-23 00:50
PROVIDERS: Nurse Practitioner; Nurse Practitioner Family; Admitting Provider Emergency Medicine; Emergency Provider Emergency Medicine; PCP Family Medicine; Visit Provider Family Medicine
DX: I48.91 Unspecified atrial fibrillation (principal); I50.21 Acute systolic (congestive) heart failure; I25.110 Atherosclerotic heart disease of native coronary artery with unstable angina pectoris; I11.0 Hypertensive heart disease with heart failure; I42.9 Cardiomyopathy, unspecified; E78.5 Hyperlipidemia, unspecified; I25.2 Old myocardial infarction; F17.210 Nicotine dependence, cigarettes, uncomplicated; I25.5 Ischemic cardiomyopathy; D64.89 Other specified anemias; Z95.5 Presence of coronary angioplasty implant and graft; E87.6 Hypokalemia; Z91.19 Patient's noncompliance with other medical treatment and regimen
CPT/HCPCS: 36415; 71046; 80048; 80061; 80162; 80305; 81001; 83735; 83880; 84145; 84436; 84443; 84484; 85025; 85651; 86140; 93005; 93306; 94640; 99285; C9803; U0003; U0005

== ENCOUNTER 2021-10-31 11:24 | Inpatient (IN) | payer OTHER, SELFPAY ==
[2021-10-31] VITALS (29 sets, daily range): BP systolic 86–150; BP diastolic 46–86; PULSE 38–81; RESP 12–21; TEMP 36.6–36.9; O2SAT 92–100; BMI 17.3; BMI 15.3
--- NOTE | 2021-10-31 11:28 | ECG_ITS ---
APPROVED REPORT Exam: Resting ECG HR:38 bpm ECG Measurements Heart Rate 38 AXES AL 152 P 19 QRSd 96 QRS 56 QT 557 T 44 QTc 480 Conclusion SINUS BRADYCARDIA LEFT VENTRICULAR HYPERTROPHY AND ST-T CHANGE [VOLTAGE CRITERIA PLUS ST/T ABNORMALITY] PROLONGED QT INTERVAL CRITICAL TEST RESULT UNCONFIRMED REPORT Electronically signed by : Oc Crockett MD 11/02/2021 08:07:50
--- NOTE | 2021-10-31 11:31 | XR_ITS ---
FINAL REPORT CLINICAL HISTORY: SOA FINDINGS: A portable view of the chest was obtained. Comparison is made to a prior exam dated 09/22/2021. Cardiac and mediastinal silhouettes are within normal limits. Increased interstitial markings are stable. Previously seen at, patchy bibasilar predominant opacities have improved. There is no pleural effusion or pneumothorax. IMPRESSION: Improved, patchy basilar predominant opacities. Reviewed, Interpreted and Dictated by April Sheikh MD Transcribed by Arabella Montez Authenticated and [facility]
--- NOTE | 2021-10-31 11:40 | HMH.EDGENADL ---
Discharge Plan Disposition Patient Disposition: Admitted As Inpatient Condition: Good Chief Complaint: Weakness Clinical Impressions Clinical Impression: Symptomatic sinus bradycardia, Prolonged Q-T interval on ECG, Transaminitis Congestive heart failure Qualifiers: Heart failure type: unspecified Heart failure chronicity: acute on chronic Qualified Code(s): I50.9 - Heart failure, unspecified Discharge ED Provider: Elena Weiss General Adult HPI General Chief complaint: Weakness Stated complaint: SOA Time Seen by Provider: 10/31/21 11:30 History of Present Illness HPI narrative: This patient is a 61-year-old male with a history of heart failure reduced ejection fraction with LifeVest, paroxysmal atrial fibrillation, COPD, CAD, and hyperlipidemia presented to the emergency department for evaluation as a referral from outpatient clinic with concern for fatigue, bradycardia, and hypoxia. Patient states that he has been feeling bad for 1 week. He states that his biggest concern is bilateral foot pain and bilateral upper extremity pain. Nothing makes his symptoms better or worse. He states that he has had chills, cough, shortness of breath, and fatigue. He also states that he has felt lightheaded. He denies any fevers or chills. He denies any abdominal pain, nausea, vomiting, changes in bowel movements, rashes, or swelling. He reports that he has been compliant with his medications. Related Data Home Medications Medication Instructions Recorded Confirmed rosuvastatin 40 mg tablet 40 mg PO DAILY Cholesterol 10/31/21 10/31/21 torsemide 20 mg tablet 20 mg PO DAILY Fluid 10/31/21 10/31/21 Previous Rx's Medication Instructions Recorded amiodarone 200 mg tablet 200 mg PO BID #60 tabs 10/02/21 clopidogrel 75 mg tablet 75 mg PO DAILY platelet inhibitor 10/02/21 #30 tabs digoxin 125 mcg (0.125 mg) tablet 125 mcg PO DAILY #30 tabs 10/02/21 metoprolol succinate 100 mg 100 mg PO DAILY Hypertension #30 10/02/21 tablet,extended release 24 hr tabs sacubitril 24 mg-valsartan 26 mg 1 tab PO BID Heart failure #60 tabs 10/02/21 tablet spironolactone 25 mg tablet 25 mg PO DAILY diuretic #30 tabs 10/02/21 Allergies Allergy/AdvReac Type Severity Reaction Status Date / Time No Known Allergies Allergy Verified 10/31/21 11:13 [facility] Medical History COPD (chronic obstructive pulmonary disease) History of back pain Hyperlipidemia Hypertension Hypertension Family History (Updated 10/31/21 @ 16:59 by Bri Mccord RN) Other Family history of cancer Family history of hyperlipidemia Family history of hypertension Family history of myocardial infarction Social History (Updated 10/31/21 @ 16:59 by Bri Mccord RN) Smoking Status: Current every day smoker tobacco type: cigarettes packs per day: 1 second hand exposure: Yes alcohol intake: never substance use type: marijuana and other current occupational status: employed Travel in the last 8 weeks: None household members: significant other housing: house current occupation: [employer] caffeine: Yes ROS Obtained: Yes All systems reviewed & no additional complaints except as documented 14 point review of systems negative except mentioned in HPI Physical Exam General General appearance: alert, in no apparent distress and cachectic Comment: tired-appearing Head Head exam: atraumatic and normocephalic Eye Eye exam: Present normal appearance, PERRL and EOMI ENT ENT exam: Present normal exam and normal oropharynx Neck Neck exam: Present normal inspection and full ROM Chest Chest inspection: Present normal inspection and symmetric chest wall rise Respiratory Respiratory exam: Present normal lung sounds bilaterally; Absent respiratory distress or wheezes Cardiovascular Cardiovascular exam: Present normal rhythm and bradycardia Abdominal Exam Abdominal exam: Present soft; Abse
[2021-10-31 11:54] LABS: Basophils # 0.1 K/mm3 (0-0.2); Basophils % 1.2 % (0.1-2.0); Eosinophils # 0.2 K/mm3 (0.0-0.4); Eosinophils % 2.3 % (0.1-12.0); Hematocrit 35.2 % (42.0-52.0); Lymphocytes # 2.5 K/mm3 (0.7-4.5); Lymphocytes % 26.1 % (10-50); Mean Corpuscular HGB Conc 28.5 g/dL (31.8-35.4); Mean Corpuscular Hemoglobin 23.3 pg (27.0-31.2); Mean Corpuscular Volume 81.9 fl (80-94); Mean Platelet Volume 9.6 fl (7.4-10.4); Monocytes # 0.8 K/mm3 (0.1-1.0); Monocytes % 8.3 % (1.7-9.3); Neutrophils % 62.1 % (37.0-80.0); Platelet Count 288 K/mm3 (142-424); White Blood Count 9.7 K/mm3 (4.8-10.8)
[2021-10-31 11:59] LABS: Alanine Aminotransferase 353 U/L (12-78); Albumin Level 3.9 g/dl (3.5-5.0); Alkaline Phosphatase 296 U/L (38-126); Anion Gap 8.7 mEq/L (5-15); Aspartate Amino Transferase 261 U/L (17-59); Bilirubin,Direct 0.1 mg/dl (0.0-0.4); Blood Urea Nitrogen 13 mg/dl (9-20); Calcium 8.7 mg/dl (8.4-10.2); Carbon Dioxide 37 mmol/L (22.0-30.0); Chloride 94 mmol/L (98-107); Creatinine Clearance Estimated 82 mL/min (50-200); Estimated Glomerular Filt Rate 99 ml/min (>60); GFR (African American) 120 ML/MIN (>60); Glucose 101 mg/dl (74-100); Potassium 3.7 mmoL/L (3.5-5.1); Sodium 136 mmol/L (136-145); Total Protein,Serum 6.8 g/dl (6.3-8.2)
[2021-10-31 12:00] LABS: Bilirubin,Total 0.1 mg/dl (0.2-1.3)
[2021-10-31 12:01] LABS: VBG Base Excess 6.6 mmol/L (-2.4-2.3); VBG HCO3 31.9 mmol/L (23-30); VBG Oxygen Saturation 67.9 % (50-70); VBG PCO2 56.6 mmol/L (35-51); VBG PH 7.37 mmol/L (7.31-7.41); VBG PO2 33.6 mmol/L (28-40); VBG Total CO2 33.6 mmol/L (23-27)
--- NOTE | 2021-10-31 12:04 | US_ITS ---
FINAL REPORT CLINICAL HISTORY: pain, transaminitis FINDINGS: Sonographic images of the right upper quadrant were obtained in the longitudinal and transverse planes. PANCREAS: Obscured. LIVER: Homogeneous. No focal hepatic lesion. No intrahepatic biliary ductal dilatation. GALLBLADDER: No gallstones. No gallbladder wall thickening or pericholecystic fluid. COMMON DUCT: 2 mm. Normal for age. RIGHT KIDNEY: The right kidney measures 10.9 cm. There is no hydronephrosis, mass, or stone. FREE FLUID: None. IMPRESSION: Pancreas is obscured, otherwise unremarkable exam. Reviewed, Interpreted and Dictated by April Sheikh MD Transcribed by Sonal Mendez Authenticated and . [facility]
[2021-10-31 12:10] LABS: Troponin I 0.02 ng/ml (0.00-0.034)
[2021-10-31 12:11] LABS: Magnesium 1.7 mg/dl (1.6-2.3)
[2021-10-31 12:21] LABS: Acetaminophen < 10 ug/ml (10-30)
--- NOTE | 2021-10-31 12:25 | PC.NURSE ---
US tech at BS
--- NOTE | 2021-10-31 12:26 | PC.NURSE ---
siva from ultrasound at BS for exam, reports she can not get to pt abd enough with his life vest on, states she will need pt to remove it for exam. ER MD aware and okay with this.
--- NOTE | 2021-10-31 12:28 | PC.NURSE ---
attempted to call vascular for echo order
--- NOTE | 2021-10-31 12:43 | PC.NURSE ---
pt resting in bed. echo at bs
--- NOTE | 2021-10-31 14:01 | PC.NURSE ---
contacting Dr Treviño at this time for patient admission
--- NOTE | 2021-10-31 14:04 | PC.NURSE ---
Dr. Treviño is speaking with SUSAN LANG at this time
[2021-10-31 14:06] LABS: Coronavirus 19, PCR Not Detected (NotDetected); Influenza A, PCR Not Detected (NotDetected); Influenza B, PCR Not Detected (NotDetected)
--- NOTE | 2021-10-31 14:20 | PC.NURSE ---
rounded on pt at this time. no needs voiced.
--- NOTE | 2021-10-31 14:25 | PC.NURSE ---
Still awaiting a call back from Cardiology, called and spoke with professor of environmental engineering Rosi Perez, and she reports Marie will be calling back here shortly, she was speaking with Dr. Perez regarding this patient.
--- NOTE | 2021-10-31 14:36 | PC.NURSE ---
SUSAN LANG speaking with maria victoria mcnair from cardiology
--- NOTE | 2021-10-31 14:36 | PC.NURSE ---
rounded on pt, no needs at this time. Family at bs
--- NOTE | 2021-10-31 14:36 | PC.NURSE ---
speaking to YANG shannon
--- NOTE | 2021-10-31 14:38 | PC.NURSE ---
Spoke to Emily in care management regarding patient admission.
--- NOTE | 2021-10-31 14:54 | PC.NURSE ---
Flor RN aware of patients bed assignment
--- NOTE | 2021-10-31 14:55 | PC.NURSE ---
ER at to update patient on POC/results
[2021-10-31 15:22] LABS: Troponin I < 0.01 ng/ml (0.00-0.034)
--- NOTE | 2021-10-31 16:17 | PC.NURSE ---
called report to AMY agarwal on the floor
--- NOTE | 2021-10-31 16:41 | PC.NURSE ---
pt arrived to the floor at this time
[2021-10-31 18:26] LABS: Troponin I < 0.01 ng/ml (0.00-0.034)
[2021-11-01] VITALS (14 sets, daily range): BP systolic 130–149; BP diastolic 66–81; PULSE 39–52; RESP 12–20; TEMP 36.7–37; O2SAT 93–100; BMI 15.7; BMI 15.6
[2021-11-01 06:22] LABS: Chloride 98 mmol/L (98-107)
[2021-11-01 06:23] LABS: Basophils # 0.1 K/mm3 (0-0.2); Eosinophils # 0.1 K/mm3 (0.0-0.4); Hematocrit 31.6 % (42.0-52.0); Hemoglobin 9.2 g/dL (14.1-18.0); Lymphocytes # 1.6 K/mm3 (0.7-4.5); Mean Corpuscular HGB Conc 29.2 g/dL (31.8-35.4); Mean Corpuscular Hemoglobin 23.8 pg (27.0-31.2); Mean Corpuscular Volume 81.5 fl (80-94); Mean Platelet Volume 10.3 fl (7.4-10.4); Monocytes # 0.5 K/mm3 (0.1-1.0); Monocytes % 8.5 % (1.7-9.3); Neutrophils # 3.7 K/mm3 (1.8-7.8); Neutrophils % 61.5 % (37.0-80.0); Platelet Count 216 K/mm3 (142-424); Potassium 3.6 mmoL/L (3.5-5.1); Red Blood Count 3.88 M/mm3 (4.60-6.20); Red Cell Distribution Width 18.5 % (11.5-17.5); Sodium 137 mmol/L (136-145)
[2021-11-01 06:25] LABS: Alanine Aminotransferase 259 U/L (12-78); Aspartate Amino Transferase 263 U/L (17-59)
[2021-11-01 06:26] LABS: Albumin Level 2.9 g/dl (3.5-5.0); Albumin/Globulin Ratio 1.1 (1.1-1.8); Alkaline Phosphatase 278 U/L (38-126); Anion Gap 8.6 mEq/L (5-15); Carbon Dioxide 34 mmol/L (22.0-30.0); Globulin 2.7 g/dL (1.3-3.2); Total Protein,Serum 5.6 g/dl (6.3-8.2)
[2021-11-01 06:31] LABS: Calcium 7.5 mg/dl (8.4-10.2)
[2021-11-01 06:38] LABS: Bilirubin,Total < 0.1 mg/dl (0.2-1.3)
[2021-11-01 07:19] LABS: Blood Urea Nitrogen 16 mg/dl (9-20); Creatinine Clearance Estimated 92 mL/min (50-200); Estimated Glomerular Filt Rate 115 ml/min (>60); GFR (African American) 140 ML/MIN (>60); Glucose 124 mg/dl (74-100)
--- NOTE | 2021-11-01 07:39 | P.CONPHA_ITS ---
[facility] Pharmacy VTE Monitoring Patient Demographics Admission date: 10/31/21 Report Date: 11/01/21 Time: 07:39 Patient Allergies No Known Allergies Allergy (Verified 10/31/21 11:13) Height: 1.91 m Weight: 57.209 kg Current Active Problems (Updated 10/31/21 @ 17:00 by Bri Mccord RN) Congestive heart failure (Acute) Symptomatic sinus bradycardia (Acute) Prolonged Q-T interval on ECG (Acute) Transaminitis (Acute) VTE Risk Labs: VTE Related Lab Results Hgb 9.2 g/dL (14.1-18.0) L 11/01/21 05:30 Hct 31.6 % (42.0-52.0) L 11/01/21 05:30 Plt Count 216 K/mm3 (142-424) 11/01/21 05:30 BUN 16 mg/dl (9-20) 11/01/21 05:30 Creatinine 0.70 mg/dl (0.66-1.25) 11/01/21 05:30 Estimated Creat Clear 92 mL/min (50-200) 11/01/21 05:30 VTE Score: 3 VTE Risk Level: Low Risk Prophylaxis VTE Prophylaxis Ordered?: Yes Types of VTE Prophylaxis: TEDS Knee High and Pharmacological Location of Applied Device: Bilateral Lower Extremeties and Not Applicable Pharmacologic Type: Heparin
--- NOTE | 2021-11-01 10:57 | EXP.CARD.CON ---
History of Present Illness History of Present Illness Consult date: 11/01/21 Requesting physician: Bam Treviño Chief complaint: fatigue, dizziness History of present illness: This is a 61-year-old gentleman who was evaluated by his primary care provider and cardiology yesterday and then sent to the emergency department for bradycardia, low oxygen saturation and fatigue and dizziness. The patient the patient denies any chest pain or pressure. He has been having weakness and fatigue. Just no energy to really do anything. He has been dizzy with activity as well. The patient was evaluated yesterday and told he was bradycardic. He also had low oxygen saturations and was instructed to come to the emergency department. He denies any shortness of breath or edema. He denies any fever, chills, nausea, vomiting, diarrhea, PND or orthopnea. The patient does have a history of drug abuse. He states that he is buying Suboxone off of the street right now and taking at least 1 pill a day. He denies any other drug or alcohol use. Review of Systems Review of Systems Review of systems:: pertinent systems reviewed and negative unless documented below Constitutional Constitutional: Reports system reviewed and no additional complaints, except as documented, Reports fatigue, Reports lethargy and Reports weakness Eyes Eyes: Reports system reviewed and no additional complaints, except as documented ENT Ears, Nose, Mouth, and Throat: Reports system reviewed and no additional complaints, except as documented and Reports dizziness *Cardiovascular Cardiovascular: Reports system reviewed and no additional complaints, except as documented *Respiratory Respiratory: Reports system reviewed and no additional complaints, except as documented *Gastrointestinal Gastrointestinal: Reports system reviewed and no additional complaints, except as documented *Genitourinary Genitourinary: Reports system reviewed and no additional complaints, except as documented *Musculoskeletal Musculoskeletal: Reports system reviewed and no additional complaints, except as documented Integumentary/Breasts Skin/Breast: Reports system reviewed and no additional complaints, except as documented *Neurologic Neurologic: Reports system reviewed and no additional complaints, except as documented, Reports dizziness and Reports weakness Psychiatric Psychiatric: Reports system reviewed and no additional complaints, except as documented Endocrine Endocrine: Reports system reviewed and no additional complaints, except as documented and Reports fatigue Hematologic/Lymphatic Hematologic/Lymphatic: Reports system reviewed and no additional complaints, except as documented Allergic/Immunologic Allergic/Immunologic: Reports system reviewed and no additional complaints, except as documented Exam Data for Last 24 hours Vital signs and Labs for Last 24 Hours: Temp Pulse Resp BP Pulse Ox 98.0 F 39 L 16 134/75 100 11/01/21 04:00 11/01/21 07:45 11/01/21 06:00 11/01/21 06:00 11/01/21 07:45 Laboratory Results - last 24 hr 10/31/21 11:32: VBG pH 7.37, VBG pCO2 56.6 H, VBG pO2 33.6, VBG HCO3 31.9 H, VBG Total CO2 33.6 H, VBG O2 Saturation 67.9, VBG Base Excess 6.6 H 10/31/21 11:36: WBC 9.7, RBC 4.30 L, Hgb 10.0 L, Hct 35.2 L, MCV 81.9, MCH 23.3 L, MCHC 28.5 L, RDW 18.0 H, Plt Count 288, MPV 9.6, Neut % (Auto) 62.1, Lymph % (Auto) 26.1, [place] % (Auto) 8.3, Eos % (Auto) 2.3, Baso % (Auto) 1.2, Neut # (Auto) 6.0, Lymph # (Auto) 2.5, [place] # (Auto) 0.8, Eos # (Auto) 0.2, Baso # (Auto) 0.1 10/31/21 11:36: Sodium 136, Potassium 3.7, Chloride 94 L, Carbon Dioxide 37 H, Anion Gap 8.7, BUN 13, Creatinine 0.80, Estimated Creat Clear 82, Estimated GFR 99, Est GFR ( Amer) 120, Glucose 101 H, Calcium 8.7, Troponin I 0.02 10/31/21 11:36: Total Bilirubin 0.1 L, Direct Bilirubin 0.1, Conjugated Bilirubin 0.0, Indirect Bilirubin 0.0, Unconjugated Bilirubin 0.0, AST 261 H, ALT 353 H*, Alkaline Phosphatase 296 H, Total Protein 6.8,
--- NOTE | 2021-11-01 11:26 | HMH.PHAINT1 ---
Pharmacy Intervention Comments: MEDICATION RECONCILIATION COMPLETED ON PATIENT USING EXTERNAL FILL HISTORY FROM PHARMACY. -GIO ARANA, KEVIND
--- NOTE | 2021-11-01 11:30 | PC.NURSE ---
message left with cardiology office in regards to pt diet being ordered r/t pt not going for pacemaker at this time. new orders, pt may have diet. order entered at this time.
--- NOTE | 2021-11-01 15:10 | PC.NURSE ---
rounded on patient. relayed plan of care, possibility to remain in hospital until thursday. patient slightly anxious about staying all weekend. he did state he might want to go outside. did educate on stepdown status, and the inability to monitor status if not on floor. encouraged him to let us know when he wants to walk around and we could assist him with ambulation. educated on nonsmoking facility, and offered to get a nicotine patch which he refused. encouraged him to ring out with any needs or concerns.
--- NOTE | 2021-11-01 16:31 | PC.NURSE ---
pt has slept off and on this afternoon. he expressed displeasure to the charge nurse that he would not be able to go outside. pt hr is being monitored while waiting for medication to leave pt system. lungs are clear, bowel sounds are active in all quads. pt is a/o x 4.
--- NOTE | 2021-11-01 17:23 | EXP.HP ---
History of Present Illness *Admission Date: 10/31/21 *History of present illness: This is a 61-year-old gentleman who was evaluated by his primary care provider and cardiology yesterday and then sent to the emergency department for bradycardia, low oxygen saturation and fatigue and dizziness.? The patient the patient denies any chest pain or pressure.? He has been having weakness and fatigue.? Just no energy to really do anything.? He has been dizzy with activity as well.? The patient was evaluated yesterday and told he was bradycardic.? He also had low oxygen saturations and was instructed to come to the emergency department.? He denies any shortness of breath or edema.? He denies any fever, chills, nausea, vomiting, diarrhea, PND or orthopnea.? (above per oim consultant) [facility] Medical History (Updated 11/01/21 @ 11:05 by Marie Smith APRN) COPD (chronic obstructive pulmonary disease) History of back pain Hyperlipidemia Hypertension Hypertension Family History (Updated 10/31/21 @ 16:59 by Bri Mccord RN) Other Family history of cancer Family history of hyperlipidemia Family history of hypertension Family history of myocardial infarction Social History (Updated 10/31/21 @ 16:59 by Bri Mccord RN) Smoking Status: Current every day smoker tobacco type: cigarettes packs per day: 1 second hand exposure: Yes alcohol intake: never substance use type: marijuana and other current occupational status: employed Travel in the last 8 weeks: None household members: significant other housing: house current occupation: [employer] caffeine: Yes Review of Systems Constitutional Constitutional: Reports weakness Eyes Eyes: Reports system reviewed and no additional complaints, except as documented ENT Ears, Nose, Mouth, and Throat: Reports system reviewed and no additional complaints, except as documented and Reports dizziness *Cardiovascular Cardiovascular: Reports lightheadedness and Reports slow heart rate *Respiratory Respiratory: Reports system reviewed and no additional complaints, except as documented *Gastrointestinal Gastrointestinal: Reports system reviewed and no additional complaints, except as documented *Genitourinary Genitourinary: Reports system reviewed and no additional complaints, except as documented *Musculoskeletal Musculoskeletal: Reports system reviewed and no additional complaints, except as documented Integumentary/Breasts Skin/Breast: Reports system reviewed and no additional complaints, except as documented *Neurologic Neurologic: Reports system reviewed and no additional complaints, except as documented, Denies behavioral changes, Reports dizziness and Reports weakness Psychiatric Psychiatric: Denies behavioral changes Endocrine Endocrine: Reports system reviewed and no additional complaints, except as documented Hematologic/Lymphatic Hematologic/Lymphatic: Reports system reviewed and no additional complaints, except as documented Allergic/Immunologic Allergic/Immunologic: Reports system reviewed and no additional complaints, except as documented Meds Home Medications and Allergies Home Medications Medication Instructions Recorded Confirmed Type amiodarone 200 mg tablet 200 mg PO BID #60 tabs 10/02/21 10/31/21 Rx clopidogrel 75 mg tablet 75 mg PO DAILY platelet inhibitor 10/02/21 10/31/21 Rx #30 tabs digoxin 125 mcg (0.125 mg) tablet 125 mcg PO DAILY #30 tabs 10/02/21 10/31/21 Rx metoprolol succinate 100 mg 100 mg PO DAILY Hypertension #30 10/02/21 10/31/21 Rx tablet,extended release 24 hr tabs sacubitril 24 mg-valsartan 26 mg 1 tab PO BID Heart failure #60 tabs 10/02/21 10/31/21 Rx tablet spironolactone 25 mg tablet 25 mg PO DAILY diuretic #30 tabs 10/02/21 10/31/21 Rx rosuvastatin 40 mg tablet 40 mg PO DAILY Cholesterol 10/31/21 10/31/21 History torsemide 20 mg tablet 20 mg PO DAILY Fluid 10/31/21 10/31/21 History New Prescriptions to Start Prescriptions
[2021-11-02] VITALS (14 sets, daily range): BP systolic 110–150; BP diastolic 59–89; PULSE 42–72; RESP 13–35; TEMP 36.6–36.9; O2SAT 95–100; BMI 15.7
[2021-11-02 08:33] LABS: Amphetamine/Metha Screen,Urine Negative ng/ml (<1000); Barbiturates Screen,Urine Negative ng/ml (<200)
[2021-11-02 08:34] LABS: Benzodiazepines Screen,Urine Negative ng/ml (<200); Cannabinoid Screen,Urine Positive ng/ml (<50)
[2021-11-02 08:35] LABS: Cocaine Screen,Urine Negative ng/ml (<300)
[2021-11-02 08:36] LABS: Methadone Screen,Urine Negative ng/ml (<300); Opiate Screen,Urine Negative ng/ml (<300)
[2021-11-02 08:37] LABS: Phencyclidine Screen,Urine Negative ng/ml (<25)
--- NOTE | 2021-11-02 10:14 | P.PN_ITS ---
Subjective *Date: 11/04/21 *Time: 14:14 Interval history: pt doing ok - feels weak but no chest pain Medical Exam Vital signs and Labs for Last 24 Hours: Temp Pulse Resp BP Pulse Ox 97.9 F 48 L 23 141/73 H 97 11/02/21 08:00 11/02/21 08:00 11/02/21 08:00 11/02/21 08:00 11/02/21 08:00 Laboratory Results - last 24 hr 11/02/21 08:00: Urine Opiates Screen Negative, Urine Methadone Screen Negative, Ur Barbituates Screen Negative, Ur Phencyclidine Scrn Negative, Ur Amphetamines Screen Negative, U Benzodiazepines Scrn Negative, Urine Cocaine Screen Negative, U Marijuana (THC) Screen Positive H I & O for Labs for Last 24 Hours: Intake & Output 10/30/21 10/31/21 11/01/21 11/02/21 11:59 11:59 11:59 11:59 Intake Total 240 / 240 1200 / 1200 Output Total 900 / 950 1250 / 1250 Balance -660 / -710 -50 / -50 Weight 128 lb 126 lb 2 oz 126 lb 4 oz Eyes: as per HPI ENT: normal exam Neck: trachea midline Respiratory: decreased breath sounds Cardiac: Reg Rate and Rhythm and Systolic Murmur GI: soft Extremities: edema Skin: intact Assessment and Plan Assessment and plan all Dx Plan of Treatment: Plan: 1. This is a 61-year-old gentleman who presented to the emergency department with complaints of weakness and dizziness. The patient was bradycardic in his primary care provider's office yesterday and in cardiology clinic yesterday and was referred to go to the emergency department. The patient is historically very noncompliant. He states that he is currently taking his medicine. His amiodarone, digoxin and metoprolol have all been stopped which could be con tributing to his significant bradycardia. 2. The patient has a history of ischemic cardiomyopathy. He does have a LifeVest currently. Limited echocardiogram yesterday shows an ejection fraction now to be 60 to 65%. He can stop wearing the LifeVest. 3. He does have a history of coronary artery disease. He denies any chest pain or pressure. He ruled out for an OR. No plans for invasive left cardiac catheterization at this time. 4. His blood pressure is well controlled. 5. His LDL goal is less than 55. He is on a statin. 6. Will obtain a UDS given his history of drug abuse. 7. Will restart his Entresto, spironolactone and torsemide for history of ischemic cardiomyopathy. 8. Dr. Perez does not want to proceed with permanent pacemaker placement at this time. He wants the patient to have more time to get the amiodarone, digoxin and metoprolol out of his system over the weekend and see if his heart rate improves before deciding whether or not to proceed with a pacemaker. 9. The patient does have a history of paroxysmal atrial fibrillation. If his heart rate does not start to improve then we will need to start adding back his beta-erin and amiodarone slowly to prevent recurrence of his atrial fibrillation with RVR. The patient was on long-term anticoagulation with Xarelto, however, we are it is unclear whether or not the patient is still currently taking this medication. We will have to get him started back on anticoagulation prior to discharge home. 10. Further recommendations will be made pending the patient's response to treatment. Thank you for the opportunity to help participate in the care of this patient. All recommendations and orders are per Dr. Perez.
[2021-11-02 10:44] LABS: Basophils # 0.1 K/mm3 (0-0.2); Eosinophils # 0.1 K/mm3 (0.0-0.4); Eosinophils % 1.8 % (0.1-12.0); Hematocrit 31.3 % (42.0-52.0); Hemoglobin 9.3 g/dL (14.1-18.0); Lymphocytes # 1.4 K/mm3 (0.7-4.5); Lymphocytes % 25.9 % (10-50); Mean Corpuscular HGB Conc 29.6 g/dL (31.8-35.4); Mean Corpuscular Volume 81.1 fl (80-94); Mean Platelet Volume 10.1 fl (7.4-10.4); Monocytes # 0.4 K/mm3 (0.1-1.0); Monocytes % 6.9 % (1.7-9.3); Neutrophils # 3.4 K/mm3 (1.8-7.8); Neutrophils % 64.3 % (37.0-80.0); Platelet Count 232 K/mm3 (142-424); Red Blood Count 3.86 M/mm3 (4.60-6.20); Red Cell Distribution Width 18.4 % (11.5-17.5); White Blood Count 5.2 K/mm3 (4.8-10.8)
[2021-11-02 10:56] LABS: Alanine Aminotransferase 236 U/L (12-78); Albumin Level 2.9 g/dl (3.5-5.0); Albumin/Globulin Ratio 1.1 (1.1-1.8); Alkaline Phosphatase 243 U/L (38-126); Anion Gap 7.3 mEq/L (5-15); Aspartate Amino Transferase 169 U/L (17-59); Blood Urea Nitrogen 10 mg/dl (9-20); Calcium 8.3 mg/dl (8.4-10.2); Carbon Dioxide 29 mmol/L (22.0-30.0); Chloride 102 mmol/L (98-107); Creatinine Clearance Estimated 107 mL/min (50-200); Estimated Glomerular Filt Rate 138 ml/min (>60); GFR (African American) 167 ML/MIN (>60); Globulin 2.7 g/dL (1.3-3.2); Glucose 169 mg/dl (74-100); Potassium 4.3 mmoL/L (3.5-5.1); Sodium 134 mmol/L (136-145); Total Protein,Serum 5.6 g/dl (6.3-8.2)
[2021-11-02 11:02] LABS: Bilirubin,Total < 0.1 mg/dl (0.2-1.3)
--- NOTE | 2021-11-02 18:18 | PC.NURSE ---
Patient alert and oriented x4, HR 60's, NSR on radiation monitor, O2 saturation 100% on RA, RR normal. Patient tolerates cardiac diet, but has not had much of an appetite. Patient had two episodes of orthostatic hypotension.
[2021-11-02 21:15] LABS: Hep A Ab, IgM Negative; Hepatitis B Core Antibody IgM Negative; Hepatitis B Surface Antigen Negative; Hepatitis C Antibody <0.1
[2021-11-03] VITALS (15 sets, daily range): BP systolic 110–145; BP diastolic 72–96; PULSE 56–107; RESP 11–24; TEMP 36.8–36.9; O2SAT 98–100; BMI 14.6
[2021-11-03 07:55] LABS: Alanine Aminotransferase 200 U/L (12-78); Albumin Level 3.3 g/dl (3.5-5.0); Albumin/Globulin Ratio 1.2 (1.1-1.8); Alkaline Phosphatase 241 U/L (38-126); Anion Gap 8.2 mEq/L (5-15); Aspartate Amino Transferase 97 U/L (17-59); Basophils # 0.1 K/mm3 (0-0.2); Basophils % 0.9 % (0.1-2.0); Blood Urea Nitrogen 12 mg/dl (9-20); Calcium 8.5 mg/dl (8.4-10.2); Carbon Dioxide 31 mmol/L (22.0-30.0); Chloride 100 mmol/L (98-107); Creatinine Clearance Estimated 121 mL/min (50-200); Eosinophils # 0.2 K/mm3 (0.0-0.4); Eosinophils % 2.3 % (0.1-12.0); Estimated Glomerular Filt Rate 170 ml/min (>60); GFR (African American) 206 ML/MIN (>60); Globulin 2.7 g/dL (1.3-3.2); Glucose 95 mg/dl (74-100); Hematocrit 33.4 % (42.0-52.0); Hemoglobin 9.7 g/dL (14.1-18.0); Lymphocytes # 1.9 K/mm3 (0.7-4.5); Mean Corpuscular HGB Conc 29.1 g/dL (31.8-35.4); Mean Corpuscular Hemoglobin 23.8 pg (27.0-31.2); Mean Corpuscular Volume 81.8 fl (80-94); Mean Platelet Volume 10.2 fl (7.4-10.4); Monocytes # 0.6 K/mm3 (0.1-1.0); Monocytes % 8.4 % (1.7-9.3); Neutrophils # 3.8 K/mm3 (1.8-7.8); Neutrophils % 59.3 % (37.0-80.0); Platelet Count 257 K/mm3 (142-424); Potassium 4.2 mmoL/L (3.5-5.1); Red Blood Count 4.08 M/mm3 (4.60-6.20); Red Cell Distribution Width 18.1 % (11.5-17.5); Sodium 135 mmol/L (136-145); White Blood Count 6.5 K/mm3 (4.8-10.8)
[2021-11-03 08:28] LABS: Bilirubin,Total < 0.1 mg/dl (0.2-1.3)
--- NOTE | 2021-11-03 09:42 | CT_ITS ---
PROCEDURE INFORMATION: Exam: CT Abdomen With Contrast Exam date and time: 11/03/2021 10:09 AM Age: 61 years old Clinical indication: Abdominal pain; Generalized; Additional info: Abd pain, elevated liver enzymes TECHNIQUE: Imaging protocol: Computed tomography of the abdomen with contrast. Radiation optimization: All CT scans at this facility use at least one of these dose optimization techniques: automated exposure control; mA and/or kV adjustment per patient size (includes targeted exams where dose is matched to clinical indication); or iterative reconstruction. Contrast material: ISOVUE; Contrast volume: 75 ml; Contrast route: IV; COMPARISON: US ABDOMEN LIMITED 10/31/2021 12:19 PM FINDINGS: Lungs: Mild panlobular emphysematous changes Liver: Normal. No mass. Gallbladder and bile ducts: Normal. No calcified stones. No ductal dilation. Pancreas: Normal. No ductal dilation. Spleen: Normal. No splenomegaly. Adrenal glands: Normal. No mass. Kidneys and ureters: Nonobstructing right renal calculus. Subcentimeter low attenuation area in the right kidney is too small for characterization. Stomach and bowel: Findings consistent with constipation. A few loops of mildly dilated small bowel between loops of small bowel with bowel wall thickening. This may represent enteritis.. Intraperitoneal space: Suboptimal study due to the lack of intraperitoneal fat and lack of oral contrast. Vasculature: Unremarkable. No abdominal aortic aneurysm. Lymph nodes: Unremarkable. No enlarged lymph nodes. Bones/joints: Unremarkable. No acute fracture. No dislocation. Soft tissues: Unremarkable. IMPRESSION: A few loops of mildly dilated small bowel between loops of small bowel with bowel wall thickening. This may represent enteritis..
--- NOTE | 2021-11-03 09:49 | PC.NURSE ---
Courtesy tech fritz: Pt is sitting up in bed and is comfortable. Pt was asked if he wanted a shower and he said no, I have had a shower two days in a row. If I change my mind I will let you know. No further requests were voiced at this time.
--- NOTE | 2021-11-03 11:58 | EXP.ACUTE.PN ---
Subjective *Date: 11/04/21 *Time: 14:15 Interval history: doing ok but has spikes in hr and has fatigue - has elevated lft - no ivd - uncertain to hep c status Medical Exam Vital signs and Labs for Last 24 Hours: Temp Pulse Resp BP Pulse Ox 98.3 F 77 19 133/88 100 11/03/21 08:00 11/03/21 10:00 11/03/21 10:00 11/03/21 10:00 11/03/21 10:00 Laboratory Results - last 24 hr 10/31/21 13:39: Hepatitis A IgM Ab Negative, Hep Bs Antigen Negative, Hep B Core IgM Ab Negative, Hepatitis C Antibody <0.1 11/03/21 07:23: WBC 6.5, RBC 4.08 L, Hgb 9.7 L, Hct 33.4 L, MCV 81.8, MCH 23.8 L, MCHC 29.1 L, RDW 18.1 H, Plt Count 257, MPV 10.2, Neut % (Auto) 59.3, Lymph % (Auto) 29.0, Hood % (Auto) 8.4, Eos % (Auto) 2.3, Baso % (Auto) 0.9, Neut # (Auto) 3.8, Lymph # (Auto) 1.9, Hood # (Auto) 0.6, Eos # (Auto) 0.2, Baso # (Auto) 0.1 11/03/21 07:23: Sodium 135 L, Potassium 4.2, Chloride 100, Carbon Dioxide 31 H, Anion Gap 8.2, BUN 12, Creatinine 0.50 L, Estimated Creat Clear 121, Estimated GFR 170, Est GFR ( Amer) 206 D, Glucose 95 D, Calcium 8.5, Total Bilirubin < 0.1 L, AST 97 H D, ALT 200 H, Alkaline Phosphatase 241 H, Total Protein 6.0 L, Albumin 3.3 L D, Globulin 2.7, Albumin/Globulin Ratio 1.2 I & O for Labs for Last 24 Hours: Intake & Output 10/31/21 11/01/21 11/02/21 11/03/21 11:59 11:59 11:59 11:59 Intake Total 240 / 240 1200 / 1200 840 / 840 Output Total 900 / 950 1550 / 1550 1000 / 1000 Balance -660 / -710 -350 / -350 -160 / -160 Weight 128 lb 126 lb 2 oz 126 lb 4 oz 118 lb 2 oz Eyes: as per HPI Neck: trachea midline Respiratory: decreased breath sounds Cardiac: Reg Rate and Rhythm GI: soft, tenderness or organomegaly Extremities: edema Skin: intact Assessment and Plan Assessment and plan all Dx Plan of Treatment: Plan: 1. This is a 61-year-old gentleman who presented to the emergency department with complaints of weakness and dizziness. The patient was bradycardic in his primary care provider's office yesterday and in cardiology clinic yesterday and was referred to go to the emergency department. The patient is historically very noncompliant. He states that he is currently taking his medicine. His amiodarone, digoxin and metoprolol have all been stopped which could be contributing to his significant bradycardia. 2. The patient has a history of ischemic cardiomyopathy. He does have a LifeVest currently. Limited echocardiogram yesterday shows an ejection fraction now to be 60 to 65%. He can stop wearing the LifeVest. 3. He does have a history of coronary artery disease. He denies any chest pain or pressure. He ruled out for an MS. No plans for invasive left cardiac catheterization at this time. 4. His blood pressure is well controlled. 5. His LDL goal is less than 55. He is on a statin. 6. Will obtain a UDS given his history of drug abuse. 7. Will restart his Entresto, spironolactone and torsemide for history of ischemic cardiomyopathy. 8. Dr. Perez does not want to proceed with permanent pacemaker placement at this time. He wants the patient to have more time to get the amiodarone, digoxin and metoprolol out of his system over the weekend and see if his heart rate improves before deciding whether or not to proceed with a pacemaker. 9. The patient does have a history of paroxysmal atrial fibrillation. If his heart rate does not start to improve then we will need to start adding back his beta-erin and amiodarone slowly to prevent recurrence of his atrial fibrillation with RVR. The patient was on long-term anticoagulation with Xarelto, however, we are it is unclear whether or not the patient is still currently taking this medication. We will have to get him started back on anticoagulation prior to discharge home. 10. Further recommendations will be made pending the patient's response to treatment. Thank you for the opportunity to help participate in the care of this patient. All recommendations and orde
--- NOTE | 2021-11-03 17:58 | PC.NURSE ---
shift summary: Pt has done well this shift. GCS 15. HR 70-80s on tele. Will become tachycardic with activity. Ambulates to bathroom with stanby assist. BP normotensive. O2 sat 100% on RA. No c/o chest pain or dyspnea. Tolerating a cardiac diet.
[2021-11-04] VITALS (10 sets, daily range): BP systolic 109–126; BP diastolic 54–83; PULSE 73–111; RESP 13–32; TEMP 36.6–36.9; O2SAT 97–100; BMI 14.8
--- NOTE | 2021-11-04 12:22 | EXP.CARD.PN ---
Subjective Subjective Date: 11/04/21 Time: 08:00 Principal diagnosis: bradycardia, systolic heart failure. Interval history: Denies cp, denies soa. Reports dizziness with standing. Not orthostatic but heart rate does up with standing. will add back metoprolol 100mg QD. Exam Data for Last 24 hours Vital signs and Labs for Last 24 Hours: Temp Pulse Resp BP Pulse Ox 97.9 F 94 H 20 112/76 100 11/04/21 08:00 11/04/21 12:00 11/04/21 12:00 11/04/21 12:00 11/04/21 12:00 I & O for Last 24 hours: Intake & Output 11/01/21 11/02/21 11/03/21 11/04/21 23:59 23:59 23:59 23:59 Intake Total 360 / 360 1200 / 1440 1160 / 1400 1418 / 1418 Output Total 350 / 350 2500 / 2500 1500 / 1500 200 / 200 Balance 10 / 10 -1300 / -1060 -340 / -100 1218 / 1218 Weight 125 lb 10.616 oz 126 lb 4 oz 118 lb 2 oz 119 lb Constitutional Constitutional: no acute distress *Routine Respiratory Exam Respiratory: Present CTA bilaterally and symmetric chest movement *Routine Cardiovascular Exam Cardiovascular: Present RRR, Normal S1 and Normal S2 *Routine Abdominal Exam Abdominal: Present soft and normoactive bowel sounds; Absent tenderness *Routine Extremities Exam Extremities: Present full ROM and normal capillary refill; Absent edema *Routine Skin Exam Skin: Present intact, dry and warm Detailed Neck Exam: Thyroids Thyroid: Absent bruit Progress Note: A&P Assessment and plan (1) Dizziness: Status: Acute (2) Weakness: Status: Acute (3) Sinus bradycardia: Status: Acute (4) Congestive heart failure: Status: Acute (5) Paroxysmal A-fib: Status: Chronic (6) Essential hypertension: Status: Chronic (7) Cigarette smoker: Status: Chronic (8) Cardiomyopathy: Status: Acute (9) Habitual drug user: Status: Chronic (10) Left ventricular systolic dysfunction: Status: Acute (11) COPD (chronic obstructive pulmonary disease): Status: Acute (12) Symptomatic sinus bradycardia: Status: Acute (13) Transaminitis: Status: Acute
--- NOTE | 2021-11-04 12:26 | EXP.CARD.CON ---
[facility] PFS Medical History (Updated 11/01/21 @ 11:05 by Marie Smith APRN) COPD (chronic obstructive pulmonary disease) History of back pain Hyperlipidemia Hypertension Hypertension Family History (Updated 10/31/21 @ 16:59 by Bri Mccord RN) Other Family history of cancer Family history of hyperlipidemia Family history of hypertension Family history of myocardial infarction Social History (Updated 10/31/21 @ 16:59 by Bri Mccord RN) Smoking Status: Current every day smoker tobacco type: cigarettes packs per day: 1 second hand exposure: Yes alcohol intake: never substance use type: marijuana and other current occupational status: employed Travel in the last 8 weeks: None household members: significant other housing: house current occupation: [employer] caffeine: Yes Review of Systems Constitutional Constitutional: Reports weakness ENT Ears, Nose, Mouth, and Throat: Reports dizziness *Neurologic Neurologic: Reports system reviewed and no additional complaints, except as documented, Denies behavioral changes, Reports dizziness and Reports weakness Psychiatric Psychiatric: Denies behavioral changes Exam Data for Last 24 hours Vital signs and Labs for Last 24 Hours: Temp Pulse Resp BP Pulse Ox 97.9 F 94 H 20 112/76 100 11/04/21 08:00 11/04/21 12:00 11/04/21 12:00 11/04/21 12:00 11/04/21 12:00 I & O for Last 24 hours: Intake & Output 11/01/21 11/02/21 11/03/21 11/04/21 23:59 23:59 23:59 23:59 Intake Total 360 / 360 1200 / 1440 1160 / 1400 1418 / 1418 Output Total 350 / 350 2500 / 2500 1500 / 1500 200 / 200 Balance 10 -1300 / -1060 -340 / -100 1218 / 1218 Weight 125 lb 10.616 oz 126 lb 4 oz 118 lb 2 oz 119 lb Meds Home Medications and Allergies Home Medications Medication Instructions Recorded Confirmed Type amiodarone 200 mg tablet 200 mg PO BID #60 tabs 10/02/21 10/31/21 Rx clopidogrel 75 mg tablet 75 mg PO DAILY platelet inhibitor 10/02/21 10/31/21 Rx #30 tabs digoxin 125 mcg (0.125 mg) tablet 125 mcg PO DAILY #30 tabs 10/02/21 10/31/21 Rx metoprolol succinate 100 mg 100 mg PO DAILY Hypertension #30 10/02/21 10/31/21 Rx tablet,extended release 24 hr tabs sacubitril 24 mg-valsartan 26 mg 1 tab PO BID Heart failure #60 tabs 10/02/21 10/31/21 Rx tablet spironolactone 25 mg tablet 25 mg PO DAILY diuretic #30 tabs 10/02/21 10/31/21 Rx rosuvastatin 40 mg tablet 40 mg PO DAILY Cholesterol 10/31/21 10/31/21 History torsemide 20 mg tablet 20 mg PO DAILY Fluid 10/31/21 10/31/21 History New Prescriptions to Start Prescriptions: Allergies Allergy/AdvReac Type Severity Reaction Status Date / Time No Known Allergies Allergy Verified 10/31/21 11:13 Assessment and Plan *Assessment and plan (1) Dizziness: Status: Acute Category: Medical Code(s): R42 - Dizziness and giddiness (2) Sinus bradycardia: Status: Acute Category: Medical Code(s): R00.1 - Bradycardia, unspecified (3) Acute systolic (congestive) heart failure: Status: Acute Category: Medical Code(s): I50.21 - Acute systolic (congestive) heart failure (4) Atrial fibrillation with rapid ventricular response: Status: Acute Category: Medical Code(s): I48.91 - Unspecified atrial fibrillation Plan Plan of Treatment: Plan: 1.? This is a 61-year-old gentleman who presented to the emergency department with complaints of weakness and dizziness.? The patient was bradycardic in his primary care provider's office yesterday and in cardiology clinic yesterday and was referred to go to the emergency department.? The patient is historically very noncompliant.? He states that he is currently taking his medicine.? His amiodarone, digoxin and metoprolol have all been stopped which could be contributing to his significant bradycardia. 2.? The patient has a history of ischemic cardiomyopathy.? He does have a LifeVest
--- NOTE | 2021-11-04 12:33 | EXP.CARD.PN ---
Subjective Subjective Date: 11/04/21 Time: 08:00 Principal diagnosis: sinsu liz Interval history: Denies cp. denies soa. Heart rate , when stands gets dizzy and rate goes up. will add back BB at lower dose. see plan below. Exam Data for Last 24 hours Vital signs and Labs for Last 24 Hours: Temp Pulse Resp BP Pulse Ox 97.9 F 94 H 20 112/76 100 11/04/21 08:00 11/04/21 12:00 11/04/21 12:00 11/04/21 12:00 11/04/21 12:00 I & O for Last 24 hours: Intake & Output 11/01/21 11/02/21 11/03/21 11/04/21 23:59 23:59 23:59 23:59 Intake Total 360 / 360 1200 / 1440 1160 / 1400 1418 / 1418 Output Total 350 / 350 2500 / 2500 1500 / 1500 200 / 200 Balance 10 / 10 -1300 / -1060 -340 / -100 1218 / 1218 Weight 125 lb 10.616 oz 126 lb 4 oz 118 lb 2 oz 119 lb Constitutional Constitutional: no acute distress *Routine Respiratory Exam Respiratory: Present CTA bilaterally and symmetric chest movement *Routine Cardiovascular Exam Cardiovascular: Present RRR, Normal S1 and Normal S2 *Routine Abdominal Exam Abdominal: Present soft and normoactive bowel sounds; Absent tenderness *Routine Extremities Exam Extremities: Present full ROM and normal capillary refill; Absent edema *Routine Skin Exam Skin: Present intact, dry and warm Detailed Neck Exam: Thyroids Thyroid: Absent bruit Progress Note: A&P Assessment and plan (1) Dizziness: Status: Acute (2) Sinus bradycardia: Status: Acute (3) Acute systolic (congestive) heart failure: Status: Acute (4) Atrial fibrillation with rapid ventricular response: Status: Acute Assessment and Plan Assessment and Plan for All Diagnoses:: Plan of Treatment: Plan: 1.? This is a 61-year-old gentleman who presented to the emergency department with complaints of weakness and dizziness.? The patient was bradycardic in his primary care provider's office yesterday and in cardiology clinic yesterday and was referred to go to the emergency department.? The patient is historically very noncompliant.? He states that he is currently taking his medicine.? His amiodarone, digoxin and metoprolol have all been stopped which could be contributing to his significant bradycardia. 2.? The patient has a history of ischemic cardiomyopathy.? He does have a LifeVest currently.? Limited echocardiogram yesterday shows an ejection fraction now to be 60 to 65%.? He can stop wearing the LifeVest. 3.? He does have a history of coronary artery disease.? He denies any chest pain or pressure.? He ruled out for an LA.? No plans for invasive left cardiac catheterization at this time. 4.? His blood pressure is well controlled. 5.? His LDL goal is less than 55.? He is on a statin. 6.? Will obtain a UDS given his history of drug abuse. 7.? Will restart his Entresto, spironolactone and torsemide for history of ischemic cardiomyopathy. 8.? Dr. Perez does not want to proceed with permanent pacemaker placement at this time.? He wants the patient to have more time to get the amiodarone, digoxin and metoprolol out of his system over the weekend and see if his heart rate improves before deciding whether or not to proceed with a pacemaker. 9.? The patient does have a history of paroxysmal atrial fibrillation.? If his heart rate does not start to improve then we will need to start adding back his beta-erin and amiodarone slowly to prevent recurrence of his atrial fibrillation with RVR.? The patient was on long-term anticoagulation with Xarelto, however, we are it is unclear whether or not the patient is still currently taking this medication.? We will have to get him started back on anticoagulation prior to discharge home. CV summary: Doing well except dizzy and tachycardic when standing. will resume Metoprolol. Patient is stable for dc. Follow up in office in one week. . CV home meds: Entresto 24/ BID Plavix 75mg QD Crestor 40mg QD Torsemide 20mg QD Xarelto 20mg QD Metoprolol XL 50mg QD
--- NOTE | 2021-11-04 12:56 | EXP.DC.SUM ---
General Admission date:: 10/31/21 Discharge date: 11/04/21 HPI HPI HPI: This is a 61-year-old gentleman who was evaluated by his primary care provider and cardiology yesterday and then sent to the emergency department for bradycardia, low oxygen saturation and fatigue and dizziness.? The patient the patient denies any chest pain or pressure.? He has been having weakness and fatigue.? Just no energy to really do anything.? He has been dizzy with activity as well.? The patient was evaluated yesterday and told he was bradycardic.? He also had low oxygen saturations and was instructed to come to the emergency department.? He denies any shortness of breath or edema.? He denies any fever, chills, nausea, vomiting, diarrhea, PND or orthopnea.? (above per search engine optimization consultant) Hospital Course Hospital Course Hospital Course: The patient was admitted to our service after presenting to the emergency room with symptomatic bradycardia. He was seen in consultation with the cardiology service. Medications in his regimen were implicated, amiodarone digoxin and metoprolol. His bradycardia improved once these medications were held. He was subjected to a repeat echo showing an EF of 60 to 65%. Previously recommended LifeVest was no longer felt to be necessary. Patient had elevations of LFTs which can be worked up as an outpatient. Exam Data for Last 24 hours Vital signs and Labs for Last 24 Hours: Temp Pulse Resp BP Pulse Ox 97.9 F 94 H 20 112/76 100 11/04/21 08:00 11/04/21 12:00 11/04/21 12:00 11/04/21 12:00 11/04/21 12:00 I & O for Last 24 hours: Intake & Output 11/01/21 11/02/21 11/03/21 11/04/21 23:59 23:59 23:59 23:59 Intake Total 360 / 360 1200 / 1440 1160 / 1400 1418 / 1418 Output Total 350 / 350 2500 / 2500 1500 / 1500 1100 / 1100 Balance 10 -1300 / -1060 -340 / -100 318 / 318 Weight 125 lb 10.616 oz 126 lb 4 oz 118 lb 2 oz 119 lb Constitutional Constitutional: no acute distress *Routine HEENT Exam Head: Present normocephalic *Routine Neck Exam Neck: Present supple *Routine Respiratory Exam Respiratory: Present CTA bilaterally *Routine Cardiovascular Exam Cardiovascular: Present RRR *Routine Abdominal Exam Abdominal: Present soft *Routine Extremities Exam Extremities: Absent cyanosis or clubbing *Routine Skin Exam Skin: Absent jaundice *Routine Neurological Exam Neurological: Present alert and oriented X3 Routine Psychiatric Exam Psychiatric: Present normal affect DS: Diagnosis Discharge Diagnosis (1) Dizziness: Status: Acute (2) Sinus bradycardia: Status: Acute (3) Acute systolic (congestive) heart failure: Status: Acute (4) Atrial fibrillation with rapid ventricular response: Status: Acute Meds Home Medications and Allergies Home Medications Medication Instructions Recorded Confirmed Type clopidogrel 75 mg tablet 75 mg PO DAILY platelet inhibitor 10/02/21 10/31/21 Rx #30 tabs sacubitril 24 mg-valsartan 26 mg 1 tab PO BID Heart failure #60 tabs 10/02/21 10/31/21 Rx tablet spironolactone 25 mg tablet 25 mg PO DAILY diuretic #30 tabs 10/02/21 10/31/21 Rx rosuvastatin 40 mg tablet 40 mg PO DAILY Cholesterol 10/31/21 10/31/21 History torsemide 20 mg tablet 20 mg PO DAILY Fluid 10/31/21 10/31/21 History rivaroxaban 20 mg tablet (Xarelto) 20 mg PO DAILY #30 tabs 11/04/21 Rx New Prescriptions to Start Prescriptions: rivaroxaban [Xarelto] Bam Treviño Allergies Allergy/AdvReac Type Severity Reaction Status Date / Time No Known Allergies Allergy Verified 10/31/21 11:13 Discharge Plan Disposition Patient Disposition: Home, Self-Care Condition: Good Discharge Order Discharge Orders: Discharge Order (Routine); Ordered 11/04/21 Ordered By: Bam Treviño Follow up Plan Follow up with: Toribio Carrasco MD [Staff Physician] - 11/13/21 9:30 am Bam Treviño MD [Primary Care Provider] - 11/08/21 Prescriptions/Me
--- NOTE | 2021-11-05 14:28 | CARE MANAGER ---
Spoke with patient who states he is doing ok, but that his feet hurt through the night which he thinks it might be his gout. He did get 2 prescriptions yesterday, but thought he needed another and questioned one of his medications. It ended up being Entresto and he didn't recognize it by it's alternate name. He is aware of follow up appointments. Denies any other questions or concerns. AMY Mcdonough
[2021-11-20 09:45] LABS: Hep A Ab, IgM N; Hepatitis B Core Antibody IgM N; Hepatitis B Surface Antigen N
[2021-11-20 09:46] LABS: Hepatitis C Antibody 0.1
== END 2021-11-04 15:16 | disposition home or self-care (01) | DRG 309 ==
LOC: ER 13:48 → 2ND 14:47
PROVIDERS: Emergency Medicine; Nurse Practitioner Family; Admitting Provider Family Medicine; Emergency Provider Emergency Medicine; PCP Family Medicine; Visit Provider Family Medicine
DX: R00.1 Bradycardia, unspecified (principal); F17.210 Nicotine dependence, cigarettes, uncomplicated; F19.20 Other psychoactive substance dependence, uncomplicated; I25.110 Atherosclerotic heart disease of native coronary artery with unstable angina pectoris; I50.22 Chronic systolic (congestive) heart failure; I25.5 Ischemic cardiomyopathy; I11.0 Hypertensive heart disease with heart failure; I48.0 Paroxysmal atrial fibrillation; J44.9 Chronic obstructive pulmonary disease, unspecified; Z79.899 Other long term (current) drug therapy
CPT/HCPCS: 36415; 71045; 74160; 76705; 80048; 80053; 80074; 80076; 80162; 80305; 80329; 82803; 83735; 84484; 85025; 93005; 93308; 99285; C9803; J3475; Q9967; U0003; U0005

== ENCOUNTER → 2022-10-02 06:33 | Outpatient (CLI) | payer OTHER, SELFPAY ==
--- NOTE | 2022-10-02 | CA_ITS ---
APPROVED REPORT Exam: Pharmacologic Technologist: Xiomara Ramsey, Ht: 6 ft 0 in Wt: 143 lbs BSA: 1.85 m2 HR: 58 bpm BP: 124/68 mmHg Rhythm: AFIB, SLOW VENT RATE, CANNOT R/O OLD ANTERIOR KS Indications: CP, SOA Medical History Medical History: HTN, Hyperlipidemia, Smoking Medications: Metoprolol,,,,, XaRELTO,,,,, Plavix,,,,, SpirOnolactone,,,,, TorSEMIDE,,,,, EnTRESTO,,,,, Cardiac Risk Factors: HTN, Hyperlipidemia, Smoking Stress Test Details Test: LEXISCAN HR Resting HR: 55 bpm Max Heart Rate (APMHR): 160 bpm Max HR Achieved: 89 bpm Target HR (85% APMHR): 136 bpm % of APMHR: 56 Recovery HR: 69 bpm BP Resting BP: 124/68 mmHg Max BP: 164/84 mmHg Recovery BP: 138.0/70.0 mmHg ECG Resting ECG: AFIB, SLOW VENT RATE, CANNOT R/O OLD ANTERIOR KS Stress ECG: NO ST CHANGES Arrhythmia: PVCs Clinical Exercise duration: 04:01 min Highest Stage Achieved: Exercise capacity: 1.0 METs Stress ECG Conclusion PT HAD DYSPNEA NO CP SINUS PAUSES UP TO 2 SECONDS LONG IMMEDIATELY WITH LEXISCAN INFUSION OCC PVCS VS ABERRANTLY CONDUCTED BEATS NO SIGNIFICANT ST CHANGES MYOVIEW IMAGES REPORTED SEPARATELY Test Summary REST 03:56 . . 55 . 124/ 68 . . Stage 1 01:00 . . 74 . . . . Stage 2 01:00 . . 77 . . . . Stage 3 01:00 . . 65 . 164/ 84 . . Stage 4 01:00 . . 72 . 140/ 70 . . Stage 4 01:01 . . 74 . 140/ 70 . Stop exercise at 04:01 RECOVERY 01:00 . . 59 . . . . RECOVERY 02:00 . . 54 . 133/ 84 . . RECOVERY 03:00 . . 66 . 138/ 70 . . RECOVERY 03:14 . . 64 . 138/ 70 . . Electronically signed by : Katarina Miguel, 10/02/2022 14:00:30
--- NOTE | 2022-10-02 06:43 | NM_ITS ---
APPROVED REPORT Exam: Nuclear Stress Test Indication: CHEST PAIN..SOA..FATIGUE Patient Location: Outpatient Stress Tech: Xiomara Ramsey HI Tech:Syeda Rosales YUE RT(R)(N) Ht: 6 ft 0 in Wt: 145 lbs HR: 55 bpm BP: 124/68 mmHg BSA: 1.86 m2 Rhythm: NSR TID: 1.19 History: CHEST PAIN..SOA..FATIGUE Procedure: Patient received 0.4 mg of intravenous Lexiscan, resting heart rate 55 bpm, resting blood pressure 124/68 mmHg, with Lexiscan maximum heart rate achieved was 89 bpm which is 85 % of the maximum predicted heart rate and blood pressure was 164/84 mmHg. With Lexiscan, patient denied any complaint of chest pain. The patient was not able to lay on his abdomen for prone images. Cardiac Stress and Resting SPECT Images: Cardiac Stress and Resting SPECT images were obtained using technetium 99m Myoview 30.1 mCi stress and 10.44 mCi at rest. The patient could not lie on his abdomen. Therefore prone stress imaging could not be performed. This may affect the diagnostic interpretation of the study findings. Sitting and stress imaging in supine position demonstrate large sized, severe, fixed perfusion defect in the inferior and inferoseptal LV osman from the base and extending distally towards the inferoapical region. Gated imaging demonstrates mild to moderate reduction in LV systolic function. There is severe hypokinesis in the inferior and inferoseptal LV osman and akinesis in the apical region. LVEF is calculated at 40%. Conclusion: The patient could not lie on his abdomen. Therefore prone stress imaging could not be performed. This may affect the diagnostic interpretation of the study findings. Large sized, severe, fixed perfusion defect in the inferior and inferoseptal LV osman from the base and extending distally towards the inferoapical region. There is no evidence of reversible ischemia. Gated imaging demonstrates mild to moderate reduction in LV systolic function. There is severe hypokinesis in the inferior and inferoseptal LV osman and akinesis in the apical region. LVEF is calculated at 40%. Electronically signed by : Katarina Miguel, 10/02/2022 14:10:52
--- NOTE | 2022-10-02 07:34 | CA_ITS ---
FINAL REPORT TECHNIQUE: Ultrasound images of the deep venous system were obtained from the left or right groin to the calf veins. CLINICAL HISTORY: edema, swollen knees FINDINGS: The deep venous system is normally compressible. Normal flow is identified. IMPRESSION: No evidence of left or right lower extremity DVT. Reviewed, Interpreted and Dictated by Nguyễn Castañeda MD Transcribed by Arabella Montez Authenticated and [facility]
--- NOTE | 2022-10-02 07:34 | CA_ITS ---
APPROVED REPORT EXAM: Comprehensive 2D, Doppler, and color-flow Echocardiogram Medical Education Coordinator: Emerita Cedeno RT(R) Ht: 6 ft 0 in Wt: 143lbs BSA: 1.85 BP: 104/64 mmHg Indications: SOA, COPD, HTN, HLD, smoker, edema, AFIB, hx CM, EF (09/22/21) 30% 2D Dimensions Aortic Root 2.18 cm M: 3.1 - 3.7 LVEF (Boucher's) 48.40 % M: 52 - 72 LV Volume 143.40 mL M: 62 - 150 LV Volume Index 77.51 mL/m2 M: 34 - 74 LA Volume 69.80 mL LA Volume Index 37.73 mL/m2 (M/F) 16-34 M-Mode Dimensions RVDd 2.89 cm (0.9-2.6) LA Diam 4.08 cm (1.9-4.0) LVDd 5.71 cm (3.5-5.7) Ao Diam 3.59 cm (2.0-3.7) LVDs 4.06 cm (3.5-5.7) IVSd 0.76 cm (0.6-1.1) PWd 0.76 cm (0.6-1.1) EF (Teich) 54.90% FS 28.90% EDV (Teich) 160.70 mL TAPSE 2.38 (<1.7) ESV (Teich) 72.50 mL LV Diastology E Decel Time 230.00 (160-240 msec) E/A Ratio 2.0 MED E' 5.90 (< 7 cm/sec) E'/MED E' Ratio 18.86 (>14) LAT E' 8.30 (<10 cm/sec) E/LAT E' Ratio 13.41 (>14) Mitral Valve MV E Max Pete. 111.00 (40-130 cm/s) MV A Velocity 55.00 (40-130 cm/s) E/A Ratio 2.03 MV Decel. Time 230.00 (160-240 ms) MV PHT 67.00 ms Tricuspid Valve TR P. Velocity 291.00 cm/s RAP Estimate 10.00 mmHg RVSP 44.00 mmHg Left Ventricle The left ventricle is normal size. The left ventricular systolic function is normal. The left ventricular ejection fraction is within the normal range. There is increased LV wall thickness There is normal LV segmental wall motion. The left ventricular diastolic function is normal. LVEF is 55%. Right Ventricle The right ventricle is normal size. The right ventricular systolic function is normal. Atria Left atrium is mildly dilated. The right atrium size is normal. The interatrial septum is not well visualized with color Doppler Aortic Valve The aortic valve is mildly thickened. There is no aortic valvular stenosis. Trace aortic regurgitation. Mitral Valve The mitral valve is normal in structure. Mild mitral regurgitation. Tricuspid Valve The tricuspid valve leaflets are thin and pliable. Trace tricuspid regurgitation. RVSP is 20-25 mmHg. Pulmonic Valve The pulmonary valve is normal in structure. Trace pulmonic regurgitation. Great Vessels The aortic root is normal in size. IVC is normal in size and collapses >50% with inspiration. Pericardium There is no pericardial effusion. Other Information Study Quality: Adequate Conclusion Normal biventricular systolic funcion Mild MR Electronically signed by : Katarina Miguel, 10/02/2022 18:03:41
== END ==
PROVIDERS: PCP Nurse Practitioner Family; Visit Provider Nurse Practitioner Family
DX: R07.89 Other chest pain (principal); I25.10 Atherosclerotic heart disease of native coronary artery without angina pectoris; I25.5 Ischemic cardiomyopathy; I48.0 Paroxysmal atrial fibrillation; I10 Essential (primary) hypertension; I50.21 Acute systolic (congestive) heart failure; E78.5 Hyperlipidemia, unspecified; R60.9 Edema, unspecified; J44.9 Chronic obstructive pulmonary disease, unspecified; F17.210 Nicotine dependence, cigarettes, uncomplicated
CPT/HCPCS: 78452; 93017; 93306; 93970; A9502; J2785

== ENCOUNTER → 2023-01-27 14:37 | Outpatient (CLI) | payer OTHER, SELFPAY ==
--- NOTE | 2023-01-27 15:26 | XR_ITS ---
FINAL REPORT TECHNIQUE: Chest PA & Lateral CLINICAL HISTORY: dyspnea, chest pain, smoker FINDINGS: 2 views of the chest were performed. The heart size is normal. The mediastinum is within normal limits. There is no acute cardiopulmonary process. There are no pleural effusions. There is no pneumothorax. The bony thorax appears intact. IMPRESSION: No acute cardiopulmonary process. Reviewed, Interpreted and Dictated by Juan J Camara III, MD Transcribed by Matteo Colvin Authenticated and [facility]
[2023-01-27 16:58] LABS: Alanine Aminotransferase 24 U/L (12-78); Albumin Level 3.3 g/dl (3.5-5.0); Alkaline Phosphatase 112 U/L (38-126); Anion Gap 11.1 mEq/L (5-15); Aspartate Amino Transferase 33 U/L (17-59); Bilirubin,Direct 0.1 mg/dl (0.0-0.4); Bilirubin,Unconjugated 0.1 mg/dL (0.0-1.1); Blood Urea Nitrogen 12 mg/dl (9-20); Calcium 7.6 mg/dl (8.4-10.2); Carbon Dioxide 24 mmol/L (22.0-30.0); Chloride 102 mmol/L (98-107); Chol/HDL Ratio 4.8 (1-3.5); Cholesterol 76 mg/dl (140-200); Estimated Glomerular Filt Rate 115 ml/min (>60); GFR (African American) 139 ML/MIN (>60); Glucose 83 mg/dl (74-100); HDL Cholesterol 16 mg/dl (40-60); Magnesium 1.7 mg/dl (1.6-2.3); Potassium 3.1 mmoL/L (3.5-5.1); Sodium 134 mmol/L (136-145); Total Protein,Serum 5.7 g/dl (6.3-8.2); Triglycerides 62 mg/dl (30-150); VLDL Cholesterol 12 mg/dL (0-40)
[2023-01-27 16:59] LABS: Bilirubin,Total 0.1 mg/dl (0.2-1.3)
[2023-01-27 17:13] LABS: Free T4 (Free Thyroxine) 0.89 ng/dl (0.78-2.19)
[2023-01-27 17:18] LABS: Direct LDL Cholesterol 58.31 mg/dL (100-129); NT Pro Brain Natriuretic Pep. 1190 pg/mL (0-125)
[2023-01-27 17:25] LABS: Thyroid Stimulating Hormone 4.82 uIU/mL (0.465-4.68)
== END ==
LOC: LAB 14:38
PROVIDERS: PCP Nurse Practitioner Family; Visit Provider Physician Assistant
DX: R06.09 Other forms of dyspnea (principal); I48.91 Unspecified atrial fibrillation
CPT/HCPCS: 36415; 71046; 80048; 80061; 80076; 83735; 83880; 84439; 84443; 93225

== ENCOUNTER → 2023-02-03 11:19 | Outpatient (CLI) | payer OTHER, SELFPAY ==
[2023-02-03 11:57] LABS: Chloride 104 mmol/L (98-107); Sodium 135 mmol/L (136-145)
[2023-02-03 11:58] LABS: Potassium 3.6 mmoL/L (3.5-5.1)
[2023-02-03 12:00] LABS: Anion Gap 11.6 mEq/L (5-15); Basophils % 0.6 % (0.1-2.0); Blood Urea Nitrogen 17 mg/dl (9-20); Carbon Dioxide 23 mmol/L (22.0-30.0); Eosinophils # 0.2 K/mm3 (0.0-0.4); Eosinophils % 4.8 % (0.1-12.0); Estimated Glomerular Filt Rate 115 ml/min (>60); GFR (African American) 139 ML/MIN (>60); Iron 15 ug/dL (49-181); Lymphocytes # 1.6 K/mm3 (0.7-4.5); Lymphocytes % 38.5 % (10-50); Mean Corpuscular HGB Conc 27.4 g/dL (31.8-35.4); Mean Corpuscular Hemoglobin 18.7 pg (27.0-31.2); Mean Corpuscular Volume 68.4 fl (80-94); Mean Platelet Volume 8.9 fl (7.4-10.4); Monocytes # 0.3 K/mm3 (0.1-1.0); Monocytes % 6.5 % (1.7-9.3); Neutrophils # 2.1 K/mm3 (1.8-7.8); Neutrophils % 49.7 % (37.0-80.0); Platelet Count 223 K/mm3 (142-424); Red Blood Count 2.56 M/mm3 (4.60-6.20); White Blood Count 4.3 K/mm3 (4.8-10.8)
[2023-02-03 12:01] LABS: Calcium 7.5 mg/dl (8.4-10.2); Glucose 94 mg/dl (74-100)
[2023-02-03 12:06] LABS: Hematocrit 17.5 % (42.0-52.0)
[2023-02-03 12:10] LABS: Total Iron Binding Capacity 434 ug/dL (261-462)
[2023-02-03 12:32] LABS: Hemoglobin 4.8 g/dL (14.1-18.0)
[2023-02-03 12:43] LABS: Ferritin 5.53 ng/ml (17.9-464)
[2023-02-04 18:09] LABS: Transferrin 350 mg/dL (177-329)
== END ==
PROVIDERS: PCP Nurse Practitioner Family; Visit Provider Physician Assistant
DX: E78.5 Hyperlipidemia, unspecified (principal); F17.210 Nicotine dependence, cigarettes, uncomplicated; I10 Essential (primary) hypertension
CPT/HCPCS: 36415; 80048; 82728; 83540; 83550; 84466; 85025

== ENCOUNTER 2023-02-03 12:18 | Inpatient (IN) | payer OTHER, SELFPAY ==
[2023-02-03] VITALS (31 sets, daily range): BP systolic 93–150; BP diastolic 47–83; PULSE 51–97; RESP 13–18; TEMP 36.1–37.3; O2SAT 90–100; BMI 19.6; BMI 17.6
--- NOTE | 2023-02-03 12:20 | HMH.EDGENADL ---
Discharge Plan Disposition Chief Complaint: Recheck/Abnormal Lab/Rx Discharge ED Provider: Reinaldo Berkowitz Adult HPI General Chief complaint: Recheck/Abnormal Lab/Rx Stated complaint: call from ER to come for tests Time Seen by Provider: 02/03/23 12:20 History of Present Illness HPI narrative: The patient presents with a chief complaint of feeling ill for an unspecified duration. They report experiencing dark tarry stools but are unsure whether the blood is bright or dark. The patient is unable to provide information on the frequency and duration of this symptom. They deny vomiting blood and do not report any abdominal pain. The patient has a past medical history of low blood counts, with the most recent episode occurring in December of the previous year. No other medical conditions are mentioned. The patient is unsure about the nature of the appointment and does not report any shortness of breath. They deny experiencing pain upon palpation of the abdominal area and do not mention any blood in their urine. The patient is unsure about their medication use, including blood thinners, and has not had a blood transfusion in the past. Related Data Home Medications Medication Instructions Recorded Confirmed sacubitril 24 mg-valsartan 26 mg 1 tab PO BID 09/11/22 02/03/23 tablet (Entresto) Previous Rx's Medication Instructions Recorded clopidogrel 75 mg tablet 75 mg PO DAILY platelet inhibitor 04/14/22 #90 tabs rivaroxaban 20 mg tablet (Xarelto) 20 mg PO DAILY #90 tabs 04/28/22 metoprolol succinate 50 mg See Rx Instructions .Route 09/11/22 tablet,extended release 24 hr .COMPLEX #90 tabs spironolactone 50 mg tablet 50 mg PO DAILY #90 tabs 09/11/22 (Aldactone) torsemide 20 mg tablet 40 mg PO DAILY Fluid #180 tabs 09/17/22 Allergies Allergy/AdvReac Type Severity Reaction Status Date / Time No Known Allergies Allergy Verified 02/03/23 10:19 [facility] Disclaimer: The information contained in this section may have been updated after the patient was seen, as this information can be updated by other users. Medical History Anemia Angina pectoris Arm numbness Atrial flutter Blood per rectum Congestive heart failure COPD (chronic obstructive pulmonary disease) Heartburn History of back pain Hyperlipidemia Hypertension Hypertension Hypokalemia Lymph node enlargement Narrow complex tachycardia Prolonged Q-T interval on ECG SOB (shortness of breath) on exertion Unstable angina pectoris Family History Other Family history of cancer Family history of hyperlipidemia Family history of hypertension Family history of myocardial infarction Social History Smoking Status: Current every day smoker tobacco type: cigarettes packs per day: 1 second hand exposure: Yes alcohol intake: never substance use type: marijuana and other current occupational status: employed Travel in the last 8 weeks: None household members: significant other housing: house current occupation: [employer] caffeine: Yes ROS Obtained: Yes Systems reviewed as appropriate & no additional complaints except as documented As per HPI Physical Exam General General appearance: alert, in no apparent distress and lethargic Head Head exam: atraumatic and normocephalic Eye Eye exam: Present normal appearance Neck Neck exam: Present normal inspection Chest Chest inspection: Present normal inspection and symmetric chest wall rise Respiratory Respiratory exam: Present normal lung sounds bilaterally; Absent respiratory distress Cardiovascular Cardiovascular exam: Present regular rate and normal rhythm Abdominal Exam Abdominal exam: Present soft; Absent distention or tenderness Neurological Exam Neurological exam: Present alert and oriented X3 Psychiatric Psychiatric exam: Pre
[2023-02-03 13:59] LABS: Chloride 103 mmol/L (98-107); Sodium 135 mmol/L (136-145)
[2023-02-03 14:00] LABS: Potassium 3.2 mmoL/L (3.5-5.1)
[2023-02-03 14:02] LABS: Alanine Aminotransferase 24 U/L (12-78); Albumin Level 3.6 g/dl (3.5-5.0); Albumin/Globulin Ratio 1.3 (1.1-1.8); Alkaline Phosphatase 112 U/L (38-126); Anion Gap 10.2 mEq/L (5-15); Aspartate Amino Transferase 36 U/L (17-59); Bilirubin,Total 0.4 mg/dl (0.2-1.3); Blood Urea Nitrogen 16 mg/dl (9-20); Carbon Dioxide 25 mmol/L (22.0-30.0); Creatinine Clearance Estimated 91 mL/min (50-200); Estimated Glomerular Filt Rate 99 ml/min (>60); GFR (African American) 119 ML/MIN (>60); Globulin 2.7 g/dL (1.3-3.2); Total Protein,Serum 6.3 g/dl (6.3-8.2)
[2023-02-03 14:03] LABS: Calcium 7.7 mg/dl (8.4-10.2); Glucose 114 mg/dl (74-100)
[2023-02-03 14:08] LABS: Fibrinogen 238 mg/dL (229.9-363.5); INR 1.35 (0.9-1.1); Prothrombin Time 14.3 seconds (10.1-12.5)
[2023-02-03 14:10] LABS: Iron 16 ug/dL (49-181)
[2023-02-03 14:20] LABS: Total Iron Binding Capacity 426 ug/dL (261-462)
[2023-02-03 14:22] LABS: Basophils % 0.5 % (0.1-2.0); Eosinophils # 0.2 K/mm3 (0.0-0.4); Eosinophils % 4.1 % (0.1-12.0); Lymphocytes # 1.7 K/mm3 (0.7-4.5); Lymphocytes % 38.2 % (10-50); Mean Corpuscular HGB Conc 27.7 g/dL (31.8-35.4); Mean Corpuscular Hemoglobin 18.8 pg (27.0-31.2); Mean Corpuscular Volume 68.1 fl (80-94); Mean Platelet Volume 9.4 fl (7.4-10.4); Monocytes # 0.3 K/mm3 (0.1-1.0); Monocytes % 5.7 % (1.7-9.3); Neutrophils # 2.3 K/mm3 (1.8-7.8); Neutrophils % 51.5 % (37.0-80.0); Platelet Count 248 K/mm3 (142-424); White Blood Count 4.6 K/mm3 (4.8-10.8)
[2023-02-03 14:38] LABS: Reticulocyte % (Auto) 2.4 % (0.9-3.2)
[2023-02-03 14:39] LABS: Hematocrit 18.4 % (42.0-52.0); Hemoglobin 5.1 g/dL (14.1-18.0)
[2023-02-03 14:48] LABS: Ferritin 5.44 ng/ml (17.9-464)
--- NOTE | 2023-02-03 15:01 | PC.NURSE ---
@ 0519- Lab called to check on status of type and screen that was ordered at 1334. They states someone will be down to get it.
--- NOTE | 2023-02-03 16:03 | PC.NURSE ---
DR JJ SPEAKING WITH HOSPITALIST FOR ADMISSION
--- NOTE | 2023-02-03 16:08 | PC.NURSE ---
Dr Yuan spoke to hospitalist
--- NOTE | 2023-02-03 16:14 | PC.NURSE ---
MANAGER OFFICE NOTIFIED OF ADMISSION
--- NOTE | 2023-02-03 17:02 | PC.NURSE ---
Gave report to Sandie REYES on Med/Surg.
--- NOTE | 2023-02-03 17:23 | PC.NURSE ---
pt admitted to 207 from ED, one unit PRBC going at rate of 150mL/hr, pt cold, added warm blankets to pt, call light within reach
--- NOTE | 2023-02-03 18:08 | EXP.HP ---
History of Present Illness *Admission Date: 02/03/23 *Reason for visit:: Anemia *History of present illness: Patient is a 62-year-old male who presented to hospital with not feeling well patient also mentions he had black-colored stools, he is on blood thinner for his atrial fibrillation. Patient takes Xarelto. Patient otherwise has past medical history of COPD CHF hypertension hyperlipidemia. Patient mentions he has been feeling sick for the past 2 to 3 days, he is not feeling better, blood work was checked in the emergency department which did show hemoglobin of 5.5. Patient otherwise denied chest pain nausea vomiting diarrhea constipation dysuria fevers chills. [facility] Disclaimer: The information contained in this section may have been updated after the patient was seen, as this information can be updated by other users. Medical History Anemia Angina pectoris Arm numbness Atrial flutter Blood per rectum Congestive heart failure COPD (chronic obstructive pulmonary disease) Heartburn History of back pain Hyperlipidemia Hypertension Hypertension Hypokalemia Lymph node enlargement Narrow complex tachycardia Prolonged Q-T interval on ECG SOB (shortness of breath) on exertion Unstable angina pectoris Family History Other Family history of cancer Family history of hyperlipidemia Family history of hypertension Family history of myocardial infarction Social History Smoking Status: Current every day smoker tobacco type: cigarettes packs per day: 1 second hand exposure: Yes alcohol intake: never substance use type: marijuana and other current occupational status: employed Travel in the last 8 weeks: None household members: significant other housing: house current occupation: [employer] caffeine: Yes Review of Systems Review of Systems Review of systems:: pertinent systems reviewed and negative unless documented below Review of systems (narrative): as per [facility] Meds Home Medications and Allergies Home Medications Medication Instructions Recorded Confirmed Type clopidogrel 75 mg tablet 75 mg PO DAILY platelet inhibitor 04/14/22 02/03/23 Rx #90 tabs rivaroxaban 20 mg tablet (Xarelto) 20 mg PO DAILY #90 tabs 04/28/22 02/03/23 Rx sacubitril 24 mg-valsartan 26 mg 1 tab PO BID 09/11/22 02/03/23 History tablet (Entresto) spironolactone 50 mg tablet 50 mg PO DAILY #90 tabs 09/11/22 02/03/23 Rx (Aldactone) torsemide 20 mg tablet 40 mg PO DAILY Fluid #180 tabs 09/17/22 02/03/23 Rx metoprolol succinate 50 mg 50 mg PO DAILY 02/03/23 02/03/23 History tablet,extended release 24 hr New Prescriptions to Start Prescriptions: Allergies Allergy/AdvReac Type Severity Reaction Status Date / Time No Known Allergies Allergy Verified 02/03/23 10:19 Exam Data for Last 24 hours Vital signs and Labs for Last 24 Hours: Temp Pulse Resp BP Pulse Ox O2 Del Method 98.7 F 79 16 119/60 95 Room Air 02/03/23 17:25 02/03/23 17:25 02/03/23 17:25 02/03/23 17:25 02/03/23 17:25 02/03/23 17:20 Laboratory Results - last 24 hr 02/03/23 12:28: WBC 4.6 L, RBC 2.70 L, Hgb 5.1 L*, Hct 18.4 L*, MCV 68.1 L, MCH 18.8 L, MCHC 27.7 L, RDW 19.0 H, Plt Count 248, MPV 9.4, Neut % (Auto) 51.5, Lymph % (Auto) 38.2, Frio % (Auto) 5.7, Eos % (Auto) 4.1, Baso % (Auto) 0.5, Neut # (Auto) 2.3, Lymph # (Auto) 1.7, Frio # (Auto) 0.3, Eos # (Auto) 0.2, Baso # (Auto) 0.0, Retic Count (auto) 2.4, PT 14.3 H, INR 1.35 H, Fibrinogen 238, Sodium 135 L, Potassium 3.2 L, Chloride 103, Carbon Dioxide 25, Anion Gap 10.2, BUN 16, Creatinine 0.80, Estimated Creat Clear 91, Estimated GFR 99, Est GFR ( Amer) 119, Glucose 114 H D, Calcium 7.7 L, Total Bilirubin 0.4, AST 36, ALT 24, Alkaline Phosphatase 112, Total Protein 6.3, Albumin 3.6, Globulin 2.7, Albumin/Ashlyn
--- NOTE | 2023-02-03 18:19 | EXP.PN ---
Subjective *Date: 02/04/23 *Time: 17:54 Interval history: Patient was seen and evaluated at the bedside on the day of discharge. Patient is stable for discharge. Patient wishes to be discharged. All patient questions were answered and patient was given time to ask questions. Patient was discharged in stable condition. Exam Data for Last 24 hours Vital signs and Labs for Last 24 Hours: Temp Pulse Resp BP Pulse Ox O2 Del Method 98.5 F 60 16 125/71 100 Room Air 02/03/23 17:55 02/03/23 17:55 02/03/23 17:55 02/03/23 17:55 02/03/23 17:55 02/03/23 17:20 Laboratory Results - last 24 hr 02/03/23 12:28: WBC 4.6 L, RBC 2.70 L, Hgb 5.1 L*, Hct 18.4 L*, MCV 68.1 L, MCH 18.8 L, MCHC 27.7 L, RDW 19.0 H, Plt Count 248, MPV 9.4, Neut % (Auto) 51.5, Lymph % (Auto) 38.2, [place] % (Auto) 5.7, Eos % (Auto) 4.1, Baso % (Auto) 0.5, Neut # (Auto) 2.3, Lymph # (Auto) 1.7, [place] # (Auto) 0.3, Eos # (Auto) 0.2, Baso # (Auto) 0.0, Retic Count (auto) 2.4, PT 14.3 H, INR 1.35 H, Fibrinogen 238, Sodium 135 L, Potassium 3.2 L, Chloride 103, Carbon Dioxide 25, Anion Gap 10.2, BUN 16, Creatinine 0.80, Estimated Creat Clear 91, Estimated GFR 99, Est GFR ( Amer) 119, Glucose 114 H D, Calcium 7.7 L, Total Bilirubin 0.4, AST 36, ALT 24, Alkaline Phosphatase 112, Total Protein 6.3, Albumin 3.6, Globulin 2.7, Albumin/Globulin Ratio 1.3 02/03/23 13:28: Iron 16 L, TIBC 426, Iron Saturation 3.33633 L, Ferritin 5.44 L 02/03/23 14:58: Blood Type O Positive, Antibody Screen Negative, Crossmatch (AHG) See Detail I & O for Last 24 hours: Intake & Output 01/31/23 02/01/23 02/02/23 02/03/23 23:59 23:59 23:59 23:59 Intake Total 0 / 0 Balance 0 / 0 Weight 59.165 kg Constitutional Constitutional: no acute distress *Routine HEENT Exam Head: Present normocephalic Eye: Present EOMI and PERRL ENT: Present mucous membranes moist *Routine Neck Exam Neck: Present supple; Absent lymphadenopathy *Routine Respiratory Exam Respiratory: Present CTA bilaterally *Routine Cardiovascular Exam Cardiovascular: Present RRR *Routine Abdominal Exam Abdominal: Present soft and normoactive bowel sounds; Absent tenderness *Routine Extremities Exam Extremities: Absent cyanosis, clubbing or edema *Routine Skin Exam Skin: Present warm; Absent rash *Routine Neurological Exam Neurological: Present alert and oriented X3 Assessment and Plan *Assessment and plan (1) GI bleed: Status: Acute Qualifiers: GI bleed type/associated pathology: melena Qualified Code(s): K92.1 - Melena Category: Medical Code(s): K92.2 - Gastrointestinal hemorrhage, unspecified (2) Rectal bleeding: Status: Acute Category: Medical Code(s): K62.5 - Hemorrhage of anus and rectum (3) Atrial fibrillation: Status: Acute Category: Medical Code(s): I48.91 - Unspecified atrial fibrillation (4) CAD (coronary artery disease): Status: Chronic Qualifiers: Coronary Disease-Associated Artery/Lesion type: solomon artery Torres [place] vs. transplanted heart: solomon heart Associated angina: with unstable angina Qualified Code(s): I25.110 - Atherosclerotic heart disease of solomon coronary artery with unstable angina pectoris Category: Medical Code(s): I25.10 - Atherosclerotic heart disease of solomon coronary artery without angina pectoris (5) Paroxysmal A-fib: Status: Chronic Category: Medical Code(s): I48.0 - Paroxysmal atrial fibrillation Plan Patient is a 62-year-old male who presented to hospital with not feeling well patient also mentions he had black-colored stools, he is on blood thinner for his atrial fibrillation. Patient takes Xarelto. Patient otherwise has past medical history of COPD CHF hypertension hyperlipidemia. Patient mentions he has been feeling sick for the past 2 to 3 days, he is not feeling better, blood work was checked in the emergency department which did sh
--- NOTE | 2023-02-03 18:21 | PC.NURSE ---
Pt declined meds to beds due to having to wait for his meds on last admission.
--- NOTE | 2023-02-03 19:02 | PC.NURSE ---
notified MD Sparks that pt asked for something to help pt sleep and with restless legMD to place orders
[2023-02-03 20:38] LABS: Hematocrit 19.4 % (42.0-52.0)
[2023-02-03 20:39] LABS: Hemoglobin 5.6 g/dL (14.1-18.0)
[2023-02-04] VITALS (16 sets, daily range): BP systolic 104–155; BP diastolic 60–78; PULSE 49–80; RESP 14–18; TEMP 36.5–37; O2SAT 93–100; BMI 18.3
[2023-02-04 03:32] LABS: Hematocrit 27.8 % (42.0-52.0)
[2023-02-04 03:38] LABS: Hemoglobin 8.4 g/dL (14.1-18.0)
--- NOTE | 2023-02-04 05:23 | PC.NURSE ---
Patient has been able to rest on and off this shift. Didn't get much sleep due to the fact of getting 3 units of blood. Patient tolerated the units greats. Breath sounds are clear after completions of units. The patient is very steady on his feet when he dose get up. Patient has not had any pain, nausea, or BM tonight. No other issues noted
[2023-02-04 06:21] LABS: Chloride 107 mmol/L (98-107); Potassium 3.3 mmoL/L (3.5-5.1); Sodium 135 mmol/L (136-145)
[2023-02-04 06:24] LABS: Anion Gap 7.3 mEq/L (5-15); Blood Urea Nitrogen 12 mg/dl (9-20); Calcium 7.1 mg/dl (8.4-10.2); Carbon Dioxide 24 mmol/L (22.0-30.0); Creatinine Clearance Estimated 114 mL/min (50-200); Estimated Glomerular Filt Rate 137 ml/min (>60); GFR (African American) 166 ML/MIN (>60); Glucose 88 mg/dl (74-100)
[2023-02-04 06:27] LABS: Basophils % 0.4 % (0.1-2.0); Eosinophils # 0.1 K/mm3 (0.0-0.4); Eosinophils % 2.9 % (0.1-12.0); Hematocrit 26.1 % (42.0-52.0); Lymphocytes # 1.1 K/mm3 (0.7-4.5); Lymphocytes % 30.8 % (10-50); Mean Corpuscular HGB Conc 30.5 g/dL (31.8-35.4); Mean Corpuscular Hemoglobin 22.5 pg (27.0-31.2); Mean Corpuscular Volume 73.7 fl (80-94); Mean Platelet Volume 9.2 fl (7.4-10.4); Monocytes # 0.3 K/mm3 (0.1-1.0); Monocytes % 7.5 % (1.7-9.3); Neutrophils # 2.1 K/mm3 (1.8-7.8); Neutrophils % 58.4 % (37.0-80.0); Platelet Count 181 K/mm3 (142-424); Red Blood Count 3.53 M/mm3 (4.60-6.20); Red Cell Distribution Width 20.6 % (11.5-17.5); White Blood Count 3.6 K/mm3 (4.8-10.8)
--- NOTE | 2023-02-04 08:17 | HMH.PHAINT1 ---
Pharmacy Intervention Comments: Med reconiciliation completed using external fill history and patient interview. Notably, we had entered suboxone 10/08 tabs 1QD, but there was no fill history. Mr Cooley states that he does not get his suboxone from a pharmacy, but he has been buying and taking it for about 5 to 6 years. He states that his last dose was 02/03 around 6 pm.
--- NOTE | 2023-02-04 10:17 | EXP.SURG.CON ---
History of Present Illness *Admission Date: 02/03/23 *Reason for visit:: Gastrointestinal hemorrhage *History of present illness: This is a 62-year-old gentleman seen in consultation from the Hospitalist Service for evaluation regarding anemia/gastrointestinal hemorrhage. Forwarded from admission H&P/emergency department evaluation: Patient is a 62-year-old male who presented to hospital with not feeling well patient also mentions he had black-colored stools, he is on blood thinner for his atrial fibrillation. Patient takes Xarelto. Patient otherwise has past medical history of COPD CHF hypertension hyperlipidemia. Patient mentions he has been feeling sick for the past 2 to 3 days, he is not feeling better, blood work was checked in the emergency department which did show hemoglobin of 5.5. Patient otherwise denied chest pain nausea vomiting diarrhea constipation dysuria fevers chills. Note: Evaluation for similar symptomatology in May 2021 was undertaken. The patient developed acute-onset atrial fibrillation and endoscopic evaluation was postponed. He did not maintain outpatient follow-up appointment. [facility] Disclaimer: The information contained in this section may have been updated after the patient was seen, as this information can be updated by other users. Medical History Anemia Angina pectoris Arm numbness Atrial flutter Blood per rectum Congestive heart failure COPD (chronic obstructive pulmonary disease) Heartburn History of back pain Hyperlipidemia Hypertension Hypertension Hypokalemia Lymph node enlargement Narrow complex tachycardia Prolonged Q-T interval on ECG SOB (shortness of breath) on exertion Unstable angina pectoris Family History Other Family history of cancer Family history of hyperlipidemia Family history of hypertension Family history of myocardial infarction Social History (Updated 02/03/23 @ 18:17 by Charo Carrillo RN) Smoking Status: Current every day smoker tobacco type: cigarettes packs per day: 1 second hand exposure: Yes alcohol intake: never substance use type: marijuana and other current occupational status: employed Travel in the last 8 weeks: None household members: significant other housing: house current occupation: [employer] caffeine: Yes Meds Home Medications and Allergies Home Medications Medication Instructions Recorded Confirmed Type clopidogrel 75 mg tablet 75 mg PO DAILY platelet inhibitor 04/14/22 02/04/23 Rx #90 tabs rivaroxaban 20 mg tablet (Xarelto) 20 mg PO DAILY #90 tabs 04/28/22 02/04/23 Rx sacubitril 24 mg-valsartan 26 mg 1 tab PO BID 09/11/22 02/04/23 History tablet (Entresto) spironolactone 50 mg tablet 50 mg PO DAILY #90 tabs 09/11/22 02/04/23 Rx (Aldactone) torsemide 20 mg tablet 40 mg PO DAILY Fluid #180 tabs 09/17/22 02/04/23 Rx metoprolol succinate 50 mg 50 mg PO DAILY 02/03/23 02/04/23 History tablet,extended release 24 hr New Prescriptions to Start Prescriptions: Allergies Allergy/AdvReac Type Severity Reaction Status Date / Time No Known Allergies Allergy Verified 02/03/23 10:19 Exam (Inpt) Vital signs and Labs for Last 24 Hours: Temp Pulse Resp BP Pulse Ox O2 Del Method 98.1 F 68 17 155/64 H 94 L Room Air 02/04/23 08:00 02/04/23 08:00 02/04/23 08:00 02/04/23 08:00 02/04/23 08:00 02/04/23 09:00 Laboratory Results - last 24 hr 02/03/23 12:28: WBC 4.6 L, RBC 2.70 L, Hgb 5.1 L*, Hct 18.4 L*, MCV 68.1 L, MCH 18.8 L, MCHC 27.7 L, RDW 19.0 H, Plt Count 248, MPV 9.4, Neut % (Auto) 51.5, Lymph % (Auto) 38.2, [place] % (Auto) 5.7, Eos % (Auto) 4.1, Baso % (Auto) 0.5, Neut # (Auto) 2.3, Lymph # (Auto) 1.7, [place] # (Auto) 0.3, Eos # (Auto) 0.2, Baso # (Auto) 0.0, Retic Count (auto) 2.4, PT 14.3 H, INR 1.35 H, Fibrinogen 238, Sodium 135 L, Potassium 3.2 L, Chloride 103,
[2023-02-04 14:36] LABS: Hematocrit 25.8 % (42.0-52.0); Hemoglobin 8.2 g/dL (14.1-18.0)
--- NOTE | 2023-02-04 18:30 | PC.NURSE ---
per albert, order H&H q8 hrs
[2023-02-04 22:20] LABS: Hematocrit 25.7 % (42.0-52.0); Hemoglobin 7.9 g/dL (14.1-18.0)
[2023-02-05] VITALS: BP 110/66; PULSE 68; RESP 16; TEMP 36.6; O2SAT 98
[2023-02-05 04:00] VITALS: BP 133/70; PULSE 48; RESP 16; TEMP 36.6; O2SAT 100; BMI 17.6
--- NOTE | 2023-02-05 05:18 | PC.NURSE ---
Patient has had a good night tonight. Has been able to rest off and on through the night. The patient has been NPO sine midnight for planned EGD today. Patient complained of back pain early in the shift see MAY. Has not companied since giving medication. No other issues noted
[2023-02-05 06:01] LABS: Basophils % 0.6 % (0.1-2.0); Eosinophils # 0.1 K/mm3 (0.0-0.4); Eosinophils % 4.2 % (0.1-12.0); Hemoglobin 8.2 g/dL (14.1-18.0); Lymphocytes # 0.9 K/mm3 (0.7-4.5); Lymphocytes % 27.3 % (10-50); Mean Corpuscular HGB Conc 30.4 g/dL (31.8-35.4); Mean Corpuscular Hemoglobin 22.6 pg (27.0-31.2); Mean Corpuscular Volume 74.2 fl (80-94); Mean Platelet Volume 8.8 fl (7.4-10.4); Monocytes # 0.3 K/mm3 (0.1-1.0); Monocytes % 9.9 % (1.7-9.3); Neutrophils % 58.1 % (37.0-80.0); Platelet Count 159 K/mm3 (142-424); Red Blood Count 3.64 M/mm3 (4.60-6.20); Red Cell Distribution Width 20.9 % (11.5-17.5); White Blood Count 3.4 K/mm3 (4.8-10.8)
[2023-02-05 06:09] LABS: Anion Gap 3.4 mEq/L (5-15); Blood Urea Nitrogen 6 mg/dl (9-20); Calcium 7.2 mg/dl (8.4-10.2); Carbon Dioxide 27 mmol/L (22.0-30.0); Chloride 104 mmol/L (98-107); Creatinine Clearance Estimated 109 mL/min (50-200); Estimated Glomerular Filt Rate 137 ml/min (>60); GFR (African American) 166 ML/MIN (>60); Glucose 85 mg/dl (74-100); Potassium 3.4 mmoL/L (3.5-5.1); Sodium 131 mmol/L (136-145)
--- NOTE | 2023-02-05 06:34 | PC.NURSE ---
Patient left the floor at 0629 for EGD, called to let her know he was taken down, Would like to be called when he gets out.
--- NOTE | 2023-02-05 06:51 | P.PN_ITS ---
Subjective Patient reports: no new complaints Exam Data for Last 24 hours Vital signs and Labs for Last 24 Hours: Temp Pulse Resp BP Pulse Ox O2 Del Method 97.9 F 48 L 16 133/70 100 Room Air 02/05/23 04:00 02/05/23 04:00 02/05/23 04:00 02/05/23 04:00 02/05/23 04:00 02/05/23 05:00 Laboratory Results - last 24 hr 02/03/23 14:58: Crossmatch (AHG) See Detail 02/04/23 14:20: Hgb 8.2 L, Hct 25.8 L 02/04/23 22:00: Hgb 7.9 L, Hct 25.7 L 02/05/23 05:52: WBC 3.4 L, RBC 3.64 L, Hgb 8.2 L, Hct 27.0 L, MCV 74.2 L, MCH 22.6 L, MCHC 30.4 L, RDW 20.9 H, Plt Count 159, MPV 8.8, Neut % (Auto) 58.1, Lymph % (Auto) 27.3, [place] % (Auto) 9.9 H, Eos % (Auto) 4.2, Baso % (Auto) 0.6, Neut # (Auto) 2.0, Lymph # (Auto) 0.9, [place] # (Auto) 0.3, Eos # (Auto) 0.1, Baso # (Auto) 0.0, Sodium 131 L, Potassium 3.4 L, Chloride 104, Carbon Dioxide 27, Anion Gap 3.4 L, BUN 6 L D, Creatinine 0.60 L, Estimated Creat Clear 109, Est imated GFR 137, Est GFR ( Amer) 166, Glucose 85, Calcium 7.2 L I & O for Last 24 hours: Intake & Output 02/02/23 02/03/23 02/04/23 02/05/23 11:59 11:59 11:59 11:59 Intake Total 750 / 750 1310 / 1310 Output Total 150 / 150 950 / 950 Balance 600 / 600 360 / 360 Weight 135 lb 14.4 oz 130 lb Constitutional Constitutional: no acute distress *Routine Respiratory Exam Respiratory: Absent respiratory distress *Routine Cardiovascular Exam Cardiovascular: Present bradycardia Progress Note: A&P Assessment and plan (1) GI bleed: Status: Acute Assessment and plan: EGD this a.mSpencer
[2023-02-05 07:05] VITALS: BP 90/51; PULSE 60; RESP 18; TEMP 36.4; O2SAT 99
--- NOTE | 2023-02-05 07:06 | HMH.SCOPE ---
Procedure: Date: 02/05/23 Patient Date of :: 1960 Procedure Performed:: Esophagogastroduodenoscopy with biopsy Indications:: Anemia Performing Provider:: Kike Lozoya MD Referring Provider:: . Sedation:: Monitored anesthesia care Procedure:: After informed consent was obtained the patient was taken to the endoscopy suite. Sedation ensued after the patient was transferred to the left lateral decubitus position. Pulse, blood pressure, and oxygen saturation were monitored throughout the procedure. The endoscope was advanced beyond the duodenal bulb. Retroflexion within the gastric lumen was accomplished. The gastroscope was carefully removed and the patient was transferred to recovery in stable condition. Please see findings and specimens below for detail. Findings:: Gastroesophageal junction at 41 cm Patchy gastritis No sign of active/recent hemorrhage No obvious ulceration Specimens:: Antral biopsy Recommendations:: Follow-up pathology Colonoscopy in near future Possible UGI/SBFT and capsule endoscopy pending results of colonoscopy Complications:: No immediate Estimated blood obtained (mL): 1 Comment:: Endoscopic evaluation for anemia discussed in May 2021. Evaluation temporarily postponed secondary to new onset atrial fibrillation with rapid ventricular response. The patient did not maintain outpatient appointments for ongoing discussion. Colonoscopy Component Colonoscopy Component Was a colonoscopy performed during today's procedure?: No
[2023-02-05 07:15] VITALS: BP 94/58; PULSE 57; RESP 16; TEMP 36.4; O2SAT 97
[2023-02-05 07:25] VITALS: BP 117/62; PULSE 53; RESP 16; TEMP 36.5; O2SAT 100
--- NOTE | 2023-02-05 07:44 | EXP.ANES.CKL ---
[facility] Disclaimer: The information contained in this section may have been updated after the patient was seen, as this information can be updated by other users. Medical History Anemia Angina pectoris Arm numbness Atrial flutter Blood per rectum Congestive heart failure COPD (chronic obstructive pulmonary disease) Heartburn History of back pain Hyperlipidemia Hypertension Hypertension Hypokalemia Lymph node enlargement Narrow complex tachycardia Prolonged Q-T interval on ECG SOB (shortness of breath) on exertion Unstable angina pectoris Family History Other Family history of cancer Family history of hyperlipidemia Family history of hypertension Family history of myocardial infarction Social History (Updated 02/03/23 @ 18:17 by Charo Carrillo RN) Smoking Status: Current every day smoker tobacco type: cigarettes packs per day: 1 second hand exposure: Yes alcohol intake: never substance use type: marijuana and other current occupational status: employed Travel in the last 8 weeks: None household members: significant other housing: house current occupation: [employer] caffeine: Yes [facility] Anesthesia Checklist Patient Identification Patient Identification: Arm Band Structural Data Admitted From: Inpatient Planned Operative Procedure/s: EGD Consent for Planned Operative Procedure(s) Verified: Yes Verified Documents: Surgical Consent and History and Physical NPO Status Verified Time NPO: 00:00 Additional verifications Anesthesia Reactions: No Airway Assessment Mallampati Score:: Class II C-Spine Mobility Assessed: Yes TMJ Mobility Assessed: Yes Dentition: Edentulous Neurological Assessment Level of Consciousness: Awake and Alert Anesthesia Plan Anesthesia Risk discussed: Yes Anesthesia Plan: Verified ASA Class: III Anesthesia Type: MAC
--- NOTE | 2023-02-05 10:10 | EXP.PN ---
Subjective *Date: 02/04/23 *Time: 10:10 Interval history: patient was seen and evaluated at the bedside. denies chest pain, shortness of breath, nausea, vomiting, abdominal pain. Patient does not have any complaints at this time. feels better overall plan for EGD today Exam Data for Last 24 hours Vital signs and Labs for Last 24 Hours: Temp Pulse Resp BP Pulse Ox O2 Del Method 97.7 F 53 L 16 117/62 100 Room Air 02/05/23 07:25 02/05/23 07:25 02/05/23 07:25 02/05/23 07:25 02/05/23 07:25 02/05/23 08:00 Laboratory Results - last 24 hr 02/03/23 14:58: Crossmatch (AHG) See Detail 02/04/23 14:20: Hgb 8.2 L, Hct 25.8 L 02/04/23 22:00: Hgb 7.9 L, Hct 25.7 L 02/05/23 05:52: WBC 3.4 L, RBC 3.64 L, Hgb 8.2 L, Hct 27.0 L, MCV 74.2 L, MCH 22.6 L, MCHC 30.4 L, RDW 20.9 H, Plt Count 159, MPV 8.8, Neut % (Auto) 58.1, Lymph % (Auto) 27.3, [place] % (Auto) 9.9 H, Eos % (Auto) 4.2, Baso % (Auto) 0.6, Neut # (Auto) 2.0, Lymph # (Auto) 0.9, [place] # (Auto) 0.3, Eos # (Auto) 0.1, Baso # (Auto) 0.0, Sodium 131 L, Potassium 3.4 L, Chloride 104, Carbon Dioxide 27, Anion Gap 3.4 L, BUN 6 L D, Creatinine 0.60 L, Estimated Creat Clear 109, Estimated GFR 137, Est GFR ( Amer) 166, Glucose 85, Calcium 7.2 L Temp Pulse Resp BP Pulse Ox O2 Del Method 97.9 F 48 L 16 133/70 100 Room Air 02/05/23 04:00 02/05/23 04:00 02/05/23 04:00 02/05/23 04:00 02/05/23 04:00 02/05/23 05:00 Laboratory Results - last 24 hr 02/03/23 14:58: Crossmatch (AHG) See Detail 02/04/23 14:20: Hgb 8.2 L, Hct 25.8 L 02/04/23 22:00: Hgb 7.9 L, Hct 25.7 L 02/05/23 05:52: WBC 3.4 L, RBC 3.64 L, Hgb 8.2 L, Hct 27.0 L, MCV 74.2 L, MCH 22.6 L, MCHC 30.4 L, RDW 20.9 H, Plt Count 159, MPV 8.8, Neut % (Auto) 58.1, Lymph % (Auto) 27.3, [place] % (Auto) 9.9 H, Eos % (Auto) 4.2, Baso % (Auto) 0.6, Neut # (Auto) 2.0, Lymph # (Auto) 0.9, [place] # (Auto) 0.3, Eos # (Auto) 0.1, Baso # (Auto) 0.0, Sodium 131 L, Potassium 3.4 L, Chloride 104, Carbon Dioxide 27, Anion Gap 3.4 L, BUN 6 L D, Creatinine 0.60 L, Estimated Creat Clear 109, Estimated GFR 137, Est GFR ( Amer) 166, Glucose 85, Calcium 7.2 L I & O for Last 24 hours: Intake & Output 02/02/23 02/03/23 02/04/23 02/05/23 23:59 23:59 23:59 23:59 Intake Total 500 / 500 960 / 1560 600 / 600 Output Total 150 / 150 350 / 350 600 / 600 Balance 350 / 350 610 / 1210 0 / 0 Weight 59.165 kg 61.643 kg 58.967 kg Intake & Output 02/02/23 02/03/23 02/04/23 02/05/23 11:59 11:59 11:59 11:59 Intake Total 750 / 750 1310 / 1310 Output Total 150 / 150 950 / 950 Balance 600 / 600 360 / 360 Weight 135 lb 14.4 oz 130 lb Constitutional Constitutional: no acute distress *Routine Respiratory Exam Respiratory: Absent respiratory distress *Routine Cardiovascular Exam Cardiovascular: Present bradycardia Assessment and Plan *Assessment and plan (1) GI bleed: Status: Acute Qualifiers: GI bleed type/associated pathology: melena Qualified Code(s): K92.1 - Melena Category: Medical Code(s): K92.2 - Gastrointestinal hemorrhage, unspecified (2) Rectal bleeding: Status: Acute Category: Medical Code(s): K62.5 - Hemorrhage of anus and rectum (3) Atrial fibrillation: Status: Acute Category: Medical Code(s): I48.91 - Unspecified atrial fibrillation (4) CAD (coronary artery disease): Status: Chronic Qualifiers: Coronary Disease-Associated Artery/Lesion type: [place] artery [place] vs. transplanted heart: [place] heart Associated angina: with unstable angina Qualified Code(s): I25.110 - Atherosclerotic heart disease of [place] coronary artery with unstable angina pectoris Category: Medical Code(s): I25.10 - Atherosclerotic heart disease of [place] coronary artery without angina pectoris (5) Paroxysmal A-fib: Status: Chronic Category: Medical Code(s): I48.0 - Paroxysmal atrial fibrillation Plan
--- NOTE | 2023-02-05 10:11 | EXP.DC.SUM ---
General Admission date:: 02/03/23 Discharge date: 02/05/23 HPI HPI HPI: This is a 62-year-old gentleman seen in consultation from the Hospitalist Service for evaluation regarding anemia/gastrointestinal hemorrhage. Forwarded from admission H&P/emergency department evaluation: Patient is a 62-year-old male who presented to hospital with not feeling well patient also mentions he had black-colored stools, he is on blood thinner for his atrial fibrillation. Patient takes Xarelto. Patient otherwise has past medical history of COPD CHF hypertension hyperlipidemia. Patient mentions he has been feeling sick for the past 2 to 3 days, he is not feeling better, blood work was checked in the emergency department which did show hemoglobin of 5.5. Patient otherwise denied chest pain nausea vomiting diarrhea constipation dysuria fevers chills. Note: Evaluation for similar symptomatology in May 2021 was undertaken. The patient developed acute-onset atrial fibrillation and endoscopic evaluation was postponed. He did not maintain outpatient follow-up appointment. Hospital Course Hospital Course Hospital Course: Patient was seen and evaluated at the bedside on the day of discharge. Patient is stable for discharge. Patient wishes to be discharged. All patient questions were answered and patient was given time to ask questions. Patient was discharged in stable condition. Patient is a 62-year-old male who presented to hospital with not feeling well patient also mentions he had black-colored stools, he is on blood thinner for his atrial fibrillation. Patient takes Xarelto. Patient otherwise has past medical history of COPD CHF hypertension hyperlipidemia. Patient mentions he has been feeling sick for the past 2 to 3 days, he is not feeling better, blood work was checked in the emergency department which did show hemoglobin of 5.5. Patient otherwise denied chest pain nausea vomiting diarrhea constipation dysuria fevers chills. Assessment Symptomatic anemia - start on PO iron, f/u with PCP, need colonoscpy Anemia of acute blood loss - stable, s/p EGD no PUD seen, start PPI po, likely cause of blood loss appears lower GI Atrial fibrillation on Xarelto - hold xarelto at DC x 3 more days and f/u with PCP and GS COPD CHF Hypertension Hyperlipidemia Exam Data for Last 24 hours Vital signs and Labs for Last 24 Hours: Temp Pulse Resp BP Pulse Ox O2 Del Method 97.7 F 53 L 16 117/62 100 Room Air 02/05/23 07:25 02/05/23 07:25 02/05/23 07:25 02/05/23 07:25 02/05/23 07:25 02/05/23 08:00 Laboratory Results - last 24 hr 02/03/23 14:58: Crossmatch (AHG) See Detail 02/04/23 14:20: Hgb 8.2 L, Hct 25.8 L 02/04/23 22:00: Hgb 7.9 L, Hct 25.7 L 02/05/23 05:52: WBC 3.4 L, RBC 3.64 L, Hgb 8.2 L, Hct 27.0 L, MCV 74.2 L, MCH 22.6 L, MCHC 30.4 L, RDW 20.9 H, Plt Count 159, MPV 8.8, Neut % (Auto) 58.1, Lymph % (Auto) 27.3, [place] % (Auto) 9.9 H, Eos % (Auto) 4.2, Baso % (Auto) 0.6, Neut # (Auto) 2.0, Lymph # (Auto) 0.9, [place] # (Auto) 0.3, Eos # (Auto) 0.1, Baso # (Auto) 0.0, Sodium 131 L, Potassium 3.4 L, Chloride 104, Carbon Dioxide 27, Anion Gap 3.4 L, BUN 6 L D, Creatinine 0.60 L, Estimated Creat Clear 109, Estimated GFR 137, Est GFR ( Amer) 166, Glucose 85, Calcium 7.2 L I & O for Last 24 hours: Intake & Output 02/02/23 02/03/23 02/04/23 02/05/23 23:59 23:59 23:59 23:59 Intake Total 500 / 500 960 / 1560 600 / 600 Output Total 150 / 150 350 / 350 600 / 600 Balance 350 / 350 610 / 1210 0 / 0 Weight 59.165 kg 61.643 kg 58.967 kg Constitutional Constitutional: no acute distress *Routine HEENT Exam Head: Present normocephalic Eye: Present EOMI and PERRL ENT: Present mucous membranes moist *Routine Neck Exam Neck: Present supple; Absent lymphadenopathy *Routine Respiratory Exam Respiratory: Present CTA bilaterally *Routine Cardiovascular Exam Cardiovascular: Present RRR *Routine Abdominal Exam Abdominal: Present s
--- NOTE | 2023-02-09 11:33 | CARE MANAGER ---
Called and spoke with patient regarding recent discharge. He stated that he is doing well. He was aware of his f/u appts and has made changes to his medications as ordered at discharge. No concerns voiced at time of call.
== END 2023-02-05 11:00 | disposition home or self-care (01) | DRG 378 ==
LOC: ER 12:35 → 2ND 16:28
PROVIDERS: Family Medicine; Surgery; Admitting Provider Internal Medicine; Emergency Provider Emergency Medicine; PCP Nurse Practitioner Family; Visit Provider Internal Medicine
PROC: 0DJ08ZZ Inspection of Upper Intestinal Tract, Via Natural or Artificial Opening Endoscopic (ICD-10-PCS; CPT 43235; principal; 2023-02-05 07:00)
DX: K29.71 Gastritis, unspecified, with bleeding (principal); D62 Acute posthemorrhagic anemia; I25.110 Atherosclerotic heart disease of native coronary artery with unstable angina pectoris; I48.0 Paroxysmal atrial fibrillation; J44.9 Chronic obstructive pulmonary disease, unspecified; I11.0 Hypertensive heart disease with heart failure; I50.9 Heart failure, unspecified; F17.210 Nicotine dependence, cigarettes, uncomplicated; Z79.01 Long term (current) use of anticoagulants
CPT/HCPCS: 43239; 36415; 80048; 80053; 82728; 83540; 83550; 84466; 85014; 85018; 85025; 85044; 85384; 85610; 86850; 88305; 99285; J0574; P9016

== ENCOUNTER → 2023-03-03 09:18 | Outpatient (CLI) | payer OTHER, SELFPAY ==
--- NOTE | 2023-03-03 09:18 | CT_ITS ---
FINAL REPORT CLINICAL HISTORY: rectal bleeding/diarrhea COMPARISON: None FINDINGS: The liver is normal in size and attenuation. The spleen is mildly enlarged measuring 14 cm in craniocaudal dimension. The gallbladder is somewhat contracted. The adrenals are normal. The pancreas is unremarkable. The kidneys enhance appropriately. There are multiple small stones measuring up to 6 mm in size in the right collecting system, nonobstructing. There is a large amount of stool present in the colon. IMPRESSION: Large amount of stool present in the colon. Mild splenomegaly. Multiple small nonobstructing stones measuring up to 6 mm in size in the right collecting system. Reviewed, Interpreted and Dictated by Fredrick Cuello MD Transcribed by Corazon Anderson Authenticated and [facility]
--- NOTE | 2023-03-03 09:18 | CT_ITS ---
FINAL REPORT TECHNIQUE: Before and after the administration of intravenous contrast, axial images through the chest were performed by computed tomography. This study was performed with techniques to keep radiation doses as low as reasonably achievable, (ALARA). Individualized dose reduction techniques using automated exposure control or adjustment of mA and/or kV according to the patient's size were employed. CLINICAL HISTORY: cp/dyspnea/tob use COMPARISON: None FINDINGS: CT CHEST WITH AND WITHOUT: CT examination of the chest was performed with and without intravenous contrast. There are no prior films available for comparison purposes. No hilar or mediastinal adenopathy is identified. No axillary adenopathy is present. No pleural effusions are seen. No pericardial effusion is present. There is mild scarring/fibrosis in the lung gurrola bilaterally, that appears chronic. There are several localized areas in the right upper lobe that appear to represent scarring, best seen on image #35 of series 8. No confluent infiltrates are present. IMPRESSION: Scarring/fibrosis in the lung gurrola bilaterally, appears chronic. No acute pulmonary abnormality is identified. Reviewed, Interpreted and Dictated by Fredrick Cuello MD Transcribed by Corazon Anderson Authenticated and [facility]
== END ==
PROVIDERS: PCP Nurse Practitioner Family; Visit Provider Physician Assistant
DX: I20.9 Angina pectoris, unspecified (principal); R06.00 Dyspnea, unspecified; Z72.0 Tobacco use
CPT/HCPCS: 71270; 74178; Q9967

== ENCOUNTER 2023-03-12 15:54 | Outpatient (CLI) | payer OTHER, SELFPAY ==
[2023-03-12 16:14] LABS: Basophils % 0.5 % (0.1-2.0); Eosinophils # 0.2 K/mm3 (0.0-0.4); Eosinophils % 5.2 % (0.1-12.0); Lymphocytes # 1.2 K/mm3 (0.7-4.5); Lymphocytes % 28.4 % (10-50); Mean Corpuscular HGB Conc 30.6 g/dL (31.8-35.4); Mean Corpuscular Hemoglobin 24.9 pg (27.0-31.2); Mean Corpuscular Volume 81.5 fl (80-94); Mean Platelet Volume 8.9 fl (7.4-10.4); Monocytes # 0.3 K/mm3 (0.1-1.0); Monocytes % 7.3 % (1.7-9.3); Neutrophils # 2.5 K/mm3 (1.8-7.8); Neutrophils % 58.6 % (37.0-80.0); Platelet Count 250 K/mm3 (142-424); Red Blood Count 2.51 M/mm3 (4.60-6.20); Red Cell Distribution Width 22.1 % (11.5-17.5); White Blood Count 4.2 K/mm3 (4.8-10.8)
[2023-03-12 16:22] LABS: Hematocrit 20.5 % (42.0-52.0); Hemoglobin 6.3 g/dL (14.1-18.0)
[2023-03-12 16:38] LABS: Alanine Aminotransferase 23 U/L (12-78); Albumin Level 2.8 g/dl (3.5-5.0); Alkaline Phosphatase 118 U/L (38-126); Anion Gap 3.5 mEq/L (5-15); Aspartate Amino Transferase 31 U/L (17-59); Bilirubin,Unconjugated 0.2 mg/dL (0.0-1.1); Blood Urea Nitrogen 8 mg/dl (9-20); Calcium 7.5 mg/dl (8.4-10.2); Carbon Dioxide 29 mmol/L (22.0-30.0); Chloride 103 mmol/L (98-107); Chol/HDL Ratio 5.1 (1-3.5); Cholesterol 91 mg/dl (140-200); Estimated Glomerular Filt Rate 137 ml/min (>60); GFR (African American) 166 ML/MIN (>60); Glucose 110 mg/dl (74-100); HDL Cholesterol 18 mg/dl (40-60); Magnesium 2.1 mg/dl (1.6-2.3); Potassium 4.5 mmoL/L (3.5-5.1); Sodium 131 mmol/L (136-145); Total Protein,Serum 5.1 g/dl (6.3-8.2); Triglycerides 59 mg/dl (30-150); VLDL Cholesterol 12 mg/dL (0-40)
[2023-03-12 16:41] LABS: Bilirubin,Indirect 0.1 mg/dL (0.0-0.9); Bilirubin,Total 0.1 mg/dl (0.2-1.3)
[2023-03-12 16:50] LABS: Direct LDL Cholesterol 73.38 mg/dL (100-129)
[2023-03-12 17:07] LABS: Thyroid Stimulating Hormone 4.21 uIU/mL (0.465-4.68)
[2023-03-12 17:51] LABS: Free T4 (Free Thyroxine) 0.81 ng/dl (0.78-2.19)
== END 2023-03-12 23:59 ==
LOC: LAB 15:55
PROVIDERS: PCP Nurse Practitioner Family; Visit Provider Physician Assistant
DX: I20.89 Other forms of angina pectoris (principal); D64.9 Anemia, unspecified; E78.5 Hyperlipidemia, unspecified; R60.9 Edema, unspecified; J44.9 Chronic obstructive pulmonary disease, unspecified; K92.2 Gastrointestinal hemorrhage, unspecified
CPT/HCPCS: 36415; 80048; 80061; 80076; 83735; 84439; 84443; 85025

== ENCOUNTER 2023-03-12 16:48 | Emergency (ER) | payer OTHER, SELFPAY ==
[2023-03-12] VITALS (14 sets, daily range): BP systolic 138–163; BP diastolic 69–82; PULSE 58–79; RESP 9–20; TEMP 36.5–37.1; O2SAT 98–100
--- NOTE | 2023-03-12 17:01 | PC.NURSE ---
DR FRASER AT BEDSIDE
--- NOTE | 2023-03-12 17:43 | HMH.EDGENADL ---
Discharge Plan Disposition Patient Disposition: Home, Self-Care Prescriptions Prescriptions: No Action clopidogrel 75 mg tablet 75 mg PO DAILY Qty: 90 5RF Hold Instructions: Resume on 02/08/23. Xarelto 20 mg tablet 20 mg PO DAILY Qty: 90 3RF Hold Instructions: Resume on 02/08/23. Rx Instructions: must administer with evening meal Entresto 24-26 mg tablet 1 tab PO BID spironolactone [Aldactone] 50 mg tablet 50 mg PO DAILY Qty: 90 3RF torsemide 20 mg tablet 40 mg PO DAILY Qty: 180 3RF omeprazole 40 mg capsule,delayed release(DR/EC) 40 mg PO BID Qty: 60 2RF Jardiance 10 mg tablet 10 mg PO DAILY Qty: 30 2RF metoprolol succinate 50 mg tablet extended release 24 hr 50 mg PO DAILY Rx Instructions: TAKE ONE TABLET BY MOUTH EVERY DAY Referrals Follow up/Referrals: Ben Ndiaye APRN [Primary Care Provider] - See instructions Activity Restrictions/Add. Instructions Additional Instructions/Restrictions: Please follow-up with your GI doctor as previously instructed for further evaluation of your anemia. Please continue to hold your Xarelto until your hemoglobin is stable and you are advised by your primary care doctor or financial systems director to restart it. Clinical Impressions Clinical Impression: Acute anemia Discharge ED Provider: Khari Calvin General Adult HPI General Chief complaint: Recheck/Abnormal Lab/Rx Stated complaint: sent by radha Perez Time Seen by Provider: 03/12/23 17:00 Mode of Arrival: Ambulatory Source of Information: Patient Limitations: No Limitations Description of Symptoms (Recalled from ER Triage Doc. by RN): pt was sent from dr perez office for abnormal labs low hgb of 6.3, pt has previous hx of low hbg and transfusion recently as well as being scoped by general surgery. pt states he was just at the office for a check up and not notice any s/s other than some fatigue over the last two days. pt denies any black tarry stools. pt also complains of swelling in BLE and he has not taken Xarelto in 3 days due to being out of Entresto which he thought he was suppose to take them together History of Present Illness HPI narrative: Patient is a 62-year-old male sent from Dr. Perez's clinic for anemia needing transfusion. Patient states that he was recently admitted in the hospital for concern for GI bleed had an endoscopy which only showed gastritis and was supposed to follow-up with GI to get further evaluation. Patient has not had any melena is on Xarelto but has recently stopped this in the last 48 hours. Patient states the rationale behind stopping his Xarelto was because he ran out of his Entresto and was not sure whether or not he should be taking this nonetheless has had no melena or hematochezia. Patient does state he has been fatigued over the last several days. Denies any other symptoms. Hemoglobin was less than 7 prior to arrival. Labs done today. Related Data Home Medications Medication Instructions Recorded Confirmed sacubitril 24 mg-valsartan 26 mg 1 tab PO BID 09/11/22 03/12/23 tablet (Entresto) metoprolol succinate 50 mg 50 mg PO DAILY 02/03/23 03/12/23 tablet,extended release 24 hr Previous Rx's Medication Instructions Recorded clopidogrel 75 mg tablet 75 mg PO DAILY platelet inhibitor 04/14/22 #90 tabs rivaroxaban 20 mg tablet (Xarelto) 20 mg PO DAILY #90 tabs 04/28/22 spironolactone 50 mg tablet 50 mg PO DAILY #90 tabs 09/11/22 (Aldactone) torsemide 20 mg tablet 40 mg PO DAILY Fluid #180 tabs 09/17/22 empagliflozin 10 mg tablet 10 mg PO DAILY #30 tabs 03/12/23 (Jardiance) omeprazole 40 mg capsule,delayed 40 mg PO BID #60 caps 03/12/23 release Allergies Allergy/AdvReac Type Severity Reaction Status Date / Time No Known Allergies Allergy Verified 03/12/23 15:09 [facility] Disclaimer: The information contained in this section may have been updated after the patient was seen, as this information can be updated by other users. Medical History (Updated 03/12/23 @ 17:45 by Khari Calvin MD) Acute systolic (congestive) heart failure Anemia Angina pectoris Arm numbness Atrial fibrillation Atrial fibrillation with rapid ventricular response Atrial flutter Atypical chest pain Blood per rectum Bradycardia CAD (coronary artery disease) Cigarette smoker Congestive heart failure COPD (chronic obstructive pulmonary disease) COPD (chronic obstructive pulmonary disease) Diarrhea Dyspnea Dyspnea on exertion Edema Essential hypertension Family history of congestive heart failure GI bleed Habitual drug user Heartburn History of back pain HLD (hyperlipidemia) Hyperlipidemia Hypertension Hypertension Hypokalemia Ischemic cardiomyopathy Lymph node enlargement Narrow complex tachycardia Paroxysmal A-fib Peripheral edema Prolonged Q-T interval on ECG Rectal bleeding Severe malnutrition SOB (shortness of breath) on exertion Transaminitis Typical angina Unstable angina pectoris Family History Other Family history of cancer Family history of hyperlipidemia Family history of hypertension Family history of myocardial infarction Social History Smoking Status: Current every day smoker tobacco type: cigarettes packs per day: 1 second hand exposure: Yes alcohol intake: never substance use type: marijuana and other current occupational status: employed Travel in the last 8 weeks: None household members: significant other housing: house current occupation: [employer] caffeine: Yes ROS Obtained: Yes All systems reviewed & no additional complaints except as documented Physical Exam General General appearance: alert Respiratory Respiratory exam: Present normal lung sounds bilaterally; Absent respiratory distress Cardiovascular Cardiovascular exam: Present regular rate; Absent tachycardia Abdominal Exam Abdominal exam: Present soft; Absent tenderness Neurological Exam Neurological exam: Present alert and oriented X3 Medical Decision Making Art Inquiry Pt receiving controlled substance: No Vital Signs: 03/12/23 16:49 03/12/23 18:30 03/12/23 18:35 Temperature 97.7 F 98.8 F 98.7 F Temperature Source Oral Pulse Rate 79 64 Pulse Rate [Right Radial] 63 Respiratory Rate 20 11 L 13 TAR Vitals Timing Pre-Blood Vitals Start Vitals Blood Pressure 149/78 H 155/78 H Blood Pressure [Right Arm] 155/71 H Blood Pressure Mean 101 103 Blood Pressure Mean [Right Arm] 99 Blood Pressure Source Blood Pressure Position 02 Sat by Pulse Oximetry 100 99 100 Oxygen Delivery Method Room Air 03/12/23 18:40 03/12/23 18:45 03/12/23 18:50 Temperature 98.7 F 98.7 F 98.7 F Temperature Source Pulse Rate 63 62 65 Pulse Rate [Right Radial] Respiratory Rate 10 L 11 L 11 L TAR Vitals Timing 5 Minute 10 Minute 15 Minute Blood Pressure 143/78 H 147/76 H 143/69 H Blood Pressure [Right Arm] Blood Pressure Mean 99 99 93 Blood Pressure Mean [Right Arm] Blood Pressure Source Blood Pressure Position 02 Sat by Pulse Oximetry 100 100 100 Oxygen Delivery Method 03/12/23 19:05 03/12/23 19:20 03/12/23 19:35 Temperature 98.7 F 98.0 F 98.0 F Temperature Source Pulse Rate 64 67 60 Pulse Rate [Right Radial] Respiratory Rate 10 L 10 L 12 TAR Vitals Timing 30 Minute 45 Minute 60 Minute Blood Pressure 147/71 H 147/75 H 155/80 H Blood Pressure [Right Arm] Blood Pressure Mean 96 99 105 Blood Pressure Mean [Right Arm] Blood Pressure Source Automatic Cuff Blood Pressure Position Supine 02 Sat by Pulse Oximetry 100 100 99 Oxygen Delivery Method 03/12/23 19:21 03/12/23 19:31 03/12/23 20:30 Temperature Temperature Source Pulse Rate 65 60 58 L Pulse Rate [Right Radial] Respiratory Rate 10 L 10 L 9 L TAR Vitals Timing Blood Pressure 147/75 H 138/77 162/82 H Blood Pressure [Right Arm] Blood Pressure Mean 97 Blood Pressure Mean [Right Arm] Blood Pressure Source Blood Pressure Position 02 Sat by Pulse Oximetry 100 99 100 Oxygen Delivery Method 03/12/23 20:35 03/12/23 20:56 Temperature 98.6 F 98.6 F Temperature Source Oral Pulse Rate 64 64 Pulse Rate [Right Radial] Respiratory Rate 10 L 14 TAR Vitals Timing Completion Vitals Blood Pressure 163/81 H 159/76 H Blood Pressure [Right Arm] Blood Pressure Mean 108 Blood Pressure Mean [Right Arm] Blood Pressure Source Automatic Cuff Blood Pressure Position Sitting 02 Sat by Pulse Oximetry 100 Oxygen Delivery Method Room Air Lab Data Lab Results 03/12/23 17:08: Blood Type O Positive, Antibody Screen Negative, Crossmatch (AHG) See Detail Orders (Tests/Meds): ED MEDICATIONS Discontinued Medications Generic Name Dose Route Start Last Admin Trade Name Freq PRN Reason Stop Dose Admin Sodium Chloride 250 mls @ 25 mls/hr 03/12/23 17:15 03/12/23 18:35 Sod Chlor 0.9% 250ml Bag IV 03/13/23 17:14 25 mls/hr .Q10H MU Administration ORDERS Category Date Time Status Transfuse RBC's [Red Blood Cells] Stat [facility] 03/12/23 17:08 Completed Type and Screen Stat [facility] 03/12/23 17:08 Completed Medical Decision Narrative: Appearing from an acute standpoint 8-year-old male presenting today with anemia. No significant BUN/creatinine ratio elevation to suggest an upper GI bleed patient also has no melena. This is nonspecific in terms of what is causing his anemia. His endoscopy was not significant recently which did not show any significant or active bleeding but did show gastritis he needs to continue to follow-up with his GI doctor. Will give him 1 unit of PRBCs while in the emergency department. I will advise that he continue to hold his Xarelto as there was concern about GI bleed recently until this is been okayed by his primary care doctor and/or his financial systems director is currently believe the risk of ongoing hemorrhaging outweighs any benefit of anticoagulation in the setting of atrial fibrillation until he is stabilized. Reassessment 8:37 PM transfusion complete at this point no side effects associate with this he has been advised to follow-up with his GI doctor and to hold his Xarelto as stated above. Critical Care Critical Care Time Critical Care Time: No
[2023-03-12] MEDS: 0.9 % SODIUM CHLORIDE 250 ML 25 ML IV (18:35)
--- NOTE | 2023-03-12 19:23 | PC.NURSE ---
Gave report to Samantha REYES
== END 2023-03-12 21:00 | disposition home or self-care (01) ==
PROVIDERS: Emergency Provider Student in an Organized Health Care Education/Training Program; PCP Nurse Practitioner Family
DX: D64.9 Anemia, unspecified (principal); R53.83 Other fatigue; I11.0 Hypertensive heart disease with heart failure; I50.21 Acute systolic (congestive) heart failure; I48.91 Unspecified atrial fibrillation; J44.9 Chronic obstructive pulmonary disease, unspecified; I25.110 Atherosclerotic heart disease of native coronary artery with unstable angina pectoris; F17.210 Nicotine dependence, cigarettes, uncomplicated
CPT/HCPCS: 86850; 99284; P9016

== ENCOUNTER 2023-03-19 08:57 | Emergency (ER) | payer OTHER, SELFPAY ==
[2023-03-19 08:58] VITALS: BP 120/64; PULSE 58; RESP 18; TEMP 36.6; O2SAT 96; BMI 18.4
[2023-03-19 09:02] VITALS: BP 120/64; PULSE 89; O2SAT 98
[2023-03-19 09:30] VITALS: BP 117/58; PULSE 56; O2SAT 99
[2023-03-19 09:36] LABS: Basophils # 0.1 K/mm3 (0-0.2); Basophils % 1.1 % (0.1-2.0); Eosinophils # 0.2 K/mm3 (0.0-0.4); Eosinophils % 4.5 % (0.1-12.0); Hemoglobin 7.8 g/dL (14.1-18.0); Lymphocytes # 1.6 K/mm3 (0.7-4.5); Lymphocytes % 32.8 % (10-50); Mean Corpuscular HGB Conc 29.9 g/dL (31.8-35.4); Mean Corpuscular Hemoglobin 24.4 pg (27.0-31.2); Mean Corpuscular Volume 81.7 fl (80-94); Mean Platelet Volume 8.9 fl (7.4-10.4); Monocytes # 0.5 K/mm3 (0.1-1.0); Monocytes % 9.2 % (1.7-9.3); Neutrophils # 2.6 K/mm3 (1.8-7.8); Neutrophils % 52.4 % (37.0-80.0); Platelet Count 337 K/mm3 (142-424); Red Blood Count 3.19 M/mm3 (4.60-6.20); Red Cell Distribution Width 20.6 % (11.5-17.5); White Blood Count 4.9 K/mm3 (4.8-10.8)
[2023-03-19 09:37] LABS: Chloride 100 mmol/L (98-107); Potassium 4.3 mmoL/L (3.5-5.1); Sodium 133 mmol/L (136-145)
[2023-03-19 09:40] LABS: Alanine Aminotransferase 22 U/L (12-78); Albumin Level 3.2 g/dl (3.5-5.0); Albumin/Globulin Ratio 1.3 (1.1-1.8); Alkaline Phosphatase 146 U/L (38-126); Anion Gap 12.3 mEq/L (5-15); Aspartate Amino Transferase 38 U/L (17-59); Bilirubin,Total 0.3 mg/dl (0.2-1.3); Blood Urea Nitrogen 13 mg/dl (9-20); Carbon Dioxide 25 mmol/L (22.0-30.0); Creatinine Clearance Estimated 98 mL/min (50-200); Estimated Glomerular Filt Rate 115 ml/min (>60); GFR (African American) 139 ML/MIN (>60); Globulin 2.5 g/dL (1.3-3.2); Total Protein,Serum 5.7 g/dl (6.3-8.2)
[2023-03-19 09:41] LABS: Calcium 7.2 mg/dl (8.4-10.2); Glucose 107 mg/dl (74-100)
[2023-03-19 10:01] VITALS: BP 113/60; PULSE 74; O2SAT 98
--- NOTE | 2023-03-19 10:03 | PC.NURSE ---
DR FRASER AT BEDSIDE TO UPDATE PT AND FAMILY
--- NOTE | 2023-03-19 10:20 | HMH.EDGENADL ---
Discharge Plan Disposition Patient Disposition: Home, Self-Care Prescriptions Prescriptions: No Action clopidogrel 75 mg tablet 75 mg PO DAILY Qty: 90 5RF Hold Instructions: Resume on 02/08/23. Xarelto 20 mg tablet 20 mg PO DAILY Qty: 90 3RF Hold Instructions: Resume on 02/08/23. Rx Instructions: must administer with evening meal Entresto 24-26 mg tablet 1 tab PO BID torsemide 20 mg tablet 40 mg PO DAILY Qty: 180 3RF omeprazole 40 mg capsule,delayed release(DR/EC) 40 mg PO BID Qty: 60 2RF Jardiance 10 mg tablet 10 mg PO DAILY Qty: 30 2RF spironolactone 25 mg tablet 25 mg PO DAILY metoprolol succinate 50 mg tablet extended release 24 hr 50 mg PO DAILY Rx Instructions: TAKE ONE TABLET BY MOUTH EVERY DAY Referrals Follow up/Referrals: Ben Ndiaye APRN [Primary Care Provider] - See instructions Activity Restrictions/Add. Instructions Additional Instructions/Restrictions: Your hemoglobin level is stabilized and is improving and with no ongoing evidence of melena or active blood loss there is no indication for admission or transfer at the moment. You may continue to be seen in the emergency room tacky if you would like. Discussion with the GI doctor. Clinical Impressions Clinical Impression: Chronic anemia Instructions Patient Instructions: Gastrointestinal Bleeding Discharge ED Provider: Khari Calvin General Adult HPI General Chief complaint: Recheck/Abnormal Lab/Rx Stated complaint: blood transfusion fr ENT Time Seen by Provider: 03/19/23 09:56 Mode of Arrival: Ambulatory Source of Information: Patient Limitations: No Limitations Description of Symptoms (Recalled from ER Triage Doc. by RN): Patient reports being seen by GI today and was told they needed to come to the ER for evaluation for possible blood transfusion. Patient reports being seen here last week for the same thing and rec'd a blood transfusion then. Patient states he continues to have dark tarry stools. Denies N/V/D. History of Present Illness HPI narrative: Patient is a 62-year-old male who has been dealing with chronic anemia for the last several months was recently admitted in the hospital for an endoscopy was found to have gastritis and was given a transfusion last week at that time for ongoing melena. States he has not had any melena for over a week at this point. Was seen at the GI doctors office today and she was under the impression that he had had melena that was ongoing but that is not the case I have checked multiple times with the patient to make sure. He does occasionally have some bright red blood that is very scant after wiping his bottom after using the bathroom. And a few days ago had a very small amount of low-volume hematemesis but that has not been ongoing. Has not had a colonoscopy during this time. He was told by the blood tester fowl here that he is not stable enough to have this and cannot be on the schedule for several months. She symptoms specifically to the emergency department for transfusion and transferred to [facility]. Related Data Home Medications Medication Instructions Recorded Confirmed sacubitril 24 mg-valsartan 26 mg 1 tab PO BID 09/11/22 03/19/23 tablet (Entresto) metoprolol succinate 50 mg 50 mg PO DAILY 02/03/23 03/19/23 tablet,extended release 24 hr spironolactone 25 mg tablet 25 mg PO DAILY 03/19/23 03/19/23 Previous Rx's Medication Instructions Recorded clopidogrel 75 mg tablet 75 mg PO DAILY platelet inhibitor 04/14/22 #90 tabs rivaroxaban 20 mg tablet (Xarelto) 20 mg PO DAILY #90 tabs 04/28/22 torsemide 20 mg tablet 40 mg PO DAILY Fluid #180 tabs 09/17/22 empagliflozin 10 mg tablet 10 mg PO DAILY #30 tabs 03/12/23 (Jardiance) omeprazole 40 mg capsule,delayed 40 mg PO BID #60 caps 03/12/23 release Allergies Allergy/AdvReac Type Severity Reaction Status Date / Time No Known Allergies Allergy Verified 03/19/23 11:16 [facility] Disclaimer: The information contained in this section may have been updated after the patient was seen, as this information can be updated by other users. Medical History (Updated 03/19/23 @ 11:55 by Jacy Roth RN) Acute systolic (congestive) heart failure Anemia Angina pectoris Arm numbness Atrial fibrillation Atrial fibrillation with rapid ventricular response Atrial flutter Atypical chest pain Blood per rectum Bradycardia CAD (coronary artery disease) Cigarette smoker Congestive heart failure COPD (chronic obstructive pulmonary disease) COPD (chronic obstructive pulmonary disease) Diarrhea Dyspnea Dyspnea on exertion Edema Essential hypertension Family history of congestive heart failure GI bleed Habitual drug user Heartburn History of back pain HLD (hyperlipidemia) Hyperlipidemia Hypertension Hypertension Hypokalemia Ischemic cardiomyopathy Lymph node enlargement Narrow complex tachycardia Paroxysmal A-fib Peripheral edema Prolonged Q-T interval on ECG Rectal bleeding Severe malnutrition SOB (shortness of breath) on exertion Transaminitis Typical angina Unstable angina pectoris Family History Other Family history of cancer Family history of hyperlipidemia Family history of hypertension Family history of myocardial infarction Social History Smoking Status: Current every day smoker tobacco type: cigarettes packs per day: 1 second hand exposure: Yes alcohol intake: never substance use type: marijuana and other current occupational status: employed Travel in the last 8 weeks: None household members: significant other housing: house current occupation: [employer] caffeine: Yes ROS Obtained: Yes All systems reviewed & no additional complaints except as documented Physical Exam General General appearance: alert and other (Pale) Respiratory Respiratory exam: Present normal lung sounds bilaterally; Absent respiratory distress Cardiovascular Cardiovascular exam: Present regular rate; Absent tachycardia Abdominal Exam Abdominal exam: Present soft; Absent distention or tenderness Neurological Exam Neurological exam: Present alert and oriented X3 Medical Decision Making Art Inquiry Pt receiving controlled substance: No Vital Signs: 03/19/23 08:58 03/19/23 09:02 03/19/23 09:30 Temperature 97.9 F Temperature Source Oral Pulse Rate 89 56 L Pulse Rate [Radial] 58 L Respiratory Rate 18 Blood Pressure 120/64 117/58 L Blood Pressure [Right Arm] 120/64 Blood Pressure Mean [Right Arm] 82 Blood Pressure Source Blood Pressure Source [Right Arm] Automatic Cuff Blood Pressure Position Blood Pressure Position [Right Arm] Sitting 02 Sat by Pulse Oximetry 96 98 99 Oxygen Delivery Method Room Air Room Air Room Air 03/19/23 10:01 03/19/23 11:10 03/19/23 11:11 Temperature 97.9 F 97.9 F Temperature Source Oral Oral Pulse Rate 74 74 Pulse Rate [Radial] 74 Respiratory Rate 18 18 Blood Pressure 113/60 113/60 Blood Pressure [Right Arm] 113/60 Blood Pressure Mean [Right Arm] 77 Blood Pressure Source Automatic Cuff Blood Pressure Source [Right Arm] Automatic Cuff Blood Pressure Position Sitting Blood Pressure Position [Right Arm] Sitting 02 Sat by Pulse Oximetry 98 98 Oxygen Delivery Method Room Air Room Air Room Air Lab Data Lab results reviewed: Yes I reviewed the patient's lab results. Lab Results 03/19/23 09:05: WBC 4.9, RBC 3.19 L, Hgb 7.8 L, Hct 26.0 L, MCV 81.7, MCH 24.4 L, MCHC 29.9 L, RDW 20.6 H, Plt Count 337, MPV 8.9, Neut % (Auto) 52.4, Lymph % (Auto) 32.8, [place] % (Auto) 9.2, Eos % (Auto) 4.5, Baso % (Auto) 1.1, Neut # (Auto) 2.6, Lymph # (Auto) 1.6, [place] # (Auto) 0.5, Eos # (Auto) 0.2, Baso # (Auto) 0.1, Sodium 133 L, Potassium 4.3, Chloride 100, Carbon Dioxide 25, Anion Gap 12.3, BUN 13, Creatinine 0.70, Estimated Creat Clear 98, Estimated GFR 115, Est GFR ( Amer) 139, Glucose 107 H, Calcium 7.2 L, Total Bilirubin 0.3, AST 38, ALT 22, Alkaline Phosphatase 146 H, Total Protein 5.7 L, Albumin 3.2 L, Globulin 2.5, Albumin/Globulin Ratio 1.3 03/19/23 09:40: Blood Type O Positive, Antibody Screen Negative 03/19/23 09:05 03/19/23 09:05 Orders (Tests/Meds): ED MEDICATIONS Discontinued Medications Generic Name Dose Route Start Last Admin Trade Name Freq PRN Reason Stop Dose Admin Sodium Chloride 10 ml 03/19/23 09:25 Sodium Chloride 0.9% 10ml Flush Syringe IV 04/18/23 09:24 NEEDED PRN Maintain IV Site ORDERS Category Date Time Status Type and Screen Stat [facility] 03/19/23 09:40 Completed Complete Blood Count Auto Diff Stat Lab 03/19/23 09:05 Completed Comprehensive Metabolic Panel Stat Lab 03/19/23 09:05 Completed Medical Decision Narrative: 62-year-old male with a history of gastritis who been anticoagulated on Xarelto has been worked up extensively by our team here including recent endoscopy and has been followed closely by our clinics. Was seen today for possible transfusion however his H&H is improving and is almost 8 from a hemoglobin standpoint right now. He has no ongoing melena hematochezia or hematemesis. Last week I advised that he stopped his Xarelto but he did stop this for 3 days and has restarted 3 days ago. At this point I had a discussion with him regarding the risk and benefits of stopping Xarelto with ongoing GI blood losses versus the risk of stroke and atrial fibrillation I believe that the blood loss and severe anemia he has been dealing with outweighs any benefit that is brought from a stroke standpoint at this moment in my opinion is that he stop this indefinitely. Family is very upset because he has been bounced around and that he is not getting better. He was supposed to have an appointment today with Dr. Perez this afternoon however his family canceled this appointment because they were told that he was can be transferred to [facility]. At the moment there is no indication for any admission repeat endoscopy etc. He does likely need a colonoscopy at some point. I will discuss the case with Dr. Perez and ask if he can go over to their clinic so that he does not have to miss that appointment but there is no indication for admission or transfusion transfer emergently at the moment. I spoke with Dr. Perez who agreed to see the patient in his clinic immediately. He stated that he may do other aunts arrhythmic agent such as amiodarone TAMRA and possible cardioversion at some point try to get the patient off his anticoagulants but at this point we all agree that the patient's symptoms are from his chronic anemia and needs to be allowed to heal from a GI chronic leading standpoint. Patient was discharged and sent immediately to Dr. Perez's clinic and stable condition. Critical Care Critical Care Time Critical Care Time: No
--- NOTE | 2023-03-19 11:08 | PC.NURSE ---
CARDIOLOGY OFFICE NOTIFIED OF DR. CLEVELAND'S REQUEST FOR PT TO BE SEEN FOR EVALUATION AFTER DISCHARGE FROM ED.
[2023-03-19 11:10] VITALS: BP 113/60; PULSE 74; RESP 18; TEMP 36.6; O2SAT 98
[2023-03-19 11:11] VITALS: BP 113/60; PULSE 74; RESP 18; TEMP 36.6; O2SAT 98
== END 2023-03-19 11:12 | disposition home or self-care (01) ==
PROVIDERS: Emergency Provider Student in an Organized Health Care Education/Training Program; PCP Nurse Practitioner Family
DX: D64.9 Anemia, unspecified (principal); K92.1 Melena; I11.0 Hypertensive heart disease with heart failure; I50.21 Acute systolic (congestive) heart failure; I48.0 Paroxysmal atrial fibrillation; I25.110 Atherosclerotic heart disease of native coronary artery with unstable angina pectoris; I48.92 Unspecified atrial flutter; J44.9 Chronic obstructive pulmonary disease, unspecified; E78.5 Hyperlipidemia, unspecified; I25.5 Ischemic cardiomyopathy; F17.210 Nicotine dependence, cigarettes, uncomplicated; Z79.01 Long term (current) use of anticoagulants
CPT/HCPCS: 80053; 85025; 86850; 99284

== ENCOUNTER 2023-03-19 13:20 | Outpatient (CLI) | payer OTHER, SELFPAY ==
--- NOTE | 2023-03-19 13:30 | CA_ITS ---
APPROVED REPORT EXAM: Limited 2D Echocardiogram Television Picture Tube Rebuilder: Mackenzie Layne CRT Ht: 6 ft 0 in Wt: 134lbs BSA: 1.80 BP: 124/61 mmHg Indications: EF CHECK GI BLEED M-Mode Dimensions RVDd 1.93 cm (0.9-2.6) LVDd 4.54 cm (3.5-5.7) LVDs 3.00 cm (3.5-5.7) IVSd 1.68 cm (0.6-1.1) PWd 1.36 cm (0.6-1.1) EF (Teich) 62.90% FS 33.90% EDV (Teich) 94.40 mL ESV (Teich) 35.00 mL Other Information Study Quality: Fair Conclusion This is a limited TTE to evaluate for LVEF. Limited windows were obtained. The left ventricle is normal in size. There is increased LV wall thickness. There are no regional wall motion abnormalities noted. LVEF is 60%. Electronically signed by : Katarina Miguel MD 03/19/2023 16:02:14
== END 2023-03-19 23:59 ==
LOC: RT 13:21
PROVIDERS: PCP Nurse Practitioner Family; Visit Provider Internal Medicine
DX: R06.00 Dyspnea, unspecified (principal); R60.9 Edema, unspecified; I25.119 Atherosclerotic heart disease of native coronary artery with unspecified angina pectoris; K92.2 Gastrointestinal hemorrhage, unspecified; E78.5 Hyperlipidemia, unspecified; I11.0 Hypertensive heart disease with heart failure; I50.9 Heart failure, unspecified
CPT/HCPCS: 93308

== ENCOUNTER 2023-03-20 11:06 | Day surgery (SDC) | payer SELFPAY ==
[2023-03-20] VITALS (10 sets, daily range): BP systolic 111–172; BP diastolic 60–95; PULSE 55–83; RESP 16–20; TEMP 36.6; O2SAT 97–100; BMI 18.1
--- NOTE | 2023-03-20 07:11 | IR_ITS ---
APPROVED REPORT Patient Location: Outpatient [facility] Channeler: YUE Rodrigez RT (R) PROCEDURES 1. Pocket formation for Permanent Pacemaker Placement. 2. Placement of an atrial sensing and pacing coil into the right atrial appendage. 3. Placement of a ventricular sensing and pacing coil in the right ventricular apex. 4. Permanent Pacemaker Placement. INDICATION Sick Sinus Syndrome; Atrial fibrillation Informed consent was obtained prior to the procedure. COMPLICATIONS NONE Estimated Blood Loss: LESS THAN 10 ML TECHNIQUE 1% Lidocaine with epinephrine used to anesthetized the left anterior aspect of the chest. Scalpel was used to make the initial cutaneous incision while electrocautery was used to dissect down tinto the fascia. The fascia was lifted off the pectoralis muscle and digitally manipulated creating a pocket for the pacemaker. The patient was then placed in Trendelenburg position and the subclavian vein was accessed twice via the Selinger technique, there are two wires in the vein. A 6 Spanish sheath was placed under fluoroscopic guidance into the subclavian vein over one of the wires while keeping the other wire in place within the subclavian vein. The dilator was removed from the sheath. Using fluoroscopic guidance, the ventricular lead was placed into the right ventricular apex, screwed and secured into place. Electronic interrogation proved acceptable thresholds and voltage within the lead. Using 3-0 silk, the ventricular lead was then secured into place. Lead was secured to the facia using the 3-0 silk. Following this, the sheath was pealed away. An additional 6 Spanish fresh sheath and dilator was placed over the existing wire. Using fluoroscopic guidance, the atrial lead was the placed into the right atrial appendage and screwed and secured in place. Electrical interrogation demonstrated acceptable thresholds and voltage number. The atrial lead was then secured into place using 3-0 silk. 1 gram of Ancef was used to flush the pocket. Following the pacemaker generator being secured to the fascia and in place, Monocryl was used to close the subcutaneous layers while soraya were used to close the cutaneous layer. A pressure dressing was placed and the patient was transferred to the postop holding area in stable condition for postoperative care. INTERROGATION Generator Model number: DBL [employer]quisition [id number] Generator Serial number: [id number] Atrial lead model number: Tendril STS 8TC Atrial lead serial number: [id number] P-wave: 2.8 mV Impedence: 390 Ohms Threshold: 0.5V @ 0.4ms Right Ventricular lead model number: Vineet STS 8TC Right Ventricular lead serial number: [id number] R-wave: 11.4 mV Impedence: 490 Ohms Threshold: 0.75V @ 0.4ms Pacing Parameters: Mode: DDDR Base/Max Track:70 ppm / 130 ppm No diaphragmatic stimulation at 10 volts. IMPRESSION 1. Successful pocket formation for Permanent Pacemaker Placement. 2. Successful placement of an atrial sensing and pacing coil into the right atrial appendage. 3. Successful placement of a ventricular sensing and pacing coil in the right ventricular apex. 4. Successful permanent Pacemaker Placement. PLAN 1. Postop wound care. Electronically signed by : Missael Perez MD 03/23/2023 12:24:51
[2023-03-20 11:39] LABS: Basophils # 0.1 K/mm3 (0-0.2); Basophils % 1.4 % (0.1-2.0); Eosinophils # 0.2 K/mm3 (0.0-0.4); Eosinophils % 4.6 % (0.1-12.0); Hematocrit 26.1 % (42.0-52.0); Hemoglobin 7.8 g/dL (14.1-18.0); Lymphocytes # 1.4 K/mm3 (0.7-4.5); Lymphocytes % 36.3 % (10-50); Mean Corpuscular HGB Conc 29.7 g/dL (31.8-35.4); Mean Corpuscular Hemoglobin 24.1 pg (27.0-31.2); Mean Platelet Volume 9.5 fl (7.4-10.4); Monocytes # 0.3 K/mm3 (0.1-1.0); Monocytes % 7.6 % (1.7-9.3); Neutrophils # 1.9 K/mm3 (1.8-7.8); Platelet Count 296 K/mm3 (142-424); Red Blood Count 3.22 M/mm3 (4.60-6.20); Red Cell Distribution Width 20.1 % (11.5-17.5); White Blood Count 3.8 K/mm3 (4.8-10.8)
[2023-03-20 11:43] LABS: Chloride 104 mmol/L (98-107); Sodium 134 mmol/L (136-145)
[2023-03-20 11:46] LABS: Blood Urea Nitrogen 8 mg/dl (9-20); Calcium 7.5 mg/dl (8.4-10.2); Carbon Dioxide 24 mmol/L (22.0-30.0); Creatinine Clearance Estimated 113 mL/min (50-200); Estimated Glomerular Filt Rate 137 ml/min (>60); GFR (African American) 166 ML/MIN (>60); Glucose 97 mg/dl (74-100)
[2023-03-20 11:54] LABS: Amphetamine/Metha Screen,Urine Negative ng/ml (<1000)
[2023-03-20 11:55] LABS: Barbiturates Screen,Urine Negative ng/ml (<200); Benzodiazepines Screen,Urine Negative ng/ml (<200)
[2023-03-20 11:59] LABS: Cannabinoid Screen,Urine Positive ng/ml (<50)
[2023-03-20 12:00] LABS: Cocaine Screen,Urine Negative ng/ml (<300); Methadone Screen,Urine Negative ng/ml (<300)
[2023-03-20 12:03] LABS: Opiate Screen,Urine Negative ng/ml (<300)
[2023-03-20 12:04] LABS: Phencyclidine Screen,Urine Negative ng/ml (<25)
--- NOTE | 2023-03-20 12:22 | EXP.ANES.CKL ---
[facility] Disclaimer: The information contained in this section may have been updated after the patient was seen, as this information can be updated by other users. Medical History Acute systolic (congestive) heart failure Anemia Angina pectoris Arm numbness Atrial fibrillation Atrial fibrillation with rapid ventricular response Atrial flutter Atypical chest pain Blood per rectum Bradycardia CAD (coronary artery disease) Cigarette smoker Congestive heart failure COPD (chronic obstructive pulmonary disease) COPD (chronic obstructive pulmonary disease) Diarrhea Dyspnea Dyspnea on exertion Edema Essential hypertension Family history of congestive heart failure GI bleed Habitual drug user Heartburn History of back pain HLD (hyperlipidemia) Hyperlipidemia Hypertension Hypertension Hypokalemia Ischemic cardiomyopathy Lymph node enlargement Narrow complex tachycardia Paroxysmal A-fib Peripheral edema Prolonged Q-T interval on ECG Rectal bleeding Severe malnutrition SOB (shortness of breath) on exertion Tachy-liz syndrome Transaminitis Typical angina Unstable angina pectoris Family History Other Family history of cancer Family history of hyperlipidemia Family history of hypertension Family history of myocardial infarction Social History Smoking Status: Current every day smoker tobacco type: cigarettes packs per day: 1 second hand exposure: Yes alcohol intake: never substance use type: marijuana and other current occupational status: employed Travel in the last 8 weeks: None household members: significant other housing: house current occupation: [employer] caffeine: Yes [facility] Anesthesia Checklist Patient Identification Patient Identification: Arm Band and Verbal (Name & ) Structural Data Admitted From: Home Planned Operative Procedure/s: Dual chamber pacemaker Consent for Planned Operative Procedure(s) Verified: Yes NPO Status Verified Time NPO: 00:00 Chart Verification Results Verified: CBC and BMP Additional verifications Anesthesia Reactions: No Hx Blood Transfusions: No Blood Transfusion Reaction: No Airway Assessment Mallampati Score:: Class II C-Spine Mobility Assessed: Yes TMJ Mobility Assessed: Yes Dentition: Edentulous Neurological Assessment Level of Consciousness: Awake Hx Seizures: No Numbness or tingling in extremities: No Anesthesia Plan Anesthesia Risk discussed: Yes Anesthesia Plan: Verified ASA Class: IV Anesthesia Type: MAC
[2023-03-20] MEDS: CEFAZOLIN SODIUM 1 GM in 0.9 % SODIUM CHLORIDE 50 ML IV (13:31)
[2023-03-20] MEDS: 0.9 % SODIUM CHLORIDE 1000ML 1,000 ML 25 ML IV (13:31)
[2023-03-20] MEDS: CEFAZOLIN 1GM VIAL 1 GM TP (13:31)
[2023-03-20] MEDS: LIDOCAINE 1% W/EPI 1:100,000 20ML VIAL 20 ML SQ (13:32)
--- NOTE | 2023-03-20 13:42 | XR_ITS ---
FINAL REPORT CLINICAL HISTORY: post pacemaker COMPARISON: 01/27/2023 FINDINGS: SINGLE-VIEW CHEST The heart size is normal. The mediastinum is normal. Left subclavian pacer is identified. The lungs are clear. There is no pneumothorax. IMPRESSION: Interval placement of a left subclavian pacer. Reviewed, Interpreted and Dictated by Juan J Camara III, MD Transcribed by Traci Lobato Authenticated and [facility]
== END 2023-03-20 15:35 | disposition home or self-care (01) ==
PROVIDERS: PCP Nurse Practitioner Family; Visit Provider Internal Medicine
DX: I49.5 Sick sinus syndrome (principal); I25.110 Atherosclerotic heart disease of native coronary artery with unstable angina pectoris; I48.0 Paroxysmal atrial fibrillation; I11.0 Hypertensive heart disease with heart failure; I50.21 Acute systolic (congestive) heart failure; F17.210 Nicotine dependence, cigarettes, uncomplicated; Z79.01 Long term (current) use of anticoagulants; Z79.899 Other long term (current) drug therapy; I25.5 Ischemic cardiomyopathy
CPT/HCPCS: 33208; 36415; 71045; 80048; 80307; 85025; C1785; C1898; J2704

== ENCOUNTER 2023-04-09 12:48 | Day surgery (SDC) | payer SELFPAY ==
[2023-04-09] VITALS (7 sets, daily range): BP systolic 89–127; BP diastolic 56–78; PULSE 77–79; RESP 16–19; TEMP 36.3–36.4; O2SAT 99–100
[2023-04-09] MEDS: LACTATED RINGERS 1000ML 1,000 ML 25 ML IV (13:22)
--- NOTE | 2023-04-09 14:29 | P.PNANES_ITS ---
[facility] Disclaimer: The information contained in this section may have been updated after the patient was seen, as this information can be updated by other users. Medical History Acute systolic (congestive) heart failure Anemia Angina pectoris Arm numbness Atrial fibrillation Atrial fibrillation with rapid ventricular response Atrial flutter Atypical chest pain Blood per rectum Bradycardia CAD (coronary artery disease) Cigarette smoker Congestive heart failure COPD (chronic obstructive pulmonary disease) COPD (chronic obstructive pulmonary disease) Diarrhea Dyspnea Dyspnea on exertion Edema Essential hypertension Family history of congestive heart failure GI bleed Habitual drug user Heartburn History of back pain History of pacemaker HLD (hyperlipidemia) Hyperlipidemia Hypertension Hypertension Hypokalemia Ischemic cardiomyopathy Lymph node enlargement Narrow complex tachycardia Paroxysmal A-fib Peripheral edema Presence of permanent cardiac pacemaker Prolonged Q-T interval on ECG Rectal bleeding Severe malnutrition SOB (shortness of breath) on exertion Tachy-liz syndrome Transaminitis Typical angina Unstable angina pectoris Family History Other Family history of cancer Family history of hyperlipidemia Family history of hypertension Family history of myocardial infarction Social History Smoking Status: Current every day smoker tobacco type: cigarettes packs per day: 1 second hand exposure: Yes alcohol intake: never substance use type: marijuana and other current occupational status: employed Travel in the last 8 weeks: None household members: significant other housing: house current occupation: [employer] caffeine: Yes [facility] Anesthesia Checklist Patient Identification Patient Identification: Arm Band Structural Data Admitted From: Home Planned Operative Procedure/s: EGD/Colonoscopy Consent for Planned Operative Procedure(s) Verified: Yes Verified Documents: Surgical Consent and History and Physical NPO Status Verified Time NPO: 00:00 Additional verifications Anesthesia Reactions: No Hx Blood Transfusions: No Blood Transfusion Reaction: No Airway Assessment Mallampati Score:: Class II C-Spine Mobility Assessed: Yes TMJ Mobility Assessed: Yes Dentition: Edentulous Neurological Assessment Level of Consciousness: Awake and Alert Anesthesia Plan Anesthesia Risk discussed: Yes Anesthesia Plan: Verified ASA Class: IV Anesthesia Type: MAC
--- NOTE | 2023-04-09 14:51 | HMH.SCOPE ---
Procedure: Date: 04/09/23 Patient Date of :: 1960 Procedure Performed:: Diagnostic EGD & bx Indications:: Severe iron deficiency anemia Performing Provider:: Jonathan Haley MD Referring Provider:: Alivia Haley APRN Sedation:: Propofol Procedure:: The gastroscope was gently passed through the incisoral orifice into the oral cavity and under direct visualization the esophagus was intubated. The endoscope was passed down the esophagus, through the stomach, and into the duodenum. Color, texture, mucosa, and anatomy of the esophagus, stomach, and duodenum were carefully examined with the scope. Findings:: Oropharynx: normal Esophagus: normal EG Junction: intact at 40 cm Cardia: normal Fundus: normal Body: normal Antrum: normal Duodenal bulb: normal Duodenum (second and third portion): Granular appearance, biopsies obtained for evaluation of celiac disease Impression: Overall normal EGD, No evidence of blood loss Specimens:: Small bowel Recommendations:: Avoid chronic use of NSAIDS, ASA products and anticoagulants Complications:: None Estimated blood obtained (mL): 0 Colonoscopy Component Colonoscopy Component Was a colonoscopy performed during today's procedure?: No
--- NOTE | 2023-04-09 14:55 | HMH.SCOPE ---
Procedure: Date: 04/09/23 Patient Date of :: 1960 Procedure Performed:: Diagnostic colonoscopy Indications:: Chronic recurrent anemia Performing Provider:: Jonathan Haley MD Referring Provider:: Alivia Haley APRN Sedation:: Propofol Procedure:: After placing the patient in the left lateral decubitus position, the colonoscopy was gently inserted into the rectum and under direct visualization advanced to the cecum which was identified by transillumination in the right lower quadrant, identification of the ileocecal valve, appendiceal orifice, and cecal strap. Color, texture, mucosa, and anatomy of the colon were carefully examined with the scope. Findings:: Anal canal: normal Rectum: normal Sigmoid colon: normal without polyps or inflammatory changes Descending colon: normal without polyps or inflammatory changes Splenic flexure: normal Transverse colon: normal without polyps or inflammatory changes Hepatic flexure: normal Ascending colon: normal without polyps or inflammatory changes Cecum: normal Terminal ileum: not visualized Impression: Normal colonoscopy to cecum No evidence of mucosal abnormalities noted Recommendations:: Complete GI evaluation with Pillcam exam Avoid NSAIDs, ASA products and anticoagulants if possible F/U GI Clinic Consider Hematology evaluation Complications:: None Estimated blood obtained (mL): 0 Colonoscopy Component Colonoscopy Component Was a colonoscopy performed during today's procedure?: Yes Recommended follow up colonoscopy of at least 10 years?: Yes
== END 2023-04-09 15:34 | disposition home or self-care (01) ==
PROVIDERS: PCP Nurse Practitioner Family; Visit Provider Internal Medicine Gastroenterology
PROC: 0DJ08ZZ Inspection of Upper Intestinal Tract, Via Natural or Artificial Opening Endoscopic (ICD-10-PCS; CPT 43235; principal; 2023-04-09 14:00)
DX: D50.9 Iron deficiency anemia, unspecified (principal); K90.0 Celiac disease
CPT/HCPCS: 43239; 45378

== ENCOUNTER 2023-04-30 09:47 | Outpatient (CLI) | payer SELFPAY ==
[2023-04-30 10:36] LABS: Basophils % 0.7 % (0.1-2.0); Eosinophils # 0.4 K/mm3 (0.0-0.4); Eosinophils % 7.3 % (0.1-12.0); Hematocrit 25.6 % (42.0-52.0); Hemoglobin 7.3 g/dL (14.1-18.0); Lymphocytes # 1.4 K/mm3 (0.7-4.5); Lymphocytes % 29.4 % (10-50); Mean Corpuscular HGB Conc 28.3 g/dL (31.8-35.4); Mean Corpuscular Hemoglobin 22.4 pg (27.0-31.2); Mean Corpuscular Volume 79.3 fl (80-94); Mean Platelet Volume 8.5 fl (7.4-10.4); Monocytes # 0.4 K/mm3 (0.1-1.0); Monocytes % 9.1 % (1.7-9.3); Neutrophils # 2.5 K/mm3 (1.8-7.8); Neutrophils % 53.3 % (37.0-80.0); Platelet Count 295 K/mm3 (142-424); Red Blood Count 3.23 M/mm3 (4.60-6.20); Red Cell Distribution Width 18.4 % (11.5-17.5); White Blood Count 4.8 K/mm3 (4.8-10.8)
[2023-04-30 10:52] LABS: Blood Urea Nitrogen 9 mg/dl (9-20); Calcium 8.4 mg/dl (8.4-10.2); Carbon Dioxide 25 mmol/L (22.0-30.0); Chloride 106 mmol/L (98-107); Estimated Glomerular Filt Rate 137 ml/min (>60); GFR (African American) 166 ML/MIN (>60); Glucose 83 mg/dl (74-100); Sodium 137 mmol/L (136-145)
== END 2023-04-30 23:59 ==
PROVIDERS: PCP Nurse Practitioner Family; Visit Provider Nurse Practitioner
DX: I25.119 Atherosclerotic heart disease of native coronary artery with unspecified angina pectoris (principal); I49.5 Sick sinus syndrome; E78.5 Hyperlipidemia, unspecified; I50.9 Heart failure, unspecified; I73.9 Peripheral vascular disease, unspecified; K92.2 Gastrointestinal hemorrhage, unspecified; L81.9 Disorder of pigmentation, unspecified; R06.00 Dyspnea, unspecified; R60.9 Edema, unspecified; Z95.0 Presence of cardiac pacemaker; K21.9 Gastro-esophageal reflux disease without esophagitis
CPT/HCPCS: 36415; 80048; 85025

== ENCOUNTER 2023-04-30 17:48 | Observation (INO) | payer SELFPAY ==
[2023-04-30] VITALS (16 sets, daily range): BP systolic 119–147; BP diastolic 63–79; PULSE 73–87; RESP 10–16; TEMP 36.7–37.1; O2SAT 97–100; BMI 18.8
[2023-04-30 18:21] LABS: Basophils % 0.5 % (0.1-2.0); Eosinophils # 0.3 K/mm3 (0.0-0.4); Eosinophils % 5.7 % (0.1-12.0); Hematocrit 24.2 % (42.0-52.0); Lymphocytes # 1.7 K/mm3 (0.7-4.5); Lymphocytes % 28.8 % (10-50); Mean Corpuscular HGB Conc 28.2 g/dL (31.8-35.4); Mean Corpuscular Hemoglobin 22.1 pg (27.0-31.2); Mean Corpuscular Volume 78.3 fl (80-94); Mean Platelet Volume 9.1 fl (7.4-10.4); Monocytes # 0.4 K/mm3 (0.1-1.0); Monocytes % 7.1 % (1.7-9.3); Neutrophils # 3.3 K/mm3 (1.8-7.8); Neutrophils % 57.8 % (37.0-80.0); Platelet Count 294 K/mm3 (142-424); Red Blood Count 3.09 M/mm3 (4.60-6.20); Red Cell Distribution Width 18.5 % (11.5-17.5); White Blood Count 5.7 K/mm3 (4.8-10.8)
[2023-04-30 18:22] LABS: Hemoglobin 6.8 g/dL (14.1-18.0)
--- NOTE | 2023-04-30 18:24 | ED_ITS ---
Discharge Plan Disposition Patient Disposition: Admitted Condition: Good Chief Complaint: Recheck/Abnormal Lab/Rx Prescriptions Prescriptions: No Action Entresto 24-26 mg tablet 1 tab PO BID torsemide 20 mg tablet 40 mg PO DAILY Qty: 180 3RF omeprazole 40 mg capsule,delayed release(DR/EC) 40 mg PO BID Qty: 60 2RF Jardiance 10 mg tablet 10 mg PO DAILY Qty: 30 2RF spironolactone 25 mg tablet 25 mg PO DAILY metoprolol succinate [Toprol XL] 100 mg tablet extended release 24 hr 100 mg PO DAILY Qty: 30 2RF Referrals Follow up/Referrals: Ben Ndiaye APRN [Primary Care Provider] - See instructions Clinical Impressions Clinical Impression: Acute anemia, BRBPR (bright red blood per rectum) Discharge ED Provider: Marie Foley Adult HPI General Chief complaint: Recheck/Abnormal Lab/Rx Stated complaint: sent by Dr. Perez low hemoglobin Time Seen by Provider: 04/30/23 18:02 Mode of Arrival: Ambulatory Source of Information: Patient Limitations: No Limitations Description of Symptoms (Recalled from ER Triage Doc. by RN): patient ambulatory to ED. He was seen in Dr. Ruby office today for follow up on pacemaker placement 3 weeks ago. Labwork showed Hgb was 7.[address] Perez wanted patient seen today for possible blood transfusion. History of Present Illness HPI narrative: Patient is a 62-year-old male with past medical history CHF, CAD, tachybradycardia syndrome status post pacemaker placement 3 weeks ago, COPD, hyperlipidemia, acute and chronic anemia presenting with low blood counts. Patient states that he was seen at Dr. Perez's office today and was having blood work performed as he has a history of anemia and was told his blood count was low and that he needed to come to the ED immediately. He does have a history of this recently and reports bright red blood in his bowel movements, has had a history of a colonoscopy and EGD 3 weeks ago which did not show anything and he was discharged ultimately. He does note intermittent bright red blood in his stools since that time. He was taken off of his blood thinners 3 weeks ago for his pacemaker procedure and has not put them back on. He does note some generalized weakness but otherwise reports no complaints today. Related Data Home Medications Medication Instructions Recorded Confirmed sacubitril 24 mg-valsartan 26 mg 1 tab PO BID 09/11/22 04/30/23 tablet (Entresto) spironolactone 25 mg tablet 25 mg PO DAILY 03/19/23 04/30/23 Previous Rx's Medication Instructions Recorded torsemide 20 mg tablet 40 mg PO DAILY Fluid #180 tabs 09/17/22 empagliflozin 10 mg tablet 10 mg PO DAILY #30 tabs 03/12/23 (Jardiance) omeprazole 40 mg capsule,delayed 40 mg PO BID #60 caps 03/12/23 release metoprolol succinate 100 mg 100 mg PO DAILY #30 tabs 04/30/23 tablet,extended release 24 hr (Toprol XL) Allergies Allergy/AdvReac Type Severity Reaction Status Date / Time No Known Allergies Allergy Verified 04/30/23 09:18 [facility] Disclaimer: The information contained in this section may have been updated after the patient was seen, as this information can be updated by other users. Medical History Acute systolic (congestive) heart failure Anemia Angina pectoris Arm numbness Atrial fibrillation Atrial fibrillation with rapid ventricular response Atrial flutter Atypical chest pain Blood per rectum Bradycardia CAD (coronary artery disease) Cigarette smoker Congestive heart failure COPD (chronic obstructive pulmonary disease) COPD (chronic obstructive pulmonary disease) Diarrhea Dyspnea Dyspnea on exertion Edema Essential hypertension Family history of congestive heart failure GI bleed Habitual drug user Heartburn History of back pain History of pacemaker HLD (hyperlipidemia) Hyperlipidemia Hypertension Hypertension Hypokalemia Ischemic cardiomyopathy Lymph node enlargement Narrow complex tachycardia Paroxysmal A-fib Peripheral edema Presence of permanent cardiac pacemaker Prolonged Q-T interval on ECG Rectal bleeding Severe malnutrition SOB (shortness of breath) on exertion Tachy-liz syndrome Transaminitis Typical angina Unstable angina pectoris Family History Other Family history of cancer Family history of hyperlipidemia Family history of hypertension Family history of myocardial infarction Social History Smoking Status: Current every day smoker tobacco type: cigarettes packs per day: 1 second hand exposure: Yes alcohol intake: never substance use type: marijuana and other current occupational status: employed Travel in the last 8 weeks: None household members: significant other housing: house current occupation: [employer] caffeine: Yes ROS Obtained: Yes All systems reviewed & no additional complaints except as documented Physical Exam General General appearance: alert and in no apparent distress Head Head exam: atraumatic, normocephalic and other (Chronically ill-appearing, pale) Chest Chest inspection: Present normal inspection, symmetric chest wall rise and other (Pacemaker over left chest) Respiratory Respiratory exam: Present normal lung sounds bilaterally; Absent respiratory distress Cardiovascular Cardiovascular exam: Present regular rate and normal rhythm Abdominal Exam Abdominal exam: Present soft; Absent tenderness Extremities Exam Extremities exam: Present normal inspection Neurological Exam Neurological exam: Present alert and oriented X3 Skin Skin exam: Present warm and dry Medical Decision Making Medical Records Medical records reviewed: Yes I reviewed the patient's medical records. Art Inquiry Pt receiving controlled substance: No Vital Signs: 04/30/23 17:49 04/30/23 18:30 Temperature 98.8 F Temperature Source Oral Pulse Rate 73 Pulse Rate [Left] 75 Respiratory Rate 14 11 L Blood Pressure 131/73 Blood Pressure [Right Arm] 139/71 Blood Pressure Mean [Right Arm] 93 Blood Pressure Source [Right Arm] Automatic Cuff Blood Pressure Position [Right Arm] Sitting 02 Sat by Pulse Oximetry 98 97 Oxygen Delivery Method Room Air Room Air Lab Data Lab results reviewed: Yes I reviewed the patient's lab results. Lab Results 04/30/23 18:15: WBC 5.7, RBC 3.09 L, Hgb 6.8 L*, Hct 24.2 L, MCV 78.3 L, MCH 22.1 L, MCHC 28.2 L, RDW 18.5 H, Plt Count 294, MPV 9.1, Neut % (Auto) 57.8, Lymph % (Auto) 28.8, [place] % (Auto) 7.1, Eos % (Auto) 5.7, Baso % (Auto) 0.5, Neut # (Auto) 3.3, Lymph # (Auto) 1.7, [place] # (Auto) 0.4, Eos # (Auto) 0.3, Baso # (Auto) 0.0, PT 11.5, INR 1.07, APTT 26.5, Sodium 138, Potassium 3.7, Chloride 108 H, Carbon Dioxide 23, Anion Gap 10.7, BUN 11, Creatinine 0.60 L, Estimated Creat Clear 117, Estimated GFR 137, Est GFR ( Amer) 166, Glucose 95, Calcium 8.6, Total Bilirubin 0.3, AST 31, ALT 20, Alkaline Phosphatase 138 H, Total Protein 6.3, Albumin 3.7, Globulin 2.6, Albumin/Globulin Ratio 1.4 04/30/23 18:25: Blood Type O Positive, Crossmatch (AHG) See Detail 04/30/23 18:15 04/30/23 18:15 Orders (Tests/Meds): ED MEDICATIONS Generic Name Dose Route Start Last Admin Trade Name Freq PRN Reason Stop Dose Admin Sodium Chloride 250 mls @ 25 mls/hr 04/30/23 18:30 Sod Chlor 0.9% 250ml Bag IV 05/01/23 18:29 .Q10H MU ORDERS Category Date Time Status Transfuse RBC's [Red Blood Cells] Stat [facility] 04/30/23 18:25 Results Type and Screen Stat [facility] 04/30/23 18:25 Results CBC w/Auto Diff [Complete Blood Count Auto Diff] Stat [facility] 04/30/23 18:15 Completed CMP [Comprehensive Metabolic Panel] Stat [facility] 04/30/23 18:15 Completed INR [Prothrombin Time INR] Stat [facility] 04/30/23 18:15 Completed PTT [Activated Partial Thrombo Time] Stat Lab 04/30/23 18:15 Completed Medical Decision Narrative: Patient is a 62-year-old male with past medical history CAD, COPD, tachybradycardia syndrome status post pacemaker 3 weeks ago, acute and chronic anemia presenting with low blood counts told to come in by 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 He does appear slightly pale and chronically ill but in no acute distress and hemodynamically stable. He does appear pale. Will obtain labs for further evaluation of anemia and likely need for transfusion of which she does have sign ificant history with recent procedures in the past. I did verbally consent him on presentation and he is agreeable with transfusion if needed. Patient's hemoglobin was notable for hemoglobin of 6.8, was 7.3 this morning. BMP nonactionable considering patient's persistent anemia, continual bright red blood per rectum and need for transfusion I did speak with Dr. Rachel and he was agreeable with likely performing a scope tomorrow for patient and recommended speaking with hospitalist service for admission. I did start patient on Protonix. I spoke with Dr. Zuniga with hospitalist service who is agreeable with admission to his service for continued management at this time. Critical Care Critical Care Time Critical Care Time: No
[2023-04-30 18:31] LABS: Alanine Aminotransferase 20 U/L (12-78); Albumin Level 3.7 g/dl (3.5-5.0); Albumin/Globulin Ratio 1.4 (1.1-1.8); Alkaline Phosphatase 138 U/L (38-126); Anion Gap 10.7 mEq/L (5-15); Aspartate Amino Transferase 31 U/L (17-59); Bilirubin,Total 0.3 mg/dl (0.2-1.3); Blood Urea Nitrogen 11 mg/dl (9-20); Calcium 8.6 mg/dl (8.4-10.2); Carbon Dioxide 23 mmol/L (22.0-30.0); Chloride 108 mmol/L (98-107); Creatinine Clearance Estimated 117 mL/min (50-200); Estimated Glomerular Filt Rate 137 ml/min (>60); GFR (African American) 166 ML/MIN (>60); Globulin 2.6 g/dL (1.3-3.2); Glucose 95 mg/dl (74-100); Potassium 3.7 mmoL/L (3.5-5.1); Sodium 138 mmol/L (136-145); Total Protein,Serum 6.3 g/dl (6.3-8.2)
[2023-04-30 18:32] LABS: Activated Partial Thrombo Time 26.5 seconds (22.8-30.6); INR 1.07 (0.9-1.1); Prothrombin Time 11.5 seconds (10.1-12.5)
--- NOTE | 2023-04-30 19:12 | PC.NURSE ---
Dr. Rachel paged and on phone with
--- NOTE | 2023-04-30 19:25 | PC.NURSE ---
rounded on patient, warm blanket given and call light placed within reach. No other needs at this time
--- NOTE | 2023-04-30 19:28 | EXP.HP ---
History of Present Illness *Admission Date: 04/30/23 *Reason for visit:: GI bleed/ anemia *History of present illness: This is a 62-year-old male with PMHx CHF, CAD, s/p stent tachy-bradycardia syndrome s/p pacemaker placement 3 weeks ago, COPD, hyperlipidemia, acute and chronic anemia presented for evaluation of anemia. Patient was referred from his cardiology office earlier for abnormal Hb. Patient has history of anemia that required blood transfusion in the past therefore he was prompted to come to the ED immediately. Patient also reported bright red blood in his bowel movements approximately 24hrs ago prior to admission. Of note, and per extensive chart review, patient has had a colonoscopy and EGD 3 weeks ago, and has been followed by GI. EGD showed granular appearance, Bx was taken to rule out celiac dz. Colosnoscopy was negative. He does note intermittent bright red blood in his stools since that time. He was taken off of his blood thinners 3 weeks ago for his pacemaker procedure and has not put them back on. patient on chronic Xarelto and plavix. Unclear if he been off of both, since then. He does note some generalized weakness, and presented somnolent and poorly cooperating with interview. Admitted for treatment and management. [facility] Disclaimer: The information contained in this section may have been updated after the patient was seen, as this information can be updated by other users. Medical History Acute systolic (congestive) heart failure Anemia Angina pectoris Arm numbness Atrial fibrillation Atrial fibrillation with rapid ventricular response Atrial flutter Atypical chest pain Blood per rectum Bradycardia CAD (coronary artery disease) Cigarette smoker Congestive heart failure COPD (chronic obstructive pulmonary disease) COPD (chronic obstructive pulmonary disease) Diarrhea Dyspnea Dyspnea on exertion Edema Essential hypertension Family history of congestive heart failure GI bleed Habitual drug user Heartburn History of back pain History of pacemaker HLD (hyperlipidemia) Hyperlipidemia Hypertension Hypertension Hypokalemia Ischemic cardiomyopathy Lymph node enlargement Narrow complex tachycardia Paroxysmal A-fib Peripheral edema Presence of permanent cardiac pacemaker Prolonged Q-T interval on ECG Rectal bleeding Severe malnutrition SOB (shortness of breath) on exertion Tachy-liz syndrome Transaminitis Typical angina Unstable angina pectoris Family History Other Family history of cancer Family history of hyperlipidemia Family history of hypertension Family history of myocardial infarction Social History (Updated 04/30/23 @ 22:01 by Eemly Farrell RN) Smoking Status: Current every day smoker tobacco type: cigarettes packs per day: 1 second hand exposure: Yes alcohol intake: never substance use type: marijuana and other current occupational status: employed Travel in the last 8 weeks: None household members: significant other housing: house current occupation: [employer] caffeine: Yes Review of Systems Review of Systems Review of systems:: pertinent systems reviewed and negative unless documented below Meds Home Medications and Allergies Home Medications Medication Instructions Recorded Confirmed Type sacubitril 24 mg-valsartan 26 mg 1 tab PO BID 09/11/22 04/30/23 History tablet (Entresto) torsemide 20 mg tablet 40 mg PO DAILY Fluid #180 tabs 09/17/22 04/30/23 Rx empagliflozin 10 mg tablet 10 mg PO DAILY #30 tabs 03/12/23 04/30/23 Rx (Jardiance) spironolactone 25 mg tablet 100 mg PO DAILY 03/19/23 05/01/23 History metoprolol succinate 100 mg 100 mg PO DAILY #30 tabs 04/30/23 04/30/23 Rx tablet,extended release 24 hr (Toprol XL) omeprazole 40 mg capsule,delayed 40 mg PO DAILY 05/01/23 05/01/23 History release New Prescriptions to Start Prescriptions: Allergies Allergy/AdvReac Type Severity Reaction Status Date / Time gluten Allergy Intermediate Verified 05/01/23 10:24 Exam Data for Last 24 hours Vital signs and Labs for Last 24 Hours: Temp Pulse Resp BP Pulse Ox O2 Del Method 98.8 F 73 11 L 131/73 97 Room Air 04/30/23 17:49 04/30/23 18:30 04/30/23 18:30 04/30/23 18:30 04/30/23 18:30 04/30/23 18:30 Laboratory Results - last 24 hr 04/30/23 18:15: WBC 5.7, RBC 3.09 L, Hgb 6.8 L*, Hct 24.2 L, MCV 78.3 L, MCH 22.1 L, MCHC 28.2 L, RDW 18.5 H, Plt Count 294, MPV 9.1, Neut % (Auto) 57.8, Lymph % (Auto) 28.8, Branch % (Auto) 7.1, Eos % (Auto) 5.7, Baso % (Auto) 0.5, Neut # (Auto) 3.3, Lymph # (Auto) 1.7, Branch # (Auto) 0.4, Eos # (Auto) 0.3, Baso # (Auto) 0.0, PT 11.5, INR 1.07, APTT 26.5, Sodium 138, Potassium 3.7, Chloride 108 H, Carbon Dioxide 23, Anion Gap 10.7, BUN 11, Creatinine 0.60 L, Estimated Creat Clear 117, Estimated GFR 137, Est GFR ( Amer) 166, Glucose 95, Calcium 8.6, Total Bilirubin 0.3, AST 31, ALT 20, Alkaline Phosphatase 138 H, Total Protein 6.3, Albumin 3.7, Globulin 2.6, Albumin/Globulin Ratio 1.4 04/30/23 18:25: Blood Type O Positive, Antibody Screen Negative, Crossmatch ([facility]) See Detail I & O for Last 24 hours: Intake & Output 04/27/23 04/28/23 04/29/23 04/30/23 23:59 23:59 23:59 23:59 Weight 63.049 kg Constitutional Constitutional: no acute distress *Routine HEENT Exam Head: Present normocephalic Eye: Present EOMI and PERRL ENT: Present mucous membranes moist *Routine Neck Exam Neck: Present supple; Absent lymphadenopathy *Routine Respiratory Exam Respiratory: Present CTA bilaterally *Routine Cardiovascular Exam Cardiovascular: Present RRR *Routine Abdominal Exam Abdominal: Present soft and normoactive bowel sounds; Absent tenderness *Routine Rectal Exam Rectal:: deferred *Routine Genitalia Exam Genitalia:: deferred *Routine Extremities Exam Extremities: Absent cyanosis, clubbing or edema *Routine Skin Exam Skin: Present warm; Absent rash *Routine Neurological Exam Neurological: Present alert and oriented X3 H&P: Result Imaging and Cardiology EKG: Status: image reviewed by me and Preliminary report Chest x-ray: Status: image reviewed by me, Preliminary report and final report Assessment and Plan *Assessment and plan (1) Anemia: Status: Acute Qualifiers: Anemia type: unspecified type Qualified Code(s): D64.9 - Anemia, unspecified Category: Medical Code(s): D64.9 - Anemia, unspecified (2) Rectal bleeding: Status: Inactive Category: Medical Code(s): K62.5 - Hemorrhage of anus and rectum (3) Atrial fibrillation: Status: Inactive Qualifiers: Atrial fibrillation type: unspecified Qualified Code(s): I48.91 - Unspecified atrial fibrillation Category: Medical Code(s): I48.91 - Unspecified atrial fibrillation (4) CAD (coronary artery disease): Status: Acute Qualifiers: Associated angina: with unstable angina Coronary Disease-Associated Artery/Lesion type: [place] artery [place] vs. transplanted heart: [place] heart Qualified Code(s): I25.110 - Atherosclerotic heart disease of [place] coronary artery with unstable angina pectoris Category: Medical Code(s): I25.10 - Atherosclerotic heart disease of [place] coronary artery without angina pectoris (5) Hyperlipidemia: Status: Acute Qualifiers: Hyperlipidemia type: unspecified Qualified Code(s): E78.5 - Hyperlipidemia, unspecified Category: Medical Code(s): E78.5 - Hyperlipidemia, unspecified (6) COPD (chronic obstructive pulmonary disease): Status: Acute Qualifiers: COPD type: unspecified COPD Qualified Code(s): J44.9 - Chronic obstructive pulmonary disease, unspecified Category: Medical Code(s): J44.9 - Chronic obstructive pulmonary disease, unspecified (7) Presence of permanent cardiac pacemaker: Status: Acute Category: Medical Code(s): Z95.0 - Presence of cardiac pacemaker Plan 62-year-old male with PMHx CHF, CAD, s/p stent tachy-bradycardia syndrome s/p pacemaker placement 3 weeks ago, COPD, hyperlipidemia, acute and chronic anemia presented for evaluation of anemia. Patient also reported bright red blood in his bowel movements approximately 24hrs ago prior to admission. Of note, and per extensive chart review, patient has had a colonoscopy and EGD 3 weeks ago, and has been followed by GI. EGD showed granular appearance, Bx was taken to rule out celiac dz. Colosnoscopy was negative. He does note intermittent bright red blood in his stools since that time. On arrival. HB was 6.8. started 1 unit of blood transfusion. CXR negative for acute process. Discussed with ER for admission. Plan as follow: Symptomatic Chronic anemia rectal bleed Start IV Protonix BID, Monitor hemoglobin post transfusion. 1 unit ordered consulted Surgery Hold antiplatelets anticoagulants-Xarelto, Plavix Iron study ordered. Ag for celiac disease ordered. Pending biopsy Atrial fibrillation, Xarelto on hold COPD CHF Hypertension Hyperlipidemia Conditions reviewed and currently stable Resume home metoprolol, Entresto DVT prophylaxis with SCDs only Full code Rounded on patient after nurse practitioner. Personally examined and interviewed patient. Agree with exam findings and care plan as documented.
--- NOTE | 2023-04-30 19:35 | PC.NURSE ---
Hospitalist accepted pt
--- NOTE | 2023-04-30 19:48 | PC.NURSE ---
ACUTE ADMISSION TO 207 WITH DX OF ANEMIA AND GI BLEED TO SERVICE OF THE HOSPITALIST.
--- NOTE | 2023-04-30 19:58 | PC.NURSE ---
Raffaele the Hospitalist in room talking with patient at this time.
--- NOTE | 2023-04-30 20:03 | PC.NURSE ---
RN at bedside starting unit of blood
--- NOTE | 2023-04-30 21:14 | PC.NURSE ---
PHONE REPORT RECEIVED FROM JUDI RN/ED NURSE. PATIENT IS A 62 YO MALE WITH GI BLEED. 1 ST UNIT PRBCs STARTED IN THE ER. WILL NEED A SECOND UNIT.
--- NOTE | 2023-04-30 21:14 | PC.NURSE ---
report called to AMY Guaman
--- NOTE | 2023-04-30 21:56 | PC.NURSE ---
ARRIVED TO THE FLOOR VIA STRETCHER AT 2124. BLOOS INFUSING WITHOUT DIFFICULTY.
[2023-04-30] MEDS: PANTOPRAZOLE 40MG VIAL 40 MG IV (23:34)
[2023-05-01] VITALS (15 sets, daily range): BP systolic 127–156; BP diastolic 66–92; PULSE 72–86; RESP 12–18; TEMP 36.3–37.1; O2SAT 95–99; BMI 16.9
[2023-05-01] MEDS: 0.9 % SODIUM CHLORIDE 250 ML 25 ML IV (01:01)
--- NOTE | 2023-05-01 03:30 | PC.NURSE ---
PATIENT NPO SINCE [place] FOR SURGICAL CONSULT. S/P TRANSFUSION 2 UNITS PRBCs. NO COMPLICATIONS. VITAL SIGNS STABLE. AFEBRILE. NO RECTAL BLEEDING THIS SHIFT.
[2023-05-01 04:41] LABS: Basophils % 0.5 % (0.1-2.0); Eosinophils # 0.3 K/mm3 (0.0-0.4); Eosinophils % 5.9 % (0.1-12.0); Hematocrit 31.1 % (42.0-52.0); Lymphocytes # 1.4 K/mm3 (0.7-4.5); Mean Corpuscular HGB Conc 29.1 g/dL (31.8-35.4); Mean Platelet Volume 8.4 fl (7.4-10.4); Monocytes # 0.5 K/mm3 (0.1-1.0); Monocytes % 8.8 % (1.7-9.3); Neutrophils % 58.7 % (37.0-80.0); Platelet Count 276 K/mm3 (142-424); Red Blood Count 3.94 M/mm3 (4.60-6.20); Red Cell Distribution Width 18.6 % (11.5-17.5); White Blood Count 5.2 K/mm3 (4.8-10.8)
[2023-05-01 04:43] LABS: Chloride 112 mmol/L (98-107)
[2023-05-01 04:44] LABS: Potassium 3.5 mmoL/L (3.5-5.1); Sodium 137 mmol/L (136-145)
[2023-05-01 04:46] LABS: Alanine Aminotransferase 17 U/L (12-78); Alkaline Phosphatase 155 U/L (38-126); Anion Gap 3.5 mEq/L (5-15); Aspartate Amino Transferase 28 U/L (17-59); Bilirubin,Total 0.6 mg/dl (0.2-1.3); Blood Urea Nitrogen 9 mg/dl (9-20); Carbon Dioxide 25 mmol/L (22.0-30.0); Creatinine Clearance Estimated 117 mL/min (50-200); Estimated Glomerular Filt Rate 137 ml/min (>60); GFR (African American) 166 ML/MIN (>60); Hemoglobin 9.1 g/dL (14.1-18.0)
[2023-05-01 04:47] LABS: Albumin Level 3.1 g/dl (3.5-5.0); Albumin/Globulin Ratio 1.2 (1.1-1.8); Calcium 8.2 mg/dl (8.4-10.2); Globulin 2.5 g/dL (1.3-3.2); Glucose 89 mg/dl (74-100); Magnesium 2.2 mg/dl (1.6-2.3); Total Protein,Serum 5.6 g/dl (6.3-8.2)
[2023-05-01 04:56] LABS: Iron 48 ug/dL (49-181)
[2023-05-01 05:05] LABS: Total Iron Binding Capacity 387 ug/dL (261-462)
[2023-05-01 05:32] LABS: Ferritin 8.48 ng/ml (17.9-464)
--- NOTE | 2023-05-01 05:53 | P.CONS_ITS ---
History of Present Illness *Admission Date: 04/30/23 *Reason for visit:: GI bleeding *History of present illness: Patient is a 62-year-old male from [facility] PMHx CHF, CAD, s/p stent tachy-bradycardia syndrome s/p pacemaker placement 3 weeks ago, COPD, hyperlipidemia, acute and chronic anemia presented for evaluation of anemia. Patient was referred from his cardiology office earlier for abnormal Hb. Patient has history of anemia that required blood transfusion in the past therefore he was prompted to come to the ED immediately. Patient also reported bright red blood in his bowel movements approximately 24hrs ago prior to admission. He has a history of anemia and underwent upper endoscopy as well as colonoscopy by Dr. Haley on 04/09/2023. Upper endoscopy was normal reportedly. Biopsies were performed to evaluate for celiac disease and given the findings they are supportive of celiac disease in the appropriate clinical and laboratory setting according to the pathology report. Compatible with Lopez type IIIb. Colonoscopy was reportedly normal to the cecum. Of note, he underwent upper endoscopy with Dr. Lozoya on 02/05/2023 at which time he was admitted with symptomatic anemia with a hemoglobin of 4.8 which was relatively unremarkable other than some patchy gastritis. Biopsies at that time revealed mild chronic inactive gastritis negative for H. pylori. It is somewhat unclear if the patient has been on anticoagulants. He states that he has had relatively fresh intermittent symptoms consistent with hematochezia for years . [facility] Disclaimer: The information contained in this section may have been updated after the patient was seen, as this information can be updated by other users. Medical History Acute systolic (congestive) heart failure Anemia Angina pectoris Arm numbness Atrial fibrillation Atrial fibrillation with rapid ventricular response Atrial flutter Atypical chest pain Blood per rectum Bradycardia CAD (coronary artery disease) Cigarette smoker Congestive heart failure COPD (chronic obstructive pulmonary disease) COPD (chronic obstructive pulmonary disease) Diarrhea Dyspnea Dyspnea on exertion Edema Essential hypertension Family history of congestive heart failure GI bleed Habitual drug user Heartburn History of back pain History of pacemaker HLD (hyperlipidemia) Hyperlipidemia Hypertension Hypertension Hypokalemia Ischemic cardiomyopathy Lymph node enlargement Narrow complex tachycardia Paroxysmal A-fib Peripheral edema Presence of permanent cardiac pacemaker Prolonged Q-T interval on ECG Rectal bleeding Severe malnutrition SOB (shortness of breath) on exertion Tachy-liz syndrome Transaminitis Typical angina Unstable angina pectoris Family History Other Family history of cancer Family history of hyperlipidemia Family history of hypertension Family history of myocardial infarction Social History (Updated 04/30/23 @ 22:01 by Emely Farrell RN) Smoking Status: Current every day smoker tobacco type: cigarettes packs per day: 1 second hand exposure: Yes alcohol intake: never substance use type: marijuana and other current occupational status: employed Travel in the last 8 weeks: None household members: significant other housing: house current occupation: [employer] caffeine: Yes Meds Home Medications and Allergies Home Medications Medication Instructions Recorded Confirmed Type sacubitril 24 mg-valsartan 26 mg 1 tab PO BID 09/11/22 04/30/23 History tablet (Entresto) torsemide 20 mg tablet 40 mg PO DAILY Fluid #180 tabs 09/17/22 04/30/23 Rx empagliflozin 10 mg tablet 10 mg PO DAILY #30 tabs 03/12/23 04/30/23 Rx (Jardiance) omeprazole 40 mg capsule,delayed 40 mg PO BID #60 caps 03/12/23 04/30/23 Rx release spironolactone 25 mg tablet 25 mg PO DAILY 03/19/23 04/30/23 History metoprolol succinate 100 mg 100 mg PO DAILY #30 tabs 04/30/23 04/30/23 Rx tablet,extended release 24 hr (Toprol XL) New Prescriptions to Start Prescriptions: Allergies Allergy/AdvReac Type Severity Reaction Status Date / Time No Known Allergies Allergy Verified 04/30/23 09:18 Exam (Inpt) Vital signs and Labs for Last 24 Hours: Temp Pulse Resp BP Pulse Ox O2 Del Method 97.9 F 76 16 144/76 H 98 Room Air 05/01/23 04:20 05/01/23 04:20 05/01/23 04:20 05/01/23 04:20 05/01/23 04:20 05/01/23 05:00 Laboratory Results - last 24 hr 04/30/23 18:15: WBC 5.7, RBC 3.09 L, Hgb 6.8 L*, Hct 24.2 L, MCV 78.3 L, MCH 22.1 L, MCHC 28.2 L, RDW 18.5 H, Plt Count 294, MPV 9.1, Neut % (Auto) 57.8, Lymph % (Auto) 28.8, [place] % (Auto) 7.1, Eos % (Auto) 5.7, Baso % (Auto) 0.5, Neut # (Auto) 3.3, Lymph # (Auto) 1.7, [place] # (Auto) 0.4, Eos # (Auto) 0.3, Baso # (Auto) 0.0, PT 11.5, INR 1.07, APTT 26.5, Sodium 138, Potassium 3.7, Chloride 108 H, Carbon Dioxide 23, Anion Gap 10.7, BUN 11, Creatinine 0.60 L, Estimated Creat Clear 117, Estimated GFR 137, Est GFR ( Amer) 166, Glucose 95, Calcium 8.6, Total Bilirubin 0.3, AST 31, ALT 20, Alkaline Phosphatase 138 H, Total Protein 6.3, Albumin 3.7, Globulin 2.6, Albumin/Globulin Ratio 1.4 04/30/23 18:25: Blood Type O Positive, Antibody Screen Negative, Crossmatch ([facility]) See Detail 05/01/23 04:30: WBC 5.2, RBC 3.94 L D, Hgb 9.1 L D, Hct 31.1 L, MCV 79.0 L, MCH 23.0 L, MCHC 29.1 L, RDW 18.6 H, Plt Count 276, MPV 8.4, Neut % (Auto) 58.7, Lymph % (Auto) 26.0, [place] % (Auto) 8.8, Eos % (Auto) 5.9, Baso % (Auto) 0.5, Ne ut # (Auto) 3.0, Lymph # (Auto) 1.4, [place] # (Auto) 0.5, Eos # (Auto) 0.3, Baso # (Auto) 0.0, Sodium 137, Potassium 3.5, Chloride 112 H, Carbon Dioxide 25, Anion Gap 3.5 L, BUN 9, Creatinine 0.60 L, Estimated Creat Clear 117, Estimated GFR 137, Est GFR ( Amer) 166, Glucose 89, Calcium 8.2 L, Magnesium 2.2, Iron 48 L, TIBC 387, Iron Saturation 12.11673 L, Ferritin 8.48 L D, Total Bilirubin 0.6, AST 28, ALT 17, Alkaline Phosphatase 155 H, Total Protein 5.6 L, Albumin 3.1 L D, Globulin 2.5, Albumin/Globulin Ratio 1.2 I & O for Labs for Last 24 Hours: Intake & Output 04/28/23 04/29/23 04/30/23 05/01/23 11:59 11:59 11:59 11:59 Intake Total 900 / 900 Balance 900 / 900 Weight 125 lb 3.561 oz Constitutional: no acute distress Head: Present normocephalic Cardiac: Present Reg Rate and Rhythm GI: Present soft Results Labs 05/01/23 04:30 05/01/23 04:30 Labs: Laboratory Results - last 24 hr 04/30/23 18:15: WBC 5.7, RBC 3.09 L, Hgb 6.8 L*, Hct 24.2 L, MCV 78.3 L, MCH 22.1 L, MCHC 28.2 L, RDW 18.5 H, Plt Count 294, MPV 9.1, Neut % (Auto) 57.8, Lymph % (Auto) 28.8, [place] % (Auto) 7.1, Eos % (Auto) 5.7, Baso % (Auto) 0.5, Neut # (Auto) 3.3, Lymph # (Auto) 1.7, [place] # (Auto) 0.4, Eos # (Auto) 0.3, Baso # (Auto) 0.0, PT 11.5, INR 1.07, APTT 26.5, Sodium 138, Potassium 3.7, Chloride 108 H, Carbon Dioxide 23, Anion Gap 10.7, BUN 11, Creatinine 0.60 L, Estimated Creat Clear 117, Estimated GFR 137, Est GFR ( Amer) 166, Glucose 95, Calcium 8.6, Total Bilirubin 0.3, AST 31, ALT 20, Alkaline Phosphatase 138 H, Total Protein 6.3, Albumin 3.7, Globulin 2.6, Albumin/Globulin Ratio 1.4 04/30/23 18:25: Blood Type O Positive, Antibody Screen Negative, Crossmatch (G) See Detail 05/01/23 04:30: WBC 5.2, RBC 3.94 L D, Hgb 9.1 L D, Hct 31.1 L, MCV 79.0 L, MCH 23.0 L, MCHC 29.1 L, RDW 18.6 H, Plt Count 276, MPV 8.4, Neut % (Auto) 58.7, Lymph % (Auto) 26.0, [place] % (Auto) 8.8, Eos % (Auto) 5.9, Baso % (Auto) 0.5, Neut # (Auto) 3.0, Lymph # (Auto) 1.4, [place] # (Auto) 0.5, Eos # (Auto) 0.3, Baso # (Auto) 0.0, Sodium 137, Potassium 3.5, Chloride 112 H, Carbon Dioxide 25, Anion Gap 3.5 L, BUN 9, Creatinine 0.60 L, Estimated Creat Clear 117, Estimated GFR 137, Est GFR ( Amer) 166, Glucose 89, Calcium 8.2 L, Magnesium 2.2, Iron 48 L, TIBC 387, Iron Saturation 12.98038 L, Ferritin 8.48 L D, Total Bi lirubin 0.6, AST 28, ALT 17, Alkaline Phosphatase 155 H, Total Protein 5.6 L, Albumin 3.1 L D, Globulin 2.5, Albumin/Globulin Ratio 1.2 Assessment and Plan *Assessment and plan (1) Acute anemia: Status: Acute Category: Medical Code(s): D64.9 - Anemia, unspecified Plan Patient has acute exacerbation of chronic anemia of uncertain etiology. He has undergone thorough evaluation with endoscopic procedures over the last several months including EGD and colonoscopy by Dr. Haley 3 weeks ago which is unr emarkable reportedly. Biopsies of the duodenum were consistent with celiac disease. I feel that repeating upper endoscopy at this time would be low yield. He may require outpatient hematology and gastroenterology follow-up in the near future.
--- NOTE | 2023-05-01 07:41 | EXP.ACUTE.PN ---
Subjective *Date: 05/01/23 *Time: 20:40 Interval history: Denies any nausea or morning. Wanting to eat this morning. No further bleeding. Hemoglobin responded well to transfusion. Hemodynamically stable. Discussed case with surgery this morning. Medical Exam Vital signs and Labs for Last 24 Hours: Vital Signs Temp Pulse Pulse Resp BP BP Pulse Ox 05/01/23 06:36 05/01/23 05:00 05/01/23 04:20 97.9 F 76 16 144/76 H 98 05/01/23 03:00 05/01/23 03:20 98.4 F 72 16 146/75 H 97 05/01/23 03:08 98.0 F 79 16 140/77 97 05/01/23 02:08 97.7 F 78 16 134/68 98 05/01/23 01:53 98.8 F 75 14 128/71 98 05/01/23 01:38 98.8 F 78 14 132/75 97 05/01/23 01:00 05/01/23 01:23 97.9 F 82 12 127/70 97 05/01/23 01:18 97.7 F 81 14 130/73 97 05/01/23 01:13 97.9 F 72 16 127/68 97 05/01/23 01:08 97.4 F L 86 16 133/70 95 05/01/23 00:59 97.4 F L 79 16 127/66 95 04/30/23 23:50 98.0 F 84 14 146/68 H 99 04/30/23 23:00 04/30/23 22:50 98.4 F 78 16 147/76 H 98 04/30/23 21:25 98 04/30/23 22:00 98.6 F 78 16 144/69 H 97 04/30/23 21:35 75 12 125/63 99 04/30/23 21:29 98.0 F 77 10 L 119/65 04/30/23 21:00 98.0 F 77 12 140/76 98 04/30/23 20:45 98.1 F 81 13 119/65 97 04/30/23 20:30 98.0 F 76 10 L 127/67 98 04/30/23 18:30 73 11 L 131/73 97 04/30/23 20:15 98.0 F 77 12 144/79 H 100 04/30/23 20:10 98.1 F 79 10 L 140/76 99 04/30/23 20:05 98.2 F 82 10 L 138/77 99 04/30/23 20:00 98.2 F 87 11 L 135/75 98 04/30/23 19:58 98.2 F 77 10 L 138/79 98 04/30/23 18:30 73 11 L 131/73 97 04/30/23 17:49 98.8 F 75 14 139/71 98 O2 Del Method 05/01/23 06:36 Room Air 05/01/23 05:00 Room Air 05/01/23 04:20 05/01/23 03:00 Room Air 05/01/23 03:20 05/01/23 03:08 05/01/23 02:08 05/01/23 01:53 05/01/23 01:38 05/01/23 01:00 Room Air 05/01/23 01:23 05/01/23 01:18 05/01/23 01:13 05/01/23 01:08 05/01/23 00:59 04/30/23 23:50 04/30/23 23:00 Room Air 04/30/23 22:50 04/30/23 21:25 Room Air 04/30/23 22:00 04/30/23 21:35 Room Air 04/30/23 21:29 Room Air 04/30/23 21:00 04/30/23 20:45 04/30/23 20:30 04/30/23 18:30 Room Air 04/30/23 20:15 04/30/23 20:10 04/30/23 20:05 04/30/23 20:00 04/30/23 19:58 04/30/23 18:30 Room Air 04/30/23 17:49 Room Air Intake and Output 04/30/23 04/30/23 05/01/23 15:59 23:59 07:59 Intake Total 250 / 650 650 / 650 Output Total 0 / 0 Balance 250 / 650 650 / 650 Intake: Intake, Other Amount 250 / 250 Intake, Total IV Amount 150 / 150 0.9 % Sodium Chloride 250 ml @ 150 / 150 25 mls/hr IV .Q10H [facility] Rx#: [id number] Intake (Blood Product) Amt 250 / 250 250 / 250 Red Blood Cells Unit 250 / 250 [id number] Red Blood Cells Unit 250 / 250 [id number] Output: Output, Urine Amount 0 / 0 Other: Number of Unmeasured Voids 1 Weight 63.049 kg 56.8 kg Patient Weight 05/01/23 23:59 Weight 56.8 kg Laboratory Results - last 24 hr 04/30/23 18:15: WBC 5.7, RBC 3.09 L, Hgb 6.8 L*, Hct 24.2 L, MCV 78.3 L, MCH 22.1 L, MCHC 28.2 L, RDW 18.5 H, Plt Count 294, MPV 9.1, Neut % (Auto) 57.8, Lymph % (Auto) 28.8, [place] % (Auto) 7.1, Eos % (Auto) 5.7, Baso % (Auto) 0.5, Neut # (Auto) 3.3, Lymph # (Auto) 1.7, [place] # (Auto) 0.4, Eos # (Auto) 0.3, Baso # (Auto) 0.0, PT 11.5, INR 1.07, APTT 26.5, Sodium 138, Potassium 3.7, Chloride 108 H, Carbon Dioxide 23, Anion Gap 10.7, BUN 11, Creatinine 0.60 L, Estimated Creat Clear 117, Estimated GFR 137, Est GFR ( Amer) 166, Glucose 95, Calcium 8.6, Total Bilirubin 0.3, AST 31, ALT 20, Alkaline Phosphatase 138 H, Total Protein 6.3, Albumin 3.7, Globulin 2.6, Albumin/Globulin Ratio 1.4 04/30/23 18:25: Blood Type O Positive, Antibody Screen Negative, Crossmatch ([facility]) See Detail 05/01/23 04:30: WBC 5.2, RBC 3.94 L D, Hgb 9.1 L D, Hct 31.1 L, MCV 79.0 L, MCH 23.0 L, MCHC 29.1 L, RDW 18.6 H, Plt Count 276, MPV 8.4, Neut % (Auto) 58.7, Lymph % (Auto) 26.0, [place] % (Auto) 8.8, Eos % (Auto) 5.9, Baso % (Auto) 0.5, Neut # (Auto) 3.0, Lymph # (Auto) 1.4, [place] # (Auto) 0.5, Eos # (Auto) 0.3, Baso # (Auto) 0.0, Sodium 137, Potassium 3.5, Chloride 112 H, Carbon Dioxide 25, Anion Gap 3.5 L, BUN 9, Creatinine 0.60 L, Estimated Creat Clear 117, Estimated GFR 137, Est GFR ( Amer) 166, Glucose 89, Calcium 8.2 L, Magnesium 2.2, Iron 48 L, TIBC 387, Iron Saturation 12.90892 L, Ferritin 8.48 L D, Total Bilirubin 0.6, AST 28, ALT 17, Alkaline Phosphatase 155 H, Total Protein 5.6 L, Albumin 3.1 L D, Globulin 2.5, Albumin/Globulin Ratio 1.2 I & O for Labs for Last 24 Hours: Intake & Output 04/28/23 04/29/23 04/30/23 05/01/23 23:59 23:59 23:59 23:59 Intake Total 250 / 650 650 / 650 Output Total 0 / 0 Balance 250 / 650 650 / 650 Weight 63.049 kg 56.8 kg Constitutional: Present no acute distress, thin and chronically ill appearing Head: Present atraumatic Neck: Present normal inspection Respiratory: Present normal respiratory effort; Absent rhonchi, wheezes or crackles Cardiac: Present Reg Rate and Rhythm GI: Present soft; Absent distention or tenderness Extremities: Present normal inspection and full ROM Skin: Present intact; Absent erythema Neuro: Present Grossly Intact, alert, awake, oriented x 3 and moves all extremities Assessment and Plan *Assessment and plan (1) Anemia: Status: Acute Qualifiers: Anemia type: unspecified type Qualified Code(s): D64.9 - Anemia, unspecified Category: Medical Code(s): D64.9 - Anemia, unspecified (2) Rectal bleeding: Status: Inactive Category: Medical Code(s): K62.5 - Hemorrhage of anus and rectum (3) Atrial fibrillation: Status: Inactive Qualifiers: Atrial fibrillation type: unspecified Qualified Code(s): I48.91 - Unspecified atrial fibrillation Category: Medical Code(s): I48.91 - Unspecified atrial fibrillation (4) CAD (coronary artery disease): Status: Acute Qualifiers: Associated angina: with unstable angina Coronary Disease-Associated Artery/Lesion type: [place] artery [place] vs. transplanted heart: [place] heart Qualified Code(s): I25.110 - Atherosclerotic heart disease of [place] coronary artery with unstable angina pectoris Category: Medical Code(s): I25.10 - Atherosclerotic heart disease of [place] coronary artery without angina pectoris (5) Hyperlipidemia: Status: Acute Qualifiers: Hyperlipidemia type: unspecified Qualified Code(s): E78.5 - Hyperlipidemia, unspecified Category: Medical Code(s): E78.5 - Hyperlipidemia, unspecified (6) COPD (chronic obstructive pulmonary disease): Status: Acute Qualifiers: COPD type: unspecified COPD Qualified Code(s): J44.9 - Chronic obstructive pulmonary disease, unspecified Category: Medical Code(s): J44.9 - Chronic obstructive pulmonary disease, unspecified (7) Presence of permanent cardiac pacemaker: Status: Acute Category: Medical Code(s): Z95.0 - Presence of cardiac pacemaker Plan 62-year-old male with PMHx CHF, CAD, s/p stent tachy-bradycardia syndrome s/p pacemaker placement 3 weeks ago, COPD, hyperlipidemia, acute and chronic anemia presented for evaluation of anemia. Patient also reported bright red blood in his bowel movements approximately 24hrs ago prior to admission. Of note, and per extensive chart review, patient has had a colonoscopy and EGD 3 weeks ago, and has been followed by GI. EGD showed granular appearance, Bx was taken to rule out celiac dz. Colosnoscopy was negative. He does note intermittent bright red blood in his stools since that time. On arrival. HB was 6.8. started 1 unit of blood transfusion. Hemoglobin this morning 9.1. No further bleeding overnight. Appears stable, discussed case with surgery. Monitor for stability of hemoglobin. Recent scopes did not show significant bleeding. Strong concern for celiac based on chart review. Continues to require inpatient management. Problems addressed as follows: Symptomatic Chronic anemia rectal bleed Continue Protonix IV twice daily. repeat hemoglobin 9.1. Monitor every 12 hours. If remains stable, anticipate discharge tomorrow with outpatient plan for follow-up with GI for capsule endoscopy and referral to heme-onc for further management of anemia. Iron studies significantly low with ferritin of 8.5, TIBC 387, iron saturation 12.4%. 1 dose of Venofer 200 mg IV today Discussed case with surgery, will hold on scope at this time. No urgent need given response to transfusion and no active bleeding. Hold antiplatelets anticoagulants-Xarelto, Plavix Ag for celiac disease ordered Peripheral smear pending -Repeat CBC, CMP, magnesium ordered for the morning. - Nutrition consulted to assist with gluten free diet instruction/counseling Atrial fibrillation, Xarelto on hold COPD CHF Hypertension Hyperlipidemia -Continue home metoprolol, Entresto DVT prophylaxis with SCDs only Regular diet Full code
--- NOTE | 2023-05-01 07:42 | HMH.PHAINT1 ---
Pharmacy Intervention Comments: Verified home medications using external fill history and spoke with patient at bedside.
[2023-05-01] MEDS: IRON SUCROSE COMPLEX 200 MG in 0.9 % SODIUM CHLORIDE 100 ML 220 MG IV (08:53)
[2023-05-01] MEDS: PANTOPRAZOLE 40MG VIAL 40 MG IV ×2 (08:53→20:31)
--- NOTE | 2023-05-01 12:52 | DIET.NUTRFU ---
RD consulted to provide diet information for celiac disease. Patient was tests for celiac dz this admit. Upon visit patient reported he was aware he had celiac dz and should be following a gluten free diet. He said he had been educated previously. He was not very receptive on education. RD tried to review daily food intake to get a better idea of what foods were consumed in his diet and he just said what foods he has available. He works at a [employer] and snacks on junk food through the day. Gave him suggests of foods he can eat and foods to avoid or buy gluten Free brans. He had no questions. He already had chips at bedside even though he was aware they contained gluten. Provided handouts and contact information. He also has a follow-up scheduled with Dr Haley
--- NOTE | 2023-05-01 16:38 | PC.NURSE ---
patient remains alert and oriented x4 and VSS. Hgb has improved to 9.1 as of this morning. Cardiac/gluten-free diet ordered for lunch and has been tolerated well so far.
[2023-05-01 20:06] LABS: Hematocrit 30.4 % (42.0-52.0); Hemoglobin 9.1 g/dL (14.1-18.0)
[2023-05-01] MEDS: SODIUM CHLORIDE 0.9% 10ML FLUSH SYRINGE 10 ML IV (20:31)
--- NOTE | 2023-05-02 03:26 | PC.NURSE ---
NO C/O PAIN OR SOA. NO RECTAL BLEEDING. VSS/AFEBRILE.
[2023-05-02 04:00] VITALS: BP 143/77; PULSE 72; RESP 16; TEMP 36.4; O2SAT 98; BMI 17.9
--- NOTE | 2023-05-02 07:57 | P.DS_ITS ---
General Admission date:: 04/30/23 Discharge date: 05/02/23 HPI HPI HPI: Patient is a 62-year-old male from [facility] PMHx CHF, CAD, s/p stent tachy-bradycardia syndrome s/p pacemaker placement 3 weeks ago, COPD, hyperlipidemia, acute and chronic anemia presented for evaluation of anemia. Patient was referred from his cardiology office earlier for abnormal Hb. Patient has history of anemia that required blood transfusion in the past therefore he was prompted to come to the ED immediately. Patient also reported bright red blood in his bowel movements approximately 24hrs ago prior to admission. He has a history of anemia and underwent upper endoscopy as well as colonoscopy by Dr. Haley on 04/09/2023. Upper endoscopy was normal reportedly. Biopsies were performed to evaluate for celiac disease and given the findings they are supportive of celiac disease in the appropriate clinical and laboratory setting according to the pathology report. Compatible with [place] type IIIb. Colonoscopy was reportedly normal to the cecum. Of note, he underwent upper endoscopy with Dr. Lozoya on 02/05/2023 at which time he was admitted with symptomatic anemia with a hemoglobin of 4.8 which was relatively unremarkable other than some patchy gastritis. Biopsies at that time revealed mild chronic inactive gastritis negative for H. pylori. It is somewhat unclear if the patient has been on anticoagulants. He states that he has had relatively fresh intermittent symptoms consistent with hematochezia for years . Hospital Course Hospital Course Hospital Course: 62-year-old male with PMHx CHF, CAD, s/p stent tachy-bradycardia syndrome s/p pacemaker placement 3 weeks ago, COPD, hyperlipidemia, acute and chronic anemia presented for evaluation of anemia. Patient also reported bright red blood in his bowel movements approximately 24hrs ago prior to admission. Of note, and per extensive chart review, patient has had a colonoscopy and EGD 3 weeks ago, and has been followed by GI. EGD showed granular appearance, Bx was taken to rule out celiac dz. Colosnoscopy was negative. He does note intermittent bright red blood in his stools since that time. On arrival. HB was 6.8. started 1 unit of blood transfusion. Hemoglobin this morning 9.1. No further bleeding during admission. Repeat hemoglobin stable. Discussed case with surgery, recommend continued outpatient follow-up and workup. Hemodynamically stable. In light of recent scopes not showing significant bleeding, stable hemoglobin, strong concer n for celiac based disease as his underlying etiology, stable to discharge with close follow-up. Problems addressed as follows: Symptomatic Chronic anemia rectal bleed Patient initiated on Protonix twice daily. Initial hemoglobin 6.8, responded well to 1 unit of packed red blood cells. Hemoglobin 9.1 after transfusion. Improved to 9.4 morning of discharge. Remained hemodynamically stable with no other signs of bleeding. Discussed case with surgery, consulted during admission. Recommended that given his clinical stability, in light of recent scopes over the past few months by GI and recommendations for outpatient capsule endoscopy, would benefit from close follow-up with GI and heme-onc for further management of his anemia. Iron studies obtained showing low with ferritin of 8.5, TIBC 387, iron saturation 12.4%. 1 dose of Venofer 200 mg IV administered on 05/01. Will initiate oral iron replacement daily. If fails to improve with oral replacement will need to complete Venofer dose with 4 more IV doses. Continue to hold Xarelto and Plavix. Celiac workup initiated with antigliadin antibodies and anti-tTG antibodies pending at discharge. Peripheral smear obtained and pending. Tolerating p.o. intake. Nutrition consulted and counseled on gluten-free diet. Stable to discharge home with close follow-up. Continuing omeprazole at discharge Continued home medications for blood pressure and A-fib including torsemide, spironolactone, Entresto, metoprolol, Jardiance. Exam Data for Last 24 hours Vital signs and Labs for Last 24 Hours: Temp Pulse Resp BP Pulse Ox O2 Del Method 97.5 F L 72 16 143/77 H 98 Room Air 05/02/23 04:00 05/02/23 04:00 05/02/23 04:00 05/02/23 04:00 05/02/23 04:00 05/02/23 06:18 Laboratory Results - last 24 hr 05/01/23 19:40: Hgb 9.1 L, Hct 30.4 L I & O for Last 24 hours: Intake & Output 04/29/23 04/30/23 05/01/23 05/02/23 23:59 23:59 23:59 23:59 Intake Total 250 / 650 1130 / 1490 360 / 360 Output Total Balance 250 / 650 1129 / 1489 359 / 359 Weight 63.049 kg 56.8 kg 59.874 kg Constitutional Constitutional: no acute distress *Routine HEENT Exam Head: Present normocephalic Eye: Present EOMI and PERRL ENT: Present mucous membranes moist *Routine Neck Exam Neck: Present supple; Absent lymphadenopathy *Routine Respiratory Exam Respiratory: Present CTA bilaterally; Absent rhonchi, wheezes or crackles *Routine Cardiovascular Exam Cardiovascular: Present RRR *Routine Abdominal Exam Abdominal: Present soft and normoactive bowel sounds; Absent tenderness, distended or rebound *Routine Rectal Exam Patient deferred: visual exam *Routine Exam Patient deferred: penile exam *Routine Extremities Exam Extremities: Absent cyanosis, clubbing or edema *Routine Skin Exam Skin: Present warm; Absent rash *Routine Neurological Exam Neurological: Present alert, oriented X3 and moving all extremities; Absent altered mental status Results Data Completed and Pending Labs on day of discharge: Labs from last 24 hours 05/01/23 19:40 Hgb 9.1 L Hct 30.4 L DS: Diagnosis Discharge Diagnosis (1) Anemia: Status: Acute Code(s): D64.9 - Anemia, unspecified Qualifiers: Anemia type: unspecified type Qualified Code(s): D64.9 - Anemia, unspecified (2) Rectal bleeding: Status: Inactive Code(s): K62.5 - Hemorrhage of anus and rectum (3) Atrial fibrillation: Status: Inactive Code(s): I48.91 - Unspecified atrial fibrillation Qualifiers: Atrial fibrillation type: unspecified Qualified Code(s): I48.91 - Unspecified atrial fibrillation (4) CAD (coronary artery disease): Status: Acute Code(s): I25.10 - Atherosclerotic heart disease of [place] coronary artery without angina pectoris Qualifiers: Associated angina: with unstable angina Coronary Disease-Associated Artery/Lesion type: [place] artery [place] vs. transplanted heart: [place] heart Qualified Code(s): I25.110 - Atherosclerotic heart disease of [place] coronary artery with unstable angina pectoris (5) Hyperlipidemia: Status: Acute Code(s): E78.5 - Hyperlipidemia, unspecified Qualifiers: Hyperlipidemia type: unspecified Qualified Code(s): E78.5 - Hyperlipidemia, unspecified (6) COPD (chronic obstructive pulmonary disease): Status: Acute Code(s): J44.9 - Chronic obstructive pulmonary disease, unspecified Qualifiers: COPD type: unspecified COPD Qualified Code(s): J44.9 - Chronic obstructive pulmonary disease, unspecified (7) Presence of permanent cardiac pacemaker: Status: Acute Code(s): Z95.0 - Presence of cardiac pacemaker Meds Home Medications and Allergies Home Medications Medication Instructions Recorded Confirmed Type sacubitril 24 mg-valsartan 26 mg 1 tab PO BID 09/11/22 04/30/23 History tablet (Entresto) torsemide 20 mg tablet 40 mg PO DAILY Fluid #180 tabs 09/17/22 04/30/23 Rx empagliflozin 10 mg tablet 10 mg PO DAILY #30 tabs 03/12/23 04/30/23 Rx (Jardiance) spironolactone 25 mg tablet 100 mg PO DAILY 03/19/23 05/01/23 History metoprolol succinate 100 mg 100 mg PO DAILY #30 tabs 04/30/23 04/30/23 Rx tablet,extended release 24 hr (Toprol XL) omeprazole 40 mg capsule,delayed 40 mg PO DAILY 05/01/23 05/01/23 History release ferrous sulfate 324 mg (65 mg 324 mg PO DAILY #30 tabs 05/02/23 Rx iron) tablet,delayed release New Prescriptions to Start Prescriptions: ferrous sulfate Shayan Mckeon Allergies Allergy/AdvReac Type Severity Reaction Status Date / Time gluten Allergy Intermediate Verified 05/01/23 10:24 Discharge Plan Disposition Patient Disposition: Home, Self-Care Condition: Good Follow up Plan Follow up with: Alivia Haley APRN [Staff Physician] - 07/23/23 2:30 pm Toribio Krause MD [Staff Physician] - 05/08/23 10:30 am Prescriptions/Medication Reconciliation: New ferrous sulfate 324 mg (65 mg iron) tablet,delayed release (DR/EC) 324 mg PO DAILY Qty: 30 0RF Continued Entresto 24-26 mg tablet 1 tab PO BID torsemide 20 mg tablet 40 mg PO DAILY Qty: 180 3RF Jardiance 10 mg tablet 10 mg PO DAILY Qty: 30 2RF spironolactone 25 mg tablet 100 mg PO DAILY metoprolol succinate [Toprol XL] 100 mg tablet extended release 24 hr 100 mg PO DAILY Qty: 30 2RF omeprazole 40 mg capsule,delayed release(DR/EC) 40 mg PO DAILY Problem Reconciliation Problems Reviewed?: Yes Patient Discharge Instructions ACTIVITY: Continue current activity DIET: continue same diet and other Additional Instructions: gluten free diet Patient Instructions: Anemia Providers Primary Care Provider: Ben Ndiaye Admit Provider: Shayan Mckeon Attending Provider: Shayan Mckeon
[2023-05-02 08:00] VITALS: BP 148/81; PULSE 77; RESP 18; TEMP 36.7; O2SAT 98
[2023-05-02 08:06] LABS: Basophils % 0.5 % (0.1-2.0); Chloride 109 mmol/L (98-107); Eosinophils # 0.3 K/mm3 (0.0-0.4); Eosinophils % 5.8 % (0.1-12.0); Hematocrit 31.8 % (42.0-52.0); Hemoglobin 9.4 g/dL (14.1-18.0); Lymphocytes # 1.3 K/mm3 (0.7-4.5); Lymphocytes % 24.9 % (10-50); Mean Corpuscular HGB Conc 29.7 g/dL (31.8-35.4); Mean Corpuscular Hemoglobin 23.6 pg (27.0-31.2); Mean Corpuscular Volume 79.5 fl (80-94); Mean Platelet Volume 7.8 fl (7.4-10.4); Monocytes # 0.4 K/mm3 (0.1-1.0); Monocytes % 8.6 % (1.7-9.3); Neutrophils # 3.1 K/mm3 (1.8-7.8); Neutrophils % 60.2 % (37.0-80.0); Platelet Count 261 K/mm3 (142-424); Potassium 3.4 mmoL/L (3.5-5.1); Red Cell Distribution Width 18.8 % (11.5-17.5); Sodium 137 mmol/L (136-145); White Blood Count 5.2 K/mm3 (4.8-10.8)
[2023-05-02 08:08] LABS: Blood Urea Nitrogen 7 mg/dl (9-20); Creatinine Clearance Estimated 111 mL/min (50-200); Estimated Glomerular Filt Rate 137 ml/min (>60); GFR (African American) 166 ML/MIN (>60)
[2023-05-02 08:09] LABS: Alanine Aminotransferase 17 U/L (12-78); Albumin Level 3.3 g/dl (3.5-5.0); Albumin/Globulin Ratio 1.4 (1.1-1.8); Alkaline Phosphatase 162 U/L (38-126); Anion Gap 5.4 mEq/L (5-15); Aspartate Amino Transferase 29 U/L (17-59); Bilirubin,Total 0.5 mg/dl (0.2-1.3); Calcium 8.3 mg/dl (8.4-10.2); Carbon Dioxide 26 mmol/L (22.0-30.0); Globulin 2.4 g/dL (1.3-3.2); Glucose 82 mg/dl (74-100); Magnesium 2.1 mg/dl (1.6-2.3); Total Protein,Serum 5.7 g/dl (6.3-8.2)
[2023-05-02] MEDS: SACUBITRIL/VALSARTAN 24-26MG TABLET 1 EACH PO (08:43)
[2023-05-02] MEDS: METOPROLOL SUCCINATE XL 100MG TABLET 100 MG PO (08:43)
[2023-05-02] MEDS: SODIUM CHLORIDE 0.9% 10ML VIAL 10 ML IV (08:43)
[2023-05-02] MEDS: SPIRONOLACTONE 25MG TABLET 100 MG PO (08:43)
[2023-05-02] MEDS: PANTOPRAZOLE 40MG VIAL 40 MG IV (08:43)
[2023-05-02 16:35] LABS: Deamidated Gliadin Abs, IgA >150 units (0-19); Deamidated Gliadin Abs, IgG 97 units (0-19); Tissue Transglutaminase IgA Ab 21 U/mL (0-3); Tissue Transglutaminase IgG Ab 5 U/mL (0-5)
[2023-05-03 04:34] LABS: Peripheral Smear Review Scanned Result
--- NOTE | 2023-05-05 12:48 | CARE MANAGER ---
Attempted to contact patient related to hospital discharge x2. Left voicemail message. AMY Mcdonough
== END 2023-05-02 13:01 | disposition home or self-care (01) ==
LOC: ER 19:27 → 2ND 05-01 02:03
PROVIDERS: Nurse Practitioner Family; Admitting Provider Internal Medicine Adolescent Medicine; Emergency Provider Emergency Medicine; PCP Nurse Practitioner Family; Visit Provider Internal Medicine Adolescent Medicine
DX: D64.9 Anemia, unspecified (principal); Z79.899 Other long term (current) drug therapy; Z95.0 Presence of cardiac pacemaker; I49.5 Sick sinus syndrome; I25.118 Atherosclerotic heart disease of native coronary artery with other forms of angina pectoris; J44.9 Chronic obstructive pulmonary disease, unspecified; I50.22 Chronic systolic (congestive) heart failure; I11.0 Hypertensive heart disease with heart failure; I48.0 Paroxysmal atrial fibrillation; I25.5 Ischemic cardiomyopathy; F17.210 Nicotine dependence, cigarettes, uncomplicated; E43 Unspecified severe protein-calorie malnutrition; Z68.1 Body mass index [BMI] 19.9 or less, adult
CPT/HCPCS: 36415; 36430; 80053; 82728; 83516; 83540; 83550; 83735; 85014; 85018; 85025; 85610; 85730; 86850; 99285; G0378; J1756; P9016

== ENCOUNTER 2025-02-14 11:53 | Observation (INO) | payer OTHER, SELFPAY ==
[2025-02-14] VITALS (16 sets, daily range): BP systolic 106–189; BP diastolic 82–151; PULSE 48–123; RESP 10–28; TEMP 36.5–36.8; O2SAT 95–100; BMI 17.0
--- NOTE | 2025-02-14 11:56 | ECG_ITS ---
APPROVED REPORT Exam: Resting ECG HR:99 bpm ECG Measurements Heart Rate 99 AXES ND 152 P 84 QRSd 89 QRS 74 QT 348 T 66 QTc 404 Conclusion ELECTRONIC ATRIAL PACEMAKER ELECTRONIC VENTRICULAR PACEMAKER -- CONTOUR ANALYSIS BASED ON INTRINSIC RHYTHM MODERATE VOLTAGE CRITERIA FOR LVH, CONSIDER NORMAL VARIANT [MEETS CRITERIA IN ONE OF: R(aVL), S(V1), R(V5), R(V5/V6)+S(V1)] No STEMI Electronically signed by : PAUL HERRMANN, 02/16/2025 03:14:14
--- NOTE | 2025-02-14 12:08 | XR_ITS ---
PROCEDURE INFORMATION: Exam: XR Chest Exam date and time: 02/14/2025 12:13 PM Age: 64 years old Clinical indication: Shortness of breath; Additional info: SOA TECHNIQUE: Imaging protocol: Radiologic exam of the chest. Views: 1 view. Total images: 1 COMPARISON: CR XR CHEST PORTABLE 03/20/2023 2:03 PM FINDINGS: Tubes, catheters and devices: A pacemaker device is present, its leads in appropriate position. Lungs: Bilateral hyperinflation is present. Atelectatic changes noted within both lung bases. No focal pneumonia. Pleural spaces: No pleural effusion. No pneumothorax. Heart/Mediastinum: No cardiomegaly. Bones/joints: Leftward curvature of the thoracic spine with mild degenerative changes. IMPRESSION: 1. Bilateral hyperinflation is present. 2. Atelectatic changes noted within both lung bases. 3. No focal pneumonia.
--- NOTE | 2025-02-14 12:09 | ED_ITS ---
<Statement entered by Sean Bills MD - 02/15/25 11:57> I independently examined this pt. He is critically ill. 64yo M PMH CAD s/p PCI, tachy-liz syndrome with PPM. noncompliant with meds at home. On exam, looks somewhat dry, will fluid resus. heart is RRR on my exam and breath sounds clear. resting comfortably, but on my review of tele, intermittently entering SVT and he becomes symptomatic during this time. presyncopal. performs vagal maneuver and HR improves and returns to sinus with intermittent AV pacing. PPM interrogated, rep is c/f Vtach, but i am less suspicious as it looks narrow complex on 12 lead and tele. Zoll pads placed and Cardiology consulted. Dr. Perez examined the pt. C/f AVNRT. Recs Toprol IV and PO for control. Pt with improvement in frequency of episodes after this, but still symptomatic with occ runs of SVT. Will admit for further workup and monitoring on tele. CC time of 39 minutes for frequent reassessments, interpreting telemetry strips, design studio consultant conversations, administering multiple IV rate control medications, high risk of decompensation. I was consulted by the VISHAL, and we discussed the complexity of problems being addressed. I approved the treatment and management plan for this patient's care in the emergency department, thus performing a substantial portion of the medical decision making. Sean Bills MD Discharge Plan Disposition Patient Disposition: Admitted Condition: Fair Referrals Follow up/Referrals: Missael Perez MD [Primary Care Provider, Cardiology] - See instructions Clinical Impressions Clinical Impression: Other supraventricular tachycardia, Antidromic atrioventricular re-entrant tachycardia (AVRT) Print Language Print Language: Latvian Discharge ED Provider: Sean Bills HPI <YANG Powell - Last Filed: 02/14/25 17:15> General Chief Complaint: Shortness of Breath/Dyspnea Stated Complaint: Chest pain Time Seen by Provider: 02/14/25 12:02 Mode of Arrival: Ambulatory Source of Information: Patient Description of Symptoms (Recalled from ER Triage Doc. by RN): patient presents for shortness of rbeath that started last night that has continued on into today. patient also stated he has chest pain with it but it is not currently hurting. patien stated he has a AV pacer and COPD thats not oxygen dependant. History of Present Illness HPI narrative: Patient is a pleasant but ill-appearing 64-year-old male who presents to the emergency department with complaints of shortness of breath. Patient states that this has been progressing for several months but has gotten considerably worse in the last 2 to 3 days. Patient says he has had some chest pain but it does not happen all the time but he is not experiencing it right now. Patient denies any fever, nausea, vomiting, diarrhea; is current everyday smoker with 1 to 1.5 packs daily and approximately 40-cehn-tfmx history. Related Data Allergies Allergy/AdvReac Type Severity Reaction Status Date / Time gluten Allergy Intermediate Verified 05/01/23 10:24 [facility] <YANG Powell - Last Filed: 02/14/25 17:15> [facility] Disclaimer: The information contained in this section may have been updated after the patient was seen, as this information can be updated by other users. Medical History Acute systolic (congestive) heart failure Anemia Angina pectoris Arm numbness Atrial fibrillation Atrial fibrillation with rapid ventricular response Atrial flutter Atypical chest pain Blood per rectum Bradycardia CAD (coronary artery disease) Cigarette smoker Congestive heart failure COPD (chronic obstructive pulmonary disease) COPD (chronic obstructive pulmonary disease) Diarrhea Dyspnea Dyspnea on exertion Edema Essential hypertension Family history of congestive heart failure GI bleed Habitual drug user Heartburn History of back pain History of pacemaker HLD (hyperlipidemia) Hyperlipidemia Hypertension Hypertension Hypokalemia Ischemic cardiomyopathy Lymph node enlargement Narrow complex tachycardia Paroxysmal A-fib Peripheral edema Presence of permanent cardiac pacemaker Prolonged Q-T interval on ECG Rectal bleeding Severe malnutrition SOB (shortness of breath) on exertion Tachy-liz syndrome Transaminitis Typical angina Unstable angina pectoris Family History Other Family history of cancer Family history of hyperlipidemia Family history of hypertension Family history of myocardial infarction Social History (Updated 04/30/23 @ 22:01 by Emely Farrell RN) Smoking Status: Current every day smoker tobacco type: cigarettes packs per day: 1 second hand exposure: Yes alcohol intake: never substance use type: marijuana and other current occupational status: employed Travel in the last 8 weeks?: None household members: significant other housing: house current occupation: [employer] caffeine: Yes Have you lived/traveled outside [place] in past 30 days?: No Contact w/someone who lives/traveled outside US past 30 days?: No Exposure to someone with infectious disease in past 14 days?: No Do you have a fever (greater than 100.4 F or 38 C)?: No Have you tested positive for COVID-19?: No Exposed to someone with COVID-19 in past 14 days?: No Do you have a sore throat?: No Do you have a cough?: No Do you have any weakness?: No Do you have any diarrhea?: No Are you experiencing any unusual bleeding?: No Do you have any muscle aches/pain?: No Do you have any abdominal pain?: No Are you experiencing loss of taste or smell?: No Other Medical History Have you received the Flu Vaccine for this season: No Have you received the Pneumonia Vaccine: No <YANG Powell - Last Filed: 02/14/25 17:15> ROS Obtained: Yes Systems reviewed as appropriate & no additional complaints except as documented Physical Exam <YANG Powell - Last Filed: 02/14/25 17:15> General General appearance: alert, in no apparent distress and cachectic Head Head exam: atraumatic and normocephalic Eye Eye exam: Present normal appearance and PERRL ENT ENT exam: Present normal exam and mucous membranes moist Neck Neck exam: Present normal inspection, full ROM and trachea midline Chest Chest inspection: Present normal inspection and symmetric chest wall rise; Absent tenderness Respiratory Respiratory exam: Present normal lung sounds bilaterally and prolonged expiratory phase; Absent respiratory distress, wheezes or stridor Cardiovascular Cardiovascular exam: Present tachycardia, irregular rhythm and other (Pacemaker may be under sensing) Abdominal Exam Abdominal exam: Present soft and normal bowel sounds; Absent distention, tenderness or rigidity Extremities Exam Extremities exam: Present normal inspection and full ROM Back Exam Back exam: Absent tenderness, CVA tenderness (R) or CVA tenderness (L) Neurological Exam Neurological exam: Present alert and oriented X3 Psychiatric Psychiatric exam: Present normal affect and normal mood Skin Skin exam: Present warm, dry and normal color HEART Score <YANG Powell - Last Filed: 02/14/25 17:15> HEART Score HEART Score assessment performed?: Yes History (anamnesis): Highly suspicious ECG: Normal Age: 45-65 years Risk factors: Atherosclerosis history Troponin: </= normal limit HEART Score: 5 (Patient's chest pain is intermittent prior to coming to the ED today and he denies any episodes of chest pain during ED course.) Critical Care <YANG Powell - Last Filed: 02/14/25 17:15> Critical Care Time Critical Care Time: No Medical Decision Making <YANG Powell - Last Filed: 02/14/25 17:15> Medical Records Medical records reviewed: Yes I reviewed the patient's medical records. Art Inquiry Pt receiving controlled substance: No Vital Signs Vital Signs: 02/14/25 11:59 02/14/25 12:00 02/14/25 13:00 Temperature 97.7 F Temperature Source Oral Pulse Rate 73 Pulse Rate [Right Radial] 107 H Respiratory Rate 20 13 14 Blood Pressure 156/93 H 147/100 H Blood Pressure [Right Arm] 154/100 H Blood Pressure Mean [Right Arm] 118 Blood Pressure Source [Right Arm] Automatic Cuff Blood Pressure Position [Right Arm] Sitting 02 Sat by Pulse Oximetry 97 100 Oxygen Delivery Method Room Air 02/14/25 13:31 02/14/25 14:01 02/14/25 14:28 Temperature Temperature Source Pulse Rate 123 H 81 74 Pulse Rate [Right Radial] Respiratory Rate 15 28 H 15 Blood Pressure 182/102 H 106/82 L 178/110 H Blood Pressure [Right Arm] Blood Pressure Mean [Right Arm] Blood Pressure Source [Right Arm] Blood Pressure Position [Right Arm] 02 Sat by Pulse Oximetry 100 98 99 Oxygen Delivery Method Room Air Room Air Room Air 02/14/25 14:30 02/14/25 15:00 Temperature Temperature Source Pulse Rate 48 L Pulse Rate [Right Radial] Respiratory Rate Blood Pressure 168/110 H 180/99 H Blood Pressure [Right Arm] Blood Pressure Mean [Right Arm] Blood Pressure Source [Right Arm] Blood Pressure Position [Right Arm] 02 Sat by Pulse Oximetry 99 99 Oxygen Delivery Method Room Air Room Air Lab Data Lab results reviewed: Yes I reviewed the patient's lab results. Labs: Lab Results 02/14/25 11:58: WBC 9.7, RBC 5.41, Hgb 15.5, Hct 48.8, MCV 90.2, MCH 28.7, MCHC 31.8, RDW 14.4, Plt Count 288, MPV 10.8 H, Neut % (Auto) 69.1, Lymph % (Auto) 19.5, Wetzel % (Auto) 6.8, Eos % (Auto) 3.4, Baso % (Auto) 0.9, Neut # (Auto) 6.7, Lymph # (Auto) 1.9, Wetzel # (Auto) 0.7, Eos # (Auto) 0.3, Baso # (Auto) 0.1, D- Dimer 0.54 H, Sodium 138, Potassium 4.6, Chloride 96 L, Carbon Dioxide 28, Anion Gap 18.6 H, BUN 14, Creatinine 0.80, Estimated Creat Clear 69, Estimated GFR 98, Est GFR ( Amer) 119, Glucose 119 H, Calcium 9.5, Phosphorus 4.0, Magnesium 2.0, Total Bilirubin 0.8, AST 43, ALT 30, Alkaline Phosphatase 157 H, Troponin I < 0.01, Total Protein 8.6 H D, Albumin 5.0, Globulin 3.6 H, Albumin/Globulin Ratio 1.4 02/14/25 15:00: Troponin I 0.02 02/14/25 11:58 02/14/25 11:58 Response Orders (Tests/Meds): ED MEDICATIONS Generic Name Dose Route Start Last Admin Trade Name Freq PRN Reason Stop Dose Admin Acetaminophen 650 mg 02/14/25 17:02 Acetaminophen 325mg Tab PO 03/16/25 17:01 Q4HP PRN Fever or Mild Pain (1-3) Heparin Sodium (Porcine) 5,000 unit 02/14/25 21:00 Heparin Sodium 5,000 Unit/Ml Vial SUBCUT 03/16/25 20:59 TID MU Metoprolol Succinate 50 mg 02/14/25 21:00 Metoprolol Succinate Xl 50mg Tablet PO 03/16/25 20:59 BID MU Nicotine 21 mg 02/14/25 17:02 Nicotine 21mg/24hr Patch TD 03/16/25 17:01 DAILYP PRN Nicotine Cravings Ondansetron HCl 4 mg 02/14/25 17:02 Ondansetron 4mg/2ml Vial IV 03/16/25 17:01 Q8HP PRN Nausea Sodium Chloride 10 ml 02/14/25 12:07 Sodium Chloride 0.9% 10ml Flush Syringe IV 03/16/25 12:06 NEEDED PRN Maintain IV Site Discontinued Medications Generic Name Dose Route Start Last Admin Trade Name Dora PRN Reason Stop Dose Admin Aspirin 324 mg 02/14/25 12:07 02/14/25 13:06 Aspirin 81mg Chewable Tablet PO 02/14/25 12:08 324 mg ONCE ONE Administration Diazepam 5 mg 02/14/25 16:55 Diazepam 10mg/2ml Syringe IV 02/14/25 16:56 ONCE ONE Hydralazine HCl 10 mg 02/14/25 16:43 Hydralazine 20mg/Ml Vial IV 02/14/25 16:44 ONCE ONE Sodium Chloride 1,000 mls @ 999 mls/hr 02/14/25 13:19 02/14/25 14:26 Sod Chlor 0.9% 1000ml Bag IV 02/14/25 14:19 Not Given .Q1H1M ONE Metoprolol Tartrate 50 mg 02/14/25 14:22 02/14/25 14:29 Metoprolol Tartrate 50mg Tablet PO 02/14/25 14:23 50 mg ONCE ONE Administration Metoprolol Tartrate 5 mg 02/14/25 14:28 02/14/25 14:29 Metoprolol Tartrate 5mg/5ml Vial IV 02/14/25 14:29 5 mg ONCE ONE Administration Metoprolol Tartrate 5 mg 02/14/25 15:38 02/14/25 15:39 Metoprolol Tartrate 5mg/5ml Vial IV 02/14/25 15:39 5 mg ONCE ONE Administration ORDERS Category Date Time Status Cardiology Consult [Consult to Cardiology] [CONS] Cons 02/14/25 17:02 Active Routine XR chest portable Stat Exams 02/14/25 12:08 Completed Complete Blood Count Auto Diff AMLAB Lab 02/15/25 06:00 Ordered Complete Blood Count Auto Diff Stat Lab 02/14/25 11:58 Completed Comprehensive Metabolic Panel AMLAB Lab 02/15/25 06:00 Ordered Comprehensive Metabolic Panel Stat Lab 02/14/25 11:58 Completed D-Dimer Stat Lab 02/14/25 11:58 Completed Magnesium AMLAB Lab 02/15/25 06:00 Ordered Magnesium Stat Lab 02/14/25 11:58 Completed Phosphorous Stat Lab 02/14/25 11:58 Completed Troponin I Q3H Lab 02/14/25 15:00 Completed Troponin I Q3H Lab 02/14/25 18:15 Ordered Troponin I Stat Lab 02/14/25 11:58 Completed CA echo doppler complete Routine Y 02/14/25 17:04 Ordered MDM Narrative Medical Decision Narrative: In summary patient is an ill-appearing 64-year-old male who presents to the emergency department for evaluation of shortness of breath with occasional chest pain. Patient is hemodynamically stable upon arrival, afebrile throughout ED course. Patient's physical exam is remarkable for decreased aeration in all gurrola and irregular tachycardic heart rhythm. Patient's physical exam is that of an ill-appearing patient but unremarkable otherwise. Differential diagnosis includes pneumonia/infection, electrolyte derangement, arrhythmia, ACS. Initial workup will be conducted with EKG, labs, and chest x-ray. Initial interventions include IV fluid bolus. Initial workup reviewed by me includes review of labs. Labs are generally unremarkable with no significant electrolyte derangement, kidney injury, or transaminitis on CMP, no significant leukocytosis or anemia on CBC, other electrolytes magnesium and Phos, troponin, and BNP negative. Patient's D-dimer elevated at 0.54 but age-adjusted D-dimer is negative and PE protocol is not indicated at this time. Upon repeat evaluation patient's pacemaker is interrogated and reviewed by electron beam welding machine operator who made note below and Dr. Perez. Dr. Perez diagnosis the patient with SVT and instructs us to treat the patient with IV and oral metoprolol. Plan for patient is to ambulate and monitor his heart rate to see if he returns to tachycardic rate after beta-erin. Patient's heart rate continues to fluctuate between 85 and 130 while he is lying in bed; patient is never ambulated for evaluation due to his heart rate being unstable while sitting still. Given this, the patient is not appropriate for discharge to home at this time. Plan of care is for patient to be admitted to hospitalist for further evaluation and treatment. Patient verbalizes understanding of and is amenable to this plan. Full report of patient's ED course given to hospitalist physician Dr. Mckeon for admission. I, Sean Dee MD, independently interpreted patient's telemetry strips as well as his twelve-lead EKGs. His initial twelve-lead EKG at 1156 demonstrates normal sinus rhythm with occasional AV pacing with a PVC, questionable R-on-T phenomenon. Repeat EKG when patient is symptomatic is demonstrating SVT without obvious acute ischemic ST change at a rate of 183. His telemetry strips also demonstrate SVT when patient is becoming symptomatic <Sean Bills MD - Last Filed: 02/14/25 16:08> Vital Signs Vital Signs: 02/14/25 11:59 02/14/25 12:00 02/14/25 13:00 Temperature 97.7 F Temperature Source Oral Pulse Rate 73 Pulse Rate [Right Radial] 107 H Respiratory Rate 20 13 14 Blood Pressure 156/93 H 147/100 H Blood Pressure [Right Arm] 154/100 H Blood Pressure Mean [Right Arm] 118 Blood Pressure Source [Right Arm] Automatic Cuff Blood Pressure Position [Right Arm] Sitting 02 Sat by Pulse Oximetry 97 100 Oxygen Delivery Method Room Air 02/14/25 13:31 02/14/25 14:01 02/14/25 14:28 Temperature Temperature Source Pulse Rate 123 H 81 74 Pulse Rate [Right Radial] Respiratory Rate 15 28 H 15 Blood Pressure 182/102 H 106/82 L 178/110 H Blood Pressure [Right Arm] Blood Pressure Mean [Right Arm] Blood Pressure Source [Right Arm] Blood Pressure Position [Right Arm] 02 Sat by Pulse Oximetry 100 98 99 Oxygen Delivery Method Room Air Room Air Room Air 02/14/25 14:30 02/14/25 15:00 Temperature Temperature Source Pulse Rate 48 L Pulse Rate [Right Radial] Respiratory Rate Blood Pressure 168/110 H 180/99 H Blood Pressure [Right Arm] Blood Pressure Mean [Right Arm] Blood Pressure Source [Right Arm] Blood Pressure Position [Right Arm] 02 Sat by Pulse Oximetry 99 99 Oxygen Delivery Method Room Air Room Air Lab Data Labs: Lab Results 02/14/25 11:58: WBC 9.7, RBC 5.41, Hgb 15.5, Hct 48.8, MCV 90.2, MCH 28.7, MCHC 31.8, RDW 14.4, Plt Count 288, MPV 10.8 H, Neut % (Auto) 69.1, Lymph % (Auto) 19.5, Wetzel % (Auto) 6.8, Eos % (Auto) 3.4, Baso % (Auto) 0.9, Neut # (Auto) 6.7, Lymph # (Auto) 1.9, Wetzel # (Auto) 0.7, Eos # (Auto) 0.3, Baso # (Auto) 0.1, D- Dimer 0.54 H, Sodium 138, Potassium 4.6, Chloride 96 L, Carbon Dioxide 28, Anion Gap 18.6 H, BUN 14, Creatinine 0.80, Estimated Creat Clear 69, Estimated GFR 98, Est GFR ( Amer) 119, Glucose 119 H, Calcium 9.5, Phosphorus 4.0, Magnesium 2.0, Total Bilirubin 0.8, AST 43, ALT 30, Alkaline Phosphatase 157 H, Troponin I < 0.01, Total Protein 8.6 H D, Albumin 5.0, Globulin 3.6 H, Albumin/Globulin Ratio 1.4 02/14/25 15:00: Troponin I 0.02 Response Orders (Tests/Meds): ED MEDICATIONS Generic Name Dose Route Start Last Admin Trade Name Freq PRN Reason Stop Dose Admin Acetaminophen 650 mg 02/14/25 17:02 Acetaminophen 325mg Tab PO 03/16/25 17:01 Q4HP PRN Fever or Mild Pain (1-3) Heparin Sodium (Porcine) 5,000 unit 02/14/25 21:00 Heparin Sodium 5,000 Unit/Ml Vial SUBCUT 03/16/25 20:59 TID MU Metoprolol Succinate 50 mg 02/14/25 21:00 Metoprolol Succinate Xl 50mg Tablet PO 03/16/25 20:59 BID MU Nicotine 21 mg 02/14/25 17:02 Nicotine 21mg/24hr Patch TD 03/16/25 17:01 DAILYP PRN Nicotine Cravings Ondansetron HCl 4 mg 02/14/25 17:02 Ondansetron 4mg/2ml Vial IV 03/16/25 17:01 Q8HP PRN Nausea Sodium Chloride 10 ml 02/14/25 12:07 Sodium Chloride 0.9% 10ml Flush Syringe IV 03/16/25 12:06 NEEDED PRN Maintain IV Site Discontinued Medications Generic Name Dose Route Start Last Admin Trade Name Freq PRN Reason Stop Dose Admin Aspirin 324 mg 02/14/25 12:07 02/14/25 13:06 Aspirin 81mg Chewable Tablet PO 02/14/25 12:08 324 mg ONCE ONE Administration Diazepam 5 mg 02/14/25 16:55 Diazepam 10mg/2ml Syringe IV 02/14/25 16:56 ONCE ONE Hydralazine HCl 10 mg 02/14/25 16:43 Hydralazine 20mg/Ml Vial IV 02/14/25 16:44 ONCE ONE Sodium Chloride 1,000 mls @ 999 mls/hr 02/14/25 13:19 02/14/25 14:26 Sod Chlor 0.9% 1000ml Bag IV 02/14/25 14:19 Not Given .Q1H1M ONE Metoprolol Tartrate 50 mg 02/14/25 14:22 02/14/25 14:29 Metoprolol Tartrate 50mg Tablet PO 02/14/25 14:23 50 mg ONCE ONE Administration Metoprolol Tartrate 5 mg 02/14/25 14:28 02/14/25 14:29 Metoprolol Tartrate 5mg/5ml Vial IV 02/14/25 14:29 5 mg ONCE ONE Administration Metoprolol Tartrate 5 mg 02/14/25 15:38 02/14/25 15:39 Metoprolol Tartrate 5mg/5ml Vial IV 02/14/25 15:39 5 mg ONCE ONE Administration ORDERS Category Date Time Status Cardiology Consult [Consult to Cardiology] [CONS] Cons 02/14/25 17:02 Active Routine XR chest portable Stat Exams 02/14/25 12:08 Completed Complete Blood Count Auto Diff AMLAB Lab 02/15/25 06:00 Ordered Complete Blood Count Auto Diff Stat Lab 02/14/25 11:58 Completed Comprehensive Metabolic Panel AMLAB Lab 02/15/25 06:00 Ordered Comprehensive Metabolic Panel Stat Lab 02/14/25 11:58 Completed D-Dimer Stat Lab 02/14/25 11:58 Completed Magnesium AMLAB Lab 02/15/25 06:00 Ordered Magnesium Stat Lab 02/14/25 11:58 Completed Phosphorous Stat Lab 02/14/25 11:58 Completed Troponin I Q3H Lab 02/14/25 15:00 Completed Troponin I Q3H Lab 02/14/25 18:15 Ordered Troponin I Stat Lab 02/14/25 11:58 Completed CA echo doppler complete Routine Y 02/14/25 17:04 Ordered MDM Narrative Medical Decision Narrative: I, Sean Dee MD, independently interpreted patient's telemetry strips as well as his twelve-lead EKGs. His initial twelve-lead EKG at 1156 demonstrates normal sinus rhythm with occasional AV pacing with a PVC, questionable R-on-T phenomenon. Repeat EKG when patient is symptomatic is demonstrating SVT without obvious acute ischemic ST change at a rate of 183. His telemetry strips also demonstrate SVT when patient is becoming symptomatic
[2025-02-14 12:19] LABS: Albumin Level 5.0 g/dl (3.5-5.0); Chloride 96 mmol/L (98-107); Hematocrit 48.8 % (42.0-52.0); Hemoglobin 15.5 g/dL (14.1-18.0); Immature Granulocytes % 0.3 %; Mean Corpuscular HGB Conc 31.8 g/dL (31.8-35.4); Mean Corpuscular Hemoglobin 28.7 pg (27.0-31.2); Mean Corpuscular Volume 90.2 fl (80-94); Nucleated Red Blood Cells % 0 %; Platelet Count 288 K/mm3 (142-424); Potassium 4.6 mmoL/L (3.5-5.1); Red Blood Count 5.41 M/mm3 (4.60-6.20); Red Cell Distribution Width-SD 47.4 fL; Sodium 138 mmol/L (136-145); White Blood Count 9.7 K/mm3 (4.8-10.8)
[2025-02-14 12:21] LABS: Alanine Aminotransferase 30 U/L (12-78); Albumin/Globulin Ratio 1.4 (1.1-1.8); Alkaline Phosphatase 157 U/L (38-126); Anion Gap 18.6 mEq/L (5-15); Aspartate Amino Transferase 43 U/L (17-59); Bilirubin,Total 0.8 mg/dl (0.2-1.3); Blood Urea Nitrogen 14 mg/dl (9-20); Calcium 9.5 mg/dl (8.4-10.2); Carbon Dioxide 28 mmol/L (22.0-30.0); Creatinine Clearance Estimated 69 mL/min (50-200); Creatinine,Serum 0.80 mg/dl (0.66-1.25); Estimated Glomerular Filt Rate 98 ml/min (>60); GFR (African American) 119 ML/MIN (>60); Globulin 3.6 g/dL (1.3-3.2); Glucose 119 mg/dl (74-100); Total Protein,Serum 8.6 g/dl (6.3-8.2)
--- NOTE | 2025-02-14 12:30 | ECG_ITS ---
APPROVED REPORT Exam: Resting ECG HR:183 bpm ECG Measurements Heart Rate 183 AXES QRSd 87 QRS 66 QT 247 T 67 QTc 343 Conclusion SUPRAVENTRICULAR TACHYCARDIA LEFT VENTRICULAR HYPERTROPHY AND ST-T CHANGE [VOLTAGE CRITERIA PLUS ST/T ABNORMALITY] ST changes likley related to tachycardia No STEMI Electronically signed by : PAUL HERRMANN, 02/16/2025 03:14:53
[2025-02-14 12:50] LABS: D-Dimer 0.54 ug/mL (0.0-0.5)
[2025-02-14] MEDS: ASPIRIN 81MG CHEWABLE TABLET 324 MG PO (13:06)
[2025-02-14 13:16] LABS: Troponin I < 0.01 ng/ml (0.00-0.034)
[2025-02-14 13:28] LABS: Magnesium 2.0 mg/dl (1.6-2.3); Phosphorous 4.0 mg/dl (2.5-4.5)
--- NOTE | 2025-02-14 13:43 | PC.NURSE ---
ER MD on phone with cardiology
--- NOTE | 2025-02-14 13:56 | PC.NURSE ---
Pt having frequent runs of SVT. Vagal maneuvers performed on 2 separate occasions with pt returning to NSR/Sinus Tach. MD is aware and cardiology consult is pending.
[2025-02-14] MEDS: METOPROLOL TARTRATE 5MG/5ML VIAL 5 MG IV ×2 (14:29→15:39)
[2025-02-14] MEDS: METOPROLOL TARTRATE 50MG TABLET 50 MG PO (14:29)
[2025-02-14 15:35] LABS: Troponin I 0.02 ng/ml (0.00-0.034)
[2025-02-14] MEDS: HYDRALAZINE 20MG/ML VIAL 10 MG IV (17:04)
[2025-02-14] MEDS: diazePAM 10MG/2ML SYRINGE 5 MG IV (17:04)
--- NOTE | 2025-02-14 17:04 | CA_ITS ---
APPROVED REPORT EXAM: Comprehensive 2D, Doppler, and color-flow Echocardiogram Orbitread Operator: Emerita Cedeno RT(R) Ht: 6 ft 4 in Wt: 140lbs BSA: 1.90 BP: 178/110 mmHg Indications: chest pain, AFIB, pacemaker, shortness of breath, COPD. 2D Dimensions IVSd 1.06 cm M: 0.6-1.2 LVEF (Visual) 23.30 % PWd 1.02 cm M: 0.6 - 1.2 EF AP4 57.90 % LVDd 2.36 cm M: 4.2 - 5.9 GL Strain -12.7 % LVDs 2.12 cm M: 2.5 - 4.0 LV Diastology E Decel Time 203 (160-240 msec) E/A Ratio 0.3 Mitral Valve MV E Max Pete. 22.0 (40-130 cm/s) MV A Velocity 85.0 (40-130 cm/s) E/A Ratio 0.26 MV PHT 60.0 ms Left Ventricle The left ventricle is normal size. Left ventricular systolic function is low-normal. There is increased left ventricular wall thickness. There is normal LV segmental wall motion. The left ventricular diastolic function is indeterminate. LVEF is 50% Right Ventricle The right ventricle is normal size. The right ventricular systolic function is normal. Atria Left atrium is mildly dilated. The right atrium size is normal. There is no color Doppler evidence of interatrial shunt. Aortic Valve The aortic valve is mildly thickened. There is no hemodynamically significant aortic valvular stenosis. Trace aortic regurgitation is present. Mitral Valve The mitral valve is normal in structure. No evidence of mitral valve stenosis. Mild mitral regurgitation is present. Tricuspid Valve The tricuspid valve leaflets are thin and pliable. Trace tricuspid regurgitation. There is insufficient TR jet to estimate RVSP. Pulmonic Valve The pulmonary valve is grossly normal in structure. Trace pulmonic valve regurgitation is present. Great Vessels The aortic root is normal in size. IVC is normal in size and collapses >50% with inspiration. Pericardium There is no pericardial effusion. Other Information Study Quality: Technically Difficult Conclusion Low-normal LV systolic function (LVEF 50%). Mild LA dilation. Mild MR. Electronically signed by : Katarina Miguel MD 02/15/2025 10:54:29
--- NOTE | 2025-02-14 17:19 | PC.NURSE ---
Echo at bedside
--- NOTE | 2025-02-14 18:49 | P.HP_ITS ---
History of Present Illness *Admission Date: 02/14/25 *Reason for visit:: weakness, SOA *History of present illness: Mr. Cooley is a 64-year-old male who has not taken any meds for his chronic conditions and almost a year per his report. He presented to the ER with complaint of shortness of breath that has been going on for several months. Worse over the past day or 2 leading to his presentation to the ER. He has been having some chest discomfort, tightness, dyspnea with exertion. Smokes daily. Has a history of COPD and AV pacemaker due to tachybradycardia syndrome. Was last seen approximately 2 years ago per his report after his heart attack. Denies fever, nausea, vomiting, diarrhea. On workup in the ER, he was found to be tachycardic. White count normal at 9.7. Kidney function at baseline with BUN 14, creatinine 0.8. Necessitating oxygen for comfort due to subjective dyspnea. Was initiated on metoprolol but continued to have significant fluctuation in his heart rate. Remains quite symptomatic and weak. Did not feel he could safely discharge home. Medicine was consulted for admission and further management. On my evaluation after arriving to the floor, patient appears in mild distress. Is cachectic. Daughter at bedside helps supplement history. States the patient has not taken great care of himself since the passing of his and has lost at least 20 pounds. She does not recall the last time he went to the doctor. Currently on telemetry, in a flutter versus AVRT. [facility] Disclaimer: The information contained in this section may have been updated after the patient was seen, as this information can be updated by other users. Medical History History of pacemaker Presence of permanent cardiac pacemaker Tachy-liz syndrome GI bleed Typical angina Diarrhea Rectal bleeding Dyspnea Dyspnea on exertion Atrial fibrillation SOB (shortness of breath) on exertion Atypical chest pain Edema Bradycardia Ischemic cardiomyopathy Hypertension COPD (chronic obstructive pulmonary disease) History of back pain Hyperlipidemia Hypertension Transaminitis Prolonged Q-T interval on ECG Hypokalemia COPD (chronic obstructive pulmonary disease) Unstable angina pectoris Severe malnutrition Heartburn Blood per rectum Anemia Lymph node enlargement HLD (hyperlipidemia) Arm numbness Atrial flutter Narrow complex tachycardia CAD (coronary artery disease) Habitual drug user Angina pectoris Family history of congestive heart failure Cigarette smoker Essential hypertension Atrial fibrillation with rapid ventricular response Acute systolic (congestive) heart failure Paroxysmal A-fib Peripheral edema Congestive heart failure Family History Family history of cancer Family history of hypertension Family history of myocardial infarction Family history of hyperlipidemia Social History (Updated 02/14/25 @ 18:50 by Charo Carrillo RN) Smoking Status: Current every day smoker tobacco type: cigarettes packs per day: 1 second hand exposure: Yes alcohol intake: never substance use type: marijuana and other current occupational status: employed Travel in the last 8 weeks?: None household members: significant other housing: house current occupation: [employer]: Yes Have you lived/traveled outside US in past 30 days?: No Contact w/someone who lives/traveled outside US past 30 days?: No Exposure to someone with infectious disease in past 14 days?: No Do you have a fever (greater than 100.4 F or 38 C)?: No Have you tested positive for COVID-19?: No Exposed to someone with COVID-19 in past 14 days?: No Do you have a sore throat?: No Do you have a cough?: No Do you have any weakness?: No Are you experiencing any nausea/vomitting?: No Do you have any diarrhea?: No Are you experiencing any unusual bleeding?: No Do you have any muscle aches/pain?: No Do you have any abdominal pain?: No Are you experiencing loss of taste or smell?: No Other Medical History Have you received the Flu Vaccine for this season: No Have you received the Pneumonia Vaccine: No Review of Systems Review of Systems Review of systems (narrative): 14 point review of systems performed, pertinent positives and negatives as per HPI Meds Home Medications and Allergies New Prescriptions to Start Prescriptions: Allergies Allergy/AdvReac Type Severity Reaction Status Date / Time gluten Allergy Intermediate Verified 05/01/23 10:24 Exam Data for Last 24 hours Vital signs and Labs for Last 24 Hours: Temp Pulse Resp BP Pulse Ox O2 Del Method O2 Flow Rate 97.7 F 77 16 158/97 H 99 Nasal Cannula 2 02/14/25 17:50 02/14/25 17:50 02/14/25 17:50 02/14/25 17:50 02/14/25 17:50 02/14/25 17:50 02/14/25 17:50 Laboratory Results - last 24 hr 02/14/25 11:58: WBC 9.7, RBC 5.41, Hgb 15.5, Hct 48.8, MCV 90.2, MCH 28.7, MCHC 31.8, RDW 14.4, Plt Count 288, MPV 10.8 H, Neut % (Auto) 69.1, Lymph % (Auto) 19.5, [place] % (Auto) 6.8, Eos % (Auto) 3.4, Baso % (Auto) 0.9, Neut # (Auto) 6.7, Lymph # (Auto) 1.9, [place] # (Auto) 0.7, Eos # (Auto) 0.3, Baso # (Auto) 0.1, D- Dimer 0.54 H, Sodium 138, Potassium 4.6, Chloride 96 L, Carbon Dioxide 28, Anion Gap 18.6 H, BUN 14, Creatinine 0.80, Estimated Creat Clear 69, Estimated GFR 98, Est GFR ( Amer) 119, Glucose 119 H, Calcium 9.5, Phosphorus 4.0, Magnesium 2.0, Total Bilirubin 0.8, AST 43, ALT 30, Alkaline Phosphatase 157 H, Troponin I < 0.01, Total Protein 8.6 H D, Albumin 5.0, Globulin 3.6 H, Albumin/Globulin Ratio 1.4 02/14/25 15:00: Troponin I 0.02 I & O for Last 24 hours: Intake & Output 02/11/25 02/12/25 02/13/25 02/14/25 23:59 23:59 23:59 23:59 Intake Total 500 / 500 Output Total 250 / 250 Balance 250 / 250 Weight 63.503 kg Constitutional Constitutional: mild distress, cachectic, chronically ill appearing and cooperative *Routine HEENT Exam Head: Present normocephalic Eye: Present EOMI and PERRL ENT: Present mucous membranes moist *Routine Neck Exam Neck: Present supple; Absent lymphadenopathy Routine Chest/Breast/Axilla Exam Chest wall: Present pacemaker; Absent tenderness Comments: Prominent ribs *Routine Respiratory Exam Respiratory: Present prolonged expiratory phase; Absent stridor, wheezes or crackles *Routine Cardiovascular Exam Cardiovascular: Present tachycardia and irregularly irregular *Routine Abdominal Exam Abdominal: Present soft and normoactive bowel sounds; Absent tenderness *Routine Rectal Exam Rectal:: deferred *Routine Genitalia Exam Genitalia:: deferred *Routine Extremities Exam Extremities: Absent cyanosis, clubbing or edema *Routine Skin Exam Skin: Present intact and warm; Absent rash *Routine Neurological Exam Neurological: Present alert, oriented X3 and moving all extremities; Absent altered mental status Assessment and Plan *Assessment and plan (1) Antidromic atrioventricular re-entrant tachycardia (AVRT): Status: Acute Category: Medical Code(s): I47.19 - Other supraventricular tachycardia (2) NYHA Class III cardiovascular function: Status: Acute Category: Medical (3) Atrial fibrillation: Status: Inactive Qualifiers: Atrial fibrillation type: unspecified Qualified Code(s): I48.91 - Unspecified atrial fibrillation Category: Medical Code(s): I48.91 - Unspecified atrial fibrillation (4) CAD (coronary artery disease): Status: Acute Qualifiers: Associated angina: with unstable angina Coronary Disease-Associated Artery/Lesion type: [place] artery [place] vs. transplanted heart: [place] heart Qualified Code(s): I25.110 - Atherosclerotic heart disease of [place] coronary artery with unstable angina pectoris Category: Medical Code(s): I25.10 - Atherosclerotic heart disease of [place] coronary artery without angina pectoris (5) Hyperlipidemia: Status: Acute Qualifiers: Hyperlipidemia type: unspecified Qualified Code(s): E78.5 - Hyperlipidemia, unspecified Category: Medical Code(s): E78.5 - Hyperlipidemia, unspecified (6) COPD (chronic obstructive pulmonary disease): Status: Acute Qualifiers: COPD type: unspecified COPD Qualified Code(s): J44.9 - Chronic obstructive pulmonary disease, unspecified Category: Medical Code(s): J44.9 - Chronic obstructive pulmonary disease, unspecified (7) Presence of permanent cardiac pacemaker: Status: Acute Category: Medical Code(s): Z95.0 - Presence of cardiac pacemaker (8) Tobacco use disorder: Status: Chronic Category: Medical Code(s): F17.200 - Nicotine dependence, unspecified, uncomplicated Plan 64-year-old male with PMHx CHF, CAD s/p stent, tachy-bradycardia syndrome s/p pacemaker 2 years ago, COPD, hyperlipidemia. He reports he has not been taking any medication in 6 to 12 months. Presents with progressively worsening shortness of breath over the past several months. Most prominent over the past 2 to 3 days. Denies fever but complains of intermittent chest discomfort, shortness of breath, pressure-like sensation. On workup in the ER, found to be in mild distress with arrhythmia (AVRT). Discussed case with ER provider, after initiating on beta-erin, patient remained quite symptomatic with variable tachyarrhythmia. Requested admission for further management. I decided to admit for further medication adjustment, stabilization, cardiology consult. Problems addressed as follows: History of atrial fibrillation and tachybradycardia syndrome with pacemaker in situ AVRT Hypertension HFpEF Hyperlipidemia - EKG obtained in the ER per my review showing arrhythmia and tachycardia. Most consistent with AVRT. -Received metoprolol in the ER, remains tachycardic. Will initiate metoprolol succinate 50 mg twice daily - Given history of A-fib and arrhythmia, initiate therapeutic Lovenox 1 mg/kg twice daily. Previously on Xarelto. Will consider resuming in the morning after cardiology consultation - Echocardiogram obtained, formal read pending - Monitor for improvement in blood pressure. Low threshold to initiate ARB/ARNI if remains hypertensive as rate improves - Will have cardiology interrogate pacemaker in the morning - Monitor on continuous telemetry - Lipid panel and TSH ordered for the morning. Kidney function normal BUN 14, creatinine 0.8. Potassium 4.6. Repeat CBC, CMP, magnesium ordered for the morning. History of anemia when previously on blood thinners. Hemoglobin normal at 15.5 today. History of COPD: Initiate DuoNebs every 6 hours scheduled. Initiate Trelegy 100 inhaler in the morning. Supplemental oxygen as needed for goal sats greater 90%. Wean as tolerated. Currently on 2 L. - Chest x-ray per my review shows hyperinflation but no focal consolidation. No indication for antibiotics with normal white count of 9.7 - Dyspnea multifactorial with the setting of COPD and arrhythmia as above Tobacco use disorder: Initiate nicotine patch daily as needed DVT prophylaxis: Therapeutic Lovenox Regular diet Full code
[2025-02-14 19:09] LABS: Troponin I < 0.01 ng/ml (0.00-0.034)
[2025-02-14] MEDS: METOPROLOL SUCCINATE XL 50MG TABLET 50 MG PO (20:16)
[2025-02-14] MEDS: ONDANSETRON 4MG/2ML VIAL 4 MG IV (20:29)
[2025-02-15] VITALS (21 sets, daily range): BP systolic 106–185; BP diastolic 63–109; PULSE 65–131; RESP 15–22; TEMP 35.9–36.6; O2SAT 91–100; BMI 17.0
[2025-02-15] MEDS: IPRATROPIUM/ALBUTEROL 3 ML NEB IH ×5 (00:48→23:53)
[2025-02-15] MEDS: METOPROLOL SUCCINATE XL 50MG TABLET 50 MG PO (08:07)
[2025-02-15 08:44] LABS: Hematocrit 46.6 % (42.0-52.0); Hemoglobin 15.0 g/dL (14.1-18.0); Immature Granulocytes % 0.3 %; Mean Corpuscular HGB Conc 32.2 g/dL (31.8-35.4); Mean Corpuscular Hemoglobin 28.8 pg (27.0-31.2); Mean Corpuscular Volume 89.4 fl (80-94); Nucleated Red Blood Cells % 0 %; Platelet Count 265 K/mm3 (142-424); Red Blood Count 5.21 M/mm3 (4.60-6.20); Red Cell Distribution Width-SD 47.0 fL; White Blood Count 9.7 K/mm3 (4.8-10.8)
[2025-02-15 08:52] LABS: Albumin Level 4.2 g/dl (3.5-5.0); Chloride 101 mmol/L (98-107); Potassium 4.3 mmoL/L (3.5-5.1); Sodium 135 mmol/L (136-145)
[2025-02-15 08:54] LABS: Alanine Aminotransferase 24 U/L (12-78); Aspartate Amino Transferase 36 U/L (17-59); Blood Urea Nitrogen 20 mg/dl (9-20); Creatinine Clearance Estimated 69 mL/min (50-200); Creatinine,Serum 0.80 mg/dl (0.66-1.25); Estimated Glomerular Filt Rate 98 ml/min (>60); GFR (African American) 119 ML/MIN (>60)
[2025-02-15 08:55] LABS: Albumin/Globulin Ratio 1.4 (1.1-1.8); Alkaline Phosphatase 135 U/L (38-126); Anion Gap 14.3 mEq/L (5-15); Bilirubin,Total 0.7 mg/dl (0.2-1.3); Calcium 9.0 mg/dl (8.4-10.2); Carbon Dioxide 24 mmol/L (22.0-30.0); Globulin 3.1 g/dL (1.3-3.2); Glucose 103 mg/dl (74-100); Magnesium 2.1 mg/dl (1.6-2.3); Total Protein,Serum 7.3 g/dl (6.3-8.2)
[2025-02-15 10:25] LABS: Cholesterol 166 mg/dl (140-200); HDL Cholesterol 30 mg/dl (40-60); Triglycerides 121 mg/dl (30-150)
[2025-02-15] MEDS: ASPIRIN EC 81MG TABLET 81 MG PO (10:27)
[2025-02-15 10:56] LABS: Thyroid Stimulating Hormone 5.15 uIU/mL (0.465-4.68)
[2025-02-15] MEDS: FLUTICASONE/UMECLIDIN/VILANTER 100/62.5/25MCG INHALER 1 PUFF IH (11:47)
--- NOTE | 2025-02-15 11:58 | IR_ITS ---
APPROVED REPORT Patient Location: [facility] Supervisor: YUE Rodrigez RT (R) PROCEDURES Left heart catheterization Left ventriculogram Selective coronary angiogram INDICATION Acute coronary syndrome, LV dysfunction Informed consent was obtained prior to the procedure. COMPLICATIONS NONE Estimated Blood Loss: LESS THAN 10 ML TECHNIQUE One percent lidocaine used to anesthetize the right anterior aspect of the wrist. The right radial artery was accessed via the Seldinger technique. A 6 Polish sheath was placed in the right radial artery. 2.5 mg of Verapamil, 800 mcg of nitroglycerin, 1mg Lidocaine and 5000 U Heparin were given through the arterial sheath. The JL3 catheter was also used to perform left heart catheterization, left ventriculogram and selective coronary angiogram. At the end of the procedure the sheath was removed good hemostasis was achieved using Traclet band, patient was transferred to the postop holding area in stable condition. ANGIOGRAPHIC RESULTS The left main artery Normal The left anterior descending artery Has a stent in the proximal to mid segment which is widely patent with excellent proximal distal transitioning. A large first diagonal artery originates within the stent and has a long concentric 60% stenosis. This appears to be in-stent restenosis The circumflex artery Nondominant with proximal 20% and mid vessel 30% stenosis The right coronary artery Large dominant highly tortuous through the mid and distal segment with diffuse 40% calcified concentric stenosis The TAPIA ventriculogram reveals Dilated ventricle hypokinetic ejection fraction estimated at 30% The left ventricular end-diastolic pressure 25 mmHg IMPRESSION Coronary artery disease as described above Reduced ejection fraction Elevated LVEDP PLAN 1. Recommend medical management for systolic heart failure and coronary artery disease 2. Recommend higher dose of beta-erin for presumed AVNRT 3. Risk factor modification Electronically signed by : Missael Perez MD 02/15/2025 17:10:04
--- NOTE | 2025-02-15 13:08 | EXP.CARD.CON ---
History of Present Illness History of Present Illness Consult date: 02/15/25 Requesting physician: Shayan Mckeon Chief complaint: Shortness of air and weakness History of present illness: This is a 64-year-old gentleman who presented to the hospital with complaints of shortness of breath that has been going on the last several months but significantly worsened in the last 2 days leading up to his presentation. He also had palpitations and racing of the heart. He felt tightness in the substernal aspect of his chest. His symptoms were worse with exertion and did improve with rest. The patient has not taken any of his medications for more than a year and he has not seen cardiology in probably close to 4 years. Upon arrival the patient was found to be in SVT and was treated with IV and oral metoprolol. The patient is now in sinus rhythm with a rate in the 70s and 80s. He has been having chest pain for approximately a month as well as shortness of breath. He has known coronary artery disease with stenting in 2020. He denies any fever, chills, nausea, vomiting, diarrhea, PND orthopnea [facility] Disclaimer: The information contained in this section may have been updated after the patient was seen, as this information can be updated by other users. Medical History (Updated 02/15/25 @ 13:12 by Marie Smith APRN) Angina pectoris SVT (supraventricular tachycardia) Abnormal echocardiogram History of pacemaker Presence of permanent cardiac pacemaker Tachy-liz syndrome GI bleed Typical angina Diarrhea Rectal bleeding Dyspnea Dyspnea on exertion Atrial fibrillation SOB (shortness of breath) on exertion Atypical chest pain Edema Bradycardia Ischemic cardiomyopathy Hypertension COPD (chronic obstructive pulmonary disease) History of back pain Hyperlipidemia Hypertension Transaminitis Prolonged Q-T interval on ECG Hypokalemia COPD (chronic obstructive pulmonary disease) Unstable angina pectoris Severe malnutrition Heartburn Blood per rectum Anemia Lymph node enlargement HLD (hyperlipidemia) Arm numbness Atrial flutter Narrow complex tachycardia CAD (coronary artery disease) Habitual drug user Family history of congestive heart failure Cigarette smoker Essential hypertension Atrial fibrillation with rapid ventricular response Acute systolic (congestive) heart failure Paroxysmal A-fib Peripheral edema Congestive heart failure Family History Family history of cancer Family history of hypertension Family history of myocardial infarction Family history of hyperlipidemia Social History (Updated 02/14/25 @ 18:50 by Charo Carrillo RN) Smoking Status: Current every day smoker tobacco type: cigarettes packs per day: 1 second hand exposure: Yes alcohol intake: never substance use type: marijuana and other current occupational status: employed Travel in the last 8 weeks?: None household members: significant other housing: house current occupation: [employer]: Yes Have you lived/traveled outside [place] in past 30 days?: No Contact w/someone who lives/traveled outside US past 30 days?: No Exposure to someone with infectious disease in past 14 days?: No Do you have a fever (greater than 100.4 F or 38 C)?: No Have you tested positive for COVID-19?: No Exposed to someone with COVID-19 in past 14 days?: No Do you have a sore throat?: No Do you have a cough?: No Do you have any weakness?: No Are you experiencing any nausea/vomitting?: No Do you have any diarrhea?: No Are you experiencing any unusual bleeding?: No Do you have any muscle aches/pain?: No Do you have any abdominal pain?: No Are you experiencing loss of taste or smell?: No Review of Systems Review of Systems Review of systems:: pertinent systems reviewed and negative unless documented below Constitutional Constitutional: Reports system reviewed and no additional complaints, except as documented Eyes Eyes: Reports system reviewed and no additional complaints, except as documented ENT Ears, Nose, Mouth, and Throat: Reports system reviewed and no additional complaints, except as documented *Cardiovascular Cardiovascular: Reports system reviewed and no additional complaints, except as documented, Reports chest pain, Reports chest pain at rest, Reports chest pain with activity, Reports dyspnea, Reports dyspnea on exertion, Reports palpitations and Reports rapid heart rate *Respiratory Respiratory: Reports system reviewed and no additional complaints, except as documented, Reports dyspnea and Reports dyspnea on exertion *Gastrointestinal Gastrointestinal: Reports system reviewed and no additional complaints, except as documented *Genitourinary Genitourinary: Reports system reviewed and no additional complaints, except as documented *Musculoskeletal Musculoskeletal: Reports system reviewed and no additional complaints, except as documented Integumentary/Breasts Skin/Breast: Reports system reviewed and no additional complaints, except as documented *Neurologic Neurologic: Reports system reviewed and no additional complaints, except as documented Psychiatric Psychiatric: Reports system reviewed and no additional complaints, except as documented Endocrine Endocrine: Reports system reviewed and no additional complaints, except as documented and Reports palpitations Hematologic/Lymphatic Hematologic/Lymphatic: Reports system reviewed and no additional complaints, except as documented Allergic/Immunologic Allergic/Immunologic: Reports system reviewed and no additional complaints, except as documented Exam Data for Last 24 hours Vital signs and Labs for Last 24 Hours: Temp Pulse Resp BP Pulse Ox O2 Del Method O2 Flow Rate 97.7 F 76 15 143/97 H 95 Room Air 2 02/15/25 11:13 02/15/25 11:48 02/15/25 11:13 02/15/25 11:13 02/15/25 11:48 02/15/25 13:00 02/14/25 20:00 Laboratory Results - last 24 hr 02/14/25 11:58: Phosphorus 4.0, Magnesium 2.0, Troponin I < 0.01 02/14/25 15:00: Troponin I 0.02 02/14/25 18:17: Troponin I < 0.01 02/15/25 08:27: WBC 9.7, RBC 5.21, Hgb 15.0, Hct 46.6, MCV 89.4, MCH 28.8, MCHC 32.2, RDW 14.3, Plt Count 265, MPV 11.1 H, Neut % (Auto) 60.9, Lymph % (Auto) 26.6, [place] % (Auto) 6.2, Eos % (Auto) 4.4, Baso % (Auto) 1.6, Neut # (Auto) 5.9, Lymph # (Auto) 2.6, [place] # (Auto) 0.6, Eos # (Auto) 0.4, Baso # (Auto) 0.2, Sodium 135 L, Potassium 4.3, Chloride 101, Carbon Dioxide 24, Anion Gap 14.3, BUN 20 D, Creatinine 0.80, Estimated Creat Clear 69, Estimated GFR 98, Est GFR ( Amer) 119, Glucose 103 H, Calcium 9.0, Magnesium 2.1, Total Bilirubin 0.7, AST 36, ALT 24, Alkaline Phosphatase 135 H, Total Protein 7.3, Albumin 4.2 D, Globulin 3.1, Albumin/Globulin Ratio 1.4, Triglycerides 121, Cholesterol 166, LDL Cholesterol Direct 132.10 H, VLDL Cholesterol 24, HDL Cholesterol 30 L, Cholesterol/HDL Ratio 5.5 H, TSH 5.15 H I & O for Last 24 hours: Intake & Output 02/12/25 02/13/25 02/14/25 02/15/25 23:59 23:59 23:59 23:59 Intake Total 500 / 500 240 / 240 Output Total 250 / 250 0 / 0 Balance 250 / 250 240 / 240 Weight 140 lb 140 lb 3.2 oz Constitutional Constitutional: no acute distress and average body habitus *Routine HEENT Exam Head: Present normocephalic and atraumatic ENT: Present mucous membranes moist *Routine Neck Exam Neck: Present supple, full ROM and normal carotid upstroke; Absent JVD, carotid bruit or lymphadenopathy *Routine Respiratory Exam Respiratory: Present CTA bilaterally, normal respiratory effort, able to speak in complete sentences and symmetric chest movement *Routine Cardiovascular Exam Cardiovascular: Present RRR, Normal S1 and Normal S2; Absent murmur or gallop *Routine Abdominal Exam Abdominal: Present soft and normoactive bowel sounds; Absent tenderness, distended or organomegaly *Routine Extremities Exam Extremities: Present full ROM, pulses intact and normal capillary refill; Absent cyanosis, clubbing or edema *Routine Skin Exam Skin: Present intact and warm; Absent erythema *Routine Neurological Exam Neurological: Present alert, oriented X3 and CN II-XII intact; Absent sensory deficit or motor deficit Routine Psychiatric Exam Psychiatric: Present normal affect Meds Home Medications and Allergies Home Medications ?Medication ?Instructions ?Recorded ?Confirmed ?Type No Known Home Medications 02/15/25 02/15/25 History New Prescriptions to Start Prescriptions: Allergies Allergy/AdvReac Type Severity Reaction Status Date / Time gluten Allergy Intermediate Verified 05/01/23 10:24 Assessment and Plan *Assessment and plan (1) Abnormal echocardiogram: Status: Acute Category: Medical Code(s): R93.1 - Abnormal findings on diagnostic imaging of heart and coronary circulation (2) Angina pectoris: Status: Acute Category: Medical Code(s): I20.9 - Angina pectoris, unspecified (3) SVT (supraventricular tachycardia): Status: Acute Category: Medical Code(s): I47.10 - Supraventricular tachycardia, unspecified (4) CAD (coronary artery disease): Status: Acute Qualifiers: Coronary Disease-Associated Artery/Lesion type: [place] artery [place] vs. transplanted heart: [place] heart Associated angina: with unstable angina Qualified Code(s): I25.110 - Atherosclerotic heart disease of [place] coronary artery with unstable angina pectoris Category: Medical Code(s): I25.10 - Atherosclerotic heart disease of [place] coronary artery without angina pectoris (5) COPD (chronic obstructive pulmonary disease): Status: Acute Qualifiers: COPD type: unspecified COPD Qualified Code(s): J44.9 - Chronic obstructive pulmonary disease, unspecified Category: Medical Code(s): J44.9 - Chronic obstructive pulmonary disease, unspecified (6) Hyperlipidemia: Status: Acute Qualifiers: Hyperlipidemia type: unspecified Qualified Code(s): E78.5 - Hyperlipidemia, unspecified Category: Medical Code(s): E78.5 - Hyperlipidemia, unspecified (7) Tobacco use disorder: Status: Chronic Category: Medical Code(s): F17.200 - Nicotine dependence, unspecified, uncomplicated (8) Acute anemia: Status: Acute Category: Medical Code(s): D64.9 - Anemia, unspecified Plan Plan: 1. The patient was admitted to the hospital after being found to be in SVT. He was treated with IV metoprolol and oral metoprolol and is now in sinus rhythm. 2. The patient does have an abnormal echocardiogram showing ejection fraction of 50% with anterolateral wall motion abnormalities. 3. The patient has been having angina that has been progressively worsening for the last month. Due to his angina, abnormal echocardiogram and known CAD will plan to proceed with left cardiac catheterization today to evaluate his coronary artery disease. 4. The patient has been educated on the risks and benefits of proceeding with left cardiac catheterization. The patient verbalized understanding and is agreeable in proceeding with the procedure. 5. The patient will be n.p.o. in preparation for left cardiac catheterization. 6. His blood pressure is well-controlled. Continue metoprolol. 7. His LDL goal is less than 55. His LDL is 132. Will start him on Lipitor 40 mg p.o. nightly. 8. Further recommendations were made pending the patient's response to treatment and the results of of his left cardiac catheterization today. Thank you for the opportunity to help participate in the care of this patient. All recommendations and orders are per Dr. Miguel.
--- NOTE | 2025-02-15 16:15 | P.PN_ITS ---
Subjective *Date: 02/15/25 *Time: 16:15 Interval history: Patient feeling much better this morning. Heart rate improved. Shortness of breath improving. On room air. EF shows low normal on echo however which is a change from previous. Discussed case cardiology, recommending heart cath Medical Exam Vital signs and Labs for Last 24 Hours: Vital Signs Temp Pulse Pulse Resp BP BP Pulse Ox 02/15/25 15:00 02/15/25 13:00 02/15/25 12:19 80 02/15/25 11:48 76 02/15/25 11:48 75 02/15/25 11:48 95 02/15/25 11:13 97.7 F 74 15 143/97 H 94 L 02/15/25 11:00 02/15/25 08:13 80 02/15/25 08:11 02/15/25 08:00 97.7 F 87 16 139/94 H 91 L 02/15/25 08:00 02/15/25 06:43 02/15/25 05:00 02/15/25 04:00 85 02/15/25 04:00 97.8 F 75 18 152/75 H 99 02/15/25 03:00 02/15/25 01:00 02/15/25 00:52 71 02/15/25 00:00 75 02/15/25 00:00 97.6 F 131 H 16 106/76 L 97 02/14/25 23:00 02/14/25 21:00 02/14/25 20:00 70 02/14/25 20:00 02/14/25 20:00 98 F 73 18 170/92 H 100 02/14/25 19:00 02/14/25 17:50 02/14/25 17:50 97.7 F 77 16 158/97 H 99 02/14/25 17:37 98.2 F 78 20 189/87 H 02/14/25 17:10 74 16 159/103 H 98 02/14/25 16:30 63 13 181/151 H 99 02/14/25 16:22 16 182/117 H O2 Del Method O2 Flow Rate 02/15/25 15:00 Room Air 02/15/25 13:00 Room Air 02/15/25 12:19 02/15/25 11:48 02/15/25 11:48 02/15/25 11:48 Room Air 02/15/25 11:13 Room Air 02/15/25 11:00 Room Air 02/15/25 08:13 02/15/25 08:11 Room Air 02/15/25 08:00 Room Air 02/15/25 08:00 Room Air 02/15/25 06:43 Room Air 02/15/25 05:00 Room Air 02/15/25 04:00 02/15/25 04:00 Room Air 02/15/25 03:00 Room Air 02/15/25 01:00 Room Air 02/15/25 00:52 02/15/25 00:00 02/15/25 00:00 Room Air 02/14/25 23:00 Room Air 02/14/25 21:00 Room Air 02/14/25 20:00 02/14/25 20:00 Room Air 02/14/25 20:00 Nasal Cannula 2 02/14/25 19:00 Nasal Cannula 02/14/25 17:50 Nasal Cannula 2 02/14/25 17:50 Nasal Cannula 2 02/14/25 17:37 Room Air 02/14/25 17:10 02/14/25 16:30 02/14/25 16:22 Intake and Output 02/15/25 02/15/25 02/15/25 07:59 15:59 23:59 Intake Total 240 / 240 Output Total 0 / 0 0 / 0 Balance 0 / 240 240 / 240 Intake: Intake, Oral Amount 240 / 240 Output: Output, Urine Amount 0 / 0 0 / 0 Other: Number of Unmeasured Voids 1 1 Weight 63.594 kg Patient Weight 02/15/25 23:59 Weight 63.594 kg Laboratory Results - last 24 hr 02/14/25 18:17: Troponin I < 0.01 02/15/25 08:27: WBC 9.7, RBC 5.21, Hgb 15.0, Hct 46.6, MCV 89.4, MCH 28.8, MCHC 32.2, RDW 14.3, Plt Count 265, MPV 11.1 H, Neut % (Auto) 60.9, Lymph % (Auto) 26.6, [place] % (Auto) 6.2, Eos % (Auto) 4.4, Baso % (Auto) 1.6, Neut # (Auto) 5.9, Lymph # (Auto) 2.6, [place] # (Auto) 0.6, Eos # (Auto) 0.4, Baso # (Auto) 0.2, Sodium 135 L, Potassium 4.3, Chloride 101, Carbon Dioxide 24, Anion Gap 14.3, B UN 20 D, Creatinine 0.80, Estimated Creat Clear 69, Estimated GFR 98, Est GFR ( Amer) 119, Glucose 103 H, Calcium 9.0, Magnesium 2.1, Total Bilirubin 0.7, AST 36, ALT 24, Alkaline Phosphatase 135 H, Total Protein 7.3, Albumin 4.2 D, Globulin 3.1, Albumin/Globulin Ratio 1.4, Triglycerides 121, Cholesterol 166, LDL Cholesterol Direct 132.10 H, VLDL Cholesterol 24, HDL Cholesterol 30 L, Cholesterol/HDL Ratio 5.5 H, TSH 5.15 H I & O for Labs for Last 24 Hours: Intake & Output 02/12/25 02/13/25 02/14/25 02/15/25 23:59 23:59 23:59 23:59 Intake Total 500 / 500 240 / 240 Output Total 250 / 250 0 / 0 Balance 250 / 250 240 / 240 Weight 63.503 kg 63.594 kg Constitutional: Present no acute distress, cachectic, chronically ill appearing and cooperative Head: Present atraumatic Neck: Present normal inspection Respiratory: Present normal respiratory effort; Absent rhonchi, wheezes or crackles Cardiac: Present Reg Rate and Rhythm Comment:: Pacemaker left upper chest GI: Present soft; Absent distention or tenderness Extremities: Present normal inspection and full ROM Skin: Present intact; Absent erythema Neuro: Present Grossly Intact, alert, awake, oriented x 3 and moves all extremities Assessment and Plan *Assessment and plan (1) Antidromic atrioventricular re-entrant tachycardia (AVRT): Status: Acute Category: Medical Code(s): I47.19 - Other supraventricular tachycardia (2) NYHA Class III cardiovascular function: Status: Acute Category: Medical (3) Atrial fibrillation: Status: Inactive Qualifiers: Atrial fibrillation type: unspecified Qualified Code(s): I48.91 - Unspecified atrial fibrillation Category: Medical Code(s): I48.91 - Unspecified atrial fibrillation (4) CAD (coronary artery disease): Status: Acute Qualifiers: Coronary Disease-Associated Artery/Lesion type: [place] artery [place] vs. transplanted heart: [place] heart Associated angina: with unstable angina Qualified Code(s): I25.110 - Atherosclerotic heart disease of [place] coronary artery with unstable angina pectoris Category: Medical Code(s): I25.10 - Atherosclerotic heart disease of [place] coronary artery without angina pectoris (5) Hyperlipidemia: Status: Acute Qualifiers: Hyperlipidemia type: unspecified Qualified Code(s): E78.5 - Hyperlipidemia, unspecified Category: Medical Code(s): E78.5 - Hyperlipidemia, unspecified (6) COPD (chronic obstructive pulmonary disease): Status: Acute Qualifiers: COPD type: unspecified COPD Qualified Code(s): J44.9 - Chronic obstructive pulmonary disease, unspecified Category: Medical Code(s): J44.9 - Chronic obstructive pulmonary disease, unspecified (7) Presence of permanent cardiac pacemaker: Status: Acute Category: Medical Code(s): Z95.0 - Presence of cardiac pacemaker (8) Tobacco use disorder: Status: Chronic Category: Medical Code(s): F17.200 - Nicotine dependence, unspecified, uncomplicated (9) Abnormal echocardiogram: Status: Acute Category: Medical Code(s): R93.1 - Abnormal findings on diagnostic imaging of heart and coronary circulation Plan 64-year-old male with PMHx CHF, CAD s/p stent, tachy-bradycardia syndrome s/p pacemaker 2 years ago, COPD, hyperlipidemia. He reports he has not been taking any medication in 6 to 12 months. Presents with progressively worsening shortness of breath over the past several months. Most prominent over the past 2 to 3 days. Denies fever but complains of intermittent chest discomfort, shortness of breath, pressure-like sensation. On workup in the ER, found to be in mild distress with arrhythmia (AVRT). Discussed case with ER provider, after initiating on beta-erin, patient remained quite symptomatic with variable tachyarrhythmia. Requested admission for further management. I decided to admit for further medication adjustment, stabilization, cardiology consult. Problems addressed as follows: History of atrial fibrillation and tachybradycardia syndrome with pacemaker in situ AVRT Hypertension HFpEF Hyperlipidemia - EKG obtained in the ER per my review showing arrhythmia and tachycardia. Most consistent with AVRT. -Discussed case cardiology, recommend left heart cath. Echo shows EF of 50% with anterolateral wall motion abnormalities. Will continue to monitor overnight after heart cath pending findings. Anticipate discharge in the morning. -Initiate aspirin 81 mg daily - Continue metoprolol 50 mg twice daily, initiate Lipitor 40 mg nightly. LDL 132, goal less than 55. -Continue Lovenox therapeutically 1 mg/kg SQ twice daily. Consider transitioning to Xarelto after heart cath - Monitor on continuous telemetry - TSH mildly elevated at 5, needs repeat in 4 weeks. repeat CBC, CMP, magnesium ordered for the morning. - Labs showed normal hemoglobin of 15, kidney function normal with BUN 20, creatinine 0.8. History of anemia when previously on blood thinners. Hemoglobin normal at 15 today. History of COPD: Initiate DuoNebs every 6 hours scheduled. Initiate Trelegy 100 inhaler in the morning. Supplemental oxygen as needed for goal sats greater 90%. Wean as tolerated. On room air this morning - Chest x-ray per my review shows hyperinflation but no focal consolidation. No indication for antibiotics with normal white count of 9.7 - Dyspnea multifactorial with the setting of COPD and arrhythmia as above Tobacco use disorder: Initiate nicotine patch daily as needed DVT prophylaxis: Therapeutic Lovenox Regular diet Full code
[2025-02-15] MEDS: HEPARIN 1,000 UNITS/ML 10ML VIAL (CATH LAB) 5000 UNIT IV (16:16)
[2025-02-15] MEDS: NITROGLYCERIN 800MCG/8ML SYR (CATH LAB) 800 MCG IA (16:16)
[2025-02-15] MEDS: LIDOCAINE 1% 10ML MDV 10 ML IJ (16:16)
[2025-02-15] MEDS: 0.9 % SODIUM CHLORIDE 500 ML 25 ML IV (16:16)
[2025-02-15] MEDS: VERAPAMIL 2.5MG/ML 2ML VIAL 2.5 MG IV (16:16)
[2025-02-15] MEDS: HEPARIN 1,000 UNITS/500ML NS (CATH LAB) 3000 UNIT IV (16:16)
[2025-02-15] MEDS: FENTANYL 100MCG/2ML VIAL 50 MCG IV (16:36)
[2025-02-15] MEDS: MIDAZOLAM HCL 1MG/ML 5ML VIAL 1 MG IV (16:37)
[2025-02-15] MEDS: METOPROLOL SUCCINATE XL 100MG TABLET 100 MG PO (21:24)
[2025-02-15] MEDS: ATORVASTATIN 40MG TABLET 40 MG PO (21:25)
[2025-02-16] VITALS: BP 135/76; PULSE 75; PULSE 76; RESP 16; TEMP 36.5; O2SAT 98
[2025-02-16 04:00] VITALS: BP 141/91; PULSE 68; RESP 17; TEMP 36.5; O2SAT 100; BMI 14.3
[2025-02-16 04:32] VITALS: PULSE 86
[2025-02-16] MEDS: IPRATROPIUM/ALBUTEROL 3 ML NEB IH (06:34)
[2025-02-16] MEDS: FLUTICASONE/UMECLIDIN/VILANTER 100/62.5/25MCG INHALER 1 PUFF IH (06:34)
[2025-02-16 06:35] VITALS: PULSE 71; O2SAT 95
[2025-02-16 06:45] LABS: Hematocrit 42.7 % (42.0-52.0); Hemoglobin 14.0 g/dL (14.1-18.0); Immature Granulocytes % 0.4 %; Mean Corpuscular HGB Conc 32.8 g/dL (31.8-35.4); Mean Corpuscular Hemoglobin 29.5 pg (27.0-31.2); Mean Corpuscular Volume 89.9 fl (80-94); Nucleated Red Blood Cells % 0 %; Platelet Count 254 K/mm3 (142-424); Red Blood Count 4.75 M/mm3 (4.60-6.20); Red Cell Distribution Width-SD 47.3 fL; White Blood Count 8.0 K/mm3 (4.8-10.8)
[2025-02-16 06:49] LABS: Albumin Level 4.0 g/dl (3.5-5.0); Chloride 99 mmol/L (98-107); Potassium 4.0 mmoL/L (3.5-5.1); Sodium 136 mmol/L (136-145)
[2025-02-16 06:52] LABS: Alanine Aminotransferase 25 U/L (12-78); Albumin/Globulin Ratio 1.3 (1.1-1.8); Alkaline Phosphatase 120 U/L (38-126); Anion Gap 15.0 mEq/L (5-15); Aspartate Amino Transferase 44 U/L (17-59); Bilirubin,Total 0.6 mg/dl (0.2-1.3); Blood Urea Nitrogen 23 mg/dl (9-20); Calcium 8.9 mg/dl (8.4-10.2); Carbon Dioxide 26 mmol/L (22.0-30.0); Creatinine Clearance Estimated 58 mL/min (50-200); Creatinine,Serum 0.90 mg/dl (0.66-1.25); Estimated Glomerular Filt Rate 86 ml/min (>60); GFR (African American) 103 ML/MIN (>60); Globulin 3.1 g/dL (1.3-3.2); Glucose 103 mg/dl (74-100); Total Protein,Serum 7.1 g/dl (6.3-8.2)
[2025-02-16 08:00] VITALS: BP 144/88; PULSE 106; PULSE 90; RESP 17; TEMP 36.5; O2SAT 99
--- NOTE | 2025-02-16 08:37 | EXP.DC.SUM ---
General Admission date:: 02/14/25 Discharge date: 02/16/25 HPI HPI HPI: Mr. Cooley is a 64-year-old male who has not taken any meds for his chronic conditions and almost a year per his report. He presented to the ER with complaint of shortness of breath that has been going on for several months. Worse over the past day or 2 leading to his presentation to the ER. He has been having some chest discomfort, tightness, dyspnea with exertion. Smokes daily. Has a history of COPD and AV pacemaker due to tachybradycardia syndrome. Was last seen approximately 2 years ago per his report after his heart attack. Denies fever, nausea, vomiting, diarrhea. On workup in the ER, he was found to be tachycardic. White count normal at 9.7. Kidney function at baseline with BUN 14, creatinine 0.8. Necessitating oxygen for comfort due to subjective dyspnea. Was initiated on metoprolol but continued to have significant fluctuation in his heart rate. Remains quite symptomatic and weak. Did not feel he could safely discharge home. Medicine was consulted for admission and further management. On my evaluation after arriving to the floor, patient appears in mild distress. Is cachectic. Daughter at bedside helps supplement history. States the patient has not taken great care of himself since the passing of his and has lost at least 20 pounds. She does not recall the last time he went to the doctor. Currently on telemetry, in a flutter versus AVRT. Hospital Course Hospital Course Hospital Course: 64-year-old male with PMHx CHF, CAD s/p stent, tachy-bradycardia syndrome s/p pacemaker 2 years ago, COPD, hyperlipidemia. He reports he has not been taking any medication in 6 to 12 months. Presents with progressively worsening shortness of breath over the past several months. Most prominent over the past 2 to 3 days. Denies fever but complains of intermittent chest discomfort, shortness of breath, pressure-like sensation. On workup in the ER, found to be in mild distress with arrhythmia (AVRT). Discussed case with ER provider, after initiating on beta-erin, patient remained quite symptomatic with variable tachyarrhythmia. Requested admission for further management. I decided to admit for further medication adjustment, stabilization, cardiology consult. Problems addressed as follows: History of atrial fibrillation and tachybradycardia syndrome with pacemaker in situ AVRT Hypertension HFpEF Hyperlipidemia - EKG obtained in the ER per my review showing arrhythmia and tachycardia. Most consistent with AVRT. Discussed case cardiology, recommend left heart cath. Echo shows EF of 50% with anterolateral wall motion abnormalities. Taken for heart left heart cath on 02/15. Did not have any flow-limiting lesions. No stents placed. Continue medical management of his A-fib and heart failure. Will increase metoprolol succinate to 100 mg twice daily for improved rate control. Initiate irbesartan 37.5 mg daily for hypertension. Initiate Lasix 20 mg daily for afterload reduction. Continue Lipitor 40 mg nightly, Eliquis 5 mg twice daily for anticoagulation in the setting of A-fib. Continue aspirin 81 mg daily in the setting of CAD. Follow-up with cardiology in 1 to 2 weeks for further management. - TSH mildly elevated at 5, needs repeat in 4 weeks. repeat CBC, CMP, magnesium ordered for the morning. -Function and cell lines all within normal range. History of anemia when previously on blood thinners. Hemoglobin normal at 15 throughout admission. History of COPD: Initiate DuoNebs every 6 hours scheduled on admission. Able to wean to room air within 24 hours. Initiated on Trelegy 100 inhaler. Shortness of breath improved with improved rate control. Counseled on need to stop smoking. Continue to inhaler at discharge. - Chest x-ray per my review shows hyperinflation but no focal consolidation. No indication for antibiotics with normal white count - Dyspnea multifactorial with the setting of COPD and arrhythmia as above Tobacco use disorder: Initiate nicotine patch daily as needed Total time spent on discharge 32 minutes in counseling, documentation, chart review, and direct care with patient. Exam Data for Last 24 hours Vital signs and Labs for Last 24 Hours: Temp Pulse Resp BP Pulse Ox O2 Del Method O2 Flow Rate 97.7 F 71 17 141/91 H 95 Room Air 2 02/16/25 04:00 02/16/25 06:35 02/16/25 04:00 02/16/25 04:00 02/16/25 06:35 02/16/25 07:52 02/14/25 20:00 Laboratory Results - last 24 hr 02/15/25 08:27: WBC 9.7, RBC 5.21, Hgb 15.0, Hct 46.6, MCV 89.4, MCH 28.8, MCHC 32.2, RDW 14.3, Plt Count 265, MPV 11.1 H, Neut % (Auto) 60.9, Lymph % (Auto) 26.6, [place] % (Auto) 6.2, Eos % (Auto) 4.4, Baso % (Auto) 1.6, Neut # (Auto) 5.9, Lymph # (Auto) 2.6, [place] # (Auto) 0.6, Eos # (Auto) 0.4, Baso # (Auto) 0.2, Sodium 135 L, Potassium 4.3, Chloride 101, Carbon Dioxide 24, Anion Gap 14.3, BUN 20 D, Creatinine 0.80, Estimated Creat Clear 69, Estimated GFR 98, Est GFR ( Amer) 119, Glucose 103 H, Calcium 9.0, Magnesium 2.1, Total Bilirubin 0.7, AST 36, ALT 24, Alkaline Phosphatase 135 H, Total Protein 7.3, Albumin 4.2 D, Globulin 3.1, Albumin/Globulin Ratio 1.4, Triglycerides 121, Cholesterol 166, LDL Cholesterol Direct 132.10 H, VLDL Cholesterol 24, HDL Cholesterol 30 L, Cholesterol/HDL Ratio 5.5 H, TSH 5.15 H 02/16/25 06:30: WBC 8.0, RBC 4.75, Hgb 14.0 L, Hct 42.7, MCV 89.9, MCH 29.5, MCHC 32.8, RDW 14.3, Plt Count 254, MPV 11.0 H, Neut % (Auto) 55.3, Lymph % (Auto) 29.8, [place] % (Auto) 7.4, Eos % (Auto) 5.2, Baso % (Auto) 1.9, Neut # (Auto) 4.4, Lymph # (Auto) 2.4, [place] # (Auto) 0.6, Eos # (Auto) 0.4, Baso # (Auto) 0.2, Sodium 136, Potassium 4.0, Chloride 99, Carbon Dioxide 26, Anion Gap 15.0, BUN 23 H, Creatinine 0.90, Estimated Creat Clear 58, Estimated GFR 86, Est GFR ( Amer) 103, Glucose 103 H, Calcium 8.9, Total Bilirubin 0.6, AST 44, ALT 25, Alkaline Phosphatase 120, Total Protein 7.1, Albumin 4.0, Globulin 3.1, Albumin/Globulin Ratio 1.3 I & O for Last 24 hours: Intake & Output 02/13/25 02/14/25 02/15/25 02/16/25 23:59 23:59 23:59 23:59 Intake Total 500 / 500 240 / 240 Output Total 250 / 250 0 / 250 250 / 250 Balance 250 / 250 240 / -10 -250 / -250 Weight 63.503 kg 63.594 kg 53.161 kg Constitutional Constitutional: no acute distress, cachectic, chronically ill appearing and cooperative *Routine HEENT Exam Head: Present normocephalic Eye: Present EOMI and PERRL ENT: Present mucous membranes moist *Routine Neck Exam Neck: Present supple; Absent lymphadenopathy Routine Chest/Breast/Axilla Exam Chest wall: Present pacemaker *Routine Respiratory Exam Respiratory: Present prolonged expiratory phase; Absent rhonchi, wheezes or crackles *Routine Cardiovascular Exam Cardiovascular: Present irregularly irregular Comments: Rate controlled *Routine Abdominal Exam Abdominal: Present soft and normoactive bowel sounds; Absent tenderness *Routine Rectal Exam Patient deferred: visual exam *Routine Exam Patient deferred: penile exam *Routine Extremities Exam Extremities: Absent cyanosis, clubbing or edema *Routine Skin Exam Skin: Present warm; Absent rash *Routine Neurological Exam Neurological: Present alert, oriented X3 and moving all extremities; Absent altered mental status Results Data Completed and Pending Labs on day of discharge: Labs from last 24 hours 02/16/25 02/15/25 06:30 08:27 WBC 8.0 9.7 RBC 4.75 5.21 Hgb 14.0 L 15.0 Hct 42.7 46.6 MCV 89.9 89.4 MCH 29.5 28.8 MCHC 32.8 32.2 RDW 14.3 14.3 Plt Count 254 265 MPV 11.0 H 11.1 H Neut % (Auto) 55.3 60.9 Lymph % (Auto) 29.8 26.6 [place] % (Auto) 7.4 6.2 Eos % (Auto) 5.2 4.4 Baso % (Auto) 1.9 1.6 Neut # (Auto) 4.4 5.9 Lymph # (Auto) 2.4 2.6 [place] # (Auto) 0.6 0.6 Eos # (Auto) 0.4 0.4 Baso # (Auto) 0.2 0.2 Sodium 136 135 L Potassium 4.0 4.3 Chloride 99 101 Carbon Dioxide 26 24 Anion Gap 15.0 14.3 BUN 23 H 20 D Creatinine 0.90 0.80 Estimated Creat Clear 58 69 Estimated GFR 86 98 Est GFR ( Amer) 103 119 Glucose 103 H 103 H Calcium 8.9 9.0 Magnesium 2.1 Total Bilirubin 0.6 0.7 AST 44 36 ALT 25 24 Alkaline Phosphatase 120 135 H Total Protein 7.1 7.3 Albumin 4.0 4.2 D Globulin 3.1 3.1 Albumin/Globulin Ratio 1.3 1.4 Triglycerides 121 Cholesterol 166 LDL Cholesterol Direct 132.10 H VLDL Cholesterol 24 HDL Cholesterol 30 L Cholesterol/HDL Ratio 5.5 H TSH 5.15 H DS: Diagnosis Discharge Diagnosis (1) Antidromic atrioventricular re-entrant tachycardia (AVRT): Status: Acute Code(s): I47.19 - Other supraventricular tachycardia (2) NYHA Class III cardiovascular function: Status: Acute (3) Atrial fibrillation: Status: Inactive Code(s): I48.91 - Unspecified atrial fibrillation Qualifiers: Atrial fibrillation type: unspecified Qualified Code(s): I48.91 - Unspecified atrial fibrillation (4) CAD (coronary artery disease): Status: Acute Code(s): I25.10 - Atherosclerotic heart disease of [place] coronary artery without angina pectoris Qualifiers: Associated angina: with unstable angina Coronary Disease-Associated Artery/Lesion type: [place] artery [place] vs. transplanted heart: [place] heart Qualified Code(s): I25.110 - Atherosclerotic heart disease of [place] coronary artery with unstable angina pectoris (5) Hyperlipidemia: Status: Acute Code(s): E78.5 - Hyperlipidemia, unspecified Qualifiers: Hyperlipidemia type: unspecified Qualified Code(s): E78.5 - Hyperlipidemia, unspecified (6) COPD (chronic obstructive pulmonary disease): Status: Acute Code(s): J44.9 - Chronic obstructive pulmonary disease, unspecified Qualifiers: COPD type: unspecified COPD Qualified Code(s): J44.9 - Chronic obstructive pulmonary disease, unspecified (7) Presence of permanent cardiac pacemaker: Status: Acute Code(s): Z95.0 - Presence of cardiac pacemaker (8) Tobacco use disorder: Status: Chronic Code(s): F17.200 - Nicotine dependence, unspecified, uncomplicated (9) Abnormal echocardiogram: Status: Acute Code(s): R93.1 - Abnormal findings on diagnostic imaging of heart and coronary circulation Meds Home Medications and Allergies Home Medications ?Medication ?Instructions ?Recorded ?Confirmed ?Type apixaban 5 mg tablet (Eliquis) 5 mg PO BID 30 days #60 tabs 02/16/25 Rx atorvastatin 40 mg tablet 40 mg PO HS 30 days #30 tabs 02/16/25 Rx fluticasone fur. 100 mcg-umeclid 1 inh inhalation DAILY 30 days #60 02/16/25 Rx 62.5 mcg-vilant 25 mcg ea inhalat.powder (Trelegy Ellipta) furosemide 20 mg tablet (Lasix) 20 mg PO DAILY #30 tabs 02/16/25 Rx irbesartan 75 mg tablet 37.5 mg (1/2 x 75 mg) PO DAILY 30 02/16/25 Rx days #15 tabs metoprolol succinate 100 mg 100 mg PO BID 30 days #60 tabs 02/16/25 Rx tablet,extended release 24 hr New Prescriptions to Start Prescriptions: apixaban [Eliquis] Mike,Shayan atorvastatin Mike,Shayan [id number] [Trelegy Ellipta] Mike,Shayan furosemide [Lasix] Mike,Shayan irbesartan Mike,Shayan metoprolol succinate Shayan Mckeon Allergies Allergy/AdvReac Type Severity Reaction Status Date / Time gluten Allergy Intermediate Verified 05/01/23 10:24 Discharge Plan Disposition Patient Disposition: Home, Self-Care Condition: Fair Follow up Plan Follow up with: Marie Smith APRN [Nurse Practitioner, Cardiology] - 02/23/25 11:00 am Rosalind Arrington APRN [Nurse Practitioner, Medical] - 02/22/25 9:15 am Prescriptions/Medication Reconciliation: New atorvastatin 40 mg Tablet 40 mg PO HS 30 Days Qty: 30 0RF Trelegy Ellipta 100-62.5-25 mcg Blister With Device 1 inh inhalation DAILY 30 Days Qty: 60 0RF metoprolol succinate 100 mg Tablet Extended Release 24 Hr 100 mg PO BID 30 Days Qty: 60 0RF irbesartan 75 mg Tablet 37.5 mg PO DAILY 30 Days Qty: 15 0RF Eliquis 5 mg Tablet 5 mg PO BID 30 Days Qty: 60 0RF furosemide [Lasix] 20 mg tablet 20 mg PO DAILY Qty: 30 0RF Problem Reconciliation Problems Reviewed?: Yes Patient Discharge Instructions ACTIVITY: Continue current activity DIET: continue same diet Patient Instructions: DI for Paroxysmal Supraventricular Tachycardia Print Language: [place] Providers Primary Care Provider: Missael Perez Admit Provider: Shayan Mckeon Attending Provider: Shayan Mckeon
[2025-02-16] MEDS: METOPROLOL SUCCINATE XL 100MG TABLET 100 MG PO (09:10)
[2025-02-16] MEDS: APIXABAN 5MG TABLET 5 MG PO (09:10)
[2025-02-16] MEDS: IRBESARTAN 75MG TABLET 37.5 MG PO (09:10)
--- NOTE | 2025-02-16 10:31 | EXP.CARD.PN ---
Subjective Subjective Date: 02/16/25 Time: 08:30 Principal diagnosis: Shortness of air, CAD Interval history: This is a 64-year-old gentleman who presented to the hospital with shortness of breath and racing heart. The patient was found to be in SVT with a elevated heart rate. He was treated with IV and oral beta-erin and his heart rate did improve. He is now in sinus rhythm. He underwent left cardiac catheterization yesterday, and was found to have patent CAD with an elevated LVEDP. This morning he denies any chest pain or pressure. He states his shortness of breath has significantly improved. However, he does report some mild shortness of breath with exertion at times. He denies any fever, chills, nausea, vomiting or diarrhea. Exam Data for Last 24 hours Vital signs and Labs for Last 24 Hours: Temp Pulse Resp BP Pulse Ox O2 Del Method O2 Flow Rate 97.7 F 106 H 17 144/88 H 99 Room Air 2 02/16/25 08:00 02/16/25 08:00 02/16/25 08:00 02/16/25 08:00 02/16/25 08:00 02/16/25 08:00 02/14/25 20:00 Laboratory Results - last 24 hr 02/15/25 08:27: LDL Cholesterol Direct 132.10 H, TSH 5.15 H 02/16/25 06:30: WBC 8.0, RBC 4.75, Hgb 14.0 L, Hct 42.7, MCV 89.9, MCH 29.5, MCHC 32.8, RDW 14.3, Plt Count 254, MPV 11.0 H, Neut % (Auto) 55.3, Lymph % (Auto) 29.8, Carroll % (Auto) 7.4, Eos % (Auto) 5.2, Baso % (Auto) 1.9, Neut # (Auto) 4.4, Lymph # (Auto) 2.4, Carroll # (Auto) 0.6, Eos # (Auto) 0.4, Baso # (Auto) 0.2, Sodium 136, Potassium 4.0, Chloride 99, Carbon Dioxide 26, Anion Gap 15.0, BUN 23 H, Creatinine 0.90, Estimated Creat Clear 58, Estimated GFR 86, Est GFR ( Amer) 103, Glucose 103 H, Calcium 8.9, Total Bilirubin 0.6, AST 44, ALT 25, Alkaline Phosphatase 120, Total Protein 7.1, Albumin 4.0, Globulin 3.1, Albumin/Globulin Ratio 1.3 I & O for Last 24 hours: Intake & Output 02/13/25 02/14/25 02/15/25 02/16/25 23:59 23:59 23:59 23:59 Intake Total 500 / 500 240 / 240 Output Total 250 / 250 0 / 250 250 / 250 Balance 250 / 250 240 / -10 -250 / -250 Weight 140 lb 140 lb 3.2 oz 117 lb 3.2 oz Constitutional Constitutional: no acute distress and average body habitus *Routine HEENT Exam Head: Present normocephalic and atraumatic ENT: Present mucous membranes moist *Routine Neck Exam Neck: Present supple, full ROM and normal carotid upstroke; Absent JVD, carotid bruit or lymphadenopathy *Routine Respiratory Exam Respiratory: Present CTA bilaterally, normal respiratory effort, able to speak in complete sentences and symmetric chest movement *Routine Cardiovascular Exam Cardiovascular: Present RRR, Normal S1 and Normal S2; Absent murmur or gallop *Routine Abdominal Exam Abdominal: Present soft and normoactive bowel sounds; Absent tenderness, distended or organomegaly *Routine Extremities Exam Extremities: Present full ROM, pulses intact and normal capillary refill; Absent cyanosis, clubbing or edema *Routine Skin Exam Skin: Present intact and warm; Absent erythema *Routine Neurological Exam Neurological: Present alert, oriented X3 and CN II-XII intact; Absent sensory deficit or motor deficit Routine Psychiatric Exam Psychiatric: Present normal affect Progress Note: A&P Assessment and plan (1) Antidromic atrioventricular re-entrant tachycardia (AVRT): Status: Acute (2) Atrial fibrillation: Status: Inactive (3) CAD (coronary artery disease): Status: Acute (4) Hyperlipidemia: Status: Acute (5) COPD (chronic obstructive pulmonary disease): Status: Acute (6) Presence of permanent cardiac pacemaker: Status: Acute (7) Tobacco use disorder: Status: Chronic (8) Abnormal echocardiogram: Status: Acute Assessment and Plan Assessment and Plan for All Diagnoses:: Plan: 1. The patient was admitted to the hospital after being found to be in SVT. He was treated with IV metoprolol and oral metoprolol and is now in sinus rhythm. Continue Toprol 100 mg twice daily. 2. The patient does have an abnormal echocardiogram showing ejection fraction of 50% with anterolateral wall motion abnormalities. 3. The patient underwent left cardiac catheterization yesterday and was found to have patent CAD. He did have an elevated LVEDP. 4. Start Lasix 20 mg daily for diuresis due to elevated LVEDP 5. CAD is stable. Recommend aspirin 81 mg daily. 6. His blood pressure is well-controlled. Continue metoprolol. 7. His LDL goal is less than 55. His LDL is 132. On a statin. 8. The patient also had questionable AVRT. He has been started on Eliquis for anticoagulation. 9. No further recommendations at this time from a cardiac standpoint. The patient can follow-up in cardiology clinic in 1 to 2 weeks on an outpatient basis. The patient can be discharged on the following cardiac medications: Aspirin 81 mg daily Eliquis 5 mg twice daily Atorvastatin 40 mg p.o. nightly Lasix 20 mg daily Irbesartan 37.5 mg daily Toprol XL 100 mg twice daily Thank you for the opportunity to help participate in the care of this patient. All recommendations and orders are per Dr. Miguel.
--- NOTE | 2025-02-17 09:24 | CARE MANAGER ---
Unable to reach patient via phone to discuss recent discharge, left thierry TOVAR.
== END 2025-02-16 10:18 | disposition home or self-care (01) ==
LOC: ER 17:03 → 2ND 17:27
PROVIDERS: Physician Assistant; Admitting Provider Internal Medicine Adolescent Medicine; Emergency Provider Emergency Medicine; PCP Internal Medicine; Visit Provider Internal Medicine Adolescent Medicine
PROC: 4A023N7 Measurement of Cardiac Sampling and Pressure, Left Heart, Percutaneous Approach (ICD-10-PCS; CPT 93452; principal; 2025-02-15 14:45)
DX: I47.19 Other supraventricular tachycardia (principal); I11.0 Hypertensive heart disease with heart failure; I50.30 Unspecified diastolic (congestive) heart failure; I48.91 Unspecified atrial fibrillation; I25.110 Atherosclerotic heart disease of native coronary artery with unstable angina pectoris; E78.5 Hyperlipidemia, unspecified; J44.9 Chronic obstructive pulmonary disease, unspecified; Z95.0 Presence of cardiac pacemaker; F17.210 Nicotine dependence, cigarettes, uncomplicated; R93.1 Abnormal findings on diagnostic imaging of heart and coronary circulation; J98.11 Atelectasis; D64.9 Anemia, unspecified; Z91.148 Patient's other noncompliance with medication regimen for other reason
CPT/HCPCS: 36415; 71045; 80053; 80061; 83735; 84100; 84443; 84484; 85025; 85378; 93005; 93306; 93458; 94640; 96361; 96372; 96374; 99152; 99285; C1769; C1887; G0378; J0360; J1200; J1644; J1650; J2003; J2250; J2405; J3010; J3360; J7030; J7040; Q9967

== ENCOUNTER 2025-02-22 10:00 | Outpatient (CLI) | payer OTHER, SELFPAY ==
[2025-02-22 16:14] LABS: T4 (Thyroxine) 5.8 ug/dl (5.53-11.0)
[2025-02-22 16:16] LABS: Free T4 (Free Thyroxine) 0.88 ng/dl (0.78-2.19)
[2025-02-22 16:27] LABS: Thyroid Stimulating Hormone 6.58 uIU/mL (0.465-4.68)
--- OUTSIDE RECORDS SUMMARY | 2025-02-22 20:19 | XMS_ITS | Clinical Summary ---
Author Organization [facility] Address [address] [place] [address] Care Team Providers Care Upholstery Department Supervisor Name Role Phone Jose Ramon Anaya MD Primary Care Provider [phone] Family History Medical History Relation Name Comments Cardiac disorder Father Diabetes Father Other cancer Mother Relation Name Status Comments Father Mother Social History Tobacco Use Types Packs/Day Years Used Date Smoking Tobacco: Every Day Alcohol Use Standard Drinks/Week Comments No 0 (1 standard drink = 0.6 oz pur e alcohol) Sex and Gender Information Value Date Recorded Sex Assigned at Not on file Legal Sex Male 7:53 PM EDT Gender Identity Not on file Sexual Orientation Not on file Last Filed Vital Signs Vital Sign Reading Time Taken Comments Blood Pressure - - Pulse - - Temperature - - Respiratory Rate - - Oxygen Saturation - - Inhaled Oxygen Concentration - - Weight 67.5 kg (148 lb 13 oz) 12/26/2014 9:15 AM EDT Height 182.9 cm (6') 12/26/2014 9:15 AM EDT Body Mass Index 20.18 12/26/2014 9:15 AM EDT Plan of Treatment Health Maintenance Due Date Last Done Comments [facility]-Depression Screening 1960 [facility]-Infant/Child/Adol SDOH Screenings 1960 [facility]- SDOH Screenings 1980 [facility]-Adult SDOH Screenings 1980 [facility]-DTaP,Tdap,and Td Vaccine s (1 - Tdap) 1981 CT Colonography 09/25/2007 Colonoscopy 09/25/2007 FIT-DNA 09/25/2007 FIT 09/25/2007 FOBT 09/25/2007 Sigmoidoscopy 09/25/2007 [facility]-Colorectal Cancer Screening 09/25/2007 [facility]-Pneumococcal Vaccine: 50 + Years (1 of 1 - PCV) 2012 [facility]-Zoster Vaccines (1 of 2) 2012 [id number] Vaccine (1 - 20 25-26 season) 2024 [facility]-Influenza Vaccine (#1) 2024 [facility]-RSV Vaccine: 60+ Years o r (1 - 1-dose 75+ series) 2037 HPV Vaccines (No Doses Required) Completed [facility]-HIB Vaccines Aged Out No longer e ligible based on patient's age to complete this topic [facility]-Hepatitis A Vaccines Aged Out No longer eligible based on patient's age to complete this topic [facility]-IPV Vaccines Aged Out No longer e ligible based on patient's age to complete this topic [facility]-Rotavirus Vaccines Aged Out No lo nger eligible based on patient's age to complete this topic Insurance [id number] MEDICAID Care Teams Upholstery Department Supervisor Relationship Specialty Start Date End Date Jose Ramon Anaya MD [address] [place], [place] [id number] PCP - General 07/20/20
[2025-02-24 12:26] LABS: Triiodothyronine (T3) Free 2.6 pg/mL (2.0-4.4)
== END 2025-02-22 23:59 | disposition home or self-care (01) ==
LOC: LAB.DROPOF 20:15
PROVIDERS: PCP Internal Medicine; Visit Provider Nurse Practitioner Family
DX: R79.89 Other specified abnormal findings of blood chemistry (principal)
CPT/HCPCS: 84436; 84439; 84443; 84481

== ENCOUNTER 2025-02-28 10:19 | Outpatient (CLI) | payer OTHER, SELFPAY ==
--- OUTSIDE RECORDS SUMMARY | 2025-02-28 10:22 | XMS_ITS | Clinical Summary ---
Author Organization [facility] Address [address] [place] [address] Care Team Providers Care Belting Inspector Name Role Phone Jose Ramon Anaya MD Primary Care Provider [phone] Family History Medical History Relation Name Comments [...] 2012 [facility]-Zoster Vaccines (1 of 2) 2012 [id number] Vaccine (1 - 20 25-26 season) 2024 [...] patient's age to complete this topic Insurance [id number] MEDICAID Care Teams Belting Inspector Relationship Specialty Start Date End Date Jose Ramon Anaya MD [address] [place], [place] [id number] PCP - General 07/20/20
== END 2025-02-28 23:59 | disposition home or self-care (01) ==
LOC: RT 10:20
PROVIDERS: Visit Provider Nurse Practitioner Family
DX: I73.9 Peripheral vascular disease, unspecified (principal); R06.09 Other forms of dyspnea; L81.9 Disorder of pigmentation, unspecified